=== PATIENT | female | born 1965 | race Caucasian/White ===

== ENCOUNTER 2016-05-23 07:30 | Emergency (ER) | payer MEDICARE, MEDICAID ==
[2016-05-23 08:46] LABS: APPEARANCE,URINE TURBID; BILIRUBIN,URINE NEGATIVE (NEGATIVE); GLUCOSE, URINE NEGATIVE (NEGATIVE); KETONES,URINE NEGATIVE (NEGATIVE); LEUKOCYTE ESTERASE,URINE LARGE (NEGATIVE); NITRITE,URINE NEGATIVE (NEGATIVE); PROTEIN,URINE 30 mg/dL (NEGATIVE); URINE SPECIFIC GRAVITY 1.024; UROBILINOGEN,URINE NEGATIVE mg/dL (<2.0)
[2016-05-23] MEDS ORDERED: LIDOCAINE 1% INJ-PF (10 MG/ML) 30 ML SDV INFIL ONE (09:48)
[2016-05-23] MEDS ORDERED: AZITHROMYCIN 1 GM SUSP PACKET PO ONE (09:48)
[2016-05-23] MEDS ORDERED: CEFTRIAXONE INJ 1000 MG VIAL IM ONE (09:48)
[2016-05-23] MEDS ORDERED: ONDANSETRON ODT 4 MG TAB (6 TAB/DSPK) PO PRN (09:54)
[2016-05-23] MEDS ORDERED: ONDANSETRON 4 MG TAB.RAPDIS PO ONE (09:54)
[2016-05-23] MEDS ORDERED: METRONIDAZOLE 500 MG TABLET PO ONE (09:54)
--- NOTE | 2016-05-23 10:00 | ER Document Report ---
ED General - General Chief Complaint: Vaginal Itching Stated Complaint: PELVIC PAIN TRAVEL OUTSIDE OF THE [place] IN LAST 30 DAYS: No - HPI Patient complains to provider of: vaginal discharge vaginal itching Notes: Patient coming in for vaginal itching vaginal discharge. Patient states recently was on antibiotics for a urinary tract infection. Patient states a history of breast cancer cervical cancer radiation treatments. Patient states this is all in remission. Patient states she used to see urology for urinary tract infections as that she received multiple abnormal throughout year however urologist recently moved away. Patient denies fevers chills nausea vomiting diarrhea. Patient states she is sexually active with one partner. Patient denies a history of STDs. - Related Data Allergies/Adverse Reactions: adhesive [Adhesive] Allergy (Mild, Verified 05/23/16 07:43) Generalized rash methicillin [Methicillin] Allergy (Mild, Verified 05/23/16 07:43) Generalized rash vancomycin [Vancomycin] Allergy (Mild, Verified 05/23/16 07:43) Generalized rash Past Medical History - General Last Menstrual Period: hysterectomy - Social History Smoking Status: Never Smoker Frequency of alcohol use: Occasional Drug Abuse: None Family History: Arthritis, CAD, DM, Hyperlipidemia, Hypertension, Malignancy Patient has suicidal ideation: No Patient has homicidal ideation: No - Past Medical History Cardiac Medical History: Reports: Hx Atrial Fibrillation, Hx Coronary Artery Disease - HIGH CHOLESTEROL, Hx DVT, Hx Hypercholesterolemia, Hx Hypertension, Hx Pulmonary Embolism Denies: Hx Heart Attack Pulmonary Medical History: Reports: Hx Bronchitis, Hx Pneumonia Denies: Hx Asthma, Hx COPD, Hx Tuberculosis Neurological Medical History: Denies: Hx Cerebrovascular Accident, Hx Seizures Endocrine Medical History: Reports: Hx Diabetes Mellitus Type 2 Renal/ Medical History: Denies: Hx Peritoneal Dialysis Malignancy Medical History: Reports: Hx Breast Cancer, Hx Cervical Cancer GI Medical History: Reports: Hx Gastroesophageal Reflux Disease, Hx Hiatal Hernia, Hx Liver Failure - fatty liver Musculoskeltal Medical History: Reports Hx Arthritis - KNEES/BACK, Reports Hx Fibromyalgia Skin Medical History: Reports Hx Psoriasis Psychiatric Medical History: Reports: Hx Anxiety, Hx Bipolar Disorder, Hx Depression Past Surgical History: Reports: Hx Cholecystectomy, Hx Hysterectomy, Hx Mastectomy, Hx Orthopedic Surgery. Denies: Hx Pacemaker - Immunizations Immunizations up to date: Yes Hx Diphtheria, Pertussis, Tetanus Vaccination: Yes - 01/2014 Hx Pneumococcal Vaccination: 04/23/07 Review of Systems - Review of Systems Constitutional: No symptoms reported EENT: No symptoms reported Cardiovascular: No symptoms reported Respiratory: No symptoms reported Gastrointestinal: No symptoms reported Genitourinary: Other - Vaginal itching vaginal discharge dysuria Female Genitourinary: No symptoms reported Musculoskeletal: No symptoms reported Skin: No symptoms reported Hematologic/Lymphatic: No symptoms reported Neurological/Psychological: No symptoms reported Physical Exam - Vital signs Vitals: Temp Pulse Resp BP Pulse Ox 98.2 F 57 L 20 129/78 H 98 05/23/16 07:35 05/23/16 07:35 05/23/16 07:35 05/23/16 07:35 05/23/16 07:35 Interpretation: Normal - General General appearance: Appears well, Alert - HEENT Head: Normocephalic, Atraumatic Eyes: Normal Pupils: PERRL - Respiratory Respiratory status: No respiratory distress Chest status: Nontender Breath sounds: Normal Chest palpation: Normal - Cardiovascular Rhythm: Regular Heart sounds: Normal auscultation Murmur: No - Abdominal Inspection: Normal Distension: No distension Bowel sounds: Normal Tenderness: Nontender Organomegaly: No organomegaly - Genitourinary External exam: Other - Patient has erythema and satellite lesions of the inner thighs and of the female genitalia consistent with a yeast infection. Speculum exam: Other - Mild vaginal discharge yellow to green - Back Back: Normal, Nontender - Extremities General upper extremity: Normal inspection, Nontender, Normal color, Normal ROM , Normal temperature General lower extremity: Normal inspection, Nontender, Normal color, Normal ROM , Normal temperature, Normal weight bearing. No: Shaheen's sign - Neurological Neuro grossly intact: Yes Cognition: Normal Orientation: AAOx4 Karen Coma Scale Eye Opening: Spontaneous Karen Coma Scale Verbal: Oriented Errol Coma Scale Motor: Obeys Commands Errol Coma Scale Total: 15 Speech: Normal Motor strength normal: LUE, RUE, LLE, RLE Sensory: Normal - Psychological Associated symptoms: Normal affect, Normal mood - Skin Skin Temperature: Warm Skin Moisture: Dry Skin Color: Normal Course - Re-evaluation Re-evalutation: 05/23/16 14:44 Patient's results return positive for trichomonas bacterial vaginosis and a urinary tract infection. Encouraged patient to go ahead and receive treatment for gonorrhea and Chlamydia. Patient received a gram of Rocephin which would treat the patient's gonorrhea and urinary tract infection. Patient was given a gram azithromycin patient was given 2 g of Flagyl for her Trichomonas and bacterial vaginosis. We'll start the patient on antibiotics. Patient urinary cultures were reviewed. Patient was encouraged to abstain from sex for 2 weeks. Patient is to follow-up primary care physician - Vital Signs Vital signs: Temp Pulse Resp BP Pulse Ox 97.7 F 68 15 114/61 97 05/23/16 10:27 05/23/16 10:27 05/23/16 10:27 05/23/16 10:27 05/23/16 10:27 - Laboratory Laboratory results interpreted by me: 05/23/16 08:20 Urine Protein 30 H Urine Blood SMALL H Ur Leukocyte Esterase LARGE H Discharge - Discharge Clinical Impression: Trichomonas infection, Vaginal yeast infection, Bacterial vaginosis UTI (urinary tract infection) Qualifiers: Urinary tract infection type: acute cystitis Hematuria presence: with hematuria Qualified Code(s): N30.01 - Acute cystitis with hematuria Condition: Good Disposition: HOME, SELF-CARE Instructions: Nitrofurantoin ([facility]), Urinary Tract Infection ([facility]), Vaginal Yeast Infection ([facility]), Vaginosis, Bacterial ([facility]), Trichomonas Infection ([facility]), Gonorrhea ([facility]), Chlamydia ([facility]) Additional Instructions: Your examination today's consistent with a vaginal yeast infection. We will prescribe happy hiney cream for treatment. Please use as directed Your vaginal swabs also shows signs of bacterial vaginosis and trichomonas. We will treat this with Flagyl. Please take Flagyl tomorrow morning. Because you have a trichomonas infection is a sexually transmitted disease we will go ahead and treat you for gonorrhea and Chlamydia to as well. We'll treat gonorrhea with Rocephin we'll also treat chlamydia with azithromycin. After reviewing your recent urine culture results I will place you on an antibiotic called Macrobid for urinary tract infection. We will also seen your urine for culture here today. I would highly recommend following up with your primary care physician and/or urologist Please abstain from any sexual intercourse for at least 2 weeks. Because you're on antibiotics I will give you a prescription for Diflucan if you are having vaginal itching and discharge near June 06 or 2 weeks from now he may take the Diflucan. Prescriptions: Fluconazole [Diflucan 100 Mg Tablet] 100 mg PO DAILY #1 tablet Miscellaneous Medication [Happy Hiney Cream] 1 applic TOP ASDIR PRN #60 gm PRN Reason: Nitrofurantoin Monohyd/M-Cryst [Macrobid 100 mg Capsule] 100 mg PO BID #20 capsule Referrals: MAGNOLIA ADLER MD [Primary Care Provider] - Follow up in 3-5 days
[2016-05-23 10:26] LABS: CHLAM PCR NOT DETECTED (NOT DETECT)
[2016-05-23 10:31] VITALS: BP 114/61
== END 2016-05-23 10:25 | disposition home or self-care (01) ==
LOC: ER 07:30
DX: A59.01 Trichomonal vulvovaginitis (principal); B37.3 Candidiasis of vulva and vagina; N30.01 Acute cystitis with hematuria; I10 Essential (primary) hypertension; I25.10 Atherosclerotic heart disease of native coronary artery without angina pectoris; E11.9 Type 2 diabetes mellitus without complications; Z85.3 Personal history of malignant neoplasm of breast; Z85.41 Personal history of malignant neoplasm of cervix uteri; Z92.3 Personal history of irradiation; Z91.048 Other nonmedicinal substance allergy status; Z88.1 Allergy status to other antibiotic agents; Z86.711 Personal history of pulmonary embolism; Z86.718 Personal history of other venous thrombosis and embolism
CPT/HCPCS: 99284; 96372; 87210; 81001; 87491; 87591; A9270 ×4; J3490; J0696; Q0144; S0119

== ENCOUNTER 2016-05-28 14:56 | Emergency (ER) | payer MEDICARE, MEDICAID ==
[2016-05-28] MEDS ORDERED: NORMAL SALINE 1000 ML 1,000 ML IV ONE (15:09)
[2016-05-28] MEDS ORDERED: ONDANSETRON 4 MG TAB.RAPDIS PO ONE (15:10)
--- NOTE | 2016-05-28 15:10 | ER Document Report ---
ED Medical Screen (RME) - General Stated Complaint: VOMITING Mode of Arrival: Ambulatory Information source: Patient Notes: Patient reports nausea, vomiting, diarrhea since yesterday. Patient reports low -grade fever at home today. Patient has vomited 6 times today. Patient has had diarrhea numerous times. Patient complains of generalized abdominal pain. Patient also reports she is currently taking Macrobid for UTI. hx: Protein S deficiency, A. fib, hyperlipidemia diabetes, dyslipidemia I have greeted and performed a rapid initial assessment of this patient. A comprehensive ED assessment and evaluation of the patient, analysis of test results and completion of the medical decision making process will be conducted by additional ED providers. TRAVEL OUTSIDE OF THE [place] IN LAST 30 DAYS: No - Related Data Allergies/Adverse Reactions: adhesive [Adhesive] Allergy (Mild, Verified 05/28/16 15:09) Generalized rash methicillin [Methicillin] Allergy (Mild, Verified 05/28/16 15:09) Generalized rash vancomycin [Vancomycin] Allergy (Mild, Verified 05/28/16 15:09) Generalized rash Past Medical History - Past Medical History Cardiac Medical History: Reports: Hx Atrial Fibrillation, Hx Coronary Artery Disease - HIGH CHOLESTEROL, Hx DVT, Hx Hypercholesterolemia, Hx Hypertension, Hx Pulmonary Embolism Denies: Hx Heart Attack Pulmonary Medical History: Reports: Hx Bronchitis, Hx Pneumonia Denies: Hx Asthma, Hx COPD, Hx Tuberculosis Neurological Medical History: Denies: Hx Cerebrovascular Accident, Hx Seizures Endocrine Medical History: Reports: Hx Diabetes Mellitus Type 2 Renal/ Medical History: Denies: Hx Peritoneal Dialysis Malignancy Medical History: Reports: Hx Breast Cancer, Hx Cervical Cancer GI Medical History: Reports: Hx Gastroesophageal Reflux Disease, Hx Hiatal Hernia, Hx Liver Failure - fatty liver Musculoskeltal Medical History: Reports Hx Arthritis - KNEES/BACK, Reports Hx Fibromyalgia Skin Medical History: Reports Hx Psoriasis Psychiatric Medical History: Reports: Hx Anxiety, Hx Bipolar Disorder, Hx Depression Past Surgical History: Reports: Hx Cholecystectomy, Hx Hysterectomy, Hx Mastectomy, Hx Orthopedic Surgery. Denies: Hx Pacemaker - Immunizations Immunizations up to date: Yes Hx Diphtheria, Pertussis, Tetanus Vaccination: Yes - 01/2014 Physical Exam - Abdominal Tenderness: Tender - Generalized abdomen
[2016-05-28 16:50] LABS: ABSOLUTE EOSINOPHILS # (AUTO) 0.1 10^3/uL (0.0-0.6); ABSOLUTE MONOCYTES (AUTO) 0.4 10^3/uL (0.1-1.4); ABSOLUTE NEUT (AUTO) 4.4 10^3/uL (1.7-8.2); BASOPHILS % (AUTO) 0.4 % (0-2); EOSINOPHILS % (AUTO) 1.6 % (0-6); HEMATOCRIT 43.8 % (36.0-47.0); HEMOGLOBIN 14.4 g/dL (12.0-15.5); HGB HCT DIFFERENCE -0.6; LYMPHOCYTES % (AUTO) 17.3 % (13-45); MEAN CORPUSCULAR HEMOGLOBIN 31.6 pg (27.0-33.4); MEAN CORPUSCULAR HGB CONC 32.9 g/dL (32.0-36.0); MEAN CORPUSCULAR VOLUME 96 fl (80-97); MONOCYTES % (AUTO) 6.3 % (3-13); RED BLOOD COUNT 4.56 10^6/uL (3.72-5.28); RED CELL DISTRIBUTION WIDTH 14.7 % (11.5-14.0); SEGMENTED NEUTROPHILS % (AUTO) 74.4 % (42-78)
[2016-05-28 17:01] LABS: ALANINE AMINOTRANSFERASE 79 U/L (9-52); ALBUMIN 3.1 g/dL (3.5-5.0); ALKALINE PHOSPHATASE 66 U/L (38-126); ANION GAP 9 (5-19); ASPARTATE AMINO TRANSFERASE 78 U/L (14-36); BILIRUBIN,TOTAL 0.8 mg/dL (0.2-1.3); BLOOD UREA NITROGEN 16 mg/dL (7-20); CALCIUM 8.3 mg/dL (8.4-10.2); CARBON DIOXIDE 22 mmol/L (22-30); CHLORIDE 112 mmol/L (98-107); CREATININE RESULT 0.93 mg/dL (0.52-1.25); GLUCOSE 90 mg/dL (75-110); SODIUM 142.5 mmol/L (137-145); TOTAL PROTEIN 6.6 g/dL (6.3-8.2)
--- NOTE | 2016-05-28 17:40 | ER Document Report ---
ED GI/ - General Chief Complaint: Vomiting/Diarrhea Stated Complaint: VOMITING Mode of Arrival: Ambulatory Information source: Patient TRAVEL OUTSIDE OF THE [place] IN LAST 30 DAYS: No - HPI Patient complains to provider of: Diarrhea, Vomiting Onset: Yesterday Timing/Duration: Sudden Quality of pain: Cramping Severity at maximum: Moderate Severity in ED: Moderate Context: Other - [employer]. denies: Bad food, Lifting, Out of the country travel, , Recent trauma Location: [place], [place]Q, Other - [facility] Vaginal bleeding (Compared to normal period): None Menstrual period history: denies: Associated symptoms: Diarrhea, Nausea, Sweaty, Vomiting Exacerbated by: Food Relieved by: Denies Similar symptoms previously: Yes - NOT RECENT Recently seen / treated by doctor: No - Related Data Allergies/Adverse Reactions: adhesive [Adhesive] Allergy (Mild, Verified 05/28/16 15:09) Generalized rash methicillin [Methicillin] Allergy (Mild, Verified 05/28/16 15:09) Generalized rash vancomycin [Vancomycin] Allergy (Mild, Verified 05/28/16 15:09) Generalized rash Past Medical History - General Information source: Patient - Social History Smoking Status: Unknown if Ever Smoked Chew tobacco use (# tins/day): No Frequency of alcohol use: Occasional Drug Abuse: None Lives with: Family Family History: Arthritis, CAD, DM, Hyperlipidemia, Hypertension, Malignancy Patient has suicidal ideation: No Patient has homicidal ideation: No - Past Medical History Cardiac Medical History: Reports: Hx Atrial Fibrillation, Hx Coronary Artery Disease - HIGH CHOLESTEROL, Hx DVT, Hx Hypercholesterolemia, Hx Hypertension, Hx Pulmonary Embolism Denies: Hx Heart Attack Pulmonary Medical History: Reports: Hx Bronchitis, Hx Pneumonia Denies: Hx Asthma, Hx COPD, Hx Tuberculosis Neurological Medical History: Denies: Hx Cerebrovascular Accident, Hx Seizures Endocrine Medical History: Reports: Hx Diabetes Mellitus Type 2 Renal/ Medical History: Denies: Hx Peritoneal Dialysis Malignancy Medical History: Reports: Hx Breast Cancer, Hx Cervical Cancer GI Medical History: Reports: Hx Gastroesophageal Reflux Disease, Hx Hiatal Hernia, Hx Liver Failure - fatty liver Musculoskeltal Medical History: Reports Hx Arthritis - KNEES/BACK, Reports Hx Fibromyalgia Skin Medical History: Reports Hx Psoriasis Psychiatric Medical History: Reports: Hx Anxiety, Hx Bipolar Disorder, Hx Depression Past Surgical History: Reports: Hx Cholecystectomy, Hx Hysterectomy, Hx Mastectomy, Hx Orthopedic Surgery. Denies: Hx Pacemaker - Immunizations Immunizations up to date: Yes Hx Diphtheria, Pertussis, Tetanus Vaccination: Yes - 01/2014 Hx Pneumococcal Vaccination: 04/23/07 Review of Systems - Review of Systems Constitutional: See HPI EENT: No symptoms reported Cardiovascular: No symptoms reported Respiratory: No symptoms reported Gastrointestinal: See HPI Genitourinary: No symptoms reported Female Genitourinary: No symptoms reported Musculoskeletal: See HPI Skin: No symptoms reported Neurological/Psychological: No symptoms reported -: Yes All other systems reviewed and negative Physical Exam - Vital signs Vitals: Temp Pulse Resp BP Pulse Ox 98.8 F 88 16 126/57 H 98 05/28/16 18:42 05/28/16 18:42 05/28/16 18:42 05/28/16 18:42 05/28/16 18:42 Interpretation: Normal. No: Tachycardic, Tachypneic, Febrile - General General appearance: Appears well, Alert In distress: None - HEENT Head: Normocephalic Eyes: Normal Conjunctiva: Normal Ears: Normal Nasal: Normal Mouth/Lips: Normal Mucous membranes: Dry - MILDLY Pharynx: Normal Neck: Normal - Respiratory Respiratory status: No respiratory distress Breath sounds: Normal - Cardiovascular Rhythm: Regular. No: Tachycardia Heart sounds: Normal auscultation Murmur: No - Abdominal Inspection: Obese Bowel sounds: Normal Tenderness: Tender - SLIGHT, GENERALIZED - Extremities General upper extremity: Normal inspection General lower extremity: Normal inspection - Neurological Neuro grossly intact: Yes Cognition: Normal Orientation: AAOx4 - Psychological Associated symptoms: Normal affect, Normal mood - Skin Skin Temperature: Warm Skin Moisture: Dry Skin Color: Normal Skin Turgor: Elastic Course - Re-evaluation Re-evalutation: 05/28/16 21:37 Patient states nausea is minimally improved after Reglan. Still complaining of abdominal pain, although this too is improved. Results of laboratory tests discussed with patient and family. - Vital Signs Vital signs: Temp Pulse Resp BP Pulse Ox 98.8 F 88 16 126/57 H 98 05/28/16 18:42 05/28/16 18:42 05/28/16 18:42 05/28/16 18:42 05/28/16 18:42 - Laboratory Result Diagrams: 05/28/16 16:25 05/28/16 16:25 Laboratory results interpreted by me: 05/28/16 05/28/16 05/28/16 16:25 16:25 17:55 RDW 14.7 H Chloride 112 H Calcium 8.3 L AST 78 H ALT 79 H Albumin 3.1 L Urine Protein 30 H Discharge - Discharge Clinical Impression: Gastroenteritis, Dehydration Condition: Stable Disposition: HOME, SELF-CARE Instructions: Gastroenteritis (adult) ([facility]), Intravenous (IV) Fluids ([facility]), Antinausea Medication ([facility]), Dehydration ([facility]), Clear Liquid Diet ([facility]) Additional Instructions: CLEAR LIQUID DIET UNTIL NAUSEA RESOLVES, THEN GRADUALLY ADVANCE DIET. TAKE PHENERGAN DIRECTED, NEEDED FOR NAUSEA CONTROL. CONTINUE YOUR USUAL MEDS. FOLLOW UP WITH YOUR PRIMARY CARE PROVIDER THIS WEEK, CALL TOMORROW FOR APPOINTMENT. RETURN TO E.R. FOR RE-EVALUATION IF YOU FEEL YOURSELF GETTING WORSE IN ANY WAY. Prescriptions: Promethazine HCl [Phenergan 25 mg Tablet] 25 - 50 mg PO ASDIR PRN #12 tablet PRN Reason: For Nausea/Vomiting Referrals: MAGNOLIA ADLER MD [Primary Care Provider] - Follow up in 3-5 days
[2016-05-28] MEDS ORDERED: METOCLOPRAMIDE HCL INJ/PF 10 MG/2 ML SDV IV ONE (18:50)
[2016-05-28] MEDS ORDERED: DIPHENHYDRAMINE HCL 50 MG/ML VIAL IV ONE (18:50)
[2016-05-28 18:52] LABS: APPEARANCE,URINE CLOUDY; BILIRUBIN,URINE NEGATIVE (NEGATIVE); GLUCOSE, URINE NEGATIVE (NEGATIVE); KETONES,URINE NEGATIVE (NEGATIVE); LEUKOCYTE ESTERASE,URINE NEGATIVE (NEGATIVE); NITRITE,URINE NEGATIVE (NEGATIVE); PROTEIN,URINE 30 mg/dL (NEGATIVE); URINE SPECIFIC GRAVITY 1.036; UROBILINOGEN,URINE NEGATIVE mg/dL (<2.0)
[2016-05-28] MEDS ORDERED: PROMETHAZINE HCL 25 MG TABLET PO ONE ×2 (21:36→23:06)
[2016-05-29 00:58] VITALS: BP 103/59
== END 2016-05-29 00:15 | disposition home or self-care (01) ==
LOC: ER 14:56
DX: E86.0 Dehydration (principal); K52.9 Noninfective gastroenteritis and colitis, unspecified; R11.10 Vomiting, unspecified; R19.7 Diarrhea, unspecified; I48.91 Unspecified atrial fibrillation; I25.10 Atherosclerotic heart disease of native coronary artery without angina pectoris; E78.00 Pure hypercholesterolemia, unspecified; I10 Essential (primary) hypertension; E11.9 Type 2 diabetes mellitus without complications; Z86.711 Personal history of pulmonary embolism; Z85.3 Personal history of malignant neoplasm of breast; Z85.41 Personal history of malignant neoplasm of cervix uteri; Z88.3 Allergy status to other anti-infective agents; Z86.718 Personal history of other venous thrombosis and embolism; Z90.49 Acquired absence of other specified parts of digestive tract; Z90.710 Acquired absence of both cervix and uterus; Z90.10 Acquired absence of unspecified breast and nipple
CPT/HCPCS: 36591; 99284; 96374; 96375; 36415; 87086; 83690; 85025; 80053; 81001; J1200; A9270 ×2; J2765; S0119

== ENCOUNTER → 2016-05-30 | Outpatient (CLI) | payer MEDICARE, MEDICAID | LOC: OD 15:11 | PROVIDERS: ATTEND Physician Assistant | DX: R10.9 Unspecified abdominal pain (principal) | CPT/HCPCS: 74022 ==

== ENCOUNTER → 2016-06-05 | Outpatient (CLI) | payer MEDICARE, MEDICAID | LOC: OD 12:48 | PROVIDERS: ATTEND Family Medicine | DX: K52.9 Noninfective gastroenteritis and colitis, unspecified (principal) | CPT/HCPCS: 74000 ==

== ENCOUNTER 2016-08-10 19:00 | Emergency (ER) | payer MEDICARE, MEDICAID ==
[2016-08-10] MEDS ORDERED: OXYCODONE-ACETAMINOPHEN 5-325 MG TABLET PO ONE (20:41)
[2016-08-10] MEDS ORDERED: ONDANSETRON 4 MG TAB.RAPDIS PO ONE (20:41)
--- NOTE | 2016-08-10 20:41 | ER Document Report ---
ED Medical Screen (RME) - General Chief Complaint: Fall Injury Stated Complaint: FALL/LEFT HAND PAIN Notes: This 51-year-old female patient reports tripping when she left colon ground this evening and landing on her left hand. She injured the hand and the fifth finger. She also had abrasions to the left face. Tetanus status is up-to-date. I have greeted and performed a rapid initial assessment of this patient. A comprehensive ED assessment and evaluation of the patient, analysis of test results and completion of the medical decision making process will be conducted by additional ED providers. TRAVEL OUTSIDE OF THE [place] IN LAST 30 DAYS: No - Related Data Allergies/Adverse Reactions: adhesive [Adhesive] Allergy (Mild, Verified 05/28/16 15:09) Generalized rash methicillin [Methicillin] Allergy (Mild, Verified 05/28/16 15:09) Generalized rash vancomycin [Vancomycin] Allergy (Mild, Verified 05/28/16 15:09) Generalized rash Past Medical History - Past Medical History Cardiac Medical History: Reports: Hx Atrial Fibrillation, Hx Coronary Artery Disease - HIGH CHOLESTEROL, Hx DVT, Hx Hypercholesterolemia, Hx Hypertension, Hx Pulmonary Embolism Denies: Hx Heart Attack Pulmonary Medical History: Reports: Hx Bronchitis, Hx Pneumonia Denies: Hx Asthma, Hx COPD, Hx Tuberculosis Neurological Medical History: Denies: Hx Cerebrovascular Accident, Hx Seizures Endocrine Medical History: Reports: Hx Diabetes Mellitus Type 2 Renal/ Medical History: Denies: Hx Peritoneal Dialysis Malignancy Medical History: Reports: Hx Breast Cancer, Hx Cervical Cancer GI Medical History: Reports: Hx Gastroesophageal Reflux Disease, Hx Hiatal Hernia, Hx Liver Failure - fatty liver Musculoskeltal Medical History: Reports Hx Arthritis - KNEES/BACK, Reports Hx Fibromyalgia Skin Medical History: Reports Hx Psoriasis Psychiatric Medical History: Reports: Hx Anxiety, Hx Bipolar Disorder, Hx Depression Past Surgical History: Reports: Hx Cholecystectomy, Hx Hysterectomy, Hx Mastectomy, Hx Orthopedic Surgery. Denies: Hx Pacemaker - Immunizations Immunizations up to date: Yes Hx Diphtheria, Pertussis, Tetanus Vaccination: Yes - 01/2014
--- NOTE | 2016-08-10 23:02 | ER Document Report ---
ED Fall - General Chief Complaint: Fall Injury Stated Complaint: FALL/LEFT HAND PAIN Time seen by provider: 23:01 Notes: Patient is a 51-year-old female that comes emergency department for chief complaint of pain to her left hand, she states she tripped and fell forward, catching himself on the ground with her left hand, she states she also scraped the left upper part of her face, she states she did not hit her head hard, denies headache, denies neck pain, denies loss of consciousness, denies vomiting. Patient is up-to-date on her tetanus within 5 years reportedly. Patient denies any other areas of pain. Patient denies a blood thinner other than regular aspirin. TRAVEL OUTSIDE OF THE [place] IN LAST 30 DAYS: No - Related data Allergies/Adverse Reactions: adhesive [Adhesive] Allergy (Mild, Verified 08/10/16 21:02) Generalized rash methicillin [Methicillin] Allergy (Mild, Verified 08/10/16 21:02) Generalized rash vancomycin [Vancomycin] Allergy (Mild, Verified 08/10/16 21:02) Generalized rash Past Medical History - General Information source: Patient - Social History Smoking Status: Never Smoker Frequency of alcohol use: None Drug Abuse: None Lives with: Family Family History: Arthritis, CAD, DM, Hyperlipidemia, Hypertension, Malignancy - Past Medical History Cardiac Medical History: Reports: Hx Atrial Fibrillation, Hx Coronary Artery Disease - HIGH CHOLESTEROL, Hx DVT, Hx Hypercholesterolemia, Hx Hypertension, Hx Pulmonary Embolism Denies: Hx Heart Attack Pulmonary Medical History: Reports: Hx Bronchitis, Hx Pneumonia Denies: Hx Asthma, Hx COPD, Hx Tuberculosis Neurological Medical History: Denies: Hx Cerebrovascular Accident, Hx Seizures Endocrine Medical History: Reports: Hx Diabetes Mellitus Type 2 Renal/ Medical History: Denies: Hx Peritoneal Dialysis Malignancy Medical History: Reports: Hx Breast Cancer, Hx Cervical Cancer GI Medical History: Reports: Hx Gastroesophageal Reflux Disease, Hx Hiatal Hernia, Hx Liver Failure - fatty liver Musculoskeltal Medical History: Reports Hx Arthritis - KNEES/BACK, Reports Hx Fibromyalgia Skin Medical History: Reports Hx Psoriasis Psychiatric Medical History: Reports: Hx Anxiety, Hx Bipolar Disorder, Hx Depression Past Surgical History: Reports: Hx Cholecystectomy, Hx Hysterectomy, Hx Mastectomy, Hx Orthopedic Surgery. Denies: Hx Pacemaker - Immunizations Immunizations up to date: Yes Hx Diphtheria, Pertussis, Tetanus Vaccination: Yes - 01/2014 Hx Pneumococcal Vaccination: 04/23/07 Review of Systems - Review of Systems Constitutional: No symptoms reported EENT: No symptoms reported Cardiovascular: No symptoms reported Respiratory: No symptoms reported Gastrointestinal: No symptoms reported Genitourinary: No symptoms reported Female Genitourinary: No symptoms reported Musculoskeletal: See HPI Skin: See HPI Hematologic/Lymphatic: No symptoms reported Neurological/Psychological: No symptoms reported Physical Exam - Vital signs Interpretation: Normal - General General appearance: Appears well, Alert In distress: None - Alert, talkative, smiling - HEENT Head: Normocephalic, Abrasions - There is an abrasion to the left upper zygomatic region which is very small, not bleeding, no other wounds or signs injury is noted, no soft tissue swelling Eyes: Normal Conjunctiva: Normal Extraocular movements intact: Yes Eyelashes: Normal Pupils: PERRL Ears: Normal External canal: Normal Tympanic membrane: Normal Sinus: Normal Nasal: Normal Mouth/Lips: Normal Mucous membranes: Normal Pharynx: Normal Neck: Normal - Respiratory Respiratory status: No respiratory distress Chest status: Nontender Breath sounds: Normal Chest palpation: Normal - Cardiovascular Rhythm: Regular Heart sounds: Normal auscultation Murmur: No - Abdominal Inspection: Normal Distension: No distension Bowel sounds: Normal Tenderness: Nontender Organomegaly: No organomegaly - Back Back: Normal, Nontender - Extremities General upper extremity: Other - There is ecchymosis and soft tissue swelling at the base of the left fourth and fifth digits, tenderness to the area, wrist, elbow, shoulder exam is unremarkable, normal capillary refill and sensation, normal radial pulse, no other signs of injury. General lower extremity: Normal inspection, Nontender, Normal color, Normal ROM , Normal temperature, Normal weight bearing. No: Shaheen's sign - Neurological Neuro grossly intact: Yes Cognition: Normal Orientation: AAOx4 Karen Coma Scale Eye Opening: Spontaneous Karen Coma Scale Verbal: Oriented [place] Coma Scale Motor: Obeys Commands [place] Coma Scale Total: 15 Speech: Normal Motor strength normal: LUE, RUE, LLE, RLE Sensory: Normal - Psychological Associated symptoms: Normal affect, Normal mood - Skin Skin Temperature: Warm Skin Moisture: Dry Skin Color: Normal Course - Re-evaluation Re-evalutation: X-ray shows distal fifth metacarpal fracture of the left hand, no displacement, no other abnormalities. Patient with a small abrasion of the face but no evidence of significant head injury, no concerning symptoms, normal neurological exam. Patient will be placed in splint, referred to orthopedics, provided with pain medication, discussed abrasion and fracture treatment, discussed return precautions, patient and family member at bedside state understanding and agreement Procedures - Immobilization left hand Pre-Proc Neuro Vasc Exam: Normal Immobilizer type: Ulnar - Ulnar gutter/boxer Performed by: PCT Post-Proc Neuro Vasc Exam: Normal Alignment checked and good: Yes Discharge - Discharge Clinical Impression: Fracture of fifth metacarpal bone Qualifiers: Encounter type: initial encounter Fracture type: closed Metacarpal location: neck Fracture alignment: nondisplaced Laterality: left Qualified Code(s): S62.367A - Nondisplaced fracture of neck of fifth metacarpal bone, left hand, initial encounter for closed fracture Facial abrasion Qualifiers: Encounter type: initial encounter Qualified Code(s): S00.81XA - Abrasion of other part of head, initial encounter Condition: Stable Disposition: HOME, SELF-CARE Additional Instructions: There is a fracture in the bone of her hand attached to the little finger. Wear the splint, take the pain medication as prescribed if needed, take the stool softener if needed to prevent constipation from the pain medicine. Follow-up closely with orthopedics, see referral. Keep the abrasion on her face clean, apply Neosporin or bacitracin. Return to the emergency department for any concerning symptoms. Prescriptions: Oxycodone HCl/Acetaminophen [Percocet 5-325 mg Tablet] 1 - 2 tab PO Q4H PRN #20 tablet PRN Reason: Referrals: DIPTI PRIETO MD [ACTIVE STAFF] - Follow up tomorrow
== END 2016-08-10 23:44 | disposition home or self-care (01) ==
LOC: ER 19:00
PROC: 2W3DX1Z Immobilization of Left Lower Arm using Splint (ICD-10-PCS; principal; 2016-08-10)
DX: S62.367A Nondisplaced fracture of neck of fifth metacarpal bone, left hand, initial encounter for closed fracture (principal); S00.81XA Abrasion of other part of head, initial encounter; W19.XXXA Unspecified fall, initial encounter; E11.9 Type 2 diabetes mellitus without complications; I25.10 Atherosclerotic heart disease of native coronary artery without angina pectoris; I10 Essential (primary) hypertension; Z86.711 Personal history of pulmonary embolism; Z86.718 Personal history of other venous thrombosis and embolism; Z91.048 Other nonmedicinal substance allergy status; Z88.1 Allergy status to other antibiotic agents; Z85.3 Personal history of malignant neoplasm of breast; Z85.41 Personal history of malignant neoplasm of cervix uteri
CPT/HCPCS: 99283

== ENCOUNTER → 2016-08-28 | Outpatient (CLI) | payer MEDICARE, MEDICAID | LOC: OD 13:32 | PROVIDERS: ATTEND Family Medicine | DX: M79.642 Pain in left hand (principal); R20.2 Paresthesia of skin | CPT/HCPCS: 72110 ==

== ENCOUNTER → 2016-10-13 | Outpatient (CLI) | payer MEDICARE, MEDICAID ==
[2016-10-13 12:35] LABS: ANION GAP 11 (5-19); BLOOD UREA NITROGEN 19 mg/dL (7-20); CALCIUM 9.3 mg/dL (8.4-10.2); CARBON DIOXIDE 22 mmol/L (22-30); CHLORIDE 109 mmol/L (98-107); CREATININE RESULT 1.04 mg/dL (0.52-1.25); GLUCOSE 109 mg/dL (75-110); POTASSIUM 4.3 mmol/L (3.6-5.0); SODIUM 141.7 mmol/L (137-145)
== END ==
LOC: OD 11:23
PROVIDERS: ATTEND Internal Medicine
DX: I48.0 Paroxysmal atrial fibrillation (principal); Z01.810 Encounter for preprocedural cardiovascular examination; I10 Essential (primary) hypertension; R06.02 Shortness of breath; E78.4 Other hyperlipidemia; I49.49 Other premature depolarization; I95.1 Orthostatic hypotension; M15.9 Polyosteoarthritis, unspecified; E11.9 Type 2 diabetes mellitus without complications; I26.99 Other pulmonary embolism without acute cor pulmonale; Z79.899 Other long term (current) drug therapy
CPT/HCPCS: 36415; 80048

== ENCOUNTER → 2016-10-23 | Outpatient (CLI) | payer MEDICARE, MEDICAID ==
--- NOTE | 2016-10-23 15:10 | RADIOLOGY REPORT (SQ) ---
EXAM DESCRIPTION: NM WHOLE BODY BONE SCAN COMPLETED DATE/TIME: 10/23/2016 2:56 pm REASON FOR STUDY: BREAST CA C50.919 MALIGNANT NEOPLASM OF UNSP SITE OF UNSPECIFIED FEMAL COMPARISON: No available imaging studies for comparison. RADIONUCLIDE AND DOSE: 21.7 millicuries Tc99m HDP The route of agent administration: Intravenous. ADDITIONAL DRUGS AND DOSES: None. TECHNIQUE: Routine delayed images at 3 hour post radionuclide injection acquired of the bony skeleto n including anterior and posterior whole-body projections and additional focused images as needed. LIMITATIONS: None. FINDINGS: BONES: Normal visualization without significant areas of photopenia or increased bony upta ke of radiopharmaceutical. KIDNEYS: Symmetric excretion without obstruction. OTHER: Bilateral knee arthroplasty. IMPRESSION: No evidence of metastatic disease. COMMENT: PQRS 3570F: Current bone scan is compared with any available plain radiographs, prior bone scans, and CT/MRI. TECHNICAL DOCUMENTATION: JOB ID: [id number] [employer]- All Rights Reserved
== END ==
LOC: RAD 09:38
PROVIDERS: ATTEND Internal Medicine Medical Oncology
DX: C50.919 Malignant neoplasm of unspecified site of unspecified female breast (principal)
CPT/HCPCS: 78306; A9561; Q9969

== ENCOUNTER → 2016-10-27 | Outpatient (CLI) | payer MEDICARE, MEDICAID ==
--- NOTE | 2016-10-27 13:33 | RADIOLOGY REPORT (SQ) ---
EXAM DESCRIPTION: VENOUS BILATERAL LOWER COMPLETED DATE/TIME: 10/27/2016 12:56 pm REASON FOR STUDY: POLYOSTEOARTHRITIS C50.919 MALIGNANT NEOPLASM OF UNSP SITE OF UNSPECIFIED FEMAL M 15.9 POLYOSTEOARTHRITIS, UNSPECIFIED COMPARISON: None. TECHNIQUE: Dynamic and static cordoba scale and color images acquired of both lower extremity venous sy stems. Selected spectral images acquired with additional compression and augmentation maneuvers. Imag es stored on PACS. LIMITATIONS: Right peroneal veins not well seen due to body habitus FINDINGS: RIGHT LEG COMMON FEMORAL AND FEMORAL: Normal phasicity, compression and augmentation. No visualized echogenic m aterial on cordoba scale. No defects on color images. POPLITEAL: Normal compression and augmentation. No visualized echogenic material on cordoba scale. No de fects on color images. CALF VESSELS: Normal compression and augmentation. No visualized echogenic material on cordoba scale. No defects on color image. GSV AND SSV: Normal compression. No visualized echogenic material on cordoba scale. No defects on color images. ANY DEEP VENOUS INSUFFICIENCY: Not evaluated. ANY EVIDENCE OF POPLITEAL CYST: No. OTHER: No other significant finding. LEFT LEG COMMON FEMORAL AND FEMORAL: Normal phasicity, compression and augmentation. No visualized echogenic m aterial on cordoba scale. No defects on color images. POPLITEAL: Normal compression and augmentation. No visualized echogenic material on cordoba scale. No de fects on color images. CALF VESSELS: Normal compression and augmentation. No visualized echogenic material on cordoba scale. No defects on color images. GSV AND SSV: Normal compression. No visualized echogenic material on cordoba scale. No defects on color images. ANY DEEP VENOUS INSUFFICIENCY: Not evaluated. ANY EVIDENCE POPLITEAL CYST: No. OTHER: No other significant finding. IMPRESSION: NO EVIDENCE DVT OR SVT IN EITHER LEG. TECHNICAL DOCUMENTATION: JOB ID: [id number] [employer]- All Rights Reserved
--- NOTE | 2016-10-30 10:18 | RADIOLOGY REPORT (SQ) ---
EXAM DESCRIPTION: PET CT SKULL/THIGH COMPLETED DATE/TIME: 10/27/2016 8:34 pm REASON FOR STUDY: BREAST CANCER C50.919 MALIGNANT NEOPLASM OF UNSP SITE OF UNSPECIFIED FEMAL M15.9 POLYOSTEOARTHRITIS, UNSPECIFIED COMPARISON: Prior PET-CT 05/28/2011, 04/19/2012. Bone scan 10/23/2016. CT chest 2015. RADIONUCLIDE AND DOSE: 14.77 mCi F18 FDG The route of agent administration: Intravenous FASTING BLOOD SUGAR: 9 1 mg/dl CONTRAST TYPE AND DOSE: No CT contrast given. TECHNIQUE: Blood glucose level was verified. Above dose of FDG was injected intravenously. 2-D seg mented attenuation correction images were obtained from the base of the skull to the midthighs. Nonc ontrast CT images were obtained for attenuation correction and fusion with emission images. CT image s were performed without oral or intravenous contrast and are not sensitive for parenchymal lesions. A series of overlapping emission PET images were obtained. Images reviewed and manipulated at [facility] work station by the radiologist. Images stored on PACS. LIMITATIONS: None. FINDINGS: HEAD AND NECK: No areas of abnormal metabolic activity in the soft tissues of the head and neck. Activity in muscle and brown fat. CHEST: No areas of abnormal metabolic activity in the chest. ABDOMEN AND PELVIS: No areas of abnormal metabolic activity in the abdomen or pelvis. Expected physi ologic activity is present in the genitourinary system and bowel. PROXIMAL LOWER EXTREMITIES: No areas of abnormal metabolic activity in the soft tissues of the lower extremities. BONES: No abnormal metabolic activity in the visualized skeleton. ADDITIONAL CT FINDINGS: No additional significant findings on the noncontrast CT images. Vena caval umbrella. OTHER: No other significant findings. IMPRESSION: No evidence for recurrent or metastatic disease. TECHNICAL DOCUMENTATION: JOB ID: [id number] [employer]- All Rights Reserved
== END ==
LOC: SP 10:40
PROVIDERS: ATTEND Specialist
DX: C50.919 Malignant neoplasm of unspecified site of unspecified female breast (principal); R91.8 Other nonspecific abnormal finding of lung field; Z90.13 Acquired absence of bilateral breasts and nipples; Z85.3 Personal history of malignant neoplasm of breast
CPT/HCPCS: 93970; 78815; A9552

== ENCOUNTER → 2016-12-05 | Outpatient (CLI) | payer MEDICARE, MEDICAID ==
--- NOTE | 2016-12-05 12:34 | RADIOLOGY REPORT (SQ) ---
EXAM DESCRIPTION: CT ABD/PELVIS NO ORAL OR IV COMPLETED DATE/TIME: 12/05/2016 12:14 pm REASON FOR STUDY: UNSPECIFIED ABDOMINAL PAIN R06.2 WHEEZING R10.9 UNSPECIFIED ABDOMINAL PAIN COMPARISON: PET-CT 04/19/2012, 05/28/2011 Bone scan 10/23/2016 CT abdomen pelvis 02/15/2007, 05/22/2010, 12/10/2014, 12/17/2014, 01/05/2015 TECHNIQUE: CT scan of the abdomen and pelvis performed without intravenous or oral contrast. Images reviewed with lung, soft tissue, and bone windows. Reconstructed coronal and sagittal MPR images revi ewed. All images stored on PACS. All CT scanners at this facility use dose modulation, iterative reconstruction, and/or weight based d osing when appropriate to reduce radiation dose to as low as reasonably achievable (ALARA). [facility]: Dose Right [facility]: CareDose [facility]: Dose Right [facility]: Teradose 4D [facility]: Stamped RADIATION DOSE: Up-to-date CT equipment and radiation dose reduction techniques were employed. CTDIv ol: 30.0 mGy. DLP: 1604 mGy-cm.mGy. LIMITATIONS: No oral or IV contrast FINDINGS: LOWER CHEST: Lung bases are free of focal infiltrates. Bilateral mastectomy. NON-CONTRASTED LIVER, SPLEEN, ADRENALS: Evaluation limited by lack of IV contrast. No identified sign ificant masses. PANCREAS: No masses. No peripancreatic inflammatory changes. GALLBLADDER: Surgically absent RIGHT KIDNEY AND URETER: No suspicious masses. Assessment limited by lack of IV contrast. No signif icant calcifications. No hydronephrosis or hydroureter. LEFT KIDNEY AND URETER: No suspicious masses. Assessment limited by lack of IV contrast. No signifi cant calcifications. No hydronephrosis or hydroureter. AORTA AND RETROPERITONEUM: No aneurysm. No retroperitoneal masses or adenopathy. Inferior vena cava filter unchanged BOWEL AND PERITONEAL CAVITY: No obvious masses or inflammatory changes. No free fluid. APPENDIX: Not identified. No pericecal inflammatory change. PELVIS, BLADDER, AND ABDOMINAL WALL:No abnormal masses. No free fluid. Bladder normal. Post hysterec darío. BONES: No significant findings. OTHER: The right chest permanent central line was accessed, however we were unable to use this for CT power injection because of resistance to injection of saline. Access was maintained for ventilation -perfusion scan IMPRESSION: No CT findings to explain history of abdominal pain. TECHNICAL DOCUMENTATION: JOB ID: [id number] Quality ID # [id number]: Final reports with documentation of one or more dose reduction techniques (e.g., Au tomated exposure control, adjustment of the mA and/or kV according to patient size, use of iterative reconstruction technique) 2010 [employer]- All Rights Reserved
--- NOTE | 2016-12-05 12:36 | RADIOLOGY REPORT (SQ) ---
EXAM DESCRIPTION: CHEST PA/LAT COMPLETED DATE/TIME: 12/05/2016 12:21 pm REASON FOR STUDY: SHORTNESS OR BREATH COMPARISON: CT angio chest 08/22/2015 Chest films 08/28/2015, 02/07/2016 EXAM PARAMETERS: NUMBER OF VIEWS: two views TECHNIQUE: Digital Frontal and Lateral radiographic views of the chest acquired. RADIATION DOSE: NA LIMITATIONS: Motion artifact on lateral film from long exposure FINDINGS: LUNGS AND PLEURA: No opacities, masses or pneumothorax. No pleural effusion. MEDIASTINUM AND HILAR STRUCTURES: No masses or contour abnormalities. HEART AND VASCULAR STRUCTURES: Stable cardiomegaly BONES: Osteoporotic. No acute findings HARDWARE: Right-sided central venous catheter tip in the superior vena cava. Surgical clips bilatera l axillary post mastectomy. Implanted cardiac monitoring device over the anterior left chest wall OTHER: No other significant finding. IMPRESSION: No acute changes TECHNICAL DOCUMENTATION: JOB ID: [id number] [employer]- All Rights Reserved
[2016-12-05 14:00] LABS: ABSOLUTE BASOPHILS # (AUTO) 0.1 10^3/uL (0.0-0.2); ABSOLUTE EOSINOPHILS # (AUTO) 0.4 10^3/uL (0.0-0.6); ABSOLUTE LYMPHOCYTES (AUTO) 2.3 10^3/uL (0.5-4.7); ABSOLUTE MONOCYTES (AUTO) 0.8 10^3/uL (0.1-1.4); ABSOLUTE NEUT (AUTO) 3.9 10^3/uL (1.7-8.2); BASOPHILS % (AUTO) 1.1 % (0-2); EOSINOPHILS % (AUTO) 4.9 % (0-6); HEMATOCRIT 41.6 % (36.0-47.0); HEMOGLOBIN 13.7 g/dL (12.0-15.5); HGB HCT DIFFERENCE -0.5; LYMPHOCYTES % (AUTO) 31.1 % (13-45); MEAN CORPUSCULAR HEMOGLOBIN 31.5 pg (27.0-33.4); MEAN CORPUSCULAR HGB CONC 32.9 g/dL (32.0-36.0); MEAN CORPUSCULAR VOLUME 96 fl (80-97); MONOCYTES % (AUTO) 11.2 % (3-13); RED BLOOD COUNT 4.34 10^6/uL (3.72-5.28); RED CELL DISTRIBUTION WIDTH 15.2 % (11.5-14.0); SEGMENTED NEUTROPHILS % (AUTO) 51.7 % (42-78); WHITE BLOOD COUNT 7.5 10^3/uL (4.0-10.5)
--- NOTE | 2016-12-05 14:12 | RADIOLOGY REPORT (SQ) ---
EXAM DESCRIPTION: NM LUNG VENT/PERF SCAN COMPLETED DATE/TIME: 12/05/2016 1:45 pm REASON FOR STUDY: SHORTNESS OF BREATH R06.2 WHEEZING R10.9 UNSPECIFIED ABDOMINAL PAIN COMPARISON: Two-view chest 12/05/2016 RADIONUCLIDE AND DOSE: 5.0 millicuries TC-99m MAA Intravenous 32.2 millicuries TC-99m DTPA Inhaled aerosol TECHNIQUE: Eight views of the lungs acquired post ventilation of DTPA aerosol. Eight matching views of the lungs acquired following injection of MAA. LIMITATIONS: None. FINDINGS: VENTILATION: Symmetric and homogeneous distribution of DTPA aerosol during ventilatory pha se. No significant areas of photopenia. PERFUSION: Perfusion images with normal homogenous activity and no wedge-shaped or segmental defects. No ventilation-perfusion mismatches. OTHER: No other significant finding. IMPRESSION: NORMAL VENTILATION-PERFUSION LUNG SCAN. NEGATIVE FOR PULMONARY EMBOLI. TECHNICAL DOCUMENTATION: JOB ID: [id number] [employer]- All Rights Reserved
[2016-12-05 14:32] LABS: ALANINE AMINOTRANSFERASE 61 U/L (9-52); ALBUMIN 3.7 g/dL (3.5-5.0); ALKALINE PHOSPHATASE 99 U/L (38-126); ANION GAP 9 (5-19); ASPARTATE AMINO TRANSFERASE 74 U/L (14-36); BILIRUBIN,DIRECT 0.4 mg/dL (0.0-0.4); BILIRUBIN,TOTAL 0.7 mg/dL (0.2-1.3); BLOOD UREA NITROGEN 16 mg/dL (7-20); CALCIUM 9.3 mg/dL (8.4-10.2); CARBON DIOXIDE 28 mmol/L (22-30); CHLORIDE 104 mmol/L (98-107); GLUCOSE 86 mg/dL (75-110); POTASSIUM 4.8 mmol/L (3.6-5.0); SODIUM 141.4 mmol/L (137-145); TOTAL PROTEIN 6.8 g/dL (6.3-8.2)
== END ==
LOC: RAD 11:12
PROVIDERS: ATTEND Physician Assistant
DX: R06.02 Shortness of breath (principal); R06.2 Wheezing; R10.9 Unspecified abdominal pain
CPT/HCPCS: 36415; 85025; 80053; 82565; 71020; 78582; 74176; A9540; A9567; Q9969

== ENCOUNTER → 2016-12-12 | Outpatient (CLI) | payer MEDICARE, MEDICAID ==
--- NOTE | 2016-12-12 17:02 | RADIOLOGY REPORT (SQ) ---
EXAM DESCRIPTION: LUMBAR SPINE COMPLETE COMPLETED DATE/TIME: 12/12/2016 3:33 pm REASON FOR STUDY: LOW BACK PAIN M54.5 LOW BACK PAIN COMPARISON: 08/28/2016 NUMBER OF VIEWS: Five views including obliques. TECHNIQUE: AP, lateral, oblique, and sacral radiographic images acquired of the lumbar spine. LIMITATIONS: None. FINDINGS: MINERALIZATION: Normal. SEGMENTATION: Normal. No transitional anatomy. ALIGNMENT: Normal. VERTEBRAE: Maintained height. No fracture or worrisome bone lesion. DISCS: Disc degeneration proximal spine with associated hypertrophic spurring. POSTERIOR ELEMENTS: Facet arthropathy at L4-L5 and L5-S1. HARDWARE: None in the spine. PARASPINAL SOFT TISSUES: Normal. PELVIS: Intact as visualized. No fractures or worrisome bone lesions. SI joints intact. OTHER: No other significant finding. IMPRESSION: No acute findings and no interval change since the previous study. Disc degeneration pr oximal lumbar spine and scattered hypertrophic spurring. Facet arthropathy lower lumbar spine. TECHNICAL DOCUMENTATION: JOB ID: [id number] [employer]- All Rights Reserved
== END ==
LOC: OD 15:19
PROVIDERS: ATTEND Physician Assistant
DX: M54.5 Low back pain (principal)
CPT/HCPCS: 72110

== ENCOUNTER → 2016-12-14 | Outpatient (CLI) | payer MEDICARE, MEDICAID ==
--- NOTE | 2016-12-14 12:22 | RADIOLOGY REPORT (SQ) ---
EXAM DESCRIPTION: CHEST PA/LATERAL COMPLETED DATE/TIME: 12/14/2016 12:14 pm REASON FOR STUDY: PERSONAL HISTORY OF PULMONARY EMBOLISM COMPARISON: Two-view chest 02/07/2016, 12/05/2016 PET-CT 10/27/2016 EXAM PARAMETERS: NUMBER OF VIEWS: two views TECHNIQUE: Digital Frontal and Lateral radiographic views of the chest acquired. RADIATION DOSE: NA LIMITATIONS: none FINDINGS: LUNGS AND PLEURA: No opacities, masses or pneumothorax. No pleural effusion. MEDIASTINUM AND HILAR STRUCTURES: No masses or contour abnormalities. HEART AND VASCULAR STRUCTURES: Stable moderate cardiomegaly. BONES: Osteopenic. Diffuse thoracic spondylotic change HARDWARE: Right permanent central line tip superior vena cava. Implanted left cardiac monitoring dev ice anterior chest wall. Surgical clips post left mastectomy. OTHER: No other significant finding. IMPRESSION: Stable cardiomegaly. No acute infiltrates TECHNICAL DOCUMENTATION: JOB ID: [id number] [employer]- All Rights Reserved
== END ==
LOC: OD 11:57
PROVIDERS: ATTEND Surgery
DX: I10 Essential (primary) hypertension (principal); I51.7 Cardiomegaly; Z86.711 Personal history of pulmonary embolism; E66.01 Morbid (severe) obesity due to excess calories; Z95.828 Presence of other vascular implants and grafts; Z85.3 Personal history of malignant neoplasm of breast
CPT/HCPCS: 71020

== ENCOUNTER → 2016-12-22 | Outpatient (CLI) | payer MEDICARE, MEDICAID ==
--- NOTE | 2016-12-22 15:07 | RADIOLOGY REPORT (SQ) ---
EXAM DESCRIPTION: CT LUMBAR SPINE WITHOUT COMPLETED DATE/TIME: 12/22/2016 1:53 pm REASON FOR STUDY: LOW BACK PAIN M54.5 LOW BACK PAIN COMPARISON: Lumbar spine films 12/12/2016 CT abdomen pelvis 12/05/2016 CT lumbar spine 10/20/2015 Whole-body bone scan 10/23/2016 PET-CT 10/27/2016 TECHNIQUE: Axial images acquired through the lumbar spine without intravenous contrast. Images revi ewed with lung, soft tissue and bone windows. Reconstructed coronal and sagittal MPR images reviewed . All images stored on PACS. All CT scanners at this facility use dose modulation, iterative reconstruction, and/or weight based d osing when appropriate to reduce radiation dose to as low as reasonably achievable (ALARA). [facility]: Dose Right [facility]: CareDose [facility]: Dose Right [facility]: Teradose 4D [facility]: Smart [facility] RADIATION DOSE: Up-to-date CT equipment and radiation dose reduction techniques were employed. CTDIv ol: 32.6 mGy. DLP: 940 mGy-cm. mGy. LIMITATIONS: None. FINDINGS: SEGMENTATION: Normal. No transitional anatomy. ALIGNMENT: Normal. VERTEBRAL BODIES: No fractures. No dislocation. No acute findings. No CT evidence of lytic or janice tic lesions. Schmorl's node along the rightward inferior endplate of L4 with adjacent benign bony sc lerosis, stable. DISCS: No significant protrusions. Study limited by lack of intrathecal contrast. PEDICLES, TRANSVERSE PROCESSES: No fractures. No dislocation. No acute findings. FACETS, POSTERIOR ELEMENTS: No fractures. No dislocation. No spinal stenosis.Mild bilateral facet arthropathy at L3- 4, L4-5, and L5-chest 1 without high-grade exit foraminal narrowing HARDWARE: None in the spine. VISUALIZED RIBS: No fractures. SOFT TISSUES: No significant or acute finding in adjacent soft tissues. OTHER: No other significant finding. IMPRESSION: No CT evidence of bony metastatic disease. No high-grade central or foraminal encroachment. No fracture or malalignment. TECHNICAL DOCUMENTATION: JOB ID: [id number] Quality ID # [id number]: Final reports with documentation of one or more dose reduction techniques (e.g., Au tomated exposure control, adjustment of the mA and/or kV according to patient size, use of iterative reconstruction technique) 2010 [employer]- All Rights Reserved
== END ==
LOC: RAD 13:19
PROVIDERS: ATTEND Physician Assistant
DX: M54.5 Low back pain (principal)
CPT/HCPCS: 72131

== ENCOUNTER 2017-01-21 23:22 | Emergency (ER) | payer MEDICARE, MEDICAID ==
[2017-01-21] MEDS ORDERED: ASPIRIN 81 MG TABLET, CHEWABLE PO ONE (23:28)
--- NOTE | 2017-01-21 23:44 | EKG REPORT ---
SEVERITY:- NORMAL ECG - SINUS RHYTHM : Confirmed by: Edita Zendejas 21-Jan-2017 23:43:46
[2017-01-22 02:13] LABS: ABSOLUTE EOSINOPHILS # (AUTO) 0.3 10^3/uL (0.0-0.6); ABSOLUTE LYMPHOCYTES (AUTO) 2.6 10^3/uL (0.5-4.7); ABSOLUTE MONOCYTES (AUTO) 0.9 10^3/uL (0.1-1.4); ABSOLUTE NEUT (AUTO) 4.2 10^3/uL (1.7-8.2); BASOPHILS % (AUTO) 0.4 % (0-2); EOSINOPHILS % (AUTO) 3.4 % (0-6); HEMATOCRIT 34.9 % (36.0-47.0); HGB HCT DIFFERENCE 1.1; MEAN CORPUSCULAR HEMOGLOBIN 32.4 pg (27.0-33.4); MEAN CORPUSCULAR HGB CONC 34.4 g/dL (32.0-36.0); MEAN CORPUSCULAR VOLUME 94 fl (80-97); RED CELL DISTRIBUTION WIDTH 14.7 % (11.5-14.0); SEGMENTED NEUTROPHILS % (AUTO) 53.2 % (42-78)
[2017-01-22 02:25] LABS: ALANINE AMINOTRANSFERASE 62 U/L (9-52); ALBUMIN 3.2 g/dL (3.5-5.0); ALKALINE PHOSPHATASE 85 U/L (38-126); ANION GAP 9 (5-19); ASPARTATE AMINO TRANSFERASE 44 U/L (14-36); BILIRUBIN,DIRECT 0.3 mg/dL (0.0-0.4); BILIRUBIN,TOTAL 0.5 mg/dL (0.2-1.3); BLOOD UREA NITROGEN 14 mg/dL (7-20); CALCIUM 9.2 mg/dL (8.4-10.2); CARBON DIOXIDE 25 mmol/L (22-30); CHLORIDE 109 mmol/L (98-107); CREATINE KINASE 45 U/L (30-135); GLUCOSE 82 mg/dL (75-110); POTASSIUM 4.2 mmol/L (3.6-5.0); TOTAL PROTEIN 5.8 g/dL (6.3-8.2)
--- NOTE | 2017-01-22 02:31 | RADIOLOGY REPORT (SQ) ---
EXAM DESCRIPTION: CHEST SINGLE VIEW COMPLETED DATE/TIME: 01/22/2017 2:12 am REASON FOR STUDY: CP COMPARISON: Chest x-ray 12/05/2016. EXAM PARAMETERS: NUMBER OF VIEWS: One view. TECHNIQUE: Single frontal radiographic view of the chest acquired. RADIATION DOSE: NA LIMITATIONS: None. FINDINGS: LUNGS AND PLEURA: No consolidation, pneumothorax or pleural effusion. MEDIASTINUM AND HILAR STRUCTURES: No masses. Contour normal. HEART AND VASCULAR STRUCTURES: The heart is mildly enlarged. There is mild vascular congestion. BONES: No acute findings. HARDWARE: Right-sided Port-A-Cath with the tip overlying the region of the SVC. Cardiac monitoring d evice over the left hemithorax. Surgical clips at the left axilla. IMPRESSION: Mild cardiomegaly and mild vascular congestion. TECHNICAL DOCUMENTATION: JOB ID: [id number]
[2017-01-22 02:37] LABS: CREATINE KINASE MB 0.25 ng/mL (<4.55)
[2017-01-22 02:40] LABS: TROPONIN I < 0.012 ng/mL
[2017-01-22 03:16] VITALS: BP 141/69
[2017-01-22] MEDS ORDERED: FUROSEMIDE INJ/PF 40 MG/4 ML SDV IV ONE (04:29)
--- NOTE | 2017-01-22 05:02 | ER Document Report ---
ED General - General Chief Complaint: Respiratory Distress Stated Complaint: SHORTNESS OF BREATH,DIZZY Time Seen by Provider: 01/22/17 00:39 Notes: Patient is a 51-year-old female presents with complaint of difficulty breathing. She says she has some orthopnea and some exertional dyspnea. She has a history of PE. She is on Xarelto for that. Patient also has a history of CHF. No history of ME. She says she has noticed last week that she has had increasing edema and her extremities. She says the more the edema increases her extremities and more she feels more short of breath. No fevers. No vomiting. No diarrhea. No chest pain. She is on Lasix 20 mg twice a day. This has not recently been altered. No other complaints at this time. TRAVEL OUTSIDE OF THE [place] IN LAST 30 DAYS: No - Related Data Allergies/Adverse Reactions: adhesive [Adhesive] Allergy (Mild, Verified 01/21/17 23:52) Generalized rash methicillin [Methicillin] Allergy (Mild, Verified 01/21/17 23:52) Generalized rash vancomycin [Vancomycin] Allergy (Mild, Verified 01/21/17 23:52) Generalized rash Past Medical History - Social History Smoking Status: Unknown if Ever Smoked Frequency of alcohol use: None Drug Abuse: None Family History: Arthritis, CAD, DM, Hyperlipidemia, Hypertension, Malignancy Patient has suicidal ideation: No Patient has homicidal ideation: No - Past Medical History Cardiac Medical History: Reports: Hx Atrial Fibrillation, Hx Coronary Artery Disease - HIGH CHOLESTEROL, Hx DVT, Hx Hypercholesterolemia, Hx Hypertension, Hx Pulmonary Embolism Denies: Hx Heart Attack Pulmonary Medical History: Reports: Hx Bronchitis, Hx Pneumonia Denies: Hx Asthma, Hx COPD, Hx Tuberculosis Neurological Medical History: Denies: Hx Cerebrovascular Accident, Hx Seizures Endocrine Medical History: Reports: Hx Diabetes Mellitus Type 2 Renal/ Medical History: Denies: Hx Peritoneal Dialysis Malignancy Medical History: Reports: Hx Breast Cancer, Hx Cervical Cancer GI Medical History: Reports: Hx Gastroesophageal Reflux Disease, Hx Hiatal Hernia, Hx Liver Failure - fatty liver Musculoskeltal Medical History: Reports Hx Arthritis - KNEES/BACK, Reports Hx Fibromyalgia Skin Medical History: Reports Hx Psoriasis Psychiatric Medical History: Reports: Hx Anxiety, Hx Bipolar Disorder, Hx Depression Past Surgical History: Reports: Hx Cholecystectomy, Hx Hysterectomy, Hx Mastectomy, Hx Orthopedic Surgery. Denies: Hx Pacemaker - Immunizations Immunizations up to date: Yes Hx Diphtheria, Pertussis, Tetanus Vaccination: Yes - 01/2014 Hx Pneumococcal Vaccination: 04/23/07 Review of Systems - Review of Systems Notes: My Normal Review Basic REVIEW OF SYSTEMS: CONSTITUTIONAL : Denies fever, chills, or sweats. Denies recent illness. EENT: Denies eye, ear, throat, or mouth pain or symptoms. Denies nasal or sinus congestion. CARDIOVASCULAR: Denies chest pain. RESPIRATORY: Dyspnea GASTROINTESTINAL: Denies abdominal pain. Denies nausea, vomiting, or diarrhea. Denies constipation. Last BM: GENITOURINARY: Denies difficulty urinating, painful urination, burning, frequency, or blood in urine. MUSCULOSKELETAL: Extremity edema SKIN: Denies rash or skin lesions. NEUROLOGICAL: Denies altered mental status or loss of consciousness. Denies headache. Denies weakness or paralysis or loss of use of either side. Denies problems with gait or speech. Denies sensory or motor loss. ALL OTHER SYSTEMS REVIEWED AND NEGATIVE. Physical Exam - Vital signs Vitals: Temp Pulse Resp BP Pulse Ox 98.0 F 59 L 16 139/79 H 98 01/21/17 23:55 01/21/17 23:55 01/21/17 23:55 01/21/17 23:55 01/21/17 23:55 - Notes Notes: General Appearance: Well nourished, alert, cooperative, no acute distress, no obvious discomfort. Well appearing. Speaks in full sentences. Vitals: reviewed, See vital signs table. Head: no swelling or tenderness to the head Eyes: PERRL, EOMI, Conjuctiva clear Mouth: No decreasd moisture Throat: No tonsillar inflammation, No airway obstruction, Neck: Supple, no neck tenderness, No thyromegaly Lungs: No wheezing, mild bibasilar rales, No rhonci, No accessory muscle use, good air exchange bilaterally. Heart: Normal rate, Regular rythm, No murmur, no rub Abdomen: Normal BS, soft, No rigidity, No abdominal tenderness, No guarding, no rebound, no abdominal masses, no organomegaly Extremities: strength 5/5 in all extremities, good pulses in all extremities, no swelling or tenderness in the extremities, 2+ bilateral lower extremity edema. Skin: warm, dry, appropriate color, no rash Neuro: speech clear, oriented x 3, normal affect, responds appropriately to questions. Course - Re-evaluation Re-evalutation: 01/22/17 06:25 Patient's physical exam and evaluation is consistent with that of fluid overload. She does have some very mild pulmonary vascular congestion on chest x -ray and she has very faint rales on auscultation. Remainder of her lung manning have good air exchange without wheezing are clear. I do not suspect PE at this time. I suspect that this is all fluid related based on the fact that she has orthopnea and also that her breathing worsened as she continued to retain more fluid. I will give her a dose of IV Lasix here. I will increase her home dosage of Lasix. Informed her she should follow-up with her doctor in 2 days for reevaluation. I informed her return to ER immediately if she has worsening difficulty breathing, any chest pain, or she feels unwell. Patient agrees with plan and will be discharged home. Dictation of this chart was performed using voice recognition software; therefore, there may be some unintended grammatical errors. - Vital Signs Vital signs: Temp Pulse Resp BP Pulse Ox 98.0 F 59 L 14 141/69 H 96 01/21/17 23:55 01/21/17 23:55 01/22/17 04:01 01/22/17 03:01 01/22/17 02:18 - Laboratory Result Diagrams: 01/22/17 01:55 01/22/17 01:55 Laboratory results interpreted by me: 01/22/17 01/22/17 01:55 01:55 RBC 3.70 L Hct 34.9 L RDW 14.7 H Chloride 109 H AST 44 H ALT 62 H Total Protein 5.8 L Albumin 3.2 L Discharge - Discharge Clinical Impression: Pulmonary vascular congestion, Peripheral edema Dyspnea Qualifiers: Dyspnea type: orthopnea Qualified Code(s): R06.01 - Orthopnea Condition: Good Disposition: HOME, SELF-CARE Additional Instructions: Please increase your Lasix to 40mg in the am. Keep your pm Lasix at 20mg. Please follow up with your doctor within 2 days for reevaluation. Please return to the ER immediately if you develop worsening difficulty breathing, chest pain , increasing edema in your legs, or if you feel unwell. Prescriptions: Furosemide [Lasix 20 mg Tablet] 20 mg PO ASDIR #30 tablet Referrals: MAGNOLIA ADLER MD [Primary Care Provider] - 01/24/17
--- NOTE | 2017-01-22 14:31 | EKG REPORT ---
SEVERITY:- NORMAL ECG - SINUS RHYTHM : Confirmed by: Meagan Tse MD 22-Jan-2017 14:31:03
== END 2017-01-22 05:31 | disposition home or self-care (01) ==
LOC: ER 23:22
DX: I87.8 Other specified disorders of veins (principal); R60.1 Generalized edema; R06.01 Orthopnea; R06.02 Shortness of breath; R06.00 Dyspnea, unspecified; R42 Dizziness and giddiness; I48.91 Unspecified atrial fibrillation; E78.00 Pure hypercholesterolemia, unspecified; E11.9 Type 2 diabetes mellitus without complications; K21.9 Gastro-esophageal reflux disease without esophagitis; Z88.3 Allergy status to other anti-infective agents; Z88.0 Allergy status to penicillin; Z90.49 Acquired absence of other specified parts of digestive tract; Z90.710 Acquired absence of both cervix and uterus; Z90.10 Acquired absence of unspecified breast and nipple; Z85.3 Personal history of malignant neoplasm of breast; Z85.41 Personal history of malignant neoplasm of cervix uteri
CPT/HCPCS: 93005 ×2; 99285; 96374; 36415; 82553; 82550; 85025; 80053; 84484; 71010; 93010 ×2; A9270; J1940

== ENCOUNTER → 2017-01-23 | Outpatient (CLI) | payer MEDICARE, MEDICAID ==
--- NOTE | 2017-01-23 15:42 | RADIOLOGY REPORT (SQ) ---
EXAM DESCRIPTION: CHEST PA/LATERAL COMPLETED DATE/TIME: 01/23/2017 2:57 pm REASON FOR STUDY: SHORTNESS OF BREATH COMPARISON: 01/22/2017 EXAM PARAMETERS: NUMBER OF VIEWS: two views TECHNIQUE: Digital Frontal and Lateral radiographic views of the chest acquired. RADIATION DOSE: NA LIMITATIONS: none FINDINGS: LUNGS AND PLEURA: No opacities, masses or pneumothorax. No pleural effusion. MEDIASTINUM AND HILAR STRUCTURES: No masses or contour abnormalities. HEART AND VASCULAR STRUCTURES: Borderline heart size. No evidence of failure. BONES: No acute findings. HARDWARE: Injection port. Loop recorder. Axillary surgical clips. OTHER: No other significant finding. IMPRESSION: Borderline cardiomegaly with no failure. No acute pulmonary disease. TECHNICAL DOCUMENTATION: JOB ID: [id number] [employer]- All Rights Reserved
== END ==
LOC: OD 14:42
PROVIDERS: ATTEND Physician Assistant
DX: R06.02 Shortness of breath (principal)
CPT/HCPCS: 71020

== ENCOUNTER → 2017-01-29 | Outpatient (CLI) | payer MEDICARE, MEDICAID ==
[2017-01-29 12:03] LABS: ANION GAP 11 (5-19); BLOOD UREA NITROGEN 19 mg/dL (7-20); CALCIUM 9.2 mg/dL (8.4-10.2); CARBON DIOXIDE 29 mmol/L (22-30); CHLORIDE 103 mmol/L (98-107); GLUCOSE 116 mg/dL (75-110); POTASSIUM 4.3 mmol/L (3.6-5.0); SODIUM 142.6 mmol/L (137-145)
== END ==
LOC: OD 10:39
PROVIDERS: ATTEND Internal Medicine
DX: I48.0 Paroxysmal atrial fibrillation (principal); R06.02 Shortness of breath; I10 Essential (primary) hypertension; E78.4 Other hyperlipidemia; E11.9 Type 2 diabetes mellitus without complications; I26.99 Other pulmonary embolism without acute cor pulmonale; I49.49 Other premature depolarization; I50.32 Chronic diastolic (congestive) heart failure; I95.1 Orthostatic hypotension; M15.9 Polyosteoarthritis, unspecified; R60.0 Localized edema; Z79.899 Other long term (current) drug therapy
CPT/HCPCS: 36415; 80048

== ENCOUNTER → 2017-02-15 | Outpatient (CLI) | payer MEDICARE, MEDICAID ==
[2017-02-15 14:09] LABS: ANION GAP 10 (5-19); BLOOD UREA NITROGEN 14 mg/dL (7-20); CALCIUM 9.2 mg/dL (8.4-10.2); CARBON DIOXIDE 29 mmol/L (22-30); CHLORIDE 102 mmol/L (98-107); GLUCOSE 96 mg/dL (75-110); SODIUM 140.6 mmol/L (137-145)
== END ==
LOC: OD 12:21
PROVIDERS: ATTEND Internal Medicine
DX: E05.90 Thyrotoxicosis, unspecified without thyrotoxic crisis or storm (principal)
CPT/HCPCS: 36415; 80048

== ENCOUNTER → 2017-02-19 | Outpatient (CLI) | payer MEDICARE, MEDICAID | LOC: OD 10:57 | PROVIDERS: ATTEND Internal Medicine | DX: I48.0 Paroxysmal atrial fibrillation (principal); R06.02 Shortness of breath; I10 Essential (primary) hypertension; E78.4 Other hyperlipidemia; I49.49 Other premature depolarization; I95.1 Orthostatic hypotension; M15.9 Polyosteoarthritis, unspecified; E11.9 Type 2 diabetes mellitus without complications; I26.99 Other pulmonary embolism without acute cor pulmonale; I50.32 Chronic diastolic (congestive) heart failure; Z79.899 Other long term (current) drug therapy | CPT/HCPCS: 36415; 83880 ==

== ENCOUNTER 2017-03-05 15:48 | Inpatient (IN) | payer MEDICARE, MEDICAID ==
[2017-03-05] MEDS ORDERED: ACETAMINOPHEN 325 MG TABLET PO PRN (16:00)
[2017-03-05] MEDS ORDERED: LEVALBUTEROL HCL NEB 0.63 MG/3 ML AMPUL NEB PRN (16:00)
[2017-03-05] MEDS ORDERED: DEXTROSE 40% GEL 15 GM TUBE PO PRN ×2 (16:08)
[2017-03-05] MEDS ORDERED: INSULIN LISPRO 100 UNIT/ML 3 ML VIAL SUBCUT PRN (16:08)
[2017-03-05] MEDS ORDERED: DEXTROSE 50%-WATER 25 GM/50 ML DISP.SYRIN IV PRN ×2 (16:08)
[2017-03-05] MEDS ORDERED: GLUCAGON,HUMAN RECOMB 1 MG INJ IM PRN (16:08)
--- NOTE | 2017-03-05 16:51 | PDOC H&P ---
History of Present Illness Admission Date/PCP: 03/05/17 15:48 VILLA VALDOVINOS MD Patient complains of: Shortness of the breath History of Present Illness: AGUSTIN ETIENNE is a 51 year old female This is a 51-year-old female with a significant medical problems including the history of the pulmonary embolisms chronic DVT status post IVC filterAnd a history of the COPD and a history of the severe sleep apnea history of the congestive heart failure and history of the paroxysmal atrial fibrillationsAnd a very extensive evaluations done by Dr. Aggarwal at [place] for A. fib and the patient also seen by Dr. Tse recently and increased the Lasix 80 mg p.o. twice a dayCame to my office with a complaining of shortness of the breath with patients basically describe very short winded even patients move and feeling lightheaded and dizzy In the office patient's oxygen level is 94 persons in the room air when patient is sit but patient's tried to move it is dropped up to 80% and patient's unable to handle the O2 sat to keep above 90 She has denied any chest pain denied any cough or congestion's Patient was admitted for the same problem and at [facility] for see without any paroxysmal A. fib causing the shortness of the breathAnd patient's is a not a good candidate for ablations due to the IVC filter She also have a history of the cancers and recently a PET scan was done and no sign of any metastatic disease Patient's currently on the Xarelto due to the PE and DVT anticoagulations syndromes Patients at this point decided to admit in the hospital for further evaluations Patient have a sleep study was done last year and patient was severe sleep apnea but patient is unable to wear that CPAP machines to the anxietyAnd also [facility] Was also suggest the patient's needs to use a CPAPThat could be a part of a problem with the breathing and a paroxysmal A. fib At this point we decided to admit patient in the hospital for consult the cardiology and pulmonary we will get the CTA and hopefully will put the patient in the CPAP machine while patient is currently agree Patient's also suggest do not call her daughter and her mother is a next of the patientAbsolutely did not involve her daughter and patients currently is a full code Past Medical History Cardiac Medical History: Reports: Atrial Fibrillation, Coronary Artery Disease - HIGH CHOLESTEROL, DVT, Hyperlipidema, Hypertension, Pulmonary Embolism Denies: Myocardial Infarction Pulmonary Medical History: Reports: Bronchitis, Pneumonia Denies: Asthma, Chronic Obstructive Pulmonary Disease (COPD), Tuberculosis Neurological Medical History: Denies: Seizures Endocrine Medical History: Reports: Diabetes Mellitus Type 2 Malignancy Medical History: Reports: Breast Cancer, Cervical Cancer GI Medical History: Reports: Gastroesophageal Reflux Disease, Hiatal Hernia Musculoskeltal Medical History: Reports: Arthritis - KNEES/BACK, Fibromyalgia Skin Medical History: Reports: Psoriasis Psychiatric Medical History: Reports: Bipolar Disorder, Depression Hematology: Denies: Anemia Past Surgical History Past Surgical History: Reports: Cholecystectomy, Hysterectomy, Mastectomy, Orthopedic Surgery, Other - IVC filter placement Denies: Pacemaker Social History Information Source: Patient Smoking Status: Never Smoker Frequency of Alcohol Use: Rare Hx Recreational Drug Use: No Hx Prescription Drug Abuse: No Family History Family History: Arthritis, CAD, DM, Hyperlipidemia, Hypertension, Malignancy Parental Family History Reviewed: Yes Children Family History Reviewed: Yes Sibling(s) Family History Reviewed.: Yes Medication/Allergy Home Medications: Aripiprazole [Abilify] 5 mg PO DAILY 12/02/14 Aspirin [Aspirin EC] 81 mg PO DAILY 12/02/14 Escitalopram Oxalate [Lexapro] 20 mg PO DAILY 12/02/14 Esomeprazole Magnesium [Nexium] 20 mg PO DAILY 12/02/14 Lorazepam [Ativan 1 mg Tablet] 1 tab PO DAILY 12/02/14 Metformin HCl 500 mg PO DAILY 12/02/14 Rivaroxaban [Xarelto] 20 mg PO DAILY 12/02/14 Atenolol [Tenormin 50 mg Tablet] 50 mg PO Q12 #60 tablet 01/11/15 Amiodarone HCl [Cordarone 200 mg Tablet] 200 mg PO BID 08/22/15 Atenolol [Tenormin] 75 mg PO BID #30 tablet 08/22/15 Atorvastatin Calcium [Lipitor 10 mg Tablet] 10 mg PO QHS 08/22/15 Calcium Carbonate [Calcium] 1,200 mg PO DAILY 08/22/15 Fiber [Fiber Diet] 1 each PO DAILY 08/22/15 Furosemide [Lasix 40 mg Tablet] 40 mg PO QAM 08/22/15 Losartan Potassium 50 mg PO QHS 08/22/15 Multivit-Min/Folic Acid/Biotin [Hair, Skin & Nails Caplet] 1 each PO DAILY 08/21 Vit/Iron Fum/Folic AC [ Tablet] 1 each PO DAILY 08/22/15 Solifenacin Succinate [Vesicare] 10 mg PO DAILY 08/22/15 Levofloxacin [Levaquin 750 mg Tablet] 750 mg PO DAILY #7 tablet 01/16/16 Phenazopyridine HCl [Pyridium 200 mg Tablet] 200 mg PO TID #15 tablet 01/16/16 Fluconazole [Diflucan 100 Mg Tablet] 100 mg PO DAILY #1 tablet 05/23/16 Miscellaneous Medication [Happy Hiney Cream] 1 applic TOP ASDIR PRN #60 gm 05/23 Nitrofurantoin Monohyd/M-Cryst [Macrobid 100 mg Capsule] 100 mg PO BID #20 capsule 05/23/16 Promethazine HCl [Phenergan 25 mg Tablet] 25 - 50 mg PO ASDIR PRN #12 tablet 09/06 Oxycodone HCl/Acetaminophen [Percocet 5-325 mg Tablet] 1 - 2 tab PO Q4H PRN #20 tablet 08/10/16 Furosemide [Lasix 20 mg Tablet] 20 mg PO ASDIR #30 tablet 01/22/17 Allergies/Adverse Reactions: adhesive [Adhesive] Allergy (Mild, Verified 01/21/17 23:52) Generalized rash methicillin [Methicillin] Allergy (Mild, Verified 01/21/17 23:52) Generalized rash vancomycin [Vancomycin] Allergy (Mild, Verified 01/21/17 23:52) Generalized rash Review of Systems Constitutional: PRESENT: weakness. ABSENT: chills, fever(s), headache(s), weight gain, weight loss Eyes: ABSENT: visual disturbances Ears: ABSENT: hearing changes Cardiovascular: PRESENT: dyspnea on exertion. ABSENT: chest pain, edema, orthropnea, palpitations Respiratory: ABSENT: cough, hemoptysis Gastrointestinal: ABSENT: abdominal pain, constipation, diarrhea, hematemesis, hematochezia, nausea, vomiting Genitourinary: ABSENT: dysuria, hematuria Musculoskeletal: ABSENT: joint swelling Integumentary: ABSENT: rash, wounds Neurological: ABSENT: abnormal gait, abnormal speech, confusion, dizziness, focal weakness, syncope Psychiatric: ABSENT: anxiety, depression, homidical ideation, suicidal ideation Endocrine: ABSENT: cold intolerance, heat intolerance, menstrual abnormalities, polydipsia, polyuria Hematologic/Lymphatic: ABSENT: easy bleeding, easy bruising, lymphadenopathy Physical Exam General appearance: PRESENT: no acute distress, well-developed, well-nourished Head exam: PRESENT: atraumatic, normocephalic Eye exam: PRESENT: conjunctiva pink, EOMI, PERRLA. ABSENT: scleral icterus Ear exam: PRESENT: normal external ear exam Mouth exam: PRESENT: moist, tongue midline Neck exam: PRESENT: full ROM. ABSENT: carotid bruit, JVD, lymphadenopathy, thyromegaly Respiratory exam: PRESENT: clear to auscultation ingrid, decreased breath sounds Cardiovascular exam: PRESENT: RRR. ABSENT: diastolic murmur, rubs, systolic murmur Pulses: PRESENT: normal dorsalis pedis pul, +2 pedal pulses bilateral Vascular exam: PRESENT: normal capillary refill GI/Abdominal exam: PRESENT: normal bowel sounds, soft. ABSENT: distended, guarding, mass, organolmegaly, rebound, tenderness Rectal exam: PRESENT: deferred Extremities exam: PRESENT: pedal edema Musculoskeletal exam: PRESENT: ambulatory Neurological exam: PRESENT: alert, awake, oriented to person, oriented to place , oriented to time, oriented to situation, CN II-XII grossly intact. ABSENT: motor sensory deficit Psychiatric exam: PRESENT: appropriate affect, normal mood. ABSENT: homicidal ideation, suicidal ideation Skin exam: PRESENT: dry, intact, warm. ABSENT: cyanosis, rash Assessment & Plan - Diagnosis (1) Shortness of breath Is this a current diagnosis for this admission?: Yes Plan: Is most likely multifactorialWe will get the CTA to rule out any underlying lung condition or chronic PE patient is already on Xarelto Most likely from underlying sleep apnea and patient is not using any CPAP Consult the pulmonary and cardiology for further evaluations (2) Hypoxia Is this a current diagnosis for this admission?: Yes Plan: Most likely due to the above conditions with continues to put the patient on oxygen to keep O2 sat around 90-94 persons (3) Sleep apnea Is this a current diagnosis for this admission?: Yes Plan: We will follow-up with the sleep medicines (4) COPD (chronic obstructive pulmonary disease) Qualifiers: COPD type: unspecified COPD Qualified Code(s): J44.9 - Chronic obstructive pulmonary disease, unspecified Is this a current diagnosis for this admission?: Yes Plan: Continues to Xopenex nebulizer (5) DVT, recurrent, lower extremity, chronic Qualifiers: Laterality: unspecified laterality Qualified Code(s): I82.509 - Chronic embolism and thrombosis of unspecified deep veins of unspecified lower extremity Is this a current diagnosis for this admission?: Yes Plan: Continues to Xarelto and patient have IVC filter (6) HTN (hypertension) Qualifiers: Hypertension type: essential hypertension Qualified Code(s): I10 - Essential (primary) hypertension Is this a current diagnosis for this admission?: Yes Plan: Continues to current medications (7) Morbid obesity Is this a current diagnosis for this admission?: Yes (8) Personal history of breast cancer Is this a current diagnosis for this admission?: Yes Plan: Patient's recent PET scan is all stableAnd also see her Dr. Phelan as outpatient (9) Type 2 diabetes mellitus Qualifiers: Diabetes mellitus complication status: with unspecified complications Is this a current diagnosis for this admission?: Yes Plan: Continues to current medication and sliding scale (10) Atrial fibrillation Qualifiers: Atrial fibrillation type: paroxysmal Qualified Code(s): I48.0 - Paroxysmal atrial fibrillation Is this a current diagnosis for this admission?: Yes Plan: Patient is currently rate controlled and currently on Xarelto. Patient already seen by Dr. Aggarwal in [place] and all workup done will get the medical recordConsult the local cardiology for further evaluations (11) Congestive heart failure Qualifiers: Congestive heart failure type: diastolic Is this a current diagnosis for this admission?: Yes Plan: Switch the patient on IV LasixWe will get the recent echocardiogram from patient 's hvac installer's office - Time Time Spent: 30 to 50 Minutes Medications reviewed and adjusted accordingly: Yes Anticipated discharge: Home with Homehealth Within: Other - Inpatient Certification Medical Necessity: Need Close Monitoring Due to Risk of Patient Decompensation Post Hospital Care: D/C Human Resources Compliance Manager Documentation - Plan Summary Plan Summary: Admit the patient in the hospital for further evaluations and patient's mother is a next of the patient's and patients do not want to involve her daughter patients currently is a full code see other MD orders
[2017-03-05 16:58] LABS: ABSOLUTE BASOPHILS # (AUTO) 0.1 10^3/uL (0.0-0.2); ABSOLUTE EOSINOPHILS # (AUTO) 0.3 10^3/uL (0.0-0.6); ABSOLUTE LYMPHOCYTES (AUTO) 2.5 10^3/uL (0.5-4.7); ABSOLUTE MONOCYTES (AUTO) 0.9 10^3/uL (0.1-1.4); ABSOLUTE NEUT (AUTO) 4.8 10^3/uL (1.7-8.2); BASOPHILS % (AUTO) 1.5 % (0-2); EOSINOPHILS % (AUTO) 3.4 % (0-6); HEMOGLOBIN 12.6 g/dL (12.0-15.5); HGB HCT DIFFERENCE -0.2; LYMPHOCYTES % (AUTO) 28.8 % (13-45); MEAN CORPUSCULAR HEMOGLOBIN 30.8 pg (27.0-33.4); MEAN CORPUSCULAR HGB CONC 33.2 g/dL (32.0-36.0); MEAN CORPUSCULAR VOLUME 93 fl (80-97); RED BLOOD COUNT 4.09 10^6/uL (3.72-5.28); RED CELL DISTRIBUTION WIDTH 14.9 % (11.5-14.0); SEGMENTED NEUTROPHILS % (AUTO) 56.3 % (42-78); WHITE BLOOD COUNT 8.5 10^3/uL (4.0-10.5)
[2017-03-05] MEDS ORDERED: FUROSEMIDE INJ/PF 40 MG/4 ML SDV IV ONE (17:00)
[2017-03-05 17:23] LABS: ALANINE AMINOTRANSFERASE 90 U/L (9-52); ALBUMIN 3.5 g/dL (3.5-5.0); ALKALINE PHOSPHATASE 90 U/L (38-126); ANION GAP 9 (5-19); ASPARTATE AMINO TRANSFERASE 79 U/L (14-36); BILIRUBIN,DIRECT 0.4 mg/dL (0.0-0.4); BILIRUBIN,TOTAL 0.6 mg/dL (0.2-1.3); BLOOD UREA NITROGEN 16 mg/dL (7-20); CALCIUM 9.3 mg/dL (8.4-10.2); CARBON DIOXIDE 26 mmol/L (22-30); CHLORIDE 108 mmol/L (98-107); CREATINE KINASE 52 U/L (30-135); CREATININE RESULT 0.94 mg/dL (0.52-1.25); GLUCOSE 90 mg/dL (75-110); POTASSIUM 4.9 mmol/L (3.6-5.0); SODIUM 143.1 mmol/L (137-145); TOTAL PROTEIN 6.3 g/dL (6.3-8.2)
[2017-03-05 17:24] LABS: ARTERIAL BLOOD O2 SATURATION 92.8 % (94-98)
[2017-03-05 17:33] LABS: CREATINE KINASE MB 0.26 ng/mL (<4.55)
[2017-03-05 17:38] LABS: TROPONIN I < 0.012 ng/mL
--- NOTE | 2017-03-05 18:09 | RADIOLOGY REPORT (SQ) ---
EXAM DESCRIPTION: CTA CHEST COMPLETED DATE/TIME: 03/05/2017 5:58 pm REASON FOR STUDY: pe/sob COMPARISON: None. TECHNIQUE: CT scan of the chest performed using helical scanning technique with dynamic intravenous contrast injection. Images reviewed with lung, soft tissue and bone windows. Reconstructed coronal and sagittal MPR images reviewed. Additional 3 dimensional post-processing performed to develop Maximal Intensity Projection images (MT P). All images stored on PACS. All CT scanners at this facility use dose modulation, iterative reconstruction, and/or weight based d osing when appropriate to reduce radiation dose to as low as reasonably achievable (ALARA). [facility]: Dose Right [facility]: CareDose [facility]: Dose Right [facility]: Teradose 4D [facility]: ForeUp CONTRAST TYPE AND DOSE: contrast/concentration: Isovue 370.00 mg/ml; Total Contrast Delivered: 86.0 ml; Total Saline Delivered: 90.0 ml Contrast bolus optimized for the pulmonary arteries. Not diagnostic for the aorta. RENAL FUNCTION: GFR > 60. RADIATION DOSE: Up-to-date CT equipment and radiation dose reduction techniques were employed. CTDIv ol: 39.2 - 49.6 mGy. DLP: 1459 mGy-cm. . LIMITATIONS: None. FINDINGS: LUNGS AND PLEURA: Minimal ground-glass appearance with patchy opacities. AORTA AND GREAT VESSELS: No aneurysm. Contrast bolus not optimized for the aorta. HEART: No pericardial effusion. No significant coronary artery calcifications. PULMONARY ARTERIES: No emboli visualized in the main pulmonary arteries or the segmental branches. HILAR AND MEDIASTINAL STRUCTURES: No identified masses or abnormal nodes. HARDWARE: Port catheter. UPPER ABDOMEN: No significant findings. Limited exam. THYROID AND OTHER SOFT TISSUES: 8 x 2.4 cm fluid collection along the anterior left chest wall possib ly related to prior surgery. BONES: No acute or significant finding. 3D MIPS: Confirm above findings. OTHER: No other significant finding. IMPRESSION: No pulmonary emboli. Likely seroma along the anterior left chest wall. COMMENT: Quality ID # [id number]: Final reports with documentation of one or more dose reduction techniques (e.g., Automated exposure control, adjustment of the mA and/or kV according to patient size, use of iterative reconstruction technique) TECHNICAL DOCUMENTATION: JOB ID: [id number] [employer]- All Rights Reserved
[2017-03-05] MEDS: DOCUSATE SODIUM 100 MG CAPSULE PO SCH (18:17)
--- NOTE | 2017-03-05 21:49 | PDOC CONSULTATION ---
Consultation Consult Date: 03/05/17 Attending physician:: MAGNOLIA ADLER Consult reason:: Shortness of breath History of Present Illness Admission Date/PCP: 03/05/17 15:48 VILLA VALDOVINOS MD Patient complains of: Extreme shortness of breath on minimal exertion History of Present Illness: AGUSTIN ETIENNE is a 51 year old female This is a 51-year-old female with a significant medical problems including the history of the pulmonary embolisms chronic DVT status post IVC filterAnd a history of the COPD and a history of the severe sleep apnea history of the congestive heart failure and history of the paroxysmal atrial fibrillationsAnd a very extensive evaluations done by Dr. Aggarwal at [place] for A. fib and the patient also seen by Dr. Tse recently and increased the Lasix 80 mg p.o. twice a dayCame to my office with a complaining of shortness of the breath with patients basically describe very short winded even patients move and feeling lightheaded and dizzy In the office patient's oxygen level is 94 persons in the room air when patient is sit but patient's tried to move it is dropped up to 80% and patient's unable to handle the O2 sat to keep above 90 She has denied any chest pain denied any cough or congestion's Patient was admitted for the same problem and at [facility] for see without any paroxysmal A. fib causing the shortness of the breathAnd patient's is a not a good candidate for ablations due to the IVC filter She also have a history of the cancers and recently a PET scan was done and no sign of any metastatic disease Patient's currently on the Xarelto due to the PE and DVT anticoagulations syndromes Patients at this point decided to admit in the hospital for further evaluations Patient have a sleep study was done last year and patient was severe sleep apnea but patient is unable to wear that CPAP machines to the anxietyAnd also [facility] Was also suggest the patient's needs to use a CPAPThat could be a part of a problem with the breathing and a paroxysmal A. fib At this point we decided to admit patient in the hospital for consult the cardiology and pulmonary we will get the CTA and hopefully will put the patient in the CPAP machine while patient is currently agree Patient's also suggest do not call her daughter and her mother is a next of the patient. Absolutely did not involve her daughter and patients currently is a full code. This history was reviewed and confirmed. Patient gives history of paroxysmal atrial flutter fibrillation and is status post ablation currently she is on chronic anticoagulation. She has been followed by Dr. Simba Gutierrez in [place]. Patient has a history of sleep apnea but has been unable to tolerate CPAP therapy because of claustrophobia. She has history of extreme obesity. Patient on questioning denied any chest pain. She does have significant shortness of breath. It is not clear whether patient ever had a heart catheterization. She did not think so. Past Medical History Cardiac Medical History: Reports: Atrial Fibrillation, Coronary Artery Disease - HIGH CHOLESTEROL, DVT, Hyperlipidema, Hypertension, Pulmonary Embolism Denies: Myocardial Infarction Pulmonary Medical History: Reports: Bronchitis, Pneumonia Denies: Asthma, Chronic Obstructive Pulmonary Disease (COPD), Tuberculosis Neurological Medical History: Denies: Seizures Endocrine Medical History: Reports: Diabetes Mellitus Type 2 Malignancy Medical History: Reports: Breast Cancer, Cervical Cancer GI Medical History: Reports: Gastroesophageal Reflux Disease, Hiatal Hernia Musculoskeltal Medical History: Reports: Arthritis - KNEES/BACK, Fibromyalgia Skin Medical History: Reports: Psoriasis Psychiatric Medical History: Reports: Bipolar Disorder, Depression Hematology: Denies: Anemia Past Surgical History Past Surgical History: Reports: Cholecystectomy, Hysterectomy, Mastectomy, Orthopedic Surgery, Other - IVC filter placement Denies: Pacemaker Social History Information Source: Patient Smoking Status: Never Smoker Frequency of Alcohol Use: Rare Hx Recreational Drug Use: No Drugs: None Hx Prescription Drug Abuse: No - Advance Directive Resuscitation Status: Full Code Surrogate healthcare decision maker:: Patient did not want to identify a surrogate decision-maker Family History Family History: Arthritis, CAD, DM, Hyperlipidemia, Hypertension, Malignancy Parental Family History Reviewed: Yes Children Family History Reviewed: Yes Sibling(s) Family History Reviewed.: Yes Medication/Allergy Home Medications: Amiodarone HCl [Cordarone 200 mg Tablet] 200 mg PO Q12 03/05/17 Aripiprazole [Abilify 10 mg Tablet] 10 mg PO DAILY 03/05/17 Aspirin [Aspirin EC] 81 mg PO DAILY 03/05/17 Atorvastatin Calcium [Lipitor 10 mg Tablet] 10 mg PO DAILY 03/05/17 Cholecalciferol (Vitamin D3) [Vitamin D3 5000 unit Capsule] 5,000 units PO DAILY 03/05/17 Colestipol HCl [Colestid 1 gm Tablet] 2 gm PO Q12 03/05/17 Cyclobenzaprine HCl [Flexeril 5 mg Tablet] 5 mg PO Q12HP PRN 03/05/17 Escitalopram Oxalate [Lexapro] 20 mg PO DAILY 03/05/17 Esomeprazole Magnesium [Nexium] 20 mg PO DAILY 03/05/17 Fiber [Fiber Diet] 1 tab PO DAILY 03/05/17 Gabapentin [Neurontin 100 mg Capsule] 100 mg PO QHS 03/05/17 Lorazepam [Ativan 1 mg Tablet] 1 mg PO Q12HP PRN 03/05/17 Losartan Potassium [Cozaar 50 mg Tablet] 50 mg PO QHS 03/05/17 Metformin HCl [Glucophage 500 mg Tablet] 500 mg PO DAILY 03/05/17 Multivit-Min/Iron/Folic/Tfr953 [Hair, Skin and Nails Tablet] 1 tab PO DAILY Multivit-Minerals/Folic Acid [One Daily Womens 50 Plus Tab] 1 tab PO DAILY 03/05 Ranolazine [Ranexa 500 mg Tab.sr] 500 mg PO Q12 03/05/17 Rivaroxaban [Xarelto] 20 mg PO DAILY 03/05/17 Solifenacin Succinate [Vesicare] 10 mg PO DAILY 03/05/17 Atenolol [Tenormin 50 mg Tablet] 50 mg PO DAILY #30 tablet 03/09/17 Furosemide [Lasix 40 mg Tablet] 60 mg PO BID #60 tablet 03/09/17 Potassium Chloride [Klor-Con 10 Meq Tablet.sa] 10 meq PO DAILY #0 03/09/17 Spironolactone [Aldactone 25 mg Tablet] 25 mg PO DAILY #30 tablet 03/09/17 Allergies/Adverse Reactions: adhesive [Adhesive] Allergy (Mild, Verified 01/21/17 23:52) Generalized rash methicillin [Methicillin] Allergy (Mild, Verified 01/21/17 23:52) Generalized rash vancomycin [Vancomycin] Allergy (Mild, Verified 01/21/17 23:52) Generalized rash Review of Systems Review of Systems: Please see history of present illness and past medical history as wall. Constitutional: No fever or chills reported. Head : No recent chronic headaches, recent head injury. Eyes: No recent eye pain, diplopia, redness, discharge, acute visual changes. Ears: No recent chronic ear pain, acute hearing loss, ear discharge. Oral cavity: No recent ulcerations, bleeding, oral cavity discomfort. Neck: No recent acute neck pain reported. Hematologic: No recent easy bruising or bleeding or hematologic malignancy reported. Lymphatic: No recent lymphatic malignancy, chronic lymphadenopathy reported yet Cardiovascular system review: See history of present illness. Respiratory system review: Describes intermittent cough and wheezing. No recent hemoptysis, history of blood clots in the lungs reported. Significant shortness of breath on exertion Gastrointestinal system review: Negative for any recent acute or chronic abdominal pain, hematemesis, melena, recent change in bowel habits. Genitourinary system review: No recent acute or chronic hematuria, flank pain, UTI etc. reported. Skin system review: Negative for any recent abnormal bruising, no rash, no pruritus reported. Neurologic: No prior history of strokes, mini strokes, seizure disorder. Psychologic: No history of major psychosis or major depression reported. Musculoskeletal: Minor aches and pains reported. No acute joint swelling reported. Endocrine: No recent polyuria, polydipsia, recent heat or cold intolerance. Physical Exam Vital Signs: Temp Pulse Resp BP Pulse Ox 97.4 F 70 18 134/73 H 98 03/05/17 20:01 03/05/17 20:01 03/05/17 20:01 03/05/17 20:01 03/05/17 21:00 Pulse Oximeter Continuous Start: 03/05/17 16: 23 Freq: RTCONT Status: Active Document 03/05/17 21:00 EAL (Rec: 03/05/17 21:16 EAL [email or web address]) Pulse Oximetry Assessment Oxygen Saturation (92-100) 98 Oxygen Delivery Method Room Air Fraction of Inspired Oxygen (FIO2) 21 Equipment Usage Equipment in Use Continuous SpO2 Machine # 6 Intake & Output 03/04/17 03/05/17 03/06/17 06:59 06:59 06:59 Intake Total 4 Balance 4 Weight 161.5 kg Exam: GENERAL: well-nourished and in no acute distress. Alert and oriented x3. Patient does get short of breath on minimal exertion HEAD: Atraumatic, normocephalic. EYES: Pupils equal round and reactive to light, extraocular movements intact, sclera anicteric, conjunctiva are normal. ENT: TMs normal, nares patent, oropharynx clear without exudates. Moist mucous membranes. No oral ulcerations or bleeding gums noted NECK: supple without lymphadenopathy. Trachea is central. No cervical or axillary lymphadenopathy noted. Carotids are 2+, JVD difficult to evaluate but felt to be WNL LUNGS: Respiration seems nonlabored, no significant accessory muscle action noted. Diminished breath sounds both sides due to obesity and few basal crackles, wheezes rales or rhonchi noted. No significant dullness noted on percussion. CHEST: Palpation of the chest wall shows no significant chest wall tenderness. No other significant abnormalities noted. 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 ABDOMEN: Soft, no significant tenderness appreciated, normoactive bowel sounds. No guarding, no rebound. No rigidity noted . No masses appreciated. EXTREMITIES: Pedal pulses are 1-2+, no calf tenderness noted. No clubbing or cyanosis. Chronic lymphedema and 1+ pedal edema noted NEUROLOGICAL: Focused neurological exam showed no significant neurologic deficit. Normal speech, no focal weakness appreciated. PSYCH: Normal mood, normal affect. Judgment and insight within normal limits. SKIN: No significant ecchymosis, rash, ulcerations or signs of pruritus noted. MUSCULOSKELETAL EXAM: No significant joint swelling noted. Results Laboratory Results: 03/05/17 16:45 03/05/17 16:45 03/05/17 03/05/17 03/05/17 16:45 16:45 16:45 WBC 8.5 RBC 4.09 Hgb 12.6 Hct 38.0 MCV 93 MCH 30.8 MCHC 33.2 RDW 14.9 H Plt Count 287 Seg Neutrophils % 56.3 Lymphocytes % 28.8 Monocytes % 10.0 Eosinophils % 3.4 Basophils % 1.5 Absolute Neutrophils 4.8 Absolute Lymphocytes 2.5 Absolute Monocytes 0.9 Absolute Eosinophils 0.3 Absolute Basophils 0.1 Carbonic Acid HCO3/H2CO3 Ratio ABG pH ABG pCO2 ABG pO2 ABG HCO3 ABG O2 Saturation ABG Base Excess FiO2 Sodium 143.1 Potassium 4.9 Chloride 108 H Carbon Dioxide 26 Anion Gap 9 BUN 16 Creatinine 0.94 Est GFR ( Amer) > 60 Est GFR (Non-Af Amer) > 60 Glucose 90 Calcium 9.3 Total Bilirubin 0.6 AST 79 H ALT 90 H Alkaline Phosphatase 90 Total Protein 6.3 Albumin 3.5 TSH 2.55 03/05/17 17:00 WBC RBC Hgb Hct MCV MCH MCHC RDW Plt Count Seg Neutrophils % Lymphocytes % Monocytes % Eosinophils % Basophils % Absolute Neutrophils Absolute Lymphocytes Absolute Monocytes Absolute Eosinophils Absolute Basophils Carbonic Acid 1.09 HCO3/H2CO3 Ratio 21:1 ABG pH 7.42 ABG pCO2 36.1 ABG pO2 63.4 L ABG HCO3 23.0 ABG O2 Saturation 92.8 L ABG Base Excess -1.0 FiO2 21% Sodium Potassium Chloride Carbon Dioxide Anion Gap BUN Creatinine Est GFR ( Amer) Est GFR (Non-Af Amer) Glucose Calcium Total Bilirubin AST ALT Alkaline Phosphatase Total Protein Albumin TSH 03/05/17 03/05/17 16:45 16:45 Creatine Kinase 52 CK-MB (CK-2) 0.26 Troponin I < 0.012 NT-Pro-B Natriuret Pep 707 EKG Comments: Sinus rhythm, no acute ST-T wave changes are noted Impressions: Chest/Abdomen CTA 03/05/17 00:00 IMPRESSION: No pulmonary emboli. Likely seroma along the anterior left chest wall. Assessment & Plan - Diagnosis (1) Paroxysmal atrial fibrillation Is this a current diagnosis for this admission?: Yes (2) COPD (chronic obstructive pulmonary disease) Qualifiers: COPD type: unspecified COPD Qualified Code(s): J44.9 - Chronic obstructive pulmonary disease, unspecified Is this a current diagnosis for this admission?: Yes (3) HTN (hypertension) Qualifiers: Hypertension type: essential hypertension Qualified Code(s): I10 - Essential (primary) hypertension Is this a current diagnosis for this admission?: Yes (4) Personal history of deep vein thrombosis Is this a current diagnosis for this admission?: Yes (5) Sleep apnea Qualifiers: Sleep apnea type: obstructive Qualified Code(s): G47.33 - Obstructive sleep apnea (adult) (pediatric) Is this a current diagnosis for this admission?: Yes (6) Type 2 diabetes mellitus Qualifiers: Diabetes mellitus complication status: with unspecified complications Diabetes mellitus custodial insulin use: unspecified 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 Continue current antiarrhythmic therapy which is being managed by Dr. Simba Gutierrez. Continue chronic anticoagulation. COPD: Patient has significant obesity hypoventilation syndrome and also COPD. Ordered by level therapy to be started by respiratory therapy. History of DVT and paroxysmal atrial fibrillation: Continue with Xarelto therapy. Sleep apnea syndrome: Patient encouraged in weight loss and also to wear CPAP. Diabetes: Currently stable. Dyspnea on exertion: Multifactorial. Patient encouraged in weight loss and regular walking program and increasing activity as tolerated. - Time Time Spent: 30 to 50 Minutes - More than 50% of the time spent coordinating care , discussing management plans with involved caregivers. Management plans discussed with involved personnels. Medical decision making was of moderate to high complexity, patient's has multiple comorbidities. Medications reviewed and adjusted accordingly: Yes
[2017-03-05] MEDS: LORAZEPAM 1 MG TABLET PO PRN (22:46)
[2017-03-05] MEDS ORDERED: CYCLOBENZAPRINE HCL 10 MG TABLET PO PRN (22:57)
[2017-03-05] MEDS ORDERED: RANOLAZINE 500 MG TAB.SR.12H PO ONE ×2 (23:00→23:41)
[2017-03-05] MEDS ORDERED: GABAPENTIN 100 MG CAPSULE PO ONE (23:00)
[2017-03-05 23:07] LABS: CREATINE KINASE MB 0.24 ng/mL (<4.55)
[2017-03-05 23:10] LABS: TROPONIN I < 0.012 ng/mL
[2017-03-05] MEDS ORDERED: ATENOLOL 50 MG TABLET PO ONE (23:30)
[2017-03-05] MEDS ORDERED: LOSARTAN POTASSIUM 50 MG TABLET PO ONE (23:30)
[2017-03-05] MEDS ORDERED: AMIODARONE HCL 200 MG TABLET PO ONE (23:30)
[2017-03-05] MEDS: FUROSEMIDE INJ/PF 40 MG/4 ML SDV IV SCH (23:31)
[2017-03-05] MEDS ORDERED: ATENOLOL 50 MG TABLET ONE (23:41)
[2017-03-06] MEDS ORDERED: FUROSEMIDE INJ/PF 40 MG/4 ML SDV IV SCH
[2017-03-06 05:35] LABS: ABSOLUTE BASOPHILS # (AUTO) 0.1 10^3/uL (0.0-0.2); ABSOLUTE EOSINOPHILS # (AUTO) 0.4 10^3/uL (0.0-0.6); ABSOLUTE LYMPHOCYTES (AUTO) 2.2 10^3/uL (0.5-4.7); ABSOLUTE MONOCYTES (AUTO) 0.8 10^3/uL (0.1-1.4); ABSOLUTE NEUT (AUTO) 4.1 10^3/uL (1.7-8.2); BASOPHILS % (AUTO) 1.6 % (0-2); EOSINOPHILS % (AUTO) 4.8 % (0-6); HEMOGLOBIN 12.3 g/dL (12.0-15.5); HGB HCT DIFFERENCE -0.1; LYMPHOCYTES % (AUTO) 28.6 % (13-45); MEAN CORPUSCULAR HEMOGLOBIN 30.5 pg (27.0-33.4); MEAN CORPUSCULAR HGB CONC 33.4 g/dL (32.0-36.0); MEAN CORPUSCULAR VOLUME 92 fl (80-97); MONOCYTES % (AUTO) 10.6 % (3-13); RED BLOOD COUNT 4.04 10^6/uL (3.72-5.28); RED CELL DISTRIBUTION WIDTH 15.1 % (11.5-14.0); SEGMENTED NEUTROPHILS % (AUTO) 54.4 % (42-78); WHITE BLOOD COUNT 7.6 10^3/uL (4.0-10.5)
[2017-03-06 05:59] LABS: ANION GAP 9 (5-19); BLOOD UREA NITROGEN 17 mg/dL (7-20); CALCIUM 8.9 mg/dL (8.4-10.2); CARBON DIOXIDE 26 mmol/L (22-30); CHLORIDE 107 mmol/L (98-107); CREATINE KINASE 46 U/L (30-135); CREATININE RESULT 1.06 mg/dL (0.52-1.25); GLUCOSE 92 mg/dL (75-110); MAGNESIUM 1.8 mg/dL (1.6-2.3); POTASSIUM 4.1 mmol/L (3.6-5.0); SODIUM 142.2 mmol/L (137-145)
[2017-03-06 06:10] LABS: CREATINE KINASE MB < 0.22 ng/mL (<4.55); TROPONIN I < 0.012 ng/mL
[2017-03-06] MEDS: FUROSEMIDE INJ/PF 40 MG/4 ML SDV IV SCH (06:59)
--- NOTE | 2017-03-06 09:33 | EKG REPORT ---
SEVERITY:- BORDERLINE ECG - SINUS RHYTHM PROBABLE LEFT ATRIAL ABNORMALITY BORDERLINE PROLONGED QT INTERVAL : Confirmed by: Edita Zendejas 06-Mar-2017 09:32:41
--- NOTE | 2017-03-06 09:33 | EKG REPORT ---
SEVERITY:- NORMAL ECG - SINUS RHYTHM : Confirmed by: Edita Zendejas 06-Mar-2017 09:32:45
[2017-03-06] MEDS: ATORVASTATIN CALCIUM 10 MG TABLET PO SCH (09:49)
[2017-03-06] MEDS: ASPIRIN 81 MG TABLET, ENT COATED PO SCH (09:49)
[2017-03-06] MEDS: CHOLECALCIFEROL (D3) 1,000 UNIT TABLET PO SCH (09:49)
[2017-03-06] MEDS: DOCUSATE SODIUM 100 MG CAPSULE PO SCH ×2 (09:49→17:25)
[2017-03-06] MEDS: RIVAROXABAN 10 MG TABLET PO SCH (09:50)
[2017-03-06] MEDS: FUROSEMIDE 40 MG TABLET PO SCH ×2 (09:50→17:25)
[2017-03-06] MEDS: ESCITALOPRAM OXALATE 10 MG TABLET PO SCH (09:50)
[2017-03-06] MEDS: POTASSIUM CHLORIDE 10 MEQ TABLET.SA PO SCH ×2 (09:50→21:24)
[2017-03-06] MEDS: ARIPIPRAZOLE 5 MG TABLET PO SCH (09:50)
[2017-03-06] MEDS: METFORMIN HCL 500 MG TABLET PO SCH (09:52)
[2017-03-06] MEDS: AMIODARONE HCL 200 MG TABLET PO SCH ×2 (09:52→21:24)
[2017-03-06] MEDS: RANOLAZINE 500 MG TAB.SR.12H PO SCH ×2 (09:52→21:24)
[2017-03-06] MEDS: ATENOLOL 50 MG TABLET PO SCH ×2 (09:52→21:24)
[2017-03-06] MEDS ORDERED: FOLIC PO SCH (10:00)
[2017-03-06] MEDS ORDERED: LANSOPRAZOLE 15 MG TAB.RAP.DR PO SCH (10:00)
[2017-03-06] MEDS ORDERED: (PENDING PHARMACY ID) (Colestipol Hcl [Colestid 1 Gm Tablet] 2 GM) PO SCH (10:00)
[2017-03-06] MEDS ORDERED: FIBER PO SCH (10:00)
[2017-03-06] MEDS ORDERED: [UNRECOGNIZED DRUG - OTHER] PO SCH (10:00)
[2017-03-06] MEDS ORDERED: IRON PO SCH (10:00)
[2017-03-06] MEDS ORDERED: MULTIVIT MIN PO SCH (10:00)
[2017-03-06] MEDS: TOLTERODINE TARTRATE 1 MG TABLET PO SCH ×2 (10:10→21:24)
--- NOTE | 2017-03-06 10:59 | Physician Advisory Note ---
Physician Advisor ProgressNote .: Pursuant to the plan for [facility], I have reviewed the medical record for this patient. Physician Advisor Statement: Nice documentation of type Afib, obesity, severe sleep apnea, DM-2. Please document, if you agree: 1. Diastolic CHF: "Acute on chronic", or "Chronic"? (& please document her "Verdana 4Bd cardiomegaly", "orthopnea", any rales you appreciate, ...) 2. ? "Acute or Chronic Hypoxemic Respiratory Failure"? - & document supporting evidence (increased work of breathing/accessory muscle use etc associated with the hypoxemia initially), or was there just "hypoxemia" alone in this case? 3. ?"obesity hypoventilation synd"? 4. Medical necessity: please document explicitly the clinical reasons pt not safe to go home 03/06. - Ex: "Breathing not yet back to baseline", "I AM CONCERNED about ___" ( specify morbidity/mortality risks), ... Status: Medicare pt w/multiple concerning co-morbidities including CAD, past PE & DVT (+IVCF), Paroxysmal Afib, chronic Xarelto tx, COPD, severe JULITA unable to tolerate CPAP, severe morbid obesity, chronic diastolic CHF, breast CA, DM type 2, bipolar depression - usually on Lasix 80mg bid now - presented w/SOB, SOLANO, dizziness, lightheadedness, O2 sat dropping to 80% with movement in office, (+) pedal edema, diminished breath sounds, - given IV Lasix x 1, begun on IV Lasix bid (given at 7AM today), O2, CPAP, daily wts, f/u labs, Cardiology & Pulm consults. - Despite prn Lorazepam, unable to tolerate CPAP last pm. Did have O2 sat only 95% on 3L at 04:00. - Changed to po bid 60mg Lasix today (given at 09:50 today). Cr higher today, though still WNL, & K has dropped significantly, though still WNL. Support for dx Acute CHF: From above + below, pt more than meets [place] criteria for the dx of Acute CHF: orthopnea, rales, cardiomegaly on CXR, BLE ankle edema, SOLANO. - nursing note at 16:00 documented cough - nursing note at 16:46 documented crackles (rales), SOB, cough intermittent, 3 + pitting edema - nursing note at 18:04 documented "difficulty breathing while laying flat" ( orthopnea) - nuring note at 22:00 documented 3+ pitting edema - CXR report from 01/23/17 documented "borderline cardiomegaly" Thanks! CK
--- NOTE | 2017-03-06 13:06 | PDOC PROGRESS REPORT ---
Subjective Progress Note for:: 03/06/17 Subjective:: Patient's currently doing fair patient still O2 sats drops when the night times when patients try to move to up to 80% in patients when he seem most also drop but patients sit patient's O2 sat is 90+ Patient's CTA is all negative and patient's all blood work is also negative Patient's denied any chest pain denied any shortness of the breath now while on the bed but patients move and started developing the symptoms Physical Exam Vital Signs: Temp Pulse Resp BP Pulse Ox 97.8 F 58 L 20 132/81 H 94 03/06/17 11:31 03/06/17 11:31 03/06/17 11:31 03/06/17 11:31 03/06/17 11:31 Pulse Oximeter Continuous Start: 03/05/17 16: 23 Freq: RTCONT Status: Active Document 03/06/17 08:43 TPO (Rec: 03/06/17 08:45 TPO [email or web address]) Pulse Oximetry Assessment Oxygen Saturation (92-100) 96 Oxygen Delivery Method Room Air Fraction of Inspired Oxygen (FIO2) 21 Equipment Usage Equipment in Use Continuous SpO2 Machine # 6 Intake & Output 03/05/17 03/06/17 03/07/17 06:59 06:59 06:59 Intake Total 544 Balance 544 Weight 158 kg 158 kg General appearance: PRESENT: no acute distress, well-developed, well-nourished Head exam: PRESENT: atraumatic, normocephalic Eye exam: PRESENT: conjunctiva pink, EOMI, PERRLA. ABSENT: scleral icterus Ear exam: PRESENT: normal external ear exam Mouth exam: PRESENT: moist, tongue midline Neck exam: PRESENT: full ROM. ABSENT: carotid bruit, JVD, lymphadenopathy, thyromegaly Respiratory exam: PRESENT: clear to auscultation ingrid Cardiovascular exam: PRESENT: RRR. ABSENT: diastolic murmur, rubs, systolic murmur Pulses: PRESENT: normal dorsalis pedis pul, +2 pedal pulses bilateral Vascular exam: PRESENT: normal capillary refill GI/Abdominal exam: PRESENT: normal bowel sounds, soft. ABSENT: distended, guarding, mass, organolmegaly, rebound, tenderness Rectal exam: PRESENT: deferred Neurological exam: PRESENT: alert, awake, oriented to person, oriented to place , oriented to time, oriented to situation, CN II-XII grossly intact. ABSENT: motor sensory deficit Psychiatric exam: PRESENT: appropriate affect, normal mood. ABSENT: homicidal ideation, suicidal ideation Skin exam: PRESENT: dry, intact, warm. ABSENT: cyanosis, rash Results Laboratory Results: 03/06/17 04:57 03/06/17 04:57 03/05/17 03/05/17 03/05/17 16:45 16:45 16:45 WBC 8.5 RBC 4.09 Hgb 12.6 Hct 38.0 MCV 93 MCH 30.8 MCHC 33.2 RDW 14.9 H Plt Count 287 Seg Neutrophils % 56.3 Lymphocytes % 28.8 Monocytes % 10.0 Eosinophils % 3.4 Basophils % 1.5 Absolute Neutrophils 4.8 Absolute Lymphocytes 2.5 Absolute Monocytes 0.9 Absolute Eosinophils 0.3 Absolute Basophils 0.1 Carbonic Acid HCO3/H2CO3 Ratio ABG pH ABG pCO2 ABG pO2 ABG HCO3 ABG O2 Saturation ABG Base Excess FiO2 Sodium 143.1 Potassium 4.9 Chloride 108 H Carbon Dioxide 26 Anion Gap 9 BUN 16 Creatinine 0.94 Est GFR ( Amer) > 60 Est GFR (Non-Af Amer) > 60 Glucose 90 Calcium 9.3 Magnesium Total Bilirubin 0.6 AST 79 H ALT 90 H Alkaline Phosphatase 90 Total Protein 6.3 Albumin 3.5 TSH 2.55 03/05/17 03/06/17 03/06/17 17:00 04:57 04:57 WBC 7.6 RBC 4.04 Hgb 12.3 Hct 37.0 MCV 92 MCH 30.5 MCHC 33.4 RDW 15.1 H Plt Count 272 Seg Neutrophils % 54.4 Lymphocytes % 28.6 Monocytes % 10.6 Eosinophils % 4.8 Basophils % 1.6 Absolute Neutrophils 4.1 Absolute Lymphocytes 2.2 Absolute Monocytes 0.8 Absolute Eosinophils 0.4 Absolute Basophils 0.1 Carbonic Acid 1.09 HCO3/H2CO3 Ratio 21:1 ABG pH 7.42 ABG pCO2 36.1 ABG pO2 63.4 L ABG HCO3 23.0 ABG O2 Saturation 92.8 L ABG Base Excess -1.0 FiO2 21% Sodium 142.2 Potassium 4.1 Chloride 107 Carbon Dioxide 26 Anion Gap 9 BUN 17 Creatinine 1.06 Est GFR ( Amer) > 60 Est GFR (Non-Af Amer) 55 L Glucose 92 Calcium 8.9 Magnesium 1.8 Total Bilirubin AST ALT Alkaline Phosphatase Total Protein Albumin TSH 03/05/17 03/05/17 03/05/17 16:45 16:45 22:25 Creatine Kinase 52 49 CK-MB (CK-2) 0.26 Troponin I < 0.012 NT-Pro-B Natriuret Pep 707 03/05/17 03/06/17 03/06/17 22:25 04:57 04:57 Creatine Kinase 46 CK-MB (CK-2) 0.24 < 0.22 Troponin I < 0.012 < 0.012 NT-Pro-B Natriuret Pep Impressions: Chest/Abdomen CTA 03/05/17 00:00 IMPRESSION: No pulmonary emboli. Likely seroma along the anterior left chest wall. Assessment & Plan - Diagnosis (1) Shortness of breath Is this a current diagnosis for this admission?: Yes Plan: Most likely related to the severe sleep apnea with some hypoventilation syndromes follow with the pulmonary and cardiology for further evaluations (2) Hypoxia Is this a current diagnosis for this admission?: Yes Plan: Due to the above conditions (3) Sleep apnea Is this a current diagnosis for this admission?: Yes Plan: Patient unable to use a CPAP yesterday we will try to talk to the sleep medicine 's to find out the smaller mask (4) COPD (chronic obstructive pulmonary disease) Qualifiers: COPD type: unspecified COPD Qualified Code(s): J44.9 - Chronic obstructive pulmonary disease, unspecified Is this a current diagnosis for this admission?: Yes Plan: Continues to Xopenex nebulizer (5) DVT, recurrent, lower extremity, chronic Qualifiers: Laterality: unspecified laterality Qualified Code(s): I82.509 - Chronic embolism and thrombosis of unspecified deep veins of unspecified lower extremity Is this a current diagnosis for this admission?: Yes Plan: Continues to Xarelto and patient have IVC filter (6) HTN (hypertension) Qualifiers: Hypertension type: essential hypertension Qualified Code(s): I10 - Essential (primary) hypertension Is this a current diagnosis for this admission?: Yes Plan: Continues to current medications (7) Morbid obesity Is this a current diagnosis for this admission?: Yes (8) Personal history of breast cancer Is this a current diagnosis for this admission?: Yes Plan: Patient's recent PET scan is all stableAnd also see her Dr. Phelan as outpatient (9) Type 2 diabetes mellitus Qualifiers: Diabetes mellitus complication status: with unspecified complications Is this a current diagnosis for this admission?: Yes Plan: Continues to current medication and sliding scale (10) Atrial fibrillation Qualifiers: Atrial fibrillation type: paroxysmal Qualified Code(s): I48.0 - Paroxysmal atrial fibrillation Is this a current diagnosis for this admission?: Yes Plan: Patient is currently rate controlled and currently on Xarelto. Patient already seen by Dr. Aggarwal in [place] and all workup done will get the medical recordConsult the local cardiology for further evaluations (11) Congestive heart failure Qualifiers: Congestive heart failure type: diastolic Is this a current diagnosis for this admission?: Yes Plan: Switch back to the p.o. 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
--- NOTE | 2017-03-06 14:11 | RADIOLOGY REPORT (SQ) ---
EXAM DESCRIPTION: NM LUNG VENT/PERF SCAN COMPLETED DATE/TIME: 03/06/2017 1:44 pm REASON FOR STUDY: dyspnea COMPARISON: None. RADIONUCLIDE AND DOSE: 5 millicuries TC-99m MAA Intravenous 30 millicuries TC-99m DTPA Inhaled aerosol TECHNIQUE: Eight views of the lungs acquired post ventilation of DTPA aerosol. Eight matching views of the lungs acquired following injection of MAA. LIMITATIONS: None. FINDINGS: VENTILATION: Symmetric and homogeneous distribution of DTPA aerosol during ventilatory pha se. No significant areas of photopenia. PERFUSION: Perfusion images with normal homogenous activity and no wedge-shaped or segmental defects. No ventilation-perfusion mismatches. OTHER: No other significant finding. IMPRESSION: NORMAL VENTILATION-PERFUSION LUNG SCAN. NEGATIVE FOR PULMONARY EMBOLI. TECHNICAL DOCUMENTATION: JOB ID: [id number] [employer]- All Rights Reserved
[2017-03-06] MEDS: LORAZEPAM 1 MG TABLET PO PRN (16:38)
[2017-03-06] MEDS: LOSARTAN POTASSIUM 50 MG TABLET PO SCH (21:24)
[2017-03-06] MEDS: GABAPENTIN 100 MG CAPSULE PO SCH (21:24)
--- NOTE | 2017-03-06 21:45 | PDOC PROGRESS REPORT ---
Subjective Progress Note for:: 03/06/17 Subjective:: Patient continues to be short of breath on minimal exertion. Patient was noted to revert back to atrial fibrillation but is maintaining controlled heart rate response. Patient could not tolerate a full facemask yesterday. The hospital does not have a smaller masks. Physical Exam Vital Signs: Temp Pulse Resp BP Pulse Ox 98.5 F 59 L 18 114/77 94 03/06/17 19:50 03/06/17 19:50 03/06/17 19:50 03/06/17 19:50 03/06/17 20:00 Pulse Oximeter Continuous Start: 03/05/17 16: 23 Freq: RTQ4 Status: Active Document 03/06/17 20:00 EAL (Rec: 03/06/17 20:11 EAL [email or web address]) Pulse Oximetry Assessment Oxygen Saturation (92-100) 94 Oxygen Flow Rate (L/min) 2 Oxygen Delivery Method Nasal Cannula Fraction of Inspired Oxygen (FIO2) 28 Equipment Usage Equipment in Use Continuous SpO2 Machine # 6 Intake & Output 03/05/17 03/06/17 03/07/17 06:59 06:59 06:59 Intake Total 544 1380 Output Total 2200 Balance 544 -820 Weight 158 kg 158 kg Exam: GENERAL: well-nourished and mild respiratory distress. Alert and oriented x3 HEAD: Atraumatic, normocephalic. EYES: Pupils equal round and reactive to light, extraocular movements intact, sclera anicteric, conjunctiva are normal. ENT: TMs normal, nares patent, oropharynx clear without exudates. Moist mucous membranes. No oral ulcerations or bleeding gums noted NECK: supple without lymphadenopathy. Trachea is central. No cervical or axillary lymphadenopathy noted. Carotids are 2+, JVD WNL LUNGS: Respiration seems nonlabored, no significant accessory muscle action noted. Breath sounds clear to auscultation bilaterally and equal noted. No wheezes rales or rhonchi noted. No significant dullness noted on percussion. CHEST: Palpation of the chest wall shows no significant chest wall tenderness. No other significant abnormalities noted. HEART: Kathleen SOLE [employer]AP[employer] WELT, No PSH, 1/6 ADRIAN aortic area, 1/6 michelle systolic murmur mitral area, no rubs, no gallops. ABDOMEN: Soft, no significant tenderness appreciated, normoactive bowel sounds. No guarding, no rebound. No rigidity noted . No masses appreciated. EXTREMITIES: Pedal pulses are 1-2+, no calf tenderness noted. No clubbing or cyanosis. 1+ pedal edema noted. Possible lymphedema. NEUROLOGICAL: Focused neurological exam showed no significant neurologic deficit. Normal speech, no focal weakness appreciated. PSYCH: Normal mood, normal affect. Judgment and insight within normal limits. SKIN: No significant ecchymosis, rash, ulcerations or signs of pruritus noted. MUSCULOSKELETAL EXAM: No significant joint swelling noted. Results Laboratory Results: 03/06/17 04:57 03/06/17 04:57 03/06/17 03/06/17 04:57 04:57 WBC 7.6 RBC 4.04 Hgb 12.3 Hct 37.0 MCV 92 MCH 30.5 MCHC 33.4 RDW 15.1 H Plt Count 272 Seg Neutrophils % 54.4 Lymphocytes % 28.6 Monocytes % 10.6 Eosinophils % 4.8 Basophils % 1.6 Absolute Neutrophils 4.1 Absolute Lymphocytes 2.2 Absolute Monocytes 0.8 Absolute Eosinophils 0.4 Absolute Basophils 0.1 Sodium 142.2 Potassium 4.1 Chloride 107 Carbon Dioxide 26 Anion Gap 9 BUN 17 Creatinine 1.06 Est GFR ( Amer) > 60 Est GFR (Non-Af Amer) 55 L Glucose 92 Calcium 8.9 Magnesium 1.8 03/05/17 03/05/17 03/05/17 16:45 16:45 22:25 Creatine Kinase 52 49 CK-MB (CK-2) 0.26 Troponin I < 0.012 NT-Pro-B Natriuret Pep 707 03/05/17 03/06/17 03/06/17 22:25 04:57 04:57 Creatine Kinase 46 CK-MB (CK-2) 0.24 < 0.22 Troponin I < 0.012 < 0.012 NT-Pro-B Natriuret Pep EKG Comments: EKG this morning shows sinus rhythm but rhythm strip shows patient had reverted back to atrial fibrillation. No acute ST-T wave changes noted. Impressions: Chest/Abdomen CTA 03/05/17 00:00 IMPRESSION: No pulmonary emboli. Likely seroma along the anterior left chest wall. Lung Scan[facility] 03/06/17 10:55 IMPRESSION: NORMAL VENTILATION-PERFUSION LUNG SCAN. NEGATIVE FOR PULMONARY EMBOLI. Assessment & Plan - Diagnosis (1) Atrial fibrillation Qualifiers: Atrial fibrillation type: paroxysmal Qualified Code(s): I48.0 - Paroxysmal atrial fibrillation Is this a current diagnosis for this admission?: Yes (2) Congestive heart failure Qualifiers: Congestive heart failure type: diastolic Is this a current diagnosis for this admission?: Yes (3) Hypoxia Is this a current diagnosis for this admission?: Yes (4) Shortness of breath Is this a current diagnosis for this admission?: Yes (5) Sleep apnea Is this a current diagnosis for this admission?: Yes (6) COPD (chronic obstructive pulmonary disease) Qualifiers: COPD type: unspecified COPD Qualified Code(s): J44.9 - Chronic obstructive pulmonary disease, unspecified Is this a current diagnosis for this admission?: Yes - Notes Notes: Patient has reverted back into atrial fibrillation. Will repeat an EKG in the morning. Patient remains significantly short of breath. Patient has difficulty tolerating CPAP therapy. Patient will benefit from aggressive weight loss. Will start patient on spironolactone. Patient may also be considered for Ranexa therapy to see if this will improve her shortness of breath. Ranexa has been shown to improve diastolic dysfunction in some studies. - Time Time with patient: 15-25 minutes Medications reviewed and adjusted accordingly: Yes
[2017-03-06] MEDS ORDERED: RANOLAZINE 500 MG TAB.SR.12H PO SCH (22:00)
[2017-03-07] MEDS: LANSOPRAZOLE 15 MG TAB.RAP.DR PO SCH (05:03)
[2017-03-07 05:25] LABS: ABSOLUTE BASOPHILS # (AUTO) 0.1 10^3/uL (0.0-0.2); ABSOLUTE EOSINOPHILS # (AUTO) 0.4 10^3/uL (0.0-0.6); ABSOLUTE LYMPHOCYTES (AUTO) 2.3 10^3/uL (0.5-4.7); ABSOLUTE MONOCYTES (AUTO) 0.9 10^3/uL (0.1-1.4); ABSOLUTE NEUT (AUTO) 3.9 10^3/uL (1.7-8.2); BASOPHILS % (AUTO) 1.3 % (0-2); EOSINOPHILS % (AUTO) 5.2 % (0-6); HEMATOCRIT 37.5 % (36.0-47.0); HEMOGLOBIN 12.7 g/dL (12.0-15.5); HGB HCT DIFFERENCE 0.6; LYMPHOCYTES % (AUTO) 30.3 % (13-45); MEAN CORPUSCULAR HEMOGLOBIN 30.8 pg (27.0-33.4); MEAN CORPUSCULAR HGB CONC 33.7 g/dL (32.0-36.0); MEAN CORPUSCULAR VOLUME 91 fl (80-97); RED CELL DISTRIBUTION WIDTH 15.2 % (11.5-14.0); SEGMENTED NEUTROPHILS % (AUTO) 51.2 % (42-78); WHITE BLOOD COUNT 7.6 10^3/uL (4.0-10.5)
[2017-03-07 05:42] LABS: ANION GAP 10 (5-19); BLOOD UREA NITROGEN 18 mg/dL (7-20); CARBON DIOXIDE 28 mmol/L (22-30); CHLORIDE 104 mmol/L (98-107); CREATININE RESULT 1.09 mg/dL (0.52-1.25); GLUCOSE 97 mg/dL (75-110); POTASSIUM 4.2 mmol/L (3.6-5.0); SODIUM 142.2 mmol/L (137-145)
--- NOTE | 2017-03-07 08:28 | PDOC PROGRESS REPORT ---
Subjective Progress Note for:: 03/07/17 Subjective:: Patient is currently doing samePatient oxygen saturations drop when patients more and patient unable to wear the mask in the hospital does not have any smaller maskBut according to the patient's currently the oxygen really help the patient's for her breathing Patient also had a VQ scan done by Dr. Vargas'natacha to look for any chronic PE which is also negative Patient still currently on and off A. fib and currently follow with the Dr. Zendejas Patient's denied any chest pain denied any shortness of the breath Physical Exam Vital Signs: Temp Pulse Resp BP Pulse Ox 98.5 F 60 21 H 106/43 L 98 03/07/17 07:56 03/07/17 07:56 03/07/17 07:56 03/07/17 07:56 03/07/17 07:56 Pulse Oximeter Continuous Start: 03/05/17 16: 23 Freq: RTQ4 Status: Active Document 03/07/17 04:00 EAL (Rec: 03/07/17 05:16 EAL [email or web address]) Pulse Oximetry Assessment Oxygen Saturation (92-100) 93 Oxygen Delivery Method Room Air Fraction of Inspired Oxygen (FIO2) 21 Equipment Usage Equipment in Use Continuous SpO2 Machine # 6 Intake & Output 03/06/17 03/07/17 03/08/17 06:59 06:59 06:59 Intake Total 544 2280 Output Total 3500 Balance 544 -1220 Weight 158 kg 158.1 kg General appearance: PRESENT: no acute distress, well-developed, well-nourished Head exam: PRESENT: atraumatic, normocephalic Eye exam: PRESENT: conjunctiva pink, EOMI, PERRLA. ABSENT: scleral icterus Ear exam: PRESENT: normal external ear exam Mouth exam: PRESENT: moist, tongue midline Neck exam: PRESENT: full ROM. ABSENT: carotid bruit, JVD, lymphadenopathy, thyromegaly Respiratory exam: PRESENT: clear to auscultation ingrid Cardiovascular exam: PRESENT: RRR. ABSENT: diastolic murmur, rubs, systolic murmur Pulses: PRESENT: normal dorsalis pedis pul, +2 pedal pulses bilateral Vascular exam: PRESENT: normal capillary refill GI/Abdominal exam: PRESENT: normal bowel sounds, soft. ABSENT: distended, guarding, mass, organolmegaly, rebound, tenderness Rectal exam: PRESENT: deferred Extremities exam: ABSENT: full ROM, left AKA, right AKA, left BKA, right BKA, calf tenderness, joint swelling, pedal edema, tenderness, other Musculoskeletal exam: PRESENT: ambulatory Neurological exam: PRESENT: alert, awake, oriented to person, oriented to place , oriented to time, oriented to situation, CN II-XII grossly intact. ABSENT: motor sensory deficit Psychiatric exam: PRESENT: appropriate affect, normal mood. ABSENT: homicidal ideation, suicidal ideation Skin exam: PRESENT: dry, intact, warm. ABSENT: cyanosis, rash Results Laboratory Results: 03/07/17 04:25 03/07/17 04:25 03/07/17 03/07/17 04:25 04:25 WBC 7.6 RBC 4.10 Hgb 12.7 Hct 37.5 MCV 91 MCH 30.8 MCHC 33.7 RDW 15.2 H Plt Count 291 Seg Neutrophils % 51.2 Lymphocytes % 30.3 Monocytes % 12.0 Eosinophils % 5.2 Basophils % 1.3 Absolute Neutrophils 3.9 Absolute Lymphocytes 2.3 Absolute Monocytes 0.9 Absolute Eosinophils 0.4 Absolute Basophils 0.1 Sodium 142.2 Potassium 4.2 Chloride 104 Carbon Dioxide 28 Anion Gap 10 BUN 18 Creatinine 1.09 Est GFR ( Amer) > 60 Est GFR (Non-Af Amer) 53 L Glucose 97 Calcium 9.0 03/05/17 03/05/17 03/05/17 16:45 16:45 22:25 Creatine Kinase 52 49 CK-MB (CK-2) 0.26 Troponin I < 0.012 NT-Pro-B Natriuret Pep 707 03/05/17 03/06/17 03/06/17 22:25 04:57 04:57 Creatine Kinase 46 CK-MB (CK-2) 0.24 < 0.22 Troponin I < 0.012 < 0.012 NT-Pro-B Natriuret Pep Impressions: Chest/Abdomen CTA 03/05/17 00:00 IMPRESSION: No pulmonary emboli. Likely seroma along the anterior left chest wall. Lung Scan-[facility] 03/06/17 10:55 IMPRESSION: NORMAL VENTILATION-PERFUSION LUNG SCAN. NEGATIVE FOR PULMONARY EMBOLI. Assessment & Plan - Diagnosis (1) Shortness of breath Is this a current diagnosis for this admission?: Yes Plan: Most likely due to the related to the severe sleep apnea and hypoventilation discussed with the patient about the using the CPAP and the patient's try again and hopefully we will find a smaller mask (2) Hypoxia Is this a current diagnosis for this admission?: Yes Plan: Due to the above conditions (3) Sleep apnea Is this a current diagnosis for this admission?: Yes Plan: Patient unable to use a CPAP yesterday we will try to talk to the sleep medicine 's to find out the smaller mask (4) COPD (chronic obstructive pulmonary disease) Qualifiers: COPD type: unspecified COPD Qualified Code(s): J44.9 - Chronic obstructive pulmonary disease, unspecified Is this a current diagnosis for this admission?: Yes Plan: Continues to Xopenex nebulizer (5) DVT, recurrent, lower extremity, chronic Qualifiers: Laterality: unspecified laterality Qualified Code(s): I82.509 - Chronic embolism and thrombosis of unspecified deep veins of unspecified lower extremity Is this a current diagnosis for this admission?: Yes Plan: Continues to Xarelto and patient have IVC filter (6) HTN (hypertension) Qualifiers: Hypertension type: essential hypertension Qualified Code(s): I10 - Essential (primary) hypertension Is this a current diagnosis for this admission?: Yes Plan: Continues to current medications (7) Morbid obesity Is this a current diagnosis for this admission?: Yes (8) Personal history of breast cancer Is this a current diagnosis for this admission?: Yes Plan: Patient's recent PET scan is all stableAnd also see her Dr. Phelan as outpatient (9) Type 2 diabetes mellitus Qualifiers: Diabetes mellitus complication status: with unspecified complications Is this a current diagnosis for this admission?: Yes Plan: Continues to current medication and sliding scale (10) Atrial fibrillation Qualifiers: Atrial fibrillation type: paroxysmal Qualified Code(s): I48.0 - Paroxysmal atrial fibrillation Is this a current diagnosis for this admission?: Yes Plan: Patient is currently rate controlled and currently on Xarelto. Patient already seen by Dr. Aggarwal in [place] and all workup done will get the medical recordConsult the local cardiology for further evaluations (11) Congestive heart failure Qualifiers: Congestive heart failure type: diastolic Is this a current diagnosis for this admission?: Yes Plan: Switch back to the p.o. Lasix - Time Time Spent with patient: 15-24 minutes Medications reviewed and adjusted accordingly: Yes Anticipated discharge: Home Within: Other - Inpatient Certification Medical Necessity: Need Close Monitoring Due to Risk of Patient Decompensation Post Hospital Care: D/C Line Maintainer Section Documentation - Plan Summary Plan Summary: Continues to current medications will make arrangement for that smaller mask for CPAP and hopefully the oxygen at [facility] especially patients walk and move and the discussed with the pulmonary and cardiology will continues to follow
[2017-03-07] MEDS: CHOLECALCIFEROL (D3) 1,000 UNIT TABLET PO SCH (09:11)
[2017-03-07] MEDS: ASPIRIN 81 MG TABLET, ENT COATED PO SCH (09:11)
[2017-03-07] MEDS: ATORVASTATIN CALCIUM 10 MG TABLET PO SCH (09:12)
[2017-03-07] MEDS: ESCITALOPRAM OXALATE 10 MG TABLET PO SCH (09:13)
[2017-03-07] MEDS: POTASSIUM CHLORIDE 10 MEQ TABLET.SA PO SCH ×2 (09:14→22:53)
[2017-03-07] MEDS: DOCUSATE SODIUM 100 MG CAPSULE PO SCH ×2 (09:14→17:37)
[2017-03-07] MEDS: FUROSEMIDE 40 MG TABLET PO SCH ×2 (09:14→17:37)
[2017-03-07] MEDS: ARIPIPRAZOLE 5 MG TABLET PO SCH (09:18)
[2017-03-07] MEDS: RANOLAZINE 500 MG TAB.SR.12H PO SCH ×2 (09:19→22:55)
[2017-03-07] MEDS: TOLTERODINE TARTRATE 1 MG TABLET PO SCH ×2 (09:20→22:55)
[2017-03-07] MEDS: RIVAROXABAN 10 MG TABLET PO SCH (09:20)
[2017-03-07] MEDS: METFORMIN HCL 500 MG TABLET PO SCH (09:23)
[2017-03-07] MEDS: AMIODARONE HCL 200 MG TABLET PO SCH ×2 (09:23→22:52)
[2017-03-07] MEDS: ATENOLOL 50 MG TABLET PO SCH ×2 (09:23→22:56)
--- NOTE | 2017-03-07 09:27 | EKG REPORT ---
SEVERITY:- ABNORMAL ECG - A-FLUTTER W/ PREDOM 3:1 AV BLOCK, A-RATE 230 BORDERLINE T ABNORMALITIES, DIFFUSE LEADS BORDERLINE PROLONGED QT INTERVAL : Confirmed by: Edita Zendejas 07-Mar-2017 09:27:36
[2017-03-07] MEDS: LORAZEPAM 1 MG TABLET PO PRN (10:52)
--- NOTE | 2017-03-07 13:53 | PDOC CONSULTATION ---
Consultation Consult Date: 03/06/17 Attending physician:: MAGNOLIA ADLER Consult reason:: dyspnia/hypoxia History of Present Illness Admission Date/PCP: 03/05/17 15:48 VILLA VALDOVINOS MD History of Present Illness: AGUSTIN ETIENNE is a 51 year old female This is a 51-year-old female with a significant medical problems including the history of the pulmonary embolisms chronic DVT status post IVC filterAnd a history of the COPD and a history of the severe sleep apnea history of the congestive heart failure and history of the paroxysmal atrial fibrillations.She has had multiple hospitalizations for DVTs, PE ,COPD respiratory failure. She denies cough but admits to shortness of breath at rest as well as dyspnea on exertion despite wearing her oxygen at home. She denies hemoptysis her PPD is negative dates unknown. She denies history of chronic lung disease as a child or adolescent. She admits to exposure to large amounts of passive smoke as a child but not as an adult. She has never smoked. 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 She has no pets no recent travel. She denies angina-like chest pain; she sleeps in a recliner ;admits to some PND ;occasional nocturnal cough and chronic edema. She has history of obstructive sleep apnea however machine was taken away due to lack of compliance. She has a inferior vena cava filter and is chronically on anticoagulants for atrial fibrillation as well as her coagulopathy she in addition has chronic renal failure losing large amounts of protein. Past Medical History Cardiac Medical History: Reports: Atrial Fibrillation, Coronary Artery Disease - HIGH CHOLESTEROL, DVT, Hyperlipidema, Hypertension, Pulmonary Embolism Denies: Myocardial Infarction Pulmonary Medical History: Reports: Bronchitis, Chronic Obstructive Pulmonary Disease (COPD), Intubation, Pneumonia, Respiratory Failure, Sleep Apnea Denies: Asthma, Tuberculosis EENT Medical History: Denies: Cataracts Neurological Medical History: Reports: Ischemic CVA Denies: Migraine, Seizures Endocrine Medical History: Reports: Diabetes Mellitus Type 2 Malignancy Medical History: Reports: Breast Cancer, Cervical Cancer GI Medical History: Reports: Gastroesophageal Reflux Disease, Hiatal Hernia Musculoskeltal Medical History: Reports: Arthritis - KNEES/BACK, Fibromyalgia Skin Medical History: Reports: Psoriasis Psychiatric Medical History: Reports: Bipolar Disorder, Depression Hematology: Denies: Anemia Past Surgical History Past Surgical History: Reports: Cholecystectomy, Hysterectomy, Mastectomy, Orthopedic Surgery, Other - IVC filter placement Denies: Pacemaker Social History Information Source: Patient, [facility] Records Lives with: Family Smoking Status: Never Smoker Passive smoke exposure as: Child Frequency of Alcohol Use: Rare Hx Recreational Drug Use: No Drugs: None Hx Prescription Drug Abuse: No Do you have pets?: No Have you had any respiratory illnesses as a child?: No Have you been exposed to any sick contacts recently?: No Have you had any recent respiratory illnesses?: No Have you travelled outside of [place] in the past 12 months?: No Family History Family History: Arthritis, CAD, DM, Hyperlipidemia, Hypertension, Malignancy Parental Family History Reviewed: No Children Family History Reviewed: No Sibling(s) Family History Reviewed.: No Medication/Allergy Home Medications: Amiodarone HCl [Cordarone 200 mg Tablet] 200 mg PO Q12 03/05/17 Aripiprazole [Abilify 10 mg Tablet] 10 mg PO DAILY 03/05/17 Aspirin [Aspirin EC] 81 mg PO DAILY 03/05/17 Atenolol [Tenormin 100 mg Tablet] 100 mg PO Q12 03/05/17 Atorvastatin Calcium [Lipitor 10 mg Tablet] 10 mg PO DAILY 03/05/17 Cholecalciferol (Vitamin D3) [Vitamin D3 5000 unit Capsule] 5,000 units PO DAILY 03/05/17 Colestipol HCl [Colestid 1 gm Tablet] 2 gm PO Q12 03/05/17 Cyclobenzaprine HCl [Flexeril 5 mg Tablet] 5 mg PO Q12HP PRN 03/05/17 Escitalopram Oxalate [Lexapro] 20 mg PO DAILY 03/05/17 Esomeprazole Magnesium [Nexium] 20 mg PO DAILY 03/05/17 Fiber [Fiber Diet] 1 tab PO DAILY 03/05/17 Furosemide [Lasix 80 mg Tablet] 80 mg PO BID 03/05/17 Gabapentin [Neurontin 100 mg Capsule] 100 mg PO QHS 03/05/17 Lorazepam [Ativan 1 mg Tablet] 1 mg PO Q12HP PRN 03/05/17 Losartan Potassium [Cozaar 50 mg Tablet] 50 mg PO QHS 03/05/17 Metformin HCl [Glucophage 500 mg Tablet] 500 mg PO DAILY 03/05/17 Multivit-Min/Iron/Folic/[id number] [Hair, Skin and Nails Tablet] 1 tab PO DAILY Multivit-Minerals/Folic Acid [One Daily Womens 50 Plus Tab] 1 tab PO DAILY 03/05 Potassium Chloride [Klor-Con 10 Meq Tablet.sa] 10 meq PO Q12 03/05/17 Ranolazine [Ranexa 500 mg Tab.sr] 500 mg PO Q12 03/05/17 Rivaroxaban [Xarelto] 20 mg PO DAILY 03/05/17 Solifenacin Succinate [Vesicare] 10 mg PO DAILY 03/05/17 Allergies/Adverse Reactions: adhesive [Adhesive] Allergy (Mild, Verified 01/21/17 23:52) Generalized rash methicillin [Methicillin] Allergy (Mild, Verified 01/21/17 23:52) Generalized rash vancomycin [Vancomycin] Allergy (Mild, Verified 01/21/17 23:52) Generalized rash Review of Systems Constitutional: PRESENT: fatigue, headache(s), weight gain Eyes: ABSENT: visual disturbances Ears: ABSENT: hearing changes Nose, Mouth, and Throat: PRESENT: vertigo. ABSENT: mouth pain, sore throat Cardiovascular: PRESENT: dyspnea on exertion, edema, orthropnea. ABSENT: chest pain Respiratory: PRESENT: dyspnea. ABSENT: hemoptysis Gastrointestinal: PRESENT: constipation. ABSENT: abdominal pain, bloating, coffee ground emesis, diarrhea, dysphagia, hematemesis, hematochezia, melena Genitourinary: PRESENT: hematuria, nocturia. ABSENT: difficulty urinating, dysuria Musculoskeletal: PRESENT: back pain, muscle weakness Integumentary: PRESENT: diaphoresis, pruritus Neurological: PRESENT: abnormal movements, dizziness, lack of coordination, memory loss, vertigo, weakness Psychiatric: PRESENT: anxiety, depression. ABSENT: hallucinations, homidical ideation, suicidal ideation Endocrine: ABSENT: cold intolerance, flushing, heat intolerance, menstrual abnormalities, polydipsia, polyphagia, polyuria Hematologic/Lymphatic: PRESENT: easy bleeding, easy bruising. ABSENT: lymphadenopathy Allergic/Immunologic: ABSENT: seasonal rhinorrhea Physical Exam Vital Signs: Temp Pulse Resp BP Pulse Ox 98.5 F 79 18 108/71 96 03/06/17 07:50 03/06/17 08:43 03/06/17 08:43 03/06/17 07:50 03/06/17 08:43 Pulse Oximeter Continuous Start: 03/05/17 16: 23 Freq: RTCONT Status: Active Document 03/06/17 08:43 TPO (Rec: 03/06/17 08:45 TPO [email or web address]) Pulse Oximetry Assessment Oxygen Saturation (92-100) 96 Oxygen Delivery Method Room Air Fraction of Inspired Oxygen (FIO2) 21 Equipment Usage Equipment in Use Continuous SpO2 Machine # 6 Intake & Output 03/05/17 03/06/17 03/07/17 06:59 06:59 06:59 Intake Total 544 Balance 544 Weight 158 kg 158 kg General appearance: PRESENT: no acute distress, cooperative, disheveled, morbidly obese Head exam: PRESENT: atraumatic, normocephalic Eye exam: PRESENT: conjunctiva pale, EOMI Mouth exam: PRESENT: dry mucosa, neck supple, tongue midline Neck exam: ABSENT: carotid bruit, JVD, lymphadenopathy, thyromegaly Respiratory exam: PRESENT: decreased breath sounds, rhonchi, symmetrical, unlabored. ABSENT: accessory muscle use, chest wall tenderness, clear to auscultation ingrid, crackles, prolonged expiratory phas, rales, retraction, stridor, tachypnea, wheezes Cardiovascular exam: PRESENT: RRR, +S1, +S2. ABSENT: irregular rhythm Pulses: PRESENT: normal radial pulses GI/Abdominal exam: PRESENT: normal bowel sounds, soft. ABSENT: distended, guarding, mass, organolmegaly, rebound, tenderness Extremities exam: PRESENT: +2 edema. ABSENT: calf tenderness, clubbing, joint swelling, tenderness Musculoskeletal exam: ABSENT: ambulatory, deformity, dislocation Neurological exam: PRESENT: alert, awake Psychiatric exam: PRESENT: normal mood Skin exam: PRESENT: dry, pallor Results Laboratory Results: 03/06/17 04:57 03/06/17 04:57 03/05/17 03/05/17 03/05/17 16:45 16:45 16:45 WBC 8.5 RBC 4.09 Hgb 12.6 Hct 38.0 MCV 93 MCH 30.8 MCHC 33.2 RDW 14.9 H Plt Count 287 Seg Neutrophils % 56.3 Lymphocytes % 28.8 Monocytes % 10.0 Eosinophils % 3.4 Basophils % 1.5 Absolute Neutrophils 4.8 Absolute Lymphocytes 2.5 Absolute Monocytes 0.9 Absolute Eosinophils 0.3 Absolute Basophils 0.1 Carbonic Acid HCO3/H2CO3 Ratio ABG pH ABG pCO2 ABG pO2 ABG HCO3 ABG O2 Saturation ABG Base Excess FiO2 Sodium 143.1 Potassium 4.9 Chloride 108 H Carbon Dioxide 26 Anion Gap 9 BUN 16 Creatinine 0.94 Est GFR ( Amer) > 60 Est GFR (Non-Af Amer) > 60 Glucose 90 Calcium 9.3 Magnesium Total Bilirubin 0.6 AST 79 H ALT 90 H Alkaline Phosphatase 90 Total Protein 6.3 Albumin 3.5 TSH 2.55 03/05/17 03/06/17 03/06/17 17:00 04:57 04:57 WBC 7.6 RBC 4.04 Hgb 12.3 Hct 37.0 MCV 92 MCH 30.5 MCHC 33.4 RDW 15.1 H Plt Count 272 Seg Neutrophils % 54.4 Lymphocytes % 28.6 Monocytes % 10.6 Eosinophils % 4.8 Basophils % 1.6 Absolute Neutrophils 4.1 Absolute Lymphocytes 2.2 Absolute Monocytes 0.8 Absolute Eosinophils 0.4 Absolute Basophils 0.1 Carbonic Acid 1.09 HCO3/H2CO3 Ratio 21:1 ABG pH 7.42 ABG pCO2 36.1 ABG pO2 63.4 L ABG HCO3 23.0 ABG O2 Saturation 92.8 L ABG Base Excess -1.0 FiO2 21% Sodium 142.2 Potassium 4.1 Chloride 107 Carbon Dioxide 26 Anion Gap 9 BUN 17 Creatinine 1.06 Est GFR ( Amer) > 60 Est GFR (Non-Af Amer) 55 L Glucose 92 Calcium 8.9 Magnesium 1.8 Total Bilirubin AST ALT Alkaline Phosphatase Total Protein Albumin TSH 03/05/17 03/05/17 03/05/17 16:45 16:45 22:25 Creatine Kinase 52 49 CK-MB (CK-2) 0.26 Troponin I < 0.012 NT-Pro-B Natriuret Pep 707 03/05/17 03/06/17 03/06/17 22:25 04:57 04:57 Creatine Kinase 46 CK-MB (CK-2) 0.24 < 0.22 Troponin I < 0.012 < 0.012 NT-Pro-B Natriuret Pep Impressions: Chest/Abdomen CTA 03/05/17 00:00 IMPRESSION: No pulmonary emboli. Likely seroma along the anterior left chest wall. Assessment & Plan - Diagnosis (1) Obesity hypoventilation syndrome Is this a current diagnosis for this admission?: Yes Plan: Desperately trying to get mask or nasal pillows that the patient will tolerate I have spoken with her as this is a matter of life and (2) Hypoxia Is this a current diagnosis for this admission?: Yes Plan: VQ scan to determine if patient has chronic thromboembolic disease this test is most sensitive than a CTA for this disease process (3) Shortness of breath Is this a current diagnosis for this admission?: Yes Plan: Multiple comorbid conditions that could lead to this symptom complex PE, chronic venograms from female thromboembolic disease, congestive heart failure, obstructive lung disease (4) Sleep apnea Qualifiers: Sleep apnea type: obstructive Qualified Code(s): G47.33 - Obstructive sleep apnea (adult) (pediatric) Is this a current diagnosis for this admission?: Yes Plan: We will try to reinstitute therapy would need new CPAP titration study (5) Morbid obesity Is this a current diagnosis for this admission?: Yes Plan: consider dietary consult (6) DVT, recurrent, lower extremity, chronic Qualifiers: Laterality: bilateral Qualified Code(s): I82.503 - Chronic embolism and thrombosis of unspecified deep veins of lower extremity, bilateral Is this a current diagnosis for this admission?: Yes
--- NOTE | 2017-03-07 13:58 | PDOC PROGRESS REPORT ---
Subjective Progress Note for:: 03/07/17 - Acute/chronic respiratory failure Subjective:: Continues to remain extremely dyspneic with minimal exertion Physical Exam Vital Signs: Temp Pulse Resp BP Pulse Ox 98.5 F 60 21 H 106/43 L 98 03/07/17 07:56 03/07/17 07:56 03/07/17 07:56 03/07/17 07:56 03/07/17 07:56 Pulse Oximeter Continuous Start: 03/05/17 16: 23 Freq: RTQ4 Status: Active Document 03/07/17 04:00 EAL (Rec: 03/07/17 05:16 EAL [email or web address]) Pulse Oximetry Assessment Oxygen Saturation (92-100) 93 Oxygen Delivery Method Room Air Fraction of Inspired Oxygen (FIO2) 21 Equipment Usage Equipment in Use Continuous SpO2 Machine # 6 Intake & Output 03/06/17 03/07/17 03/08/17 06:59 06:59 06:59 Intake Total 544 2280 Output Total 3500 Balance 544 -1220 Weight 158 kg 158.1 kg General appearance: PRESENT: cooperative, disheveled, mild distress, morbidly obese Head exam: PRESENT: atraumatic, normocephalic Eye exam: PRESENT: conjunctiva pale, EOMI Mouth exam: PRESENT: moist, neck supple, tongue midline Neck exam: ABSENT: carotid bruit, JVD, lymphadenopathy, thyromegaly Respiratory exam: PRESENT: clear to auscultation ingrid, decreased breath sounds, rhonchi, symmetrical, unlabored. ABSENT: accessory muscle use, chest wall tenderness, crackles, prolonged expiratory phas, rales, retraction, stridor, tachypnea, wheezes Cardiovascular exam: PRESENT: RRR, +S1, +S2. ABSENT: irregular rhythm Pulses: PRESENT: normal radial pulses GI/Abdominal exam: PRESENT: normal bowel sounds, soft. ABSENT: distended, guarding, mass, organolmegaly, rebound, tenderness Extremities exam: PRESENT: pedal edema, +2 edema. ABSENT: calf tenderness, clubbing, tenderness Musculoskeletal exam: ABSENT: deformity, dislocation, tenderness Neurological exam: PRESENT: alert, awake Psychiatric exam: PRESENT: normal mood Skin exam: PRESENT: dry, warm Results Laboratory Results: 03/07/17 04:25 03/07/17 04:25 03/07/17 03/07/17 04:25 04:25 WBC 7.6 RBC 4.10 Hgb 12.7 Hct 37.5 MCV 91 MCH 30.8 MCHC 33.7 RDW 15.2 H Plt Count 291 Seg Neutrophils % 51.2 Lymphocytes % 30.3 Monocytes % 12.0 Eosinophils % 5.2 Basophils % 1.3 Absolute Neutrophils 3.9 Absolute Lymphocytes 2.3 Absolute Monocytes 0.9 Absolute Eosinophils 0.4 Absolute Basophils 0.1 Sodium 142.2 Potassium 4.2 Chloride 104 Carbon Dioxide 28 Anion Gap 10 BUN 18 Creatinine 1.09 Est GFR ( Amer) > 60 Est GFR (Non-Af Amer) 53 L Glucose 97 Calcium 9.0 03/05/17 03/05/17 03/05/17 16:45 16:45 22:25 Creatine Kinase 52 49 CK-MB (CK-2) 0.26 Troponin I < 0.012 NT-Pro-B Natriuret Pep 707 03/05/17 03/06/17 03/06/17 22:25 04:57 04:57 Creatine Kinase 46 CK-MB (CK-2) 0.24 < 0.22 Troponin I < 0.012 < 0.012 NT-Pro-B Natriuret Pep Impressions: Chest/Abdomen CTA 03/05/17 00:00 IMPRESSION: No pulmonary emboli. Likely seroma along the anterior left chest wall. Lung Scan-VQ NM 03/06/17 10:55 IMPRESSION: NORMAL VENTILATION-PERFUSION LUNG SCAN. NEGATIVE FOR PULMONARY EMBOLI. Assessment & Plan - Diagnosis (1) Hypoxia Is this a current diagnosis for this admission?: Yes Plan: Persist with minimal exertion 3 L nasal cannula patient stands to breathe through her mouth saturations did decrease to the mid 80s (2) Obesity hypoventilation syndrome Is this a current diagnosis for this admission?: Yes Plan: Try to qualify for BiPAP or trilogy (3) Sleep apnea Qualifiers: Sleep apnea type: obstructive Qualified Code(s): G47.33 - Obstructive sleep apnea (adult) (pediatric) Is this a current diagnosis for this admission?: Yes Plan: Nocturnal polysomnogram upon discharge (4) Atrial fibrillation with rapid ventricular response Is this a current diagnosis for this admission?: Yes Plan: Currently well-controlled (5) COPD (chronic obstructive pulmonary disease) Qualifiers: COPD type: unspecified COPD Qualified Code(s): J44.9 - Chronic obstructive pulmonary disease, unspecified Is this a current diagnosis for this admission?: Yes Plan: Generic Name Dose Route Start Last Admin Trade Name Freq PRN Reason Stop Dose Admin Levalbuterol HCl 0.63 mg 03/05/17 16:00 Xopenex Neb 0.63 Mg/3 Ml Ampul NEB 04/04/17 15:59 [id number] PRN FOR WHEEZING As needed (6) DVT, recurrent, lower extremity, chronic Qualifiers: Laterality: bilateral Qualified Code(s): I82.503 - Chronic embolism and thrombosis of unspecified deep veins of lower extremity, bilateral Is this a current diagnosis for this admission?: Yes
[2017-03-07] MEDS: GABAPENTIN 100 MG CAPSULE PO SCH (22:51)
[2017-03-07] MEDS: LOSARTAN POTASSIUM 50 MG TABLET PO SCH (22:52)
[2017-03-08] MEDS: LANSOPRAZOLE 15 MG TAB.RAP.DR PO SCH (05:55)
[2017-03-08 05:57] LABS: ANION GAP 10 (5-19); BLOOD UREA NITROGEN 17 mg/dL (7-20); CALCIUM 8.9 mg/dL (8.4-10.2); CARBON DIOXIDE 28 mmol/L (22-30); CHLORIDE 103 mmol/L (98-107); CREATININE RESULT 0.96 mg/dL (0.52-1.25); GLUCOSE 108 mg/dL (75-110); POTASSIUM 4.1 mmol/L (3.6-5.0); SODIUM 141.3 mmol/L (137-145)
--- NOTE | 2017-03-08 09:24 | PDOC PROGRESS REPORT ---
Subjective Progress Note for:: 03/07/17 Subjective:: Patient continues to be short of breath on minimal exertion. Patient has reverted back to sinus rhythm. Patient continues to be short of breath on minimal exertion, but seems improved medication changes performed last night. Dose of atenolol was reduced. Aim would be to gradually discontinue this and start patient on calcium channel dennis. Physical Exam Vital Signs: Temp Pulse Resp BP Pulse Ox 98.5 F 64 16 106/43 L 97 03/07/17 07:56 03/07/17 09:38 03/07/17 09:38 03/07/17 07:56 03/07/17 09:38 Pulse Oximeter Continuous Start: 03/05/17 16: 23 Freq: RTQ4 Status: Active Document 03/07/17 09:35 [facility] (Rec: 03/07/17 09:39 [facility] [email or web address]) Pulse Oximetry Assessment Oxygen Saturation (92-100) 96 Oxygen Flow Rate (L/min) 2 Oxygen Delivery Method Nasal Cannula Equipment Usage Equipment in Use Continuous SpO2 Machine # 6 Intake & Output 03/06/17 03/07/17 03/08/17 06:59 06:59 06:59 Intake Total 544 2280 Output Total 3500 Balance 544 -1220 Weight 158 kg 158.1 kg Exam: GENERAL: well-nourished and in no acute distress. Alert and oriented x3 HEAD: Atraumatic, normocephalic. EYES: Pupils equal round and reactive to light, extraocular movements intact, sclera anicteric, conjunctiva are normal. ENT: TMs normal, nares patent, oropharynx clear without exudates. Moist mucous membranes. No oral ulcerations or bleeding gums noted NECK: supple without lymphadenopathy. Trachea is central. No cervical or axillary lymphadenopathy noted. Carotids are 2+, JVD WNL LUNGS: Respiration seems nonlabored, no significant accessory muscle action noted. Breath sounds clear to auscultation bilaterally and equal noted. No wheezes rales or rhonchi noted. No significant dullness noted on percussion. CHEST: Palpation of the chest wall shows no significant chest wall tenderness. No other significant abnormalities noted. HEART: [place] [employer], No PSH, 1/6 ADRIAN aortic area, 1/6 michelle systolic murmur mitral area, no rubs, no gallops. ABDOMEN: Soft, no significant tenderness appreciated, normoactive bowel sounds. No guarding, no rebound. No rigidity noted . No masses appreciated. EXTREMITIES: Pedal pulses are 1-2+, no calf tenderness noted. No clubbing or cyanosis. Lymphedema along with 1+ pedal edema noted NEUROLOGICAL: Focused neurological exam showed no significant neurologic deficit. Normal speech, no focal weakness appreciated. PSYCH: Normal mood, normal affect. Judgment and insight within normal limits. SKIN: No significant ecchymosis, rash, ulcerations or signs of pruritus noted. MUSCULOSKELETAL EXAM: No significant joint swelling noted. Results Laboratory Results: 03/07/17 04:25 03/07/17 04:25 03/07/17 03/07/17 04:25 04:25 WBC 7.6 RBC 4.10 Hgb 12.7 Hct 37.5 MCV 91 MCH 30.8 MCHC 33.7 RDW 15.2 H Plt Count 291 Seg Neutrophils % 51.2 Lymphocytes % 30.3 Monocytes % 12.0 Eosinophils % 5.2 Basophils % 1.3 Absolute Neutrophils 3.9 Absolute Lymphocytes 2.3 Absolute Monocytes 0.9 Absolute Eosinophils 0.4 Absolute Basophils 0.1 Sodium 142.2 Potassium 4.2 Chloride 104 Carbon Dioxide 28 Anion Gap 10 BUN 18 Creatinine 1.09 Est GFR ( Amer) > 60 Est GFR (Non-Af Amer) 53 L Glucose 97 Calcium 9.0 03/05/17 03/05/17 03/05/17 16:45 16:45 22:25 Creatine Kinase 52 49 CK-MB (CK-2) 0.26 Troponin I < 0.012 NT-Pro-B Natriuret Pep 707 03/05/17 03/06/17 03/06/17 22:25 04:57 04:57 Creatine Kinase 46 CK-MB (CK-2) 0.24 < 0.22 Troponin I < 0.012 < 0.012 NT-Pro-B Natriuret Pep Impressions: Chest/Abdomen CTA 03/05/17 00:00 IMPRESSION: No pulmonary emboli. Likely seroma along the anterior left chest wall. Lung Scan-VQ NM 03/06/17 10:55 IMPRESSION: NORMAL VENTILATION-PERFUSION LUNG SCAN. NEGATIVE FOR PULMONARY EMBOLI. Assessment & Plan - Diagnosis (1) Atrial fibrillation Qualifiers: Atrial fibrillation type: paroxysmal Qualified Code(s): I48.0 - Paroxysmal atrial fibrillation Is this a current diagnosis for this admission?: Yes (2) Congestive heart failure Qualifiers: Congestive heart failure type: diastolic Is this a current diagnosis for this admission?: Yes (3) Hypoxia Is this a current diagnosis for this admission?: Yes (4) Shortness of breath Is this a current diagnosis for this admission?: Yes (5) Sleep apnea Qualifiers: Sleep apnea type: obstructive Qualified Code(s): G47.33 - Obstructive sleep apnea (adult) (pediatric) Is this a current diagnosis for this admission?: Yes (6) COPD (chronic obstructive pulmonary disease) Qualifiers: COPD type: unspecified COPD Qualified Code(s): J44.9 - Chronic obstructive pulmonary disease, unspecified Is this a current diagnosis for this admission?: Yes - Notes Notes: Paroxysmal atrial fibrillation: Currently patient in sinus rhythm. Continue current antiarrhythmic therapy which is being managed by Dr. Simba Gutierrez. Continue chronic anticoagulation. For rate control, have gradually reduced atenolol. Have started Ranexa. Have also started spironolactone to help her dyspnea. COPD: Patient has significant obesity hypoventilation syndrome and also COPD. Ordered by level therapy to be started by respiratory therapy. History of DVT and paroxysmal atrial fibrillation: Continue with Xarelto therapy. Sleep apnea syndrome: Patient encouraged in weight loss and also to wear CPAP. Diabetes: Currently stable. Dyspnea on exertion: Multifactorial. Patient encouraged in weight loss and regular walking program and increasing activity as tolerated. Medication changes were performed. - Time Time with patient: 15-25 minutes - More than 50% of the time spent coordinating care, discussing management plans with involved caregivers. Management plans discussed with involved personnels. Medical decision making was of moderate to high complexity, patient's has multiple comorbidities. Medications reviewed and adjusted accordingly: Yes
--- NOTE | 2017-03-08 09:25 | PDOC PROGRESS REPORT ---
Subjective Progress Note for:: 03/08/17 Subjective:: Patient is currently doing samePatient oxygen saturations drop when patients more and patient unable to wear the mask in the hospital does not have any smaller maskBut according to the patient's currently the oxygen really help the patient's for her breathing Patient also had a VQ scan done by Dr. Vargas'natacha to look for any chronic PE which is also negative Patient still currently on and off A. fib and currently follow with the Dr. Zendejas Patient's denied any chest pain denied any shortness of the breath Physical Exam Vital Signs: Temp Pulse Resp BP Pulse Ox 97.7 F 61 17 98/46 L 92 03/08/17 07:49 03/08/17 07:49 03/08/17 07:49 03/08/17 07:49 03/08/17 07:49 Pulse Oximeter Continuous Start: 03/05/17 16: 23 Freq: RTQ4 Status: Active Document 03/08/17 04:00 SFL (Rec: 03/08/17 04:32 SFL [email or web address]) Pulse Oximetry Assessment Oxygen Saturation (92-100) 91 Oxygen Flow Rate (L/min) 2 Oxygen Delivery Method Nasal Cannula Equipment Usage Equipment in Use Continuous SpO2 Machine # 6 Intake & Output 03/07/17 03/08/17 03/09/17 06:59 06:59 06:59 Intake Total 2280 1066 Output Total 3500 900 Balance -1220 166 Weight 158.1 kg 158.7 kg General appearance: PRESENT: no acute distress, well-developed, well-nourished Head exam: PRESENT: atraumatic, normocephalic Eye exam: PRESENT: conjunctiva pink, EOMI, PERRLA. ABSENT: scleral icterus Ear exam: PRESENT: normal external ear exam Mouth exam: PRESENT: moist, tongue midline Neck exam: PRESENT: full ROM. ABSENT: carotid bruit, JVD, lymphadenopathy, thyromegaly Respiratory exam: PRESENT: clear to auscultation ingrid Cardiovascular exam: PRESENT: RRR. ABSENT: diastolic murmur, rubs, systolic murmur Pulses: PRESENT: normal dorsalis pedis pul, +2 pedal pulses bilateral Vascular exam: PRESENT: normal capillary refill GI/Abdominal exam: PRESENT: normal bowel sounds, soft. ABSENT: distended, guarding, mass, organolmegaly, rebound, tenderness Rectal exam: PRESENT: deferred Extremities exam: ABSENT: full ROM, left AKA, right AKA, left BKA, right BKA, calf tenderness, joint swelling, pedal edema, tenderness, other Musculoskeletal exam: PRESENT: ambulatory Neurological exam: PRESENT: alert, awake, oriented to person, oriented to place , oriented to time, oriented to situation, CN II-XII grossly intact. ABSENT: motor sensory deficit Psychiatric exam: PRESENT: appropriate affect, normal mood. ABSENT: homicidal ideation, suicidal ideation Skin exam: PRESENT: dry, intact, warm. ABSENT: cyanosis, rash Results Laboratory Results: 03/07/17 04:25 03/08/17 05:20 03/08/17 05:20 Sodium 141.3 Potassium 4.1 Chloride 103 Carbon Dioxide 28 Anion Gap 10 BUN 17 Creatinine 0.96 Est GFR ( Amer) > 60 Est GFR (Non-Af Amer) > 60 Glucose 108 Calcium 8.9 03/05/17 03/05/17 03/05/17 16:45 16:45 22:25 Creatine Kinase 52 49 CK-MB (CK-2) 0.26 Troponin I < 0.012 NT-Pro-B Natriuret Pep 707 03/05/17 03/06/17 03/06/17 22:25 04:57 04:57 Creatine Kinase 46 CK-MB (CK-2) 0.24 < 0.22 Troponin I < 0.012 < 0.012 NT-Pro-B Natriuret Pep Impressions: Chest/Abdomen CTA 03/05/17 00:00 IMPRESSION: No pulmonary emboli. Likely seroma along the anterior left chest wall. Lung Scan-VQ MD 03/06/17 10:55 IMPRESSION: NORMAL VENTILATION-PERFUSION LUNG SCAN. NEGATIVE FOR PULMONARY EMBOLI. Assessment & Plan - Diagnosis (1) Shortness of breath Is this a current diagnosis for this admission?: Yes Plan: Most likely due to the related to the severe sleep apnea and hypoventilation discussed with the patient about the using the CPAP and the patient's try again and hopefully we will find a smaller mask (2) Hypoxia Is this a current diagnosis for this admission?: Yes Plan: Due to the above conditions (3) Sleep apnea Qualifiers: Qualified Code(s): G47.33 - Obstructive sleep apnea (adult) (pediatric) Is this a current diagnosis for this admission?: Yes Plan: Patient unable to use a CPAP yesterday we will try to talk to the sleep medicine 's to find out the smaller mask (4) COPD (chronic obstructive pulmonary disease) Qualifiers: Qualified Code(s): J44.9 - Chronic obstructive pulmonary disease, unspecified Is this a current diagnosis for this admission?: Yes Plan: Continues to Xopenex nebulizer (5) DVT, recurrent, lower extremity, chronic Qualifiers: Qualified Code(s): I82.503 - Chronic embolism and thrombosis of unspecified deep veins of lower extremity, bilateral Is this a current diagnosis for this admission?: Yes Plan: Continues to Xarelto and patient have IVC filter (6) HTN (hypertension) Qualifiers: Qualified Code(s): I10 - Essential (primary) hypertension Is this a current diagnosis for this admission?: Yes Plan: Continues to current medications (7) Morbid obesity Is this a current diagnosis for this admission?: Yes Plan: stable (8) Personal history of breast cancer Is this a current diagnosis for this admission?: Yes Plan: Patient's recent PET scan is all stableAnd also see her Dr. Phelan as outpatient (9) Type 2 diabetes mellitus Is this a current diagnosis for this admission?: Yes Plan: Continues to current medication and sliding scale (10) Atrial fibrillation Qualifiers: Qualified Code(s): I48.0 - Paroxysmal atrial fibrillation Is this a current diagnosis for this admission?: Yes Plan: Patient is currently rate controlled and currently on Xarelto. Patient already seen by Dr. Aggarwal in [place] and all workup done will get the medical recordConsult the local cardiology for further evaluations (11) Congestive heart failure Is this a current diagnosis for this admission?: Yes Plan: Switch back to the p.o. Lasix - Time Time Spent with patient: 15-24 minutes Medications reviewed and adjusted accordingly: Yes Anticipated discharge: Home Within: within 24 hours - Inpatient Certification Medical Necessity: Need Close Monitoring Due to Risk of Patient Decompensation Post Hospital Care: D/C Infrastructure Director Documentation - Plan Summary Plan Summary: Patient is waiting for the mask and oxygens and currently doing well will follow with the pulmonary and cardiology possible discharge home tomorrow if remains stable
--- NOTE | 2017-03-08 09:26 | PDOC PROGRESS REPORT ---
Subjective Progress Note for:: 03/08/17 - acute/chronic resp failure Physical Exam Vital Signs: Temp Pulse Resp BP Pulse Ox 97.7 F 61 17 98/46 L 92 03/08/17 07:49 03/08/17 07:49 03/08/17 07:49 03/08/17 07:49 03/08/17 07:49 Pulse Oximeter Continuous Start: 03/05/17 16: 23 Freq: RTQ4 Status: Active Document 03/08/17 04:00 SFL (Rec: 03/08/17 04:32 SFL [email or web address]) Pulse Oximetry Assessment Oxygen Saturation (92-100) 91 Oxygen Flow Rate 2 Oxygen Delivery Method Nasal Cannula Equipment Usage Equipment in Use Continuous SpO2 Machine # 6 Intake & Output 03/07/17 03/08/17 03/09/17 06:59 06:59 06:59 Intake Total 2280 1066 Output Total 3500 900 Balance -1220 166 Weight 158.1 kg 158.7 kg General appearance: PRESENT: cooperative, disheveled, morbidly obese, well- developed Head exam: PRESENT: atraumatic, normocephalic Eye exam: PRESENT: conjunctiva pale, EOMI Mouth exam: PRESENT: dry mucosa, neck supple, tongue midline Neck exam: ABSENT: carotid bruit, JVD, lymphadenopathy, thyromegaly Respiratory exam: PRESENT: decreased breath sounds, prolonged expiratory phas, rhonchi, symmetrical, unlabored. ABSENT: accessory muscle use, chest wall tenderness, clear to auscultation ingrid, crackles, rales, retraction, stridor, tachypnea, wheezes Cardiovascular exam: PRESENT: RRR, +S1, +S2. ABSENT: irregular rhythm Pulses: PRESENT: normal radial pulses GI/Abdominal exam: PRESENT: normal bowel sounds, soft. ABSENT: distended, guarding, mass, organolmegaly, rebound, tenderness Extremities exam: ABSENT: calf tenderness, clubbing, joint swelling, pedal edema , tenderness Musculoskeletal exam: ABSENT: deformity, dislocation, tenderness Neurological exam: PRESENT: alert, awake Psychiatric exam: PRESENT: normal mood Skin exam: PRESENT: dry, warm Results Laboratory Results: 03/07/17 04:25 03/08/17 05:20 03/08/17 05:20 Sodium 141.3 Potassium 4.1 Chloride 103 Carbon Dioxide 28 Anion Gap 10 BUN 17 Creatinine 0.96 Est GFR ( Amer) > 60 Est GFR (Non-Af Amer) > 60 Glucose 108 Calcium 8.9 03/05/17 03/05/17 03/05/17 16:45 16:45 22:25 Creatine Kinase 52 49 CK-MB (CK-2) 0.26 Troponin I < 0.012 NT-Pro-B Natriuret Pep 707 03/05/17 03/06/17 03/06/17 22:25 04:57 04:57 Creatine Kinase 46 CK-MB (CK-2) 0.24 < 0.22 Troponin I < 0.012 < 0.012 NT-Pro-B Natriuret Pep Impressions: Chest/Abdomen CTA 03/05/17 00:00 IMPRESSION: No pulmonary emboli. Likely seroma along the anterior left chest wall. Lung Scan-VQ NM 03/06/17 10:55 IMPRESSION: NORMAL VENTILATION-PERFUSION LUNG SCAN. NEGATIVE FOR PULMONARY EMBOLI. Assessment & Plan - Diagnosis (1) Hypoxia Is this a current diagnosis for this admission?: Yes Plan: with min exertion (2) Obesity hypoventilation syndrome Is this a current diagnosis for this admission?: Yes Plan: Try to qualify for BiPAP or trilogy (3) Sleep apnea Qualifiers: Sleep apnea type: obstructive Qualified Code(s): G47.33 - Obstructive sleep apnea (adult) (pediatric) Is this a current diagnosis for this admission?: Yes Plan: Nocturnal polysomnogram upon discharge (4) Atrial fibrillation with rapid ventricular response Is this a current diagnosis for this admission?: Yes Plan: Currently well-controlled (5) COPD (chronic obstructive pulmonary disease) Qualifiers: COPD type: unspecified COPD Qualified Code(s): J44.9 - Chronic obstructive pulmonary disease, unspecified Is this a current diagnosis for this admission?: Yes Plan: Generic Name Dose Route Start Last Admin Trade Name Freq PRN Reason Stop Dose Admin Levalbuterol HCl 0.63 mg 03/05/17 16:00 Xopenex Neb 0.63 Mg/3 Ml Ampul NEB 04/04/17 15:59 [id number] PRN FOR WHEEZING As needed (6) DVT, recurrent, lower extremity, chronic Qualifiers: Laterality: bilateral Qualified Code(s): I82.503 - Chronic embolism and thrombosis of unspecified deep veins of lower extremity, bilateral Is this a current diagnosis for this admission?: Yes - Plan Summary Plan Summary: Pulmonary function test did not show significant decrease in FEV1 to qualify for NIPPV arterial blood gas on 2 L suggest patient is retaining PCO2 yet this has not reached levels for qualification(for NIPPV) at this time Schedule for home sleep study
[2017-03-08 10:30] LABS: ARTERIAL BLOOD BASE EXCESS 3.8 mmol/L; ARTERIAL BLOOD O2 SATURATION 97.9 % (94-98)
[2017-03-08] MEDS: FUROSEMIDE 40 MG TABLET PO SCH ×2 (10:58→17:00)
[2017-03-08] MEDS: POTASSIUM CHLORIDE 10 MEQ TABLET.SA PO SCH ×2 (11:00→22:54)
[2017-03-08] MEDS: AMIODARONE HCL 200 MG TABLET PO SCH ×2 (11:01→22:54)
[2017-03-08] MEDS: ATORVASTATIN CALCIUM 10 MG TABLET PO SCH (11:01)
[2017-03-08] MEDS: METFORMIN HCL 500 MG TABLET PO SCH (11:01)
[2017-03-08] MEDS: CHOLECALCIFEROL (D3) 1,000 UNIT TABLET PO SCH (11:02)
[2017-03-08] MEDS: ARIPIPRAZOLE 5 MG TABLET PO SCH (11:03)
[2017-03-08] MEDS: ESCITALOPRAM OXALATE 10 MG TABLET PO SCH (11:03)
[2017-03-08] MEDS: DOCUSATE SODIUM 100 MG CAPSULE PO SCH ×2 (11:04→17:01)
[2017-03-08] MEDS: ASPIRIN 81 MG TABLET, ENT COATED PO SCH (11:05)
[2017-03-08] MEDS: RIVAROXABAN 10 MG TABLET PO SCH (11:05)
[2017-03-08] MEDS: ATENOLOL 50 MG TABLET PO SCH (11:06)
[2017-03-08] MEDS: TOLTERODINE TARTRATE 1 MG TABLET PO SCH ×2 (11:07→22:53)
[2017-03-08] MEDS: RANOLAZINE 500 MG TAB.SR.12H PO SCH ×2 (11:07→22:53)
--- NOTE | 2017-03-08 20:35 | PDOC PROGRESS REPORT ---
Subjective Progress Note for:: 03/08/17 Subjective:: Patient continues to be short of breath on minimal exertion. Patient was noted to revert back to atrial fibrillation but this morning she is back in sinus rhythm. Patient continues to be short of breath on minimal exertion. Physical Exam Vital Signs: Temp Pulse Resp BP Pulse Ox 97.6 F 69 20 114/66 95 03/08/17 15:45 03/08/17 15:45 03/08/17 15:45 03/08/17 15:45 03/08/17 16:30 Pulse Oximeter Continuous Start: 03/05/17 16: 23 Freq: RTQ4 Status: Active Document 03/08/17 16:30 DS (Rec: 03/08/17 16:34 DS [email or web address]) Pulse Oximetry Assessment Oxygen Saturation (92-100) 95 Oxygen Delivery Method Room Air Fraction of Inspired Oxygen (FIO2) 21 Equipment Usage Equipment in Use Continuous SpO2 Machine # 6 Intake & Output 03/07/17 03/08/17 03/09/17 06:59 06:59 06:59 Intake Total 2280 1066 592 Output Total 3500 900 1500 Balance -1220 166 -908 Weight 158.1 kg 158.7 kg Exam: GENERAL: well-nourished and in no acute distress. Alert and oriented x3 HEAD: Atraumatic, normocephalic. EYES: Pupils equal round and reactive to light, extraocular movements intact, sclera anicteric, conjunctiva are normal. ENT: TMs normal, nares patent, oropharynx clear without exudates. Moist mucous membranes. No oral ulcerations or bleeding gums noted NECK: supple without lymphadenopathy. Trachea is central. No cervical or axillary lymphadenopathy noted. Carotids are 2+, JVD difficult to evaluate. LUNGS: Respiration seems nonlabored, no significant accessory muscle action noted. Breath sounds clear to auscultation bilaterally and equal noted. No wheezes rales or rhonchi noted. No significant dullness noted on percussion. CHEST: Palpation of the chest wall shows no significant chest wall tenderness. No other significant abnormalities noted. HEART: [place] [employer], No PSH, 1/6 ADRIAN aortic area, 1/6 michelle systolic murmur mitral area, no rubs, no gallops. ABDOMEN: Soft, no significant tenderness appreciated, normoactive bowel sounds. No guarding, no rebound. No rigidity noted . No masses appreciated. EXTREMITIES: Pedal pulses are 1-2+, no calf tenderness noted. No clubbing or cyanosis. 1+ pedal edema noted, patient also has some chronic lymphedema. NEUROLOGICAL: Focused neurological exam showed no significant neurologic deficit. Normal speech, no focal weakness appreciated. PSYCH: Normal mood, normal affect. Judgment and insight within normal limits. SKIN: No significant ecchymosis, rash, ulcerations or signs of pruritus noted. MUSCULOSKELETAL EXAM: No significant joint swelling noted. Results Laboratory Results: 03/07/17 04:25 03/08/17 05:20 03/08/17 03/08/17 05:20 10:17 Carbonic Acid 1.35 HCO3/H2CO3 Ratio 21:1 ABG pH 7.42 ABG pCO2 45.0 ABG pO2 106.5 H ABG HCO3 28.8 H ABG O2 Saturation 97.9 ABG Base Excess 3.8 FiO2 2L Sodium 141.3 Potassium 4.1 Chloride 103 Carbon Dioxide 28 Anion Gap 10 BUN 17 Creatinine 0.96 Est GFR ( Amer) > 60 Est GFR (Non-Af Amer) > 60 Glucose 108 Calcium 8.9 03/05/17 03/05/17 03/05/17 16:45 16:45 22:25 Creatine Kinase 52 49 CK-MB (CK-2) 0.26 Troponin I < 0.012 NT-Pro-B Natriuret Pep 707 03/05/17 03/06/17 03/06/17 22:25 04:57 04:57 Creatine Kinase 46 CK-MB (CK-2) 0.24 < 0.22 Troponin I < 0.012 < 0.012 NT-Pro-B Natriuret Pep EKG Comments: Telemetry strip this morning shows sinus rhythm. Impressions: Chest/Abdomen CTA 03/05/17 00:00 IMPRESSION: No pulmonary emboli. Likely seroma along the anterior left chest wall. Lung Scan-VQ NM 03/06/17 10:55 IMPRESSION: NORMAL VENTILATION-PERFUSION LUNG SCAN. NEGATIVE FOR PULMONARY EMBOLI. Assessment & Plan - Diagnosis (1) Atrial fibrillation Qualifiers: Atrial fibrillation type: paroxysmal Qualified Code(s): I48.0 - Paroxysmal atrial fibrillation Is this a current diagnosis for this admission?: Yes (2) Congestive heart failure Qualifiers: Congestive heart failure type: diastolic Is this a current diagnosis for this admission?: Yes (3) Hypoxia Is this a current diagnosis for this admission?: Yes (4) Shortness of breath Is this a current diagnosis for this admission?: Yes (5) Sleep apnea Qualifiers: Sleep apnea type: obstructive Qualified Code(s): G47.33 - Obstructive sleep apnea (adult) (pediatric) Is this a current diagnosis for this admission?: Yes (6) COPD (chronic obstructive pulmonary disease) Qualifiers: COPD type: unspecified COPD Qualified Code(s): J44.9 - Chronic obstructive pulmonary disease, unspecified Is this a current diagnosis for this admission?: Yes - Notes Notes: Patient has significant dyspnea on minimal exertion. At this point agree with oxygen supplementation and positive pressure noninvasive ventilation. Patient was placed on Ranexa yesterday. Today after discussion with Dr. Isabel, will start patient on spironolactone therapy. This might help diastolic dysfunction. Will reduce atenolol to 50 mg p.o. daily, this may relieve symptoms of marked fatigue and may be shortness of breath. My inclination would be to switch patient to calcium channel dennis slowly. Patient has been encouraged to lose weight. - Time Time with patient: 15-25 minutes Medications reviewed and adjusted accordingly: Yes
[2017-03-08] MEDS: LORAZEPAM 1 MG TABLET PO PRN (21:51)
[2017-03-08] MEDS: GABAPENTIN 100 MG CAPSULE PO SCH (22:53)
[2017-03-08] MEDS: LOSARTAN POTASSIUM 50 MG TABLET PO SCH (22:53)
[2017-03-09] MEDS: LANSOPRAZOLE 15 MG TAB.RAP.DR PO SCH (05:43)
--- NOTE | 2017-03-09 09:36 | EKG REPORT ---
SEVERITY:- BORDERLINE ECG - SINUS RHYTHM BORDERLINE T ABNORMALITIES, INFERIOR LEADS : Confirmed by: Edita Zendejas 09-Mar-2017 09:35:29
[2017-03-09] MEDS ORDERED: ATENOLOL 50 MG TABLET PO SCH (10:00)
[2017-03-09] MEDS ORDERED: SPIRONOLACTONE 25 MG TABLET PO SCH (10:00)
--- NOTE | 2017-03-09 10:06 | PDOC DISCHARGE SUMMARY ---
General - Admit/Disc Date/PCP Admission Date/Primary Care Provider: 03/05/17 15:48 VILLA VALDOVINOS MD Discharge Date: 03/09/17 - Discharge Diagnosis (1) Shortness of breath Is this a current diagnosis for this admission?: Yes Summary: With the multifactorial patient's CTA and patient's VQ scan all negative Patient seen by the pulmonary and cardiology this most likely conclusion is possible patient underlying hypoventilation syndromes with a severe sleep apnea and patients require a BiPAP and is setting by the Dr. Vargas and require 24 7 oxygen Very extensive discussed with the patient myself and all the other [employer] operations consultant if the patient is not going to use the BiPAP patient is not going to do very well and patient have a more complications from the hypoxia leading to the catastrophic events and patient understand very well about that She is a very noncompliance to using the oxygen even the hospital and patient is a noncompliance to using the mask (2) Hypoxia Is this a current diagnosis for this admission?: Yes Summary: Put the patient on oxygen and the BiPAP (3) Sleep apnea Is this a current diagnosis for this admission?: Yes Summary: Very extensive discussion with the patient's myself and the [employer] operations consultant and patients currently agreeto use the BiPAP (4) COPD (chronic obstructive pulmonary disease) Is this a current diagnosis for this admission?: Yes Summary: Continues to nebulizer treatments (5) DVT, recurrent, lower extremity, chronic Is this a current diagnosis for this admission?: Yes Summary: Patient is currently on Xarelto (6) HTN (hypertension) Is this a current diagnosis for this admission?: Yes Summary: Patient's atenolol was reduced by the cardiologyDue to the reduce the fatigue symptoms (7) Morbid obesity Is this a current diagnosis for this admission?: Yes Summary: This with the patient about diet and exercise (8) Personal history of breast cancer Is this a current diagnosis for this admission?: Yes Summary: Patient's currently follow-up outpatients oncology (9) Type 2 diabetes mellitus Is this a current diagnosis for this admission?: Yes Summary: Currently all stable continues to current medications (10) Atrial fibrillation Is this a current diagnosis for this admission?: Yes Summary: Patient is currently on atenolol 50 mg and also on the Xarelto and patient already seen by the Dr. Jung as outpatient and patient also see Dr. Aggarwal in [place] (11) Congestive heart failure Is this a current diagnosis for this admission?: Yes Summary: At this point patient is currently on Lasix 60 mg p.o. twice a day and also add the Spironolactone 25 mg by cardiology and also on Ranexa and also reduce the potassiums once a day and recheck the Chem-7 in 1 week - Additional Information Discharge Diet: Cardiac, Diabetic Discharge Activity: Activity As Tolerated, Weigh Daily Home Medications: Amiodarone HCl [Cordarone 200 mg Tablet] 200 mg PO Q12 03/05/17 Aripiprazole [Abilify 10 mg Tablet] 10 mg PO DAILY 03/05/17 Aspirin [Aspirin EC] 81 mg PO DAILY 03/05/17 Atorvastatin Calcium [Lipitor 10 mg Tablet] 10 mg PO DAILY 03/05/17 Cholecalciferol (Vitamin D3) [Vitamin D3 5000 unit Capsule] 5,000 units PO DAILY 03/05/17 Colestipol HCl [Colestid 1 gm Tablet] 2 gm PO Q12 03/05/17 Cyclobenzaprine HCl [Flexeril 5 mg Tablet] 5 mg PO Q12HP PRN 03/05/17 Escitalopram Oxalate [Lexapro] 20 mg PO DAILY 03/05/17 Esomeprazole Magnesium [Nexium] 20 mg PO DAILY 03/05/17 Fiber [Fiber Diet] 1 tab PO DAILY 03/05/17 Gabapentin [Neurontin 100 mg Capsule] 100 mg PO QHS 03/05/17 Lorazepam [Ativan 1 mg Tablet] 1 mg PO Q12HP PRN 03/05/17 Losartan Potassium [Cozaar 50 mg Tablet] 50 mg PO QHS 03/05/17 Metformin HCl [Glucophage 500 mg Tablet] 500 mg PO DAILY 03/05/17 Multivit-Min/Iron/Folic/Dgw414 [Hair, Skin and Nails Tablet] 1 tab PO DAILY Multivit-Minerals/Folic Acid [One Daily Womens 50 Plus Tab] 1 tab PO DAILY 03/05 Ranolazine [Ranexa 500 mg Tab.sr] 500 mg PO Q12 03/05/17 Rivaroxaban [Xarelto] 20 mg PO DAILY 03/05/17 Solifenacin Succinate [Vesicare] 10 mg PO DAILY 03/05/17 Atenolol [Tenormin 50 mg Tablet] 50 mg PO DAILY #30 tablet 03/09/17 Furosemide [Lasix 40 mg Tablet] 60 mg PO BID #60 tablet 03/09/17 Potassium Chloride [Klor-Con 10 Meq Tablet.sa] 10 meq PO DAILY #0 03/09/17 Spironolactone [Aldactone 25 mg Tablet] 25 mg PO DAILY #30 tablet 03/09/17 History of Present Illness History of Present Illness: AGUSTIN ETIENNE is a 51 year old female This is a 51-year-old female with a significant medical problems including the history of the pulmonary embolisms chronic DVT status post IVC filterAnd a history of the COPD and a history of the severe sleep apnea history of the congestive heart failure and history of the paroxysmal atrial fibrillationsAnd a very extensive evaluations done by Dr. Aggarwal at [place] for A. fib and the patient also seen by Dr. Tse recently and increased the Lasix 80 mg p.o. twice a dayCame to my office with a complaining of shortness of the breath with patients basically describe very short winded even patients move and feeling lightheaded and dizzy In the office patient's oxygen level is 94 persons in the room air when patient is sit but patient's tried to move it is dropped up to 80% and patient's unable to handle the O2 sat to keep above 90 She has denied any chest pain denied any cough or congestion's Patient was admitted for the same problem and at [facility] for see without any paroxysmal A. fib causing the shortness of the breathAnd patient's is a not a good candidate for ablations due to the IVC filter She also have a history of the cancers and recently a PET scan was done and no sign of any metastatic disease Patient's currently on the Xarelto due to the PE and DVT anticoagulations syndromes Patients at this point decided to admit in the hospital for further evaluations Patient have a sleep study was done last year and patient was severe sleep apnea but patient is unable to wear that CPAP machines to the anxietyAnd also [facility] Was also suggest the patient's needs to use a CPAPThat could be a part of a problem with the breathing and a paroxysmal A. fib At this point we decided to admit patient in the hospital for consult the cardiology and pulmonary we will get the CTA and hopefully will put the patient in the CPAP machine while patient is currently agree Patient's also suggest do not call her daughter and her mother is a next of the patientAbsolutely did not involve her daughter and patients currently is a full code Hospital Course Hospital Course: This is a 51-year-old female presented in my office with the hypoxia is and short of breath and decided to admit the patient in the hospital for further evaluation and treatment Patient with significant history of the A. fib and CHF and a severe sleep apnea and patients never used a CPAP machine's because patient had a have a generalized anxiety disorderPatient's also have a morbid obesityIn the hospitals patient underwent for the CT angiogram and a VQ scan was to rule out any PE due to the history of the chronic DVTChronic coagulations disorders Patients underwent for the cardiology evaluations and currently all stable and readjust the patient atenolol and the Lasix medications Patient also seen by the pulmonary and the patient was put on the BiPAP and a 24 7 oxygens Patient at this point is willing to try and patient does not have a no choice without the BiPAP and oxygens Patients is very noncompliance to using that to but discussed with extensively myself and consulted about the patient's current conditions to the patient's and the patient's mother and patient understand very well Follow with the outpatients Dr. Vargas and Dr. Zendejas or Dr. Tse Following office in 1 week and will repeat the CBC and Chem-7 Arrange the home health and physical therapy Physical Exam Vital Signs: Temp Pulse Resp BP Pulse Ox 97.8 F 66 20 115/55 L 94 03/09/17 08:00 03/09/17 08:00 03/09/17 08:00 03/09/17 08:00 03/09/17 08:00 Pulse Oximeter Continuous Start: 03/05/17 16: 23 Freq: RTQ4 Status: Active Document 03/09/17 04:00 LRO (Rec: 03/09/17 04:34 LRO [email or web address]) Pulse Oximetry Assessment Oxygen Saturation (92-100) 96 Oxygen Delivery Method CPAP Fraction of Inspired Oxygen (FIO2) 28 Equipment Usage Equipment in Use Continuous SpO2 Machine # 6 Intake & Output 03/08/17 03/09/17 03/10/17 06:59 06:59 06:59 Intake Total 1066 1638 Output Total 900 1500 Balance 166 138 Weight 158.7 kg General appearance: PRESENT: no acute distress, well-developed, well-nourished Head exam: PRESENT: atraumatic, normocephalic Eye exam: PRESENT: conjunctiva pink, EOMI, PERRLA. ABSENT: scleral icterus Ear exam: PRESENT: normal external ear exam Mouth exam: PRESENT: moist, tongue midline Neck exam: PRESENT: full ROM. ABSENT: carotid bruit, JVD, lymphadenopathy, thyromegaly Respiratory exam: PRESENT: decreased breath sounds Cardiovascular exam: PRESENT: RRR. ABSENT: diastolic murmur, rubs, systolic murmur Pulses: PRESENT: normal dorsalis pedis pul, +2 pedal pulses bilateral Vascular exam: PRESENT: normal capillary refill GI/Abdominal exam: PRESENT: normal bowel sounds, soft. ABSENT: distended, guarding, mass, organolmegaly, rebound, tenderness Rectal exam: PRESENT: deferred Extremities exam: ABSENT: full ROM, left AKA, right AKA, left BKA, right BKA, calf tenderness, joint swelling, pedal edema, tenderness, other Musculoskeletal exam: PRESENT: ambulatory Neurological exam: PRESENT: alert, awake, oriented to person, oriented to place , oriented to time, oriented to situation, CN II-XII grossly intact. ABSENT: motor sensory deficit Psychiatric exam: PRESENT: appropriate affect, normal mood. ABSENT: homicidal ideation, suicidal ideation Skin exam: PRESENT: dry, intact, warm. ABSENT: cyanosis, rash Results Laboratory Results: 03/07/17 04:25 03/08/17 05:20 03/08/17 10:17 Carbonic Acid 1.35 HCO3/H2CO3 Ratio 21:1 ABG pH 7.42 ABG pCO2 45.0 ABG pO2 106.5 H ABG HCO3 28.8 H ABG O2 Saturation 97.9 ABG Base Excess 3.8 FiO2 2L 03/05/17 03/05/17 03/05/17 16:45 16:45 22:25 Creatine Kinase 52 49 CK-MB (CK-2) 0.26 Troponin I < 0.012 NT-Pro-B Natriuret Pep 707 03/05/17 03/06/17 03/06/17 22:25 04:57 04:57 Creatine Kinase 46 CK-MB (CK-2) 0.24 < 0.22 Troponin I < 0.012 < 0.012 NT-Pro-B Natriuret Pep Impressions: Chest/Abdomen CTA 03/05/17 00:00 IMPRESSION: No pulmonary emboli. Likely seroma along the anterior left chest wall. Lung Scan-VQ NM 03/06/17 10:55 IMPRESSION: NORMAL VENTILATION-PERFUSION LUNG SCAN. NEGATIVE FOR PULMONARY EMBOLI. Plan Time Spent: Greater than 30 Minutes - Patient's discharge home with the home health in the BiPAP and oxygen and following office in 1 week Follow with the pulmonary in 1 week Follow with the cardiology in 1-2 weeks Check a CBC and Chem -7 in the office on a follow-up
[2017-03-09] MEDS: CHOLECALCIFEROL (D3) 1,000 UNIT TABLET PO SCH (10:42)
[2017-03-09] MEDS: POTASSIUM CHLORIDE 10 MEQ TABLET.SA PO SCH (10:44)
[2017-03-09] MEDS: FUROSEMIDE 40 MG TABLET PO SCH (10:44)
[2017-03-09] MEDS: ASPIRIN 81 MG TABLET, ENT COATED PO SCH (10:45)
[2017-03-09] MEDS: ARIPIPRAZOLE 5 MG TABLET PO SCH (10:45)
[2017-03-09] MEDS: METFORMIN HCL 500 MG TABLET PO SCH (10:45)
[2017-03-09] MEDS: ESCITALOPRAM OXALATE 10 MG TABLET PO SCH (10:46)
[2017-03-09] MEDS: ATORVASTATIN CALCIUM 10 MG TABLET PO SCH (10:46)
[2017-03-09] MEDS: DOCUSATE SODIUM 100 MG CAPSULE PO SCH (10:46)
[2017-03-09] MEDS: RIVAROXABAN 10 MG TABLET PO SCH (10:47)
[2017-03-09] MEDS: AMIODARONE HCL 200 MG TABLET PO SCH (10:47)
[2017-03-09] MEDS: RANOLAZINE 500 MG TAB.SR.12H PO SCH (11:05)
[2017-03-09] MEDS: TOLTERODINE TARTRATE 1 MG TABLET PO SCH (11:10)
[2017-03-09 12:34] VITALS: BP 120/57
--- NOTE | 2017-03-09 12:42 | XCELERA REPORT ---
[address] [address] Transthoracic Echocardiogram Report Name: AGUSTIN ETIENNE Age: 51 yrs Gender: Female : 1965 Patient Status: Inpatient Patient Location: [address] [place], [place] [id number] Study Date: 03/09/2017 09:39 AM Height: 63 in Weight: 349 lb BSA: 2.5 m2 Procedure: A complete two-dimensional transthoracic echocardiogram was performed (2D, M-mode, spectral and color flow Doppler). The study was technically difficult with many images being suboptimal in quality. Reason For Study: Dyspnea, Pulm Htn Ordering Physician: EDITA FARRIS Performed By: Jennifer Garcia Interpretation Summary The left ventricular ejection fraction is normal. There is mild concentric left ventricular hypertrophy. The left ventricle is grossly normal size. Doppler measurements suggest pseudonormalized left ventricular relaxation, which is associated with grade II/IV or mild to moderate diastolic dysfunction Regional wall motion abnormalities cannot be excluded due to limited visualization. Right ventricular function cannot be assessed due to poor image quality. The right ventricle is mildly dilated. The left atrial size is normal. The right atrium is moderately dilated. There is a trace amount of mitral regurgitation There is no mitral valve stenosis. No aortic regurgitation is present. There is no aortic valve stenosis No tricuspid regurgitation. There is no tricuspid stenosis. The aortic root is not well visualized. The inferior vena cava was not well visualized There is no pericardial effusion. MMode/2D Measurements & Calculations IVSd: 1.2 cm LVIDd: 5.5 cm FS: 35.5 % Ao root diam: 2.8 cm LVIDs: 3.5 cm EDV(Teich): 147.0 ml LVPWd: 1.2 cm ESV(Teich): 52.4 ml Ao root area: 6.0 cm2 EF(Teich): 64.3 % LA dimension: 4.0 cm Doppler Measurements & Calculations MV E max angy: MV P1/2t max angy: Ao V2 max: LV V1 max P.1 cm/sec 100.1 cm/sec 175.5 cm/sec 7.1 mmHg MV A max angy: MV P1/2t: 86.8 msec Ao max PG: LV V1 max: 69.9 cm/sec 12.3 mmHg 133.3 cm/sec MV E/A: 1.4 MVA(P1/2t): 2.5 cm2 MV dec slope: 337.8 cm/sec2 PA V2 max: 109.5 cm/sec PA max P.8 mmHg Left Ventricle The left ventricle is grossly normal size. There is mild concentric left ventricular hypertrophy. The left ventricular ejection fraction is normal. Doppler measurements suggest pseudonormalized left ventricular relaxation, which is associated with grade II/IV or mild to moderate diastolic dysfunction. Regional wall motion abnormalities cannot be excluded due to limited visualization. Right Ventricle The right ventricle is mildly dilated. Right ventricular function cannot be assessed due to poor image quality. Atria The right atrium is moderately dilated. The left atrial size is normal. Interarterial septum not well visualized and not well dopplered. Cannot comment on ASD/PFO presence. Mitral Valve The mitral valve is not well visualized. There is no mitral valve stenosis. There is a trace amount of mitral regurgitation. Aortic Valve The aortic valve is not well visualized secondary to technical limitations. There is no aortic valve stenosis. No aortic regurgitation is present. Tricuspid Valve The tricuspid valve is not well visualized secondary to technical limitations. There is no tricuspid stenosis. No tricuspid regurgitation. Pulmonic Valve The pulmonic valve is not well visualized. Great Vessels The aortic root is not well visualized. The inferior vena cava was not well visualized. Effusions There is no pericardial effusion. : EDITA FARRIS > Edita Farris
--- NOTE | 2017-03-09 13:02 | PDOC PROGRESS REPORT ---
Subjective Progress Note for:: 03/09/17 Subjective:: Patient continues to be short of breath on minimal exertion. Patient noted to maintain sinus rhythm.. Patient continues to be short of breath on minimal exertion, but seems improved medication changes performed last night. Physical Exam Vital Signs: Temp Pulse Resp BP Pulse Ox 97.2 F 60 20 120/57 L 99 03/09/17 12:48 03/09/17 12:48 03/09/17 12:48 03/09/17 12:48 03/09/17 12:48 Pulse Oximeter Continuous Start: 03/05/17 16: 23 Freq: RTQ4 Status: Active Document 03/09/17 12:00 LDA (Rec: 03/09/17 12:12 LDA [email or web address]) Pulse Oximetry Assessment Oxygen Saturation (92-100) 93 Oxygen Delivery Method Room Air Fraction of Inspired Oxygen (FIO2) 21 Equipment Usage Equipment in Use Continuous SpO2 Machine # [id number] Intake & Output 03/08/17 03/09/17 03/10/17 06:59 06:59 06:59 Intake Total 1066 1638 Output Total 900 1500 Balance 166 138 Weight 158.7 kg Exam: GENERAL: well-nourished and in no acute distress. Alert and oriented x3 HEAD: Atraumatic, normocephalic. EYES: Pupils equal round and reactive to light, extraocular movements intact, sclera anicteric, conjunctiva are normal. ENT: TMs normal, nares patent, oropharynx clear without exudates. Moist mucous membranes. No oral ulcerations or bleeding gums noted NECK: supple without lymphadenopathy. Trachea is central. No cervical or axillary lymphadenopathy noted. Carotids are 2+, JVD WNL LUNGS: Respiration seems nonlabored, no significant accessory muscle action noted. Breath sounds clear to auscultation bilaterally and equal noted. No wheezes rales or rhonchi noted. No significant dullness noted on percussion. CHEST: Palpation of the chest wall shows no significant chest wall tenderness. No other significant abnormalities noted. HEART: [employer], No PSH, 1/6 ADRIAN aortic area, 1/6 michelle systolic murmur mitral area, no rubs, no gallops. ABDOMEN: Soft, no significant tenderness appreciated, normoactive bowel sounds. No guarding, no rebound. No rigidity noted . No masses appreciated. EXTREMITIES: Pedal pulses are 1-2+, no calf tenderness noted. No clubbing or cyanosis. Chronic lymphedema plus 1+ pedal edema noted NEUROLOGICAL: Focused neurological exam showed no significant neurologic deficit. Normal speech, no focal weakness appreciated. PSYCH: Normal mood, normal affect. Judgment and insight within normal limits. SKIN: No significant ecchymosis, rash, ulcerations or signs of pruritus noted. MUSCULOSKELETAL EXAM: No significant joint swelling noted. Results Laboratory Results: 03/07/17 04:25 03/08/17 05:20 03/05/17 03/05/17 03/05/17 16:45 16:45 22:25 Creatine Kinase 52 49 CK-MB (CK-2) 0.26 Troponin I < 0.012 NT-Pro-B Natriuret Pep 707 03/05/17 03/06/17 03/06/17 22:25 04:57 04:57 Creatine Kinase 46 CK-MB (CK-2) 0.24 < 0.22 Troponin I < 0.012 < 0.012 NT-Pro-B Natriuret Pep EKG Comments: Telemetry strips shows patient maintaining sinus rhythm. Impressions: Chest/Abdomen CTA 03/05/17 00:00 IMPRESSION: No pulmonary emboli. Likely seroma along the anterior left chest wall. Lung Scan-VQ NM 03/06/17 10:55 IMPRESSION: NORMAL VENTILATION-PERFUSION LUNG SCAN. NEGATIVE FOR PULMONARY EMBOLI. Assessment & Plan - Diagnosis (1) Atrial fibrillation Qualifiers: Atrial fibrillation type: paroxysmal Qualified Code(s): I48.0 - Paroxysmal atrial fibrillation Is this a current diagnosis for this admission?: Yes (2) Congestive heart failure Qualifiers: Congestive heart failure type: diastolic Is this a current diagnosis for this admission?: Yes (3) Hypoxia Is this a current diagnosis for this admission?: Yes (4) Shortness of breath Is this a current diagnosis for this admission?: Yes (5) Sleep apnea Qualifiers: Sleep apnea type: obstructive Qualified Code(s): G47.33 - Obstructive sleep apnea (adult) (pediatric) Is this a current diagnosis for this admission?: Yes (6) COPD (chronic obstructive pulmonary disease) Qualifiers: COPD type: unspecified COPD Qualified Code(s): J44.9 - Chronic obstructive pulmonary disease, unspecified Is this a current diagnosis for this admission?: Yes - Notes Notes: Atrial fibrillation: Patient maintaining sinus rhythm. This is being managed by Dr. Simba Gutierrez. CHF: Predominantly right-sided and diastolic dysfunction related. 2D echo results were reviewed. Patient does have some enlargement of the right ventricle. Pulmonary pressure could not be assessed. Hypoxemia: Continue oxygen supplementation and intermittent positive pressure therapy. Sleep apnea: Will be happy to pursue and schedule a sleep study. COPD: Aim would be to gradually take patient stop beta-dennis and start patient on Cardizem or verapamil. Patient will benefit from event monitor which can be performed as an outpatient. This will help in further adjustment of antiarrhythmic therapy. - Time Time with patient: 15-25 minutes - More than 50% of the time spent coordinating care, discussing management plans with involved caregivers. Management plans discussed with involved personnels. Medical decision making was of moderate to high complexity, patient's has multiple comorbidities. Medications reviewed and adjusted accordingly: Yes
--- NOTE | 2017-03-13 13:27 | PDOC PROGRESS REPORT ---
Subjective Progress Note for:: 03/09/17 - Acute on chronic respiratory failure Subjective:: Continues to remain extremely dyspneic with minimal exertion Physical Exam Vital Signs: Temp Pulse Resp BP Pulse Ox 97.8 F 66 20 115/55 L 97 03/09/17 08:00 03/09/17 08:00 03/09/17 08:00 03/09/17 08:00 03/09/17 08:00 Pulse Oximeter Continuous Start: 03/05/17 16: 23 Freq: RTQ4 Status: Active Document 03/09/17 08:00 LDA (Rec: 03/09/17 10:16 LDA [email or web address]) Pulse Oximetry Assessment Oxygen Saturation (92-100) 97 Oxygen Delivery Method Room Air Fraction of Inspired Oxygen (FIO2) 21 Equipment Usage Equipment in Use Continuous SpO2 Machine # 6 Intake & Output 03/08/17 03/09/17 03/10/17 06:59 06:59 06:59 Intake Total 1066 1638 Output Total 900 1500 Balance 166 138 Weight 158.7 kg General appearance: PRESENT: no acute distress, cooperative, disheveled, obese, well-developed Head exam: PRESENT: atraumatic, normocephalic Eye exam: PRESENT: conjunctiva pale, EOMI Mouth exam: PRESENT: moist, neck supple, tongue midline Neck exam: ABSENT: carotid bruit, JVD, lymphadenopathy, thyromegaly Respiratory exam: PRESENT: decreased breath sounds, prolonged expiratory phas, rhonchi, symmetrical, unlabored, wheezes. ABSENT: accessory muscle use, chest wall tenderness, clear to auscultation ingrid, crackles, rales, retraction, stridor , tachypnea Cardiovascular exam: PRESENT: RRR, +S1, +S2. ABSENT: irregular rhythm Pulses: PRESENT: normal radial pulses GI/Abdominal exam: PRESENT: normal bowel sounds, soft. ABSENT: distended, guarding, mass, organolmegaly, rebound, tenderness Extremities exam: ABSENT: calf tenderness, clubbing, joint swelling, pedal edema Musculoskeletal exam: ABSENT: deformity, dislocation, tenderness Neurological exam: PRESENT: alert, awake Psychiatric exam: PRESENT: normal mood Skin exam: PRESENT: dry, warm Results Laboratory Results: 03/07/17 04:25 03/08/17 05:20 03/08/17 10:17 Carbonic Acid 1.35 HCO3/H2CO3 Ratio 21:1 ABG pH 7.42 ABG pCO2 45.0 ABG pO2 106.5 H ABG HCO3 28.8 H ABG O2 Saturation 97.9 ABG Base Excess 3.8 FiO2 2L 03/05/17 03/05/17 03/05/17 16:45 16:45 22:25 Creatine Kinase 52 49 CK-MB (CK-2) 0.26 Troponin I < 0.012 NT-Pro-B Natriuret Pep 707 03/05/17 03/06/17 03/06/17 22:25 04:57 04:57 Creatine Kinase 46 CK-MB (CK-2) 0.24 < 0.22 Troponin I < 0.012 < 0.012 NT-Pro-B Natriuret Pep Impressions: Chest/Abdomen CTA 03/05/17 00:00 IMPRESSION: No pulmonary emboli. Likely seroma along the anterior left chest wall. Lung Scan-VQ NM 03/06/17 10:55 IMPRESSION: NORMAL VENTILATION-PERFUSION LUNG SCAN. NEGATIVE FOR PULMONARY EMBOLI. Assessment & Plan - Diagnosis (1) Hypoxia Is this a current diagnosis for this admission?: Yes Plan: with min exertion (2) Obesity hypoventilation syndrome Is this a current diagnosis for this admission?: Yes Plan: Try to qualify for BiPAP or trilogy (3) Sleep apnea Qualifiers: Sleep apnea type: obstructive Qualified Code(s): G47.33 - Obstructive sleep apnea (adult) (pediatric) Is this a current diagnosis for this admission?: Yes Plan: Nocturnal polysomnogram upon discharge (4) Atrial fibrillation with rapid ventricular response Is this a current diagnosis for this admission?: Yes Plan: Currently well-controlled (5) COPD (chronic obstructive pulmonary disease) Qualifiers: COPD type: unspecified COPD Qualified Code(s): J44.9 - Chronic obstructive pulmonary disease, unspecified Is this a current diagnosis for this admission?: Yes Plan: Generic Name Dose Route Start Last Admin Trade Name Freq PRN Reason Stop Dose Admin Levalbuterol HCl 0.63 mg 03/05/17 16:00 Xopenex Neb 0.63 Mg/3 Ml Ampul NEB 04/04/17 15:59 [id number] PRN FOR WHEEZING As needed (6) DVT, recurrent, lower extremity, chronic Qualifiers: Laterality: bilateral Qualified Code(s): I82.503 - Chronic embolism and thrombosis of unspecified deep veins of lower extremity, bilateral Is this a current diagnosis for this admission?: Yes
== END 2017-03-09 13:02 | disposition home health service (06) | DRG 206 ==
LOC: 4N 15:48
PROVIDERS: ADMIT Family Medicine; ATTEND Family Medicine
PROC: 3E0F73Z Introduction of Anti-inflammatory into Respiratory Tract, Via Natural or Artificial Opening (ICD-10-PCS; principal; 2017-03-05)
PROC: 5A09357 Assistance with Respiratory Ventilation, Less than 24 Consecutive Hours, Continuous Positive Airway Pressure (ICD-10-PCS; 2017-03-09)
DX: E66.2 Morbid (severe) obesity with alveolar hypoventilation (principal); I82.509 Chronic embolism and thrombosis of unspecified deep veins of unspecified lower extremity; Z68.44 Body mass index [BMI] 60.0-69.9, adult; I50.32 Chronic diastolic (congestive) heart failure; I48.0 Paroxysmal atrial fibrillation; J44.9 Chronic obstructive pulmonary disease, unspecified; I11.0 Hypertensive heart disease with heart failure; E11.9 Type 2 diabetes mellitus without complications; I25.10 Atherosclerotic heart disease of native coronary artery without angina pectoris; E78.5 Hyperlipidemia, unspecified; Z79.01 Long term (current) use of anticoagulants; K21.9 Gastro-esophageal reflux disease without esophagitis; L40.9 Psoriasis, unspecified; F31.9 Bipolar disorder, unspecified; Z91.19 Patient's noncompliance with other medical treatment and regimen; Z82.49 Family history of ischemic heart disease and other diseases of the circulatory system; Z79.899 Other long term (current) drug therapy; Z86.711 Personal history of pulmonary embolism; Z95.828 Presence of other vascular implants and grafts; Z85.3 Personal history of malignant neoplasm of breast; Z83.3 Family history of diabetes mellitus; Z82.61 Family history of arthritis; Z79.84 Long term (current) use of oral hypoglycemic drugs; Z79.82 Long term (current) use of aspirin; Z90.710 Acquired absence of both cervix and uterus; Z85.41 Personal history of malignant neoplasm of cervix uteri; Z90.10 Acquired absence of unspecified breast and nipple
CPT/HCPCS: 36415; 36600; 71275; 78582; 80048; 80053; 82550; 82553; 82803; 82962; 83735; 83880; 84443; 84484; 85025; 93005; 93010; 93306; 94010; 94660; 94762; A9540; A9567; J1940; Q9969

== ENCOUNTER 2017-03-18 18:22 | Emergency (ER) | payer MEDICARE, MEDICAID ==
--- NOTE | 2017-03-18 18:53 | ER Document Report ---
ED Medical Screen (RME) - General Chief Complaint: Palpitations Stated Complaint: CHEST PAIN Time Seen by Provider: 03/18/17 18:47 Notes: Patient is here because she is going in and out of atrial fibrillation and having shortness of breath and difficulty breathing and swelling of her ankles and feet. Patient was in this hospital about a week ago for the same symptoms. She has a known diagnosis of atrial fibrillation and is on amiodarone and a beta dennis. Has a history of for DVTs and 3 pulmonary emboli. History of CHF. Patient of Dr. Isabel TRAVEL OUTSIDE OF THE [place] IN LAST 30 DAYS: No - Related Data Allergies/Adverse Reactions: adhesive [Adhesive] Allergy (Mild, Verified 03/18/17 18:39) Generalized rash methicillin [Methicillin] Allergy (Mild, Verified 03/18/17 18:39) Generalized rash vancomycin [Vancomycin] Allergy (Mild, Verified 03/18/17 18:39) Generalized rash Past Medical History - Past Medical History Cardiac Medical History: Reports: Hx Atrial Fibrillation, Hx Coronary Artery Disease - HIGH CHOLESTEROL, Hx DVT, Hx Hypercholesterolemia, Hx Hypertension, Hx Pulmonary Embolism Denies: Hx Heart Attack Pulmonary Medical History: Reports: Hx Bronchitis, Hx COPD, Hx Pneumonia, Hx Intubation, Hx Respiratory Failure, Hx Sleep Apnea Denies: Hx Asthma, Hx Tuberculosis Neurological Medical History: Denies: Hx Cerebrovascular Accident, Hx Migraine, Hx Seizures Endocrine Medical History: Reports: Hx Diabetes Mellitus Type 2 Renal/ Medical History: Denies: Hx Peritoneal Dialysis Malignancy Medical History: Reports: Hx Breast Cancer, Hx Cervical Cancer GI Medical History: Reports: Hx Gastroesophageal Reflux Disease, Hx Hiatal Hernia, Hx Liver Failure - fatty liver Musculoskeltal Medical History: Reports Hx Arthritis - KNEES/BACK, Reports Hx Fibromyalgia Skin Medical History: Reports Hx Psoriasis Psychiatric Medical History: Reports: Hx Anxiety, Hx Bipolar Disorder, Hx Depression Past Surgical History: Reports: Hx Cholecystectomy, Hx Hysterectomy, Hx Mastectomy, Hx Orthopedic Surgery, Other - IVC filter placement. Denies: Hx Pacemaker - Immunizations Immunizations up to date: Yes Hx Diphtheria, Pertussis, Tetanus Vaccination: Yes - 01/2014 History of Influenza Vaccine for 01/2017 - 06/2017 Season: Yes Influenza Administration Date for 01/2017 - 06/2017 Season: 01/21/07 Physical Exam - Vital signs Vitals: Temp Pulse Resp BP Pulse Ox 97.6 F 75 16 152/79 H 97 03/18/17 18:39 03/18/17 18:39 03/18/17 18:39 03/18/17 18:39 03/18/17 18:39 Course - Vital Signs Vital signs: Temp Pulse Resp BP Pulse Ox 97.6 F 75 16 152/79 H 97 03/18/17 18:39 03/18/17 18:39 03/18/17 18:39 03/18/17 18:39 03/18/17 18:39
--- NOTE | 2017-03-18 20:23 | ER Document Report ---
ED General - General Chief Complaint: Palpitations Stated Complaint: CHEST PAIN Time Seen by Provider: 03/18/17 18:47 Notes: Patient is a 51 year old female PMH s/f COPD on Bipap at night, NIDDM, CHF, HTN , Paroxysmal A.fib on Xarelto, Amio with IVC filter presents to the ED complaining of sudden onset SOLANO with low extremity edema today. Recently discharged on 03/09 after admission for hypoxia. She states she was told to return to the emergency department with any weight gain, shortness of breath, lower extremity edema. Patient admits that she is supposed to be on home O2 but there were complications with paperwork during her discharge that she has not been able to obtain home O2 per Dr. Vargas's request. Otherwise patient denies any fever, chills, chest pain, shortness of breath at rest, nausea, vomiting, abdominal pain, lower extremity pain. Patient admits to intermittent dyspnea on exertion that resolves after rest for less than 2 minutes. Patient states that she does have a history of COPD but does not have any inhalers or breathing treatments at home. Primary care is Dr. Isabel, cardiology is Dr. Tse, corporate compliance director is Dr. Vargas TRAVEL OUTSIDE OF THE [place] IN LAST 30 DAYS: No - Related Data Allergies/Adverse Reactions: adhesive [Adhesive] Allergy (Mild, Verified 03/18/17 18:39) Generalized rash methicillin [Methicillin] Allergy (Mild, Verified 03/18/17 18:39) Generalized rash vancomycin [Vancomycin] Allergy (Mild, Verified 03/18/17 18:39) Generalized rash Past Medical History - Social History Smoking Status: Never Smoker Chew tobacco use (# tins/day): No Frequency of alcohol use: Occasional Drug Abuse: None Family History: Arthritis, CAD, DM, Hyperlipidemia, Hypertension, Malignancy Patient has suicidal ideation: No Patient has homicidal ideation: No - Past Medical History Cardiac Medical History: Reports: Hx Atrial Fibrillation, Hx Coronary Artery Disease - HIGH CHOLESTEROL, Hx DVT, Hx Hypercholesterolemia, Hx Hypertension, Hx Pulmonary Embolism Denies: Hx Heart Attack Pulmonary Medical History: Reports: Hx Bronchitis, Hx COPD, Hx Pneumonia, Hx Intubation, Hx Respiratory Failure, Hx Sleep Apnea Denies: Hx Asthma, Hx Tuberculosis Neurological Medical History: Denies: Hx Cerebrovascular Accident, Hx Migraine, Hx Seizures Endocrine Medical History: Reports: Hx Diabetes Mellitus Type 2 Renal/ Medical History: Denies: Hx Peritoneal Dialysis Malignancy Medical History: Reports: Hx Breast Cancer, Hx Cervical Cancer GI Medical History: Reports: Hx Gastroesophageal Reflux Disease, Hx Hiatal Hernia, Hx Liver Failure - fatty liver Musculoskeltal Medical History: Reports Hx Arthritis - KNEES/BACK, Reports Hx Fibromyalgia Skin Medical History: Reports Hx Psoriasis Psychiatric Medical History: Reports: Hx Anxiety, Hx Bipolar Disorder, Hx Depression Past Surgical History: Reports: Hx Cholecystectomy, Hx Hysterectomy, Hx Mastectomy, Hx Orthopedic Surgery, Other - IVC filter placement. Denies: Hx Pacemaker - Immunizations Immunizations up to date: Yes Hx Diphtheria, Pertussis, Tetanus Vaccination: Yes - 01/2014 Hx Pneumococcal Vaccination: 04/23/15 Review of Systems - Review of Systems Constitutional: No symptoms reported Cardiovascular: See HPI Respiratory: See HPI Gastrointestinal: No symptoms reported Musculoskeletal: See HPI Neurological/Psychological: No symptoms reported -: Yes All other systems reviewed and negative Physical Exam - Vital signs Vitals: Temp Pulse Resp BP Pulse Ox 97.6 F 75 16 152/79 H 97 03/18/17 18:39 03/18/17 18:39 03/18/17 18:39 03/18/17 18:39 03/18/17 18:39 - Notes Notes: PHYSICAL EXAM GENERAL: Alert, interacts well. HEAD: Normocephalic, atraumatic. EYES: Pupils equal, round, and reactive to light. Extraocular movements intact. ENT: Oral mucosa moist, tongue midline. NECK: Full range of motion. Supple. Trachea midline. LUNGS: Clear to auscultation bilaterally, no wheezes, rales, or rhonchi. No respiratory distress. HEART: No evidence of JVD, regular rate and rhythm. No murmurs, gallops, or rubs. ABDOMEN: Morbidly obese, soft, nondistended, nontender. No guarding, rebound, or rigidity.. Bowel sounds present in all 4 quadrants. EXTREMITIES: Moves all 4 extremities spontaneously. 1+ pitting edema, radial and dorsalis pedis pulses 2/4 bilaterally. No cyanosis. NEUROLOGICAL: Alert and oriented x4. Normal speech. PSYCH: Normal affect, normal mood. SKIN: Warm, dry, normal turgor. No rashes or lesions noted. Course - Re-evaluation Re-evalutation: 03/18/17 23:52 Patient is a 51-year-old female who is hemodynamically stable, no acute distress and afebrile. Patient on physical exam does not appear to be fluid overloaded. Chest x-ray without evidence of vascular congestion, enlarged heart border or infiltrate/effusion. BNP normal. Patient is already taking 160 mg of Lasix a day as well as 25 mg of spironolactone. Patient at this time does not meet inpatient criteria for admission for COPD or CHF exacerbation. Patient able to ambulate without assistance on room air with a pulse ox of 94%. Intermittently short of breath which improved with albuterol inhaler. Otherwise there is no evidence of an acute sepsis/infection. Chemistry panel stable without evidence of BANDAR. Urinalysis without evidence of infection. Discussed results with patient who is requesting discharge. Discussed with her to follow-up with Dr. Isabel this week and to touch base with Dr. Vargas's office. Patient agrees with plan. Patient is stable for discharge home - Vital Signs Vital signs: Temp Pulse Resp BP Pulse Ox 97.6 F 75 18 121/61 97 03/18/17 18:39 03/18/17 18:39 03/18/17 20:01 03/18/17 23:01 03/19/17 00:00 - Laboratory Result Diagrams: 03/18/17 20:18 03/18/17 20:18 Laboratory results interpreted by me: 03/18/17 03/18/17 20:18 20:18 RDW 15.2 H Monocytes % 13.2 H Est GFR (Non-Af Amer) 58 L AST 63 H ALT 76 H - Diagnostic Test Radiology reviewed: Image reviewed, Reports reviewed - EKG Interpretation by Me EKG shows normal: Sinus rhythm Rate: Normal Rhythm: NSR When compared to previous EKG there are: No significant change Discharge - Discharge Clinical Impression: Obesity hypoventilation syndrome COPD (chronic obstructive pulmonary disease) Qualifiers: COPD type: unspecified COPD Qualified Code(s): J44.9 - Chronic obstructive pulmonary disease, unspecified Condition: Stable Disposition: HOME, SELF-CARE Instructions: Chronic Obstructive Lung Disease ([facility]) Additional Instructions: Please continue to utilize your BiPAP as directed. Otherwise, please follow-up with Dr. Isabel this week. You can use the inhaler as needed for shortness of breath. And schedule your at home oxygen assessment. Prescriptions: Albuterol Sulfate [Proair HFA Inhalation Aerosol 8.5 gm MDI] 2 puff IH Q4H PRN # 1 mdi PRN Reason: Referrals: MAGNOLIA ISABEL MD [Primary Care Provider] - Follow up in 3-5 days
[2017-03-18 20:41] LABS: ABSOLUTE BASOPHILS # (AUTO) 0.1 10^3/uL (0.0-0.2); ABSOLUTE EOSINOPHILS # (AUTO) 0.3 10^3/uL (0.0-0.6); ABSOLUTE LYMPHOCYTES (AUTO) 2.3 10^3/uL (0.5-4.7); BASOPHILS % (AUTO) 1.9 % (0-2); EOSINOPHILS % (AUTO) 3.5 % (0-6); HEMATOCRIT 41.1 % (36.0-47.0); HEMOGLOBIN 13.6 g/dL (12.0-15.5); HGB HCT DIFFERENCE -0.3; LYMPHOCYTES % (AUTO) 29.9 % (13-45); MEAN CORPUSCULAR HEMOGLOBIN 30.4 pg (27.0-33.4); MEAN CORPUSCULAR VOLUME 92 fl (80-97); MONOCYTES % (AUTO) 13.2 % (3-13); RED BLOOD COUNT 4.47 10^6/uL (3.72-5.28); RED CELL DISTRIBUTION WIDTH 15.2 % (11.5-14.0); SEGMENTED NEUTROPHILS % (AUTO) 51.5 % (42-78); WHITE BLOOD COUNT 7.8 10^3/uL (4.0-10.5)
[2017-03-18 20:52] LABS: ALANINE AMINOTRANSFERASE 76 U/L (9-52); ALBUMIN 3.7 g/dL (3.5-5.0); ALKALINE PHOSPHATASE 91 U/L (38-126); ANION GAP 13 (5-19); ASPARTATE AMINO TRANSFERASE 63 U/L (14-36); BILIRUBIN,DIRECT 0.4 mg/dL (0.0-0.4); BILIRUBIN,TOTAL 0.7 mg/dL (0.2-1.3); BLOOD UREA NITROGEN 18 mg/dL (7-20); CALCIUM 9.1 mg/dL (8.4-10.2); CARBON DIOXIDE 23 mmol/L (22-30); CHLORIDE 107 mmol/L (98-107); GLUCOSE 78 mg/dL (75-110); POTASSIUM 4.8 mmol/L (3.6-5.0); SODIUM 142.8 mmol/L (137-145); TOTAL PROTEIN 6.3 g/dL (6.3-8.2)
[2017-03-18 21:04] LABS: CREATINE KINASE MB 0.32 ng/mL (<4.55)
[2017-03-18 21:07] LABS: TROPONIN I < 0.012 ng/mL
--- NOTE | 2017-03-18 22:08 | RADIOLOGY REPORT (SQ) ---
EXAM DESCRIPTION: CHEST PA/LAT COMPLETED DATE/TIME: 03/18/2017 9:13 pm REASON FOR STUDY: Shortness of breath with history of CHF COMPARISON: January. TECHNIQUE: Frontal and lateral radiographic views of the chest acquired. NUMBER OF VIEWS: Two view. LIMITATIONS: None. FINDINGS: LUNGS AND PLEURA: No opacities, masses or pneumothorax. No pleural effusion. MEDIASTINUM AND HILAR STRUCTURES: No masses or contour abnormalities. HEART AND VASCULAR STRUCTURES: Heart normal size. No evidence for failure. BONES: No acute findings. HARDWARE: Right port, tip to the superior vena cava. OTHER: No other significant finding. IMPRESSION: NO SIGNIFICANT RADIOGRAPHIC FINDING IN THE CHEST. TECHNICAL DOCUMENTATION: JOB ID: [id number] [employer]- All Rights Reserved
[2017-03-18 23:44] LABS: APPEARANCE,URINE CLEAR; BILIRUBIN,URINE NEGATIVE (NEGATIVE); GLUCOSE, URINE NEGATIVE (NEGATIVE); KETONES,URINE NEGATIVE (NEGATIVE); LEUKOCYTE ESTERASE,URINE NEGATIVE (NEGATIVE); NITRITE,URINE NEGATIVE (NEGATIVE); PROTEIN,URINE NEGATIVE (NEGATIVE); URINE SPECIFIC GRAVITY 1.013; UROBILINOGEN,URINE NEGATIVE mg/dL (<2.0)
[2017-03-18] MEDS ORDERED: ALBUTEROL SULFATE 0.083% NEB 2.5 MG/3 ML AMPUL NEB ONE (23:50)
[2017-03-19 01:16] VITALS: BP 121/61
--- NOTE | 2017-03-19 05:58 | EKG REPORT ---
SEVERITY:- NORMAL ECG - SINUS RHYTHM : Confirmed by: Meagan Tse MD 19-Mar-2017 05:57:16
== END 2017-03-19 01:00 | disposition home or self-care (01) ==
LOC: ER 18:22
DX: E66.2 Morbid (severe) obesity with alveolar hypoventilation (principal); J44.9 Chronic obstructive pulmonary disease, unspecified; R60.0 Localized edema; R00.2 Palpitations; R11.2 Nausea with vomiting, unspecified; R10.9 Unspecified abdominal pain; R06.00 Dyspnea, unspecified; M79.604 Pain in right leg; M79.605 Pain in left leg; R07.9 Chest pain, unspecified; E11.9 Type 2 diabetes mellitus without complications; I50.9 Heart failure, unspecified; I10 Essential (primary) hypertension; I48.0 Paroxysmal atrial fibrillation; Z79.01 Long term (current) use of anticoagulants
CPT/HCPCS: 93005; 36591; 94640; 99285; 36415; 82553; 85025; 80053; 81001; 84484; 83880; 71020; 93010; A9270

== ENCOUNTER → 2017-03-27 | Outpatient (CLI) | payer MEDICARE, MEDICAID ==
[2017-03-27 16:13] LABS: ANION GAP 12 (5-19); BLOOD UREA NITROGEN 20 mg/dL (7-20); CALCIUM 9.7 mg/dL (8.4-10.2); CARBON DIOXIDE 23 mmol/L (22-30); CHLORIDE 109 mmol/L (98-107); GLUCOSE 118 mg/dL (75-110); POTASSIUM 4.5 mmol/L (3.6-5.0); SODIUM 144.2 mmol/L (137-145)
== END ==
LOC: OD 14:04
PROVIDERS: ATTEND Family Medicine
DX: E87.5 Hyperkalemia (principal)
CPT/HCPCS: 36415; 80048

== ENCOUNTER → 2017-05-18 | Outpatient (CLI) | payer MEDICARE, MEDICAID ==
--- NOTE | 2017-05-18 12:27 | WOMENS IMAGING REPORT ---
EXAM DESCRIPTION: U/S BREAST UNILATERAL, COMPL COMPLETED DATE/TIME: 05/18/2017 12:08 pm REASON FOR STUDY: MASTECTOMY/ BREAST CANCER 2004 Z90.13 ACQUIRED ABSENCE OF BILATERAL BREASTS AND N IPPLES Z85.3 PERSONAL HISTORY OF MALIGNANT NEOPLASM OF BREAST COMPARISON: 12/17/2015, 09/06/2015, 06/23/2015, and 03/24/2015. TECHNIQUE: Real-time and static grayscale imaging performed of the right and left breast targeted to the area of clinical/mammographic concern. Selected color Doppler images recorded. LIMITATIONS: None. FINDINGS: MASS: Stable residual fluid collections along the chest wall bilaterally. Focal echogenic area in the right breast, unchanged. No mass identified. Normal glandular tissue. OTHER: No other significant finding. IMPRESSION: STABLE APPEARANCE. NO SUSPICIOUS FINDINGS. BIRAD: 2 Benign findings. RECOMMENDATION: RECOMMENDED FOLLOW-UP: Follow-up as clinically indicated. COMMENT: The [employer] (ACR) has developed recommendations for screening MRI of the breasts in certain patient populations, to be used in conjunction with mammography. Breast MRI s urveillance may be appropriate for women with more than 20% lifetime risk of developing breast cancer as determined by genetic testing, significant family history of the disease, or history of mantle r adiation for Hodgkins Disease. ACR Practice Guidelines 2008. TECHNICAL DOCUMENTATION: JOB ID: [id number]- All Rights Reserved
--- NOTE | 2017-05-18 13:07 | WOMENS IMAGING REPORT ---
EXAM DESCRIPTION: TRANSVAGINAL ULTRASOUND COMPLETED DATE/TIME: 05/18/2017 12:08 pm REASON FOR STUDY: MASTECTOMY/ BREAST CANCER 2004 Z90.13 ACQUIRED ABSENCE OF BILATERAL BREASTS AND N IPPLES Z85.3 PERSONAL HISTORY OF MALIGNANT NEOPLASM OF BREAST COMPARISON: None. TECHNIQUE: Dynamic and static grayscale images acquired of the pelvis via transvaginal approach and recorded on PACS. Additional selected color Doppler and spectral images recorded. LIMITATIONS: None. FINDINGS: UTERUS: Surgically absent. RIGHT OVARY: Ovary not visualized. LEFT OVARY: Ovary not visualized. FREE FLUID: None noted. OTHER: No other significant finding. IMPRESSION: UTERUS SURGICALLY ABSENT. OVARIES NOT VISUALIZED. NO ABNORMAL SONOGRAPHIC FINDINGS IN THE PELVIS. TECHNICAL DOCUMENTATION: JOB ID: [id number] [employer]- All Rights Reserved
== END ==
LOC: WI 11:10
PROVIDERS: ATTEND Physician Assistant
DX: Z90.13 Acquired absence of bilateral breasts and nipples (principal); Z85.3 Personal history of malignant neoplasm of breast; N94.19 Other specified dyspareunia; N93.0 Postcoital and contact bleeding
CPT/HCPCS: 76641; 76830

== ENCOUNTER 2017-05-24 18:53 | Emergency (ER) | payer MEDICARE, MEDICAID ==
--- NOTE | 2017-05-24 21:28 | RADIOLOGY REPORT (SQ) ---
EXAM DESCRIPTION: CHEST SINGLE VIEW COMPLETED DATE/TIME: 05/24/2017 9:11 pm REASON FOR STUDY: sob COMPARISON: 03/18/2017. EXAM PARAMETERS: NUMBER OF VIEWS: One view. TECHNIQUE: Single frontal radiographic view of the chest acquired. RADIATION DOSE: NA LIMITATIONS: None. FINDINGS: LUNGS AND PLEURA: No opacities, masses or pneumothorax. No pleural effusion. MEDIASTINUM AND HILAR STRUCTURES: No masses. Contour normal. HEART AND VASCULAR STRUCTURES: Heart normal in size. Normal vasculature. BONES: No acute findings. HARDWARE: Vascular access port. Cardiac recorder. OTHER: No other significant finding. IMPRESSION: NO ACUTE RADIOGRAPHIC FINDING IN THE CHEST. TECHNICAL DOCUMENTATION: JOB ID: [id number] [employer]- All Rights Reserved
--- NOTE | 2017-05-24 21:43 | ER Document Report ---
ED Respiratory Problem - General Mode of Arrival: Ambulatory Information source: Patient TRAVEL OUTSIDE OF THE [place] IN LAST 30 DAYS: No <JEFFREY GILL - Last Filed: 05/25/17 04:23> <CHRISTELLE ESCALANTE - Last Filed: 05/25/17 05:33> - General Chief Complaint: Shortness Of Breath Stated Complaint: SHORT OF BREATH Time Seen by Provider: 05/24/17 20:35 Notes: Patient is a 51-year-old female who presents to the emergency department today with complaints of shortness of breath. Patient is chronically on home oxygen however she was having sexual intercourse today and she took it off and her oxygen saturation dropped to 80%. Patient also mentions that she has had leg swelling the last few days but she does have a history of CHF. Patient denies any chest pain. (JEFFREY GILL) - Related Data Allergies/Adverse Reactions: adhesive [Adhesive] Allergy (Mild, Verified 03/18/17 18:39) Generalized rash methicillin [Methicillin] Allergy (Mild, Verified 03/18/17 18:39) Generalized rash vancomycin [Vancomycin] Allergy (Mild, Verified 03/18/17 18:39) Generalized rash Past Medical History - General Information source: Patient - Social History Smoking Status: Never Smoker Cigarette use (# per day): No Frequency of alcohol use: None Drug Abuse: None Lives with: Family Family History: Arthritis, CAD, DM, Hyperlipidemia, Hypertension, Malignancy - Past Medical History Cardiac Medical History: Reports: Hx Atrial Fibrillation, Hx Coronary Artery Disease - HIGH CHOLESTEROL, Hx DVT, Hx Hypercholesterolemia, Hx Hypertension, Hx Pulmonary Embolism Pulmonary Medical History: Reports: Hx Bronchitis, Hx COPD, Hx Pneumonia, Hx Intubation, Hx Respiratory Failure, Hx Sleep Apnea Endocrine Medical History: Reports: Hx Diabetes Mellitus Type 2 Malignancy Medical History: Reports: Hx Breast Cancer, Hx Cervical Cancer GI Medical History: Reports: Hx Gastroesophageal Reflux Disease, Hx Hiatal Hernia, Hx Liver Failure - fatty liver Musculoskeltal Medical History: Reports Hx Arthritis - KNEES/BACK, Reports Hx Fibromyalgia Skin Medical History: Reports Hx Psoriasis Psychiatric Medical History: Reports: Hx Anxiety, Hx Bipolar Disorder, Hx Depression Past Surgical History: Reports: Hx Cholecystectomy, Hx Hysterectomy, Hx Mastectomy, Hx Orthopedic Surgery, Other - IVC filter placement - Immunizations Immunizations up to date: Yes Hx Diphtheria, Pertussis, Tetanus Vaccination: Yes - 01/2014 Hx Pneumococcal Vaccination: 04/23/15 <JEFFREY GILL - Last Filed: 05/25/17 04:23> Review of Systems - Review of Systems Constitutional: No symptoms reported EENT: No symptoms reported Cardiovascular: denies: Chest pain Respiratory: See HPI, Short of breath Gastrointestinal: No symptoms reported Genitourinary: No symptoms reported Female Genitourinary: No symptoms reported Musculoskeletal: See HPI, Leg swelling Skin: No symptoms reported Hematologic/Lymphatic: No symptoms reported Neurological/Psychological: No symptoms reported -: Yes All other systems reviewed and negative <JEFFREY GILL - Last Filed: 05/25/17 04:23> Physical Exam <JEFFREY GILL - Last Filed: 05/25/17 04:23> <CHRISTELLE ESCALANTE - Last Filed: 05/25/17 05:33> - Vital signs Vitals: Temp Pulse Resp BP Pulse Ox 97.7 F 77 18 138/89 H 96 05/24/17 19:08 05/24/17 19:08 05/24/17 19:08 05/24/17 19:08 05/24/17 19:08 - Notes Notes: Physical Exam: General: Alert, appears well. HEENT: Normocephalic. Atraumatic. PERRL. Extraocular movements intact. Oropharynx clear. Neck: Supple. Non-tender. Respiratory: No respiratory distress. Clear and equal breath sounds bilaterally. Cardiovascular: Regular rate and rhythm. Abdominal: Obese. Non-tender. No distension. Normal Bowel Sounds. Back: Non-tender. No deformity or step off. Extremities: Moves all four extremities. Upper extremities: Normal inspection. Normal ROM. Lower extremities: Normal inspection. Non-pitting edema. Normal ROM. Neurological: Normal cognition. AAOx4. Normal speech. Psychological: Normal affect. Normal Mood. Skin: Warm. Dry. Normal color. (JEFFREY GILL) Course - Laboratory Result Diagrams: 05/24/17 23:48 05/24/17 22:30 <JEFFREY GILL - Last Filed: 05/25/17 04:23> - Laboratory Result Diagrams: 05/24/17 23:48 05/24/17 22:30 - Diagnostic Test Radiology reviewed: Reports reviewed - EKG Interpretation by Ks EKG shows normal: Sinus rhythm Rate: Normal Rhythm: NSR <CHRISTELLE ESCALANTE - Last Filed: 05/25/17 05:33> - Re-evaluation Re-evalutation: Patient comes in after having an episode of hypoxia at home. She is supposed to wear her oxygen all the time and took it off during intercourse. No evidence for heart failure, pneumonia. Patient is resting comfortably was able to ambulate without difficulty with her standard 2 L of oxygen on. She is to follow-up with her doctor return if any worsening or concerning symptoms. Patient has required multiple sticks to get blood work. Explained that her troponin was still not able to be run with the blood that was pulled. Patient states that she feels well denies any chest pain and is comfortable going home. Stable for discharge. (CHRISTELLE ESCALANTE) - Vital Signs Vital signs: Temp Pulse Resp BP Pulse Ox 97.7 F 77 26 H 108/59 L 100 05/24/17 19:08 05/24/17 19:08 05/25/17 01:41 05/25/17 01:42 05/25/17 01:38 - Laboratory Laboratory results interpreted by me: 05/24/17 05/24/17 05/24/17 20:10 20:52 21:27 WBC RDW Chloride POC Glucose 66 L 61 L AST ALT Urine Blood MODERATE H 05/24/17 05/24/17 22:30 23:48 WBC 10.8 H RDW 15.6 H Chloride 108 H POC Glucose AST 48 H ALT 59 H Urine Blood Discharge <JEFFREY GILL - Last Filed: 05/25/17 04:23> <CHRISTELLE ESCALANTE - Last Filed: 05/25/17 05:33> - Discharge Clinical Impression: Dyspnea Qualifiers: Dyspnea type: unspecified Qualified Code(s): R06.00 - Dyspnea, unspecified Condition: Stable Disposition: HOME, SELF-CARE Instructions: Dyspnea, Nonspecific ([facility]) Additional Instructions: Please keep your oxygen on when you are doing any strenuous activity. Referrals: JOVAN ADLER MD [Primary Care Provider] - Follow up tomorrow Scribe Attestation: 05/25/17 05:33 I personally performed the services described in the documentation, reviewed and edited the documentation which was dictated to the scribe in my presence, and it accurately records my words and actions. (CHRISTELLE ESCALANTE) Scribe Documentation - Scribe Written by Byron:: Byron Olivia, 05/25/2017 0000 acting as scribe for :: Pretty <JEFFREY GILL - Last Filed: 05/25/17 04:23>
[2017-05-24 22:04] LABS: APPEARANCE,URINE CLEAR; BILIRUBIN,URINE NEGATIVE (NEGATIVE); COLOR,URINE YELLOW; GLUCOSE, URINE NEGATIVE (NEGATIVE); KETONES,URINE NEGATIVE (NEGATIVE); LEUKOCYTE ESTERASE,URINE NEGATIVE (NEGATIVE); NITRITE,URINE NEGATIVE (NEGATIVE); PROTEIN,URINE NEGATIVE (NEGATIVE); URINE SPECIFIC GRAVITY 1.009; UROBILINOGEN,URINE NEGATIVE mg/dL (<2.0)
[2017-05-24 23:15] LABS: ALANINE AMINOTRANSFERASE 59 U/L (9-52); ALBUMIN 3.7 g/dL (3.5-5.0); ALKALINE PHOSPHATASE 71 U/L (38-126); ANION GAP 11 (5-19); ASPARTATE AMINO TRANSFERASE 48 U/L (14-36); BILIRUBIN,DIRECT 0.2 mg/dL (0.0-0.4); BILIRUBIN,TOTAL 0.7 mg/dL (0.2-1.3); BLOOD UREA NITROGEN 17 mg/dL (7-20); CALCIUM 9.6 mg/dL (8.4-10.2); CARBON DIOXIDE 22 mmol/L (22-30); CHLORIDE 108 mmol/L (98-107); GLUCOSE 81 mg/dL (75-110); POTASSIUM 4.9 mmol/L (3.6-5.0); TOTAL PROTEIN 6.3 g/dL (6.3-8.2)
[2017-05-24 23:58] LABS: VENOUS BLOOD BASE EXCESS -0.4 mmol/L; VENOUS BLOOD HCO3 26.8 mmol/L (20-32); VENOUS BLOOD PCO2 55.2 mmHg (35-63); VENOUS BLOOD PH 7.3 (7.30-7.42)
[2017-05-25 00:04] LABS: ABSOLUTE BASOPHILS # (AUTO) 0.2 10^3/uL (0.0-0.2); ABSOLUTE EOSINOPHILS # (AUTO) 0.3 10^3/uL (0.0-0.6); ABSOLUTE LYMPHOCYTES (AUTO) 2.8 10^3/uL (0.5-4.7); ABSOLUTE MONOCYTES (AUTO) 0.9 10^3/uL (0.1-1.4); ABSOLUTE NEUT (AUTO) 6.6 10^3/uL (1.7-8.2); BASOPHILS % (AUTO) 1.9 % (0-2); HEMATOCRIT 38.7 % (36.0-47.0); HEMOGLOBIN 12.8 g/dL (12.0-15.5); LYMPHOCYTES % (AUTO) 25.8 % (13-45); MEAN CORPUSCULAR HEMOGLOBIN 30.7 pg (27.0-33.4); MEAN CORPUSCULAR VOLUME 93 fl (80-97); PLATELET COUNT 268 10^3/uL (150-450); RED BLOOD COUNT 4.16 10^6/uL (3.72-5.28); RED CELL DISTRIBUTION WIDTH 15.6 % (11.5-14.0); SEGMENTED NEUTROPHILS % (AUTO) 61.3 % (42-78); TOTAL CELLS COUNTED % (AUTO) 100 %; WHITE BLOOD COUNT 10.8 10^3/uL (4.0-10.5)
[2017-05-25 01:48] VITALS: BP 108/59
--- NOTE | 2017-05-25 07:53 | EKG REPORT ---
SEVERITY:- NORMAL ECG - SINUS RHYTHM : Confirmed by: Ric Lynn MD 25-May-2017 07:52:23
== END 2017-05-25 01:50 | disposition home or self-care (01) ==
LOC: ER 18:53
DX: R06.00 Dyspnea, unspecified (principal); R06.02 Shortness of breath; I50.9 Heart failure, unspecified; Z99.81 Dependence on supplemental oxygen; Z79.899 Other long term (current) drug therapy
CPT/HCPCS: 36415; 36591; 71045; 80053; 81001; 82803; 82962; 83605; 83880; 85025; 87040; 87086; 93005; 93010; 99285

== ENCOUNTER → 2017-05-25 | Outpatient (CLI) | payer MEDICARE, MEDICAID ==
[2017-05-25 15:15] LABS: ABSOLUTE BASOPHILS # (AUTO) 0.1 10^3/uL (0.0-0.2); ABSOLUTE EOSINOPHILS # (AUTO) 0.2 10^3/uL (0.0-0.6); ABSOLUTE LYMPHOCYTES (AUTO) 1.7 10^3/uL (0.5-4.7); ABSOLUTE MONOCYTES (AUTO) 0.5 10^3/uL (0.1-1.4); ABSOLUTE NEUT (AUTO) 3.6 10^3/uL (1.7-8.2); EOSINOPHILS % (AUTO) 3.3 % (0-6); HEMATOCRIT 39.8 % (36.0-47.0); HEMOGLOBIN 13.1 g/dL (12.0-15.5); LYMPHOCYTES % (AUTO) 28.8 % (13-45); MEAN CORPUSCULAR HEMOGLOBIN 30.4 pg (27.0-33.4); MEAN CORPUSCULAR HGB CONC 32.8 g/dL (32.0-36.0); MEAN CORPUSCULAR VOLUME 92 fl (80-97); MONOCYTES % (AUTO) 7.6 % (3-13); PLATELET COUNT 297 10^3/uL (150-450); RED CELL DISTRIBUTION WIDTH 15.7 % (11.5-14.0); SEGMENTED NEUTROPHILS % (AUTO) 59.3 % (42-78); TOTAL CELLS COUNTED % (AUTO) 100 %
[2017-05-28 13:38] LABS: ANTICHROMATIN AB <0.2 AI (0.0-0.9); CENTROMERE B AB <0.2 AI (0.0-0.9); JO-1 ANTIBODY (ANACOMP) <0.2 AI (0.0-0.9); RNP AB 0.2 AI (0.0-0.9); SCLERODERMA-70 ANTIBODIES <0.2 AI (0.0-0.9); SJOGREN'S ANTI-SS-B AB <0.2 AI (0.0-0.9); SJOGREN'S SS-A ANTIBODY <0.2 AI (0.0-0.9); SMITH AB ANA <0.2 AI (0.0-0.9)
[2017-05-28 15:07] LABS: DNA DOUBLE STRAND ANTIBODY ANA <1 IU/mL (0-9)
[2017-05-29 17:37] LABS: CYTOPLASMIC (C-ANCA) <1:20 titer (Neg:<1:20)
[2017-05-29 18:37] LABS: ASPERGILLUS FLAVUS Negative (Neg:<1:1); ASPERGILLUS FUMIGATUS Negative (Neg:<1:1)
[2017-05-30 07:03] LABS: ASPERGILLUS NIGER Negative (Neg:<1:1); ATYPICAL PANCA <1:20 titer (Neg:<1:20); PERINUCLEAR (P-ANCA) <1:20 titer (Neg:<1:20)
== END ==
LOC: OD 13:56
PROVIDERS: ATTEND Physician Assistant
DX: J45.909 Unspecified asthma, uncomplicated (principal); R06.02 Shortness of breath
CPT/HCPCS: 36415; 85025; 86003; 86021; 86225; 86235; 86430; 86606

== ENCOUNTER → 2017-05-29 | Outpatient (CLI) | payer MEDICARE, MEDICAID ==
[2017-05-29 12:58] LABS: ARTERIAL BLOOD BASE EXCESS -1.6 mmol/L; ARTERIAL BLOOD FIO2 2L; ARTERIAL BLOOD H2CO3 1.07 mmol/L (1.05-1.35); ARTERIAL BLOOD HCO3 22.5 mmol/L (20-26); ARTERIAL BLOOD O2 SATURATION 98.8 % (94-98); ARTERIAL BLOOD PCO2 35.7 mmHg (35-45); ARTERIAL BLOOD PH 7.42 (7.35-7.45); ARTERIAL BLOOD PO2 138.3 mmHg (80-100); ARTERIAL BLOOD TOTAL CO2 23.6 mmol/L (21-25)
== END ==
LOC: OD 12:07
PROVIDERS: ATTEND Physician Assistant
DX: J45.909 Unspecified asthma, uncomplicated (principal); R06.02 Shortness of breath
CPT/HCPCS: 36600; 82803

== ENCOUNTER → 2017-06-07 | Outpatient (CLI) | payer MEDICARE, MEDICAID ==
--- NOTE | 2017-06-07 10:06 | RADIOLOGY REPORT (SQ) ---
EXAM DESCRIPTION: CT CHEST WITHOUT COMPLETED DATE/TIME: 06/07/2017 9:52 am REASON FOR STUDY: SHORTNESS OF BREATH R06.02 SHORTNESS OF BREATH COMPARISON: 03/05/2017 TECHNIQUE: CT scan performed of the chest without intravenous contrast. Images reviewed with lung, soft tissue and bone windows. Reconstructed coronal and sagittal MPR images reviewed. All images st ored on PACS. All CT scanners at this facility use dose modulation, iterative reconstruction, and/or weight based d osing when appropriate to reduce radiation dose to as low as reasonably achievable (ALARA). [facility]: Dose Right [facility]: CareDose [facility]: Dose Right [facility]: Teradose 4D [facility]: Smart [employer] RADIATION DOSE: CT Rad equipment meets quality standard of care and radiation dose reduction techniq ues were employed. CTDIvol: 24.1 mGy. DLP: 948 mGy-cm. mGy. LIMITATIONS: No technical limitations. FINDINGS: LUNGS AND PLEURA: No masses, infiltrates, pneumothorax. No pleural effusions, calcificati ons. HILAR AND MEDIASTINAL STRUCTURES: No identified masses or abnormal nodes. No obvious aneurysm. HEART AND VASCULAR STRUCTURES: No aneurysm. No pericardial effusion. UPPER ABDOMEN: No significant findings. Limited exam. THYROID AND OTHER SOFT TISSUES: Left axillary clips. 2.5 x 8.6 cm fluid density lesion lower anterio r chest wall is unchanged. BONES: No significant finding. HARDWARE: None in the chest. OTHER: Right-sided port tip in the SVC. Cardiac loop monitor. IMPRESSION: 1. No acute findings. 2. Unchanged seroma anterior chest wall. TECHNICAL DOCUMENTATION: JOB ID: [id number] Quality ID # [id number]: Final reports with documentation of one or more dose reduction techniques (e.g., Au tomated exposure control, adjustment of the mA and/or kV according to patient size, use of iterative reconstruction technique) 2010 [employer]- All Rights Reserved
== END ==
LOC: RAD 09:36
PROVIDERS: ATTEND Physician Assistant
DX: R06.02 Shortness of breath (principal)
CPT/HCPCS: 71250

== ENCOUNTER 2017-07-08 14:17 | Inpatient (IN) | payer MEDICARE, MEDICAID ==
--- NOTE | 2017-07-08 14:38 | ER Document Report ---
ED Medical Screen (RME) - General Chief Complaint: Shortness Of Breath Stated Complaint: BREATHING DIFFICULTY Time Seen by Provider: 07/08/17 14:30 Notes: 1 week of worsening shortness of breath with any exertion. She has a pulse oximeter at home and states that her oxygen saturation will drop in the 80s with walking. no history of heart attacks or strokes but patient has had multiple blood clots and is a cancer survivor and is on Xarelto. She has been taking her medications as prescribed. She has not had any recent weight gain. No recent cough or congestion. She states she has a pressure discomfort midsternal that has been going on for several days. I have greeted and performed a rapid initial assessment of this patient. A comprehensive ED assessment and evaluation of the patient, analysis of test results and completion of the medical decision making process will be conducted by additional ED providers. PHYSICAL EXAMINATION: GENERAL: Well-appearing, well-nourished and in no acute distress, severely obese HEAD: Atraumatic, normocephalic. EYES: Pupils equal round extraocular movements intact, conjunctiva are normal. ENT: Nares patent NECK: Normal range of motion LUNGS: No respiratory distress Musculoskeletal: Normal range of motion NEUROLOGICAL: Normal speech, normal gait. PSYCH: Normal mood, normal affect. SKIN: Warm, Dry, normal turgor, no rashes or lesions noted. TRAVEL OUTSIDE OF THE [place] IN LAST 30 DAYS: No - Related Data Allergies/Adverse Reactions: adhesive [Adhesive] Allergy (Mild, Verified 07/08/17 14:19) Generalized rash methicillin [Methicillin] Allergy (Mild, Verified 07/08/17 14:19) Generalized rash vancomycin [Vancomycin] Allergy (Mild, Verified 07/08/17 14:19) Generalized rash Past Medical History - Past Medical History Cardiac Medical History: Reports: Hx Atrial Fibrillation, Hx Coronary Artery Disease - HIGH CHOLESTEROL, Hx DVT, Hx Hypercholesterolemia, Hx Hypertension, Hx Pulmonary Embolism Denies: Hx Heart Attack Pulmonary Medical History: Reports: Hx Bronchitis, Hx COPD, Hx Pneumonia, Hx Intubation, Hx Respiratory Failure, Hx Sleep Apnea Denies: Hx Asthma, Hx Tuberculosis Neurological Medical History: Denies: Hx Cerebrovascular Accident, Hx Migraine, Hx Seizures Endocrine Medical History: Reports: Hx Diabetes Mellitus Type 2 Renal/ Medical History: Denies: Hx Peritoneal Dialysis Malignancy Medical History: Reports: Hx Breast Cancer, Hx Cervical Cancer GI Medical History: Reports: Hx Gastroesophageal Reflux Disease, Hx Hiatal Hernia, Hx Liver Failure - fatty liver Musculoskeltal Medical History: Reports Hx Arthritis - KNEES/BACK, Reports Hx Fibromyalgia Skin Medical History: Reports Hx Psoriasis Psychiatric Medical History: Reports: Hx Anxiety, Hx Bipolar Disorder, Hx Depression Past Surgical History: Reports: Hx Cholecystectomy, Hx Hysterectomy, Hx Mastectomy, Hx Orthopedic Surgery, Other - IVC filter placement. Denies: Hx Pacemaker - Immunizations Immunizations up to date: Yes Hx Diphtheria, Pertussis, Tetanus Vaccination: Yes - 01/2014 History of Influenza Vaccine for 01/2017 - 06/2017 Season: Yes Influenza Administration Date for 01/2017 - 06/2017 Season: 01/21/07 Physical Exam - Vital signs Vitals: Temp Pulse Resp BP Pulse Ox 97.9 F 72 24 H 151/111 H 98 07/08/17 14:24 07/08/17 14:24 07/08/17 14:24 07/08/17 14:24 07/08/17 14:24 Course - Vital Signs Vital signs: Temp Pulse Resp BP Pulse Ox 97.9 F 72 24 H 151/111 H 98 07/08/17 14:24 07/08/17 14:24 07/08/17 14:24 07/08/17 14:24 07/08/17 14:24
--- NOTE | 2017-07-08 15:19 | EKG REPORT ---
SEVERITY:- NORMAL ECG - SINUS RHYTHM : Confirmed by: Ric Lynn MD 08-Jul-2017 15:19:14
--- NOTE | 2017-07-08 15:59 | ER Document Report ---
ED Respiratory Problem - General Mode of Arrival: Ambulatory Information source: Patient TRAVEL OUTSIDE OF THE [place] IN LAST 30 DAYS: No - HPI Patient complains to provider of: Short of breath, Other - HIGH BP Onset: Last week Duration: Intermittent episodes Initiating Event: Exertion Quality of pain: Pressure Severity: Moderate Context: DVT - x 4 IN THE PAST, Other - H/O P.E. x 3. denies: Smoker Short of Breath: Moderate Chest pain/discomfort: Center Sputum amount: None At home treatment: CPAP, Oxygen - 2 LITERS PRN Associated symptoms: Extertional dyspnea, Short of breath. denies: Bloody cough , Chills, Cough, Fever, Leg/calf/joint pain Worsened by: ANY EXERTION Similar symptoms previously: Yes - W/ P.E. Recently seen / treated by doctor: No <VILLA HERNANDEZ - Last Filed: 07/08/17 19:09> <HARSHIL LYNNE - Last Filed: 07/08/17 22:20> - General Chief Complaint: Shortness Of Breath Stated Complaint: BREATHING DIFFICULTY Time Seen by Provider: 07/08/17 14:30 - Related Data Allergies/Adverse Reactions: adhesive [Adhesive] Allergy (Mild, Verified 07/08/17 14:19) Generalized rash methicillin [Methicillin] Allergy (Mild, Verified 07/08/17 14:19) Generalized rash vancomycin [Vancomycin] Allergy (Mild, Verified 07/08/17 14:19) Generalized rash Past Medical History - General Information source: Patient - Social History Smoking Status: Never Smoker Cigarette use (# per day): No Chew tobacco use (# tins/day): No Frequency of alcohol use: None Drug Abuse: None Lives with: Family Family History: Arthritis, CAD, DM, Hyperlipidemia, Hypertension, Malignancy Patient has suicidal ideation: No Patient has homicidal ideation: No - Past Medical History Cardiac Medical History: Reports: Hx Atrial Fibrillation, Hx Coronary Artery Disease - HIGH CHOLESTEROL, Hx DVT, Hx Hypercholesterolemia, Hx Hypertension, Hx Pulmonary Embolism Denies: Hx Heart Attack Pulmonary Medical History: Reports: Hx Bronchitis, Hx COPD, Hx Pneumonia, Hx Intubation, Hx Respiratory Failure, Hx Sleep Apnea Denies: Hx Asthma, Hx Tuberculosis Neurological Medical History: Denies: Hx Cerebrovascular Accident, Hx Migraine, Hx Seizures Endocrine Medical History: Reports: Hx Diabetes Mellitus Type 2 Renal/ Medical History: Denies: Hx Peritoneal Dialysis Malignancy Medical History: Reports: Hx Breast Cancer, Hx Cervical Cancer GI Medical History: Reports: Hx Gastroesophageal Reflux Disease, Hx Hiatal Hernia, Hx Liver Failure - fatty liver Musculoskeltal Medical History: Reports Hx Arthritis - KNEES/BACK, Reports Hx Fibromyalgia Skin Medical History: Reports Hx Psoriasis Psychiatric Medical History: Reports: Hx Anxiety, Hx Bipolar Disorder, Hx Depression Past Surgical History: Reports: Hx Cholecystectomy, Hx Hysterectomy, Hx Mastectomy, Hx Orthopedic Surgery, Other - IVC filter placement. Denies: Hx Pacemaker - Immunizations Immunizations up to date: Yes Hx Diphtheria, Pertussis, Tetanus Vaccination: Yes - 01/2014 Hx Pneumococcal Vaccination: 04/23/15 <VILLA HERNANDEZ - Last Filed: 07/08/17 19:09> Review of Systems - Review of Systems Constitutional: No symptoms reported. denies: Chills, Diaphoresis, Fever EENT: No symptoms reported Cardiovascular: See HPI Respiratory: See HPI Gastrointestinal: No symptoms reported Genitourinary: No symptoms reported Female Genitourinary: No symptoms reported Musculoskeletal: No symptoms reported Skin: No symptoms reported Neurological/Psychological: No symptoms reported <VILLA HERNANDEZ - Last Filed: 07/08/17 19:09> Physical Exam - Vital signs Interpretation: Hypertensive, Tachypneic. No: Tachycardic, Hypoxic, Febrile - General General appearance: Appears well, Alert In distress: None - HEENT Head: Normocephalic Eyes: Normal Conjunctiva: Normal Ears: Normal Nasal: Normal Mouth/Lips: Normal Mucous membranes: Normal - Respiratory Respiratory status: No respiratory distress Breath sounds: Normal, Other - BREATH SOUNDS DISTANT - Cardiovascular Rhythm: Regular Heart sounds: Normal auscultation Murmur: No - Abdominal Inspection: Morbidly Obese - Extremities General upper extremity: Normal inspection General lower extremity: Edema - BILATERAL. No: Normal inspection - Neurological Neuro grossly intact: Yes Cognition: Normal Orientation: AAOx4 - Psychological Associated symptoms: Normal affect, Normal mood - Skin Skin Temperature: Warm Skin Moisture: Dry Skin Color: Normal Skin Turgor: Elastic <VILLA HERNANDEZ - Last Filed: 07/08/17 19:09> - Vital signs Vitals: Temp Pulse Resp BP Pulse Ox 97.9 F 72 24 H 151/111 H 98 07/08/17 14:24 07/08/17 14:24 07/08/17 14:24 07/08/17 14:24 07/08/17 14:24 Course - Laboratory Result Diagrams: 07/08/17 16:31 07/08/17 16:31 <VILLA HERNANDEZ - Last Filed: 07/08/17 19:09> - Laboratory Result Diagrams: 07/08/17 16:31 07/08/17 16:31 <HARSHIL LYNNE - Last Filed: 07/08/17 22:20> - Vital Signs Vital signs: Temp Pulse Resp BP Pulse Ox 97.9 F 72 24 H 151/111 H 93 07/08/17 14:24 07/08/17 14:24 07/08/17 14:24 07/08/17 14:24 07/08/17 21:02 - Laboratory Laboratory results interpreted by me: 07/08/17 07/08/17 16:31 16:31 Hgb 11.8 L RDW 15.5 H Chloride 110 H AST 61 H ALT 79 H Total Protein 5.7 L Albumin 3.2 L Discharge <VILLA HERNANDEZ - Last Filed: 07/08/17 19:09> - Discharge Admitting Provider: Kaden Unit Admitted: Telemetry <HARSHIL LYNNE - Last Filed: 07/08/17 22:20> - Discharge Clinical Impression: Dyspnea on exertion, History of pulmonary embolus (PE) Condition: Fair Disposition: ADMITTED INPATIENT Referrals: JOVAN ADLER MD [Primary Care Provider] - Follow up as needed
[2017-07-08 16:48] LABS: ABSOLUTE BASOPHILS # (AUTO) 0.1 10^3/uL (0.0-0.2); ABSOLUTE EOSINOPHILS # (AUTO) 0.2 10^3/uL (0.0-0.6); ABSOLUTE LYMPHOCYTES (AUTO) 2.3 10^3/uL (0.5-4.7); ABSOLUTE MONOCYTES (AUTO) 0.8 10^3/uL (0.1-1.4); ABSOLUTE NEUT (AUTO) 4.4 10^3/uL (1.7-8.2); BASOPHILS % (AUTO) 0.8 % (0-2); EOSINOPHILS % (AUTO) 2.9 % (0-6); HEMATOCRIT 36.5 % (36.0-47.0); HEMOGLOBIN 11.8 g/dL (12.0-15.5); LYMPHOCYTES % (AUTO) 29.2 % (13-45); MEAN CORPUSCULAR HEMOGLOBIN 30.4 pg (27.0-33.4); MEAN CORPUSCULAR HGB CONC 32.3 g/dL (32.0-36.0); MEAN CORPUSCULAR VOLUME 94 fl (80-97); MONOCYTES % (AUTO) 10.8 % (3-13); PLATELET COUNT 371 10^3/uL (150-450); RED BLOOD COUNT 3.87 10^6/uL (3.72-5.28); RED CELL DISTRIBUTION WIDTH 15.5 % (11.5-14.0); SEGMENTED NEUTROPHILS % (AUTO) 56.3 % (42-78); TOTAL CELLS COUNTED % (AUTO) 100 %; WHITE BLOOD COUNT 7.9 10^3/uL (4.0-10.5)
[2017-07-08 17:17] LABS: ALANINE AMINOTRANSFERASE 79 U/L (9-52); ALBUMIN 3.2 g/dL (3.5-5.0); ALKALINE PHOSPHATASE 67 U/L (38-126); ANION GAP 5 (5-19); ASPARTATE AMINO TRANSFERASE 61 U/L (14-36); BILIRUBIN,DIRECT 0.4 mg/dL (0.0-0.4); BILIRUBIN,TOTAL 0.8 mg/dL (0.2-1.3); BLOOD UREA NITROGEN 14 mg/dL (7-20); CALCIUM 9.2 mg/dL (8.4-10.2); CARBON DIOXIDE 24 mmol/L (22-30); CHLORIDE 110 mmol/L (98-107); GLUCOSE 85 mg/dL (75-110); SODIUM 139.3 mmol/L (137-145); TOTAL PROTEIN 5.7 g/dL (6.3-8.2)
[2017-07-08 20:09] LABS: NT PRO BNP 660 pg/mL (5-900)
[2017-07-08 20:11] LABS: TROPONIN I < 0.012 ng/mL
[2017-07-08] MEDS ORDERED: LORAZEPAM INJ 2 MG/1 ML VIAL IV ONE (20:38)
--- NOTE | 2017-07-08 20:51 | RADIOLOGY REPORT (SQ) ---
EXAM DESCRIPTION: CTA CHEST COMPLETED DATE/TIME: 07/08/2017 8:41 pm REASON FOR STUDY: SOB, hypoxia with exerction, hx of PEs COMPARISON: 06/07/2017 TECHNIQUE: CT scan of the chest performed using helical scanning technique with dynamic intravenous contrast injection. Images reviewed with lung, soft tissue and bone windows. Reconstructed coronal and sagittal MPR images reviewed. Additional 3 dimensional post-processing performed to develop Maximal Intensity Projection images (MA P). All images stored on PACS. All CT scanners at this facility use dose modulation, iterative reconstruction, and/or weight based d osing when appropriate to reduce radiation dose to as low as reasonably achievable (ALARA). [facility]: Dose Right [facility]: CareDose [facility]: Dose Right [facility]: Teradose 4D [facility]: Adhysteria CONTRAST TYPE AND DOSE: contrast/concentration: Isovue 370.00 mg/ml; Total Contrast Delivered: 90.0 ml; Total Saline Delivered: 75.0 ml Contrast bolus optimized for the pulmonary arteries. Not diagnostic for the aorta. RENAL FUNCTION: GFR > 60. RADIATION DOSE: CT Rad equipment meets quality standard of care and radiation dose reduction techniq ues were employed. CTDIvol: 24.8 - 41.8 mGy. DLP: 1679 mGy-cm. . LIMITATIONS: Positioning. FINDINGS: LUNGS AND PLEURA: Chronic interstitial changes. Diffuse ground-glass attenuation. No eff usions. AORTA AND GREAT VESSELS: No aneurysm. Contrast bolus not optimized for the aorta. HEART: No pericardial effusion. Cardiomegaly. PULMONARY ARTERIES: No emboli visualized in the main pulmonary arteries or the segmental branches. HILAR AND MEDIASTINAL STRUCTURES: No identified masses or abnormal nodes. HARDWARE: Right-sided port with tip in the SVC. UPPER ABDOMEN: IVC filter. THYROID AND OTHER SOFT TISSUES: Small seroma anterior left chest wall. BONES: No acute or significant finding. 3D MIPS: Confirm above findings. OTHER: No other significant finding. IMPRESSION: No acute findings. No significant change. COMMENT: Quality ID # [id number]: Final reports with documentation of one or more dose reduction techniques (e.g., Automated exposure control, adjustment of the mA and/or kV according to patient size, use of iterative reconstruction technique) TECHNICAL DOCUMENTATION: JOB ID: [id number]- All Rights Reserved Reading location - IP/workstation name: [email or web address]
[2017-07-09] MEDS ORDERED: FUROSEMIDE 40 MG TABLET PO SCH (10:00)
[2017-07-09] MEDS ORDERED: METFORMIN HCL 500 MG TABLET PO SCH (10:00)
[2017-07-09] MEDS ORDERED: ATENOLOL 50 MG TABLET PO SCH (10:00)
[2017-07-09] MEDS ORDERED: LANSOPRAZOLE 15 MG TAB.RAP.DR PO SCH (10:00)
[2017-07-09] MEDS ORDERED: FIBER PO SCH (10:00)
[2017-07-09] MEDS ORDERED: FUROSEMIDE 80 MG TABLET PO SCH (10:00)
[2017-07-09] MEDS ORDERED: (PENDING PHARMACY ID) (Colestipol Hcl [Colestid 1 Gm Tablet] 2 GM) PO SCH (10:00)
--- NOTE | 2017-07-09 10:01 | EKG REPORT ---
SEVERITY:- NORMAL ECG - SINUS RHYTHM : Confirmed by: Edita Zendejas 09-Jul-2017 10:00:49
[2017-07-09] MEDS: MULTIVITAMIN TABLET PO SCH (10:19)
[2017-07-09] MEDS: ASPIRIN 81 MG TABLET, ENT COATED PO SCH (10:20)
[2017-07-09] MEDS: ATENOLOL 50 MG TABLET PO SCH ×2 (10:20→21:21)
[2017-07-09] MEDS: SPIRONOLACTONE 25 MG TABLET PO SCH (10:21)
[2017-07-09] MEDS: ATORVASTATIN CALCIUM 10 MG TABLET PO SCH (10:21)
[2017-07-09] MEDS: AMIODARONE HCL 200 MG TABLET PO SCH ×2 (10:22→21:21)
[2017-07-09] MEDS: RANOLAZINE 500 MG TAB.SR.12H PO SCH ×2 (10:22→21:21)
[2017-07-09] MEDS: ARIPIPRAZOLE 5 MG TABLET PO SCH (10:23)
[2017-07-09] MEDS: POTASSIUM CHLORIDE 10 MEQ TABLET.SA PO SCH (10:23)
[2017-07-09] MEDS: ESCITALOPRAM OXALATE 10 MG TABLET PO SCH (10:24)
[2017-07-09] MEDS: CHOLECALCIFEROL (D3) 1,000 UNIT TABLET PO SCH (10:26)
[2017-07-09] MEDS ORDERED: GLUCAGON,HUMAN RECOMB 1 MG INJ IM PRN (11:02)
[2017-07-09] MEDS ORDERED: INSULIN LISPRO 100 UNIT/ML 3 ML VIAL SUBCUT PRN (11:02)
[2017-07-09] MEDS ORDERED: DEXTROSE 40% GEL 15 GM TUBE PO PRN ×2 (11:02)
[2017-07-09] MEDS ORDERED: DEXTROSE 50%-WATER 25 GM/50 ML DISP.SYRIN IV PRN ×2 (11:02)
--- NOTE | 2017-07-09 11:08 | PDOC H&P ---
History of Present Illness Admission Date/PCP: 07/08/17 22:33 JOVAN ADLER MD Patient complains of: Shortness of the breath History of Present Illness: AGUSTIN ETIENNE is a 52 year old female This is a 52-year-old females with a significant history of the hypoventilation' s symptoms with the severe sleep apnea with history of the diastolic congestive heart failure and chronic A. fib and history of the chronic DVT and multiple other comorbidity have a several evaluations done in the past regarding this some breathing problems including the patient used to see Dr. Aggarwal in [place] the EP cardiology and patient also see a Dr. Zendejas locally here in Dr. Vargas noticed increasing the more shortness of the breath since last 3 4 days Patient's claim that he see use the CPAP machine's daily Patient's noticed when he see seat have a no problem but patients try to move around patient's feeling more short winded Patient initial workup in the emergency department a CT angiogram was negative for any PE There was some mild swelling in the leg Patient's denied any chest pain denied any cough no congestion's no fever When I saw the ER patient is currently laying in the bed with no complaints but every time patients try to move patients feel very short winded decided to admit in the telemetry bed for further evaluations Past Medical History Cardiac Medical History: Reports: Atrial Fibrillation, Coronary Artery Disease - HIGH CHOLESTEROL, DVT, Hyperlipidema, Hypertension, Pulmonary Embolism Denies: Myocardial Infarction Pulmonary Medical History: Reports: Bronchitis, Chronic Obstructive Pulmonary Disease (COPD), Intubation, Pneumonia, Respiratory Failure, Sleep Apnea Denies: Asthma, Tuberculosis Neurological Medical History: Denies: Migraine, Seizures Endocrine Medical History: Reports: Diabetes Mellitus Type 2 Malignancy Medical History: Reports: Breast Cancer, Cervical Cancer GI Medical History: Reports: Gastroesophageal Reflux Disease, Hiatal Hernia Musculoskeltal Medical History: Reports: Arthritis - KNEES/BACK, Fibromyalgia Skin Medical History: Reports: Psoriasis Psychiatric Medical History: Reports: Bipolar Disorder, Depression Hematology: Denies: Anemia Past Surgical History Past Surgical History: Reports: Cholecystectomy, Hysterectomy, Mastectomy, Orthopedic Surgery, Other - IVC filter placement Denies: Pacemaker Social History Lives with: Family Smoking Status: Never Smoker Frequency of Alcohol Use: Rare Hx Recreational Drug Use: No Drugs: None Hx Prescription Drug Abuse: No Family History Family History: Arthritis, CAD, DM, Hyperlipidemia, Hypertension, Malignancy Parental Family History Reviewed: Yes Children Family History Reviewed: Yes Sibling(s) Family History Reviewed.: Yes Medication/Allergy Home Medications: Amiodarone HCl [Cordarone 200 mg Tablet] 200 mg PO Q12 03/05/17 Aripiprazole [Abilify 10 mg Tablet] 10 mg PO DAILY 03/05/17 Aspirin [Aspirin EC] 81 mg PO DAILY 03/05/17 Atorvastatin Calcium [Lipitor 10 mg Tablet] 10 mg PO DAILY 03/05/17 Cholecalciferol (Vitamin D3) [Vitamin D3 5000 unit Capsule] 5,000 units PO DAILY 03/05/17 Colestipol HCl [Colestid 1 gm Tablet] 2 gm PO Q12 03/05/17 Escitalopram Oxalate [Lexapro] 20 mg PO DAILY 03/05/17 Esomeprazole Magnesium [Nexium] 20 mg PO DAILY 03/05/17 Fiber [Fiber Diet] 1 tab PO DAILY 03/05/17 Gabapentin [Neurontin 100 mg Capsule] 100 mg PO QHS 03/05/17 Lorazepam [Ativan 1 mg Tablet] 1 mg PO Q12HP PRN 03/05/17 Losartan Potassium [Cozaar 50 mg Tablet] 50 mg PO QHS 03/05/17 Metformin HCl [Glucophage 500 mg Tablet] 500 mg PO DAILY 03/05/17 Multivit-Minerals/Folic Acid [One Daily Womens 50 Plus Tab] 1 tab PO DAILY 03/05 Ranolazine [Ranexa 500 mg Tab.sr] 1,000 mg PO Q12 03/05/17 Rivaroxaban [Xarelto] 20 mg PO DAILY 03/05/17 Solifenacin Succinate [Vesicare] 10 mg PO DAILY 03/05/17 Potassium Chloride [Klor-Con 10 Meq Tablet.sa] 10 meq PO DAILY #0 03/09/17 Spironolactone [Aldactone 25 mg Tablet] 25 mg PO DAILY #30 tablet 03/09/17 Atenolol [Tenormin 50 mg Tablet] 100 mg PO BID 07/08/17 Furosemide [Lasix 80 mg Tablet] 80 mg PO BID 07/09/17 Allergies/Adverse Reactions: adhesive [Adhesive] Allergy (Mild, Verified 07/08/17 14:19) Generalized rash methicillin [Methicillin] Allergy (Mild, Verified 07/08/17 14:19) Generalized rash vancomycin [Vancomycin] Allergy (Mild, Verified 07/08/17 14:19) Generalized rash Review of Systems Constitutional: ABSENT: chills, fever(s), headache(s), weight gain, weight loss Eyes: ABSENT: visual disturbances Ears: ABSENT: hearing changes Cardiovascular: PRESENT: dyspnea on exertion, edema. ABSENT: chest pain, orthropnea, palpitations Respiratory: ABSENT: cough, hemoptysis Gastrointestinal: ABSENT: abdominal pain, constipation, diarrhea, hematemesis, hematochezia, nausea, vomiting Genitourinary: ABSENT: dysuria, hematuria Musculoskeletal: ABSENT: joint swelling Integumentary: ABSENT: rash, wounds Neurological: ABSENT: abnormal gait, abnormal speech, confusion, dizziness, focal weakness, syncope Psychiatric: ABSENT: anxiety, depression, homidical ideation, suicidal ideation Endocrine: ABSENT: cold intolerance, heat intolerance, menstrual abnormalities, polydipsia, polyuria Hematologic/Lymphatic: ABSENT: easy bleeding, easy bruising, lymphadenopathy Physical Exam Vital Signs: Temp Pulse Resp BP Pulse Ox 98.0 F 72 16 124/57 L 98 07/09/17 07:58 07/08/17 14:24 07/09/17 08:02 07/09/17 08:02 07/09/17 08:39 General appearance: PRESENT: no acute distress, well-developed, well-nourished Head exam: PRESENT: atraumatic, normocephalic Eye exam: PRESENT: conjunctiva pink, EOMI, PERRLA. ABSENT: scleral icterus Ear exam: PRESENT: normal external ear exam Mouth exam: PRESENT: moist, tongue midline Neck exam: PRESENT: full ROM. ABSENT: carotid bruit, JVD, lymphadenopathy, thyromegaly Respiratory exam: PRESENT: clear to auscultation ingrid Cardiovascular exam: PRESENT: RRR. ABSENT: diastolic murmur, rubs, systolic murmur Pulses: PRESENT: normal dorsalis pedis pul, +2 pedal pulses bilateral Vascular exam: PRESENT: normal capillary refill GI/Abdominal exam: PRESENT: normal bowel sounds, soft. ABSENT: distended, guarding, mass, organolmegaly, rebound, tenderness Rectal exam: PRESENT: deferred Extremities exam: PRESENT: pedal edema Neurological exam: PRESENT: alert, awake, oriented to person, oriented to place , oriented to time, oriented to situation, CN II-XII grossly intact. ABSENT: motor sensory deficit Psychiatric exam: PRESENT: appropriate affect, normal mood. ABSENT: homicidal ideation, suicidal ideation Skin exam: PRESENT: dry, intact, warm. ABSENT: cyanosis, rash Results Laboratory Results: 07/08/17 23:15 Troponin I < 0.012 Impressions: Chest/Abdomen CTA 07/08/17 14:38 IMPRESSION: No acute findings. No significant change. Assessment & Plan - Diagnosis (1) Dyspnea on exertion Is this a current diagnosis for this admission?: Yes Plan: Is a multifactorial including the severe sleep apnea with the diastolic congestive heart failure will admit the patient in the telemetry bed (2) Atrial fibrillation Qualifiers: Atrial fibrillation type: chronic Qualified Code(s): I48.2 - Chronic atrial fibrillation Is this a current diagnosis for this admission?: Yes Plan: Currently all stable and when the patient evaluated by Dr. Aggarwal in [place] currently on the Xarelto (3) Breast cancer Qualifiers: Laterality: unspecified laterality Is this a current diagnosis for this admission?: Yes Plan: Currently stable follow-up outpatients oncology (4) Cervical cancer Qualifiers: Malignant neoplasm of cervix location: unspecified location Qualified Code( s): C53.9 - Malignant neoplasm of cervix uteri, unspecified Is this a current diagnosis for this admission?: Yes (5) Congestive heart failure Qualifiers: Heart failure type: diastolic Heart failure chronicity: chronic Qualified Code(s): I50.32 - Chronic diastolic (congestive) heart failure Is this a current diagnosis for this admission?: Yes Plan: We will start the patient on IV Lasix (6) DVT, recurrent, lower extremity, chronic Qualifiers: Laterality: unspecified laterality Qualified Code(s): I82.509 - Chronic embolism and thrombosis of unspecified deep veins of unspecified lower extremity Is this a current diagnosis for this admission?: Yes Plan: Currently on Xarelto (7) HTN (hypertension) Qualifiers: Hypertension type: unspecified Qualified Code(s): I10 - Essential (primary ) hypertension Is this a current diagnosis for this admission?: Yes Plan: Currently all stable (8) Hyperlipemia Qualifiers: Hyperlipidemia type: unspecified Qualified Code(s): E78.5 - Hyperlipidemia , unspecified Is this a current diagnosis for this admission?: Yes Plan: Continues Current medication (9) Sleep apnea Qualifiers: Sleep apnea type: unspecified type Qualified Code(s): G47.30 - Sleep apnea , unspecified Is this a current diagnosis for this admission?: Yes Plan: Continue uses CPAP (10) Type 2 diabetes mellitus Qualifiers: Diabetes mellitus [facility]p insulin use: without terminal operations manager use Is this a current diagnosis for this admission?: Yes Plan: Start the patient on a sliding scale - Time Time Spent: 50 to 70 Minutes Medications reviewed and adjusted accordingly: Yes Anticipated discharge: Home Within: Other - Inpatient Certification Medical Necessity: Need Close Monitoring Due to Risk of Patient Decompensation Post Hospital Care: D/C Adjuster Leader Documentation - Plan Summary Plan Summary: See other MD orders
[2017-07-09] MEDS: LORAZEPAM 1 MG TABLET PO PRN (12:46)
[2017-07-09 13:24] LABS: CREATINE KINASE MB < 0.22 ng/mL (<4.55); TROPONIN I < 0.012 ng/mL
[2017-07-09] MEDS: RIVAROXABAN 10 MG TABLET PO SCH (14:58)
[2017-07-09] MEDS: TOLTERODINE TARTRATE 1 MG TABLET PO SCH ×2 (15:01→21:21)
[2017-07-09] MEDS: FUROSEMIDE INJ/PF 40 MG/4 ML SDV IV SCH ×3 (15:02→23:39)
[2017-07-09 20:52] LABS: CREATINE KINASE MB < 0.22 ng/mL (<4.55); TROPONIN I < 0.012 ng/mL
[2017-07-09] MEDS: LOSARTAN POTASSIUM 50 MG TABLET PO SCH (21:20)
[2017-07-09] MEDS: GABAPENTIN 100 MG CAPSULE PO SCH (21:20)
[2017-07-10] MEDS: LANSOPRAZOLE 15 MG TAB.RAP.DR PO SCH (05:48)
[2017-07-10] MEDS: FUROSEMIDE INJ/PF 40 MG/4 ML SDV IV SCH ×3 (05:48→21:17)
[2017-07-10 06:41] LABS: ABSOLUTE BASOPHILS # (AUTO) 0.1 10^3/uL (0.0-0.2); ABSOLUTE EOSINOPHILS # (AUTO) 0.3 10^3/uL (0.0-0.6); ABSOLUTE LYMPHOCYTES (AUTO) 2.1 10^3/uL (0.5-4.7); ABSOLUTE MONOCYTES (AUTO) 0.8 10^3/uL (0.1-1.4); ABSOLUTE NEUT (AUTO) 3.9 10^3/uL (1.7-8.2); BASOPHILS % (AUTO) 0.8 % (0-2); EOSINOPHILS % (AUTO) 4.8 % (0-6); HEMATOCRIT 36.1 % (36.0-47.0); HEMOGLOBIN 12.1 g/dL (12.0-15.5); LYMPHOCYTES % (AUTO) 28.9 % (13-45); MEAN CORPUSCULAR HEMOGLOBIN 30.9 pg (27.0-33.4); MEAN CORPUSCULAR HGB CONC 33.5 g/dL (32.0-36.0); MEAN CORPUSCULAR VOLUME 92 fl (80-97); PLATELET COUNT 295 10^3/uL (150-450); RED BLOOD COUNT 3.91 10^6/uL (3.72-5.28); RED CELL DISTRIBUTION WIDTH 15.2 % (11.5-14.0); SEGMENTED NEUTROPHILS % (AUTO) 54.5 % (42-78); TOTAL CELLS COUNTED % (AUTO) 100 %; WHITE BLOOD COUNT 7.1 10^3/uL (4.0-10.5)
[2017-07-10 06:59] LABS: ANION GAP 10 (5-19); BLOOD UREA NITROGEN 17 mg/dL (7-20); CALCIUM 8.9 mg/dL (8.4-10.2); CARBON DIOXIDE 32 mmol/L (22-30); CHLORIDE 100 mmol/L (98-107); GLUCOSE 100 mg/dL (75-110); POTASSIUM 4.2 mmol/L (3.6-5.0); SODIUM 141.5 mmol/L (137-145)
--- NOTE | 2017-07-10 09:31 | EKG REPORT ---
SEVERITY:- NORMAL ECG - SINUS RHYTHM : Confirmed by: Edita Zendejas 10-Jul-2017 09:30:48
[2017-07-10] MEDS: MULTIVITAMIN TABLET PO SCH (10:05)
[2017-07-10] MEDS: RIVAROXABAN 10 MG TABLET PO SCH (10:06)
[2017-07-10] MEDS: ATORVASTATIN CALCIUM 10 MG TABLET PO SCH (10:06)
[2017-07-10] MEDS: POTASSIUM CHLORIDE 10 MEQ TABLET.SA PO SCH (10:06)
[2017-07-10] MEDS: ESCITALOPRAM OXALATE 10 MG TABLET PO SCH (10:06)
[2017-07-10] MEDS: SPIRONOLACTONE 25 MG TABLET PO SCH (10:08)
[2017-07-10] MEDS: ASPIRIN 81 MG TABLET, ENT COATED PO SCH (10:11)
[2017-07-10] MEDS: ARIPIPRAZOLE 5 MG TABLET PO SCH (10:11)
[2017-07-10] MEDS: TOLTERODINE TARTRATE 1 MG TABLET PO SCH ×2 (10:12→21:17)
[2017-07-10] MEDS: RANOLAZINE 500 MG TAB.SR.12H PO SCH ×2 (10:13→21:17)
[2017-07-10] MEDS: CHOLECALCIFEROL (D3) 1,000 UNIT TABLET PO SCH (10:18)
--- NOTE | 2017-07-10 10:39 | PDOC PROGRESS REPORT ---
Subjective Progress Note for:: 07/10/17 Subjective:: Patient is currently doing well Patient's denied any chest pain denied any shortness of the breath but still short winded patients try to move Reason For Visit: HISTORY OF PULMONARY EMBOLISM Physical Exam Vital Signs: Temp Pulse Resp BP Pulse Ox 97.6 F 66 18 91/45 L 96 07/10/17 07:17 07/10/17 07:17 07/10/17 07:17 07/10/17 07:17 07/10/17 07:17 Intake & Output 07/09/17 07/10/17 07/11/17 06:59 06:59 06:59 Intake Total 1020 Output Total 1800 Balance -780 Weight 144.6 kg 144.6 kg General appearance: PRESENT: no acute distress, well-developed, well-nourished Head exam: PRESENT: atraumatic, normocephalic Eye exam: PRESENT: conjunctiva pink, EOMI, PERRLA. ABSENT: scleral icterus Ear exam: PRESENT: normal external ear exam Mouth exam: PRESENT: moist, tongue midline Neck exam: PRESENT: full ROM. ABSENT: carotid bruit, JVD, lymphadenopathy, thyromegaly Respiratory exam: PRESENT: clear to auscultation ingrid Cardiovascular exam: PRESENT: RRR. ABSENT: diastolic murmur, rubs, systolic murmur Pulses: PRESENT: normal dorsalis pedis pul, +2 pedal pulses bilateral Vascular exam: PRESENT: normal capillary refill GI/Abdominal exam: PRESENT: normal bowel sounds, soft. ABSENT: distended, guarding, mass, organolmegaly, rebound, tenderness Rectal exam: PRESENT: deferred Extremities exam: PRESENT: pedal edema Neurological exam: PRESENT: alert, awake, oriented to person, oriented to place , oriented to time, oriented to situation, CN II-XII grossly intact. ABSENT: motor sensory deficit Psychiatric exam: PRESENT: appropriate affect, normal mood. ABSENT: homicidal ideation, suicidal ideation Skin exam: PRESENT: dry, intact, warm. ABSENT: cyanosis, rash Results Laboratory Results: 07/10/17 05:44 07/10/17 05:44 07/10/17 07/10/17 05:44 05:44 WBC 7.1 RBC 3.91 Hgb 12.1 Hct 36.1 MCV 92 MCH 30.9 MCHC 33.5 RDW 15.2 H Plt Count 295 Seg Neutrophils % 54.5 Lymphocytes % 28.9 Monocytes % 11.0 Eosinophils % 4.8 Basophils % 0.8 Absolute Neutrophils 3.9 Absolute Lymphocytes 2.1 Absolute Monocytes 0.8 Absolute Eosinophils 0.3 Absolute Basophils 0.1 Sodium 141.5 Potassium 4.2 Chloride 100 Carbon Dioxide 32 H Anion Gap 10 BUN 17 Creatinine 1.02 Est GFR ( Amer) > 60 Est GFR (Non-Af Amer) 57 L Glucose 100 Calcium 8.9 07/08/17 07/09/17 07/09/17 23:15 12:20 12:20 Creatine Kinase 44 CK-MB (CK-2) < 0.22 Troponin I < 0.012 < 0.012 07/09/17 07/09/17 19:38 20:46 Creatine Kinase 50 CK-MB (CK-2) < 0.22 Troponin I < 0.012 Impressions: Chest/Abdomen CTA 07/08/17 14:38 IMPRESSION: No acute findings. No significant change. Assessment & Plan - Diagnosis (1) Dyspnea on exertion Is this a current diagnosis for this admission?: Yes Plan: Is a multifactorial including the severe sleep apnea with the diastolic congestive heart failure will admit the patient in the telemetry bed (2) Atrial fibrillation Qualifiers: Atrial fibrillation type: chronic Qualified Code(s): I48.2 - Chronic atrial fibrillation Is this a current diagnosis for this admission?: Yes Plan: Currently all stable and when the patient evaluated by Dr. Aggarwal in [place] currently on the Xarelto (3) Breast cancer Qualifiers: Laterality: unspecified laterality Is this a current diagnosis for this admission?: Yes Plan: Currently stable follow-up outpatients oncology (4) Cervical cancer Qualifiers: Malignant neoplasm of cervix location: unspecified location Qualified Code( s): C53.9 - Malignant neoplasm of cervix uteri, unspecified Is this a current diagnosis for this admission?: Yes (5) Congestive heart failure Qualifiers: Heart failure type: diastolic Heart failure chronicity: chronic Qualified Code(s): I50.32 - Chronic diastolic (congestive) heart failure Is this a current diagnosis for this admission?: Yes Plan: We will start the patient on IV Lasix (6) DVT, recurrent, lower extremity, chronic Qualifiers: Laterality: unspecified laterality Qualified Code(s): I82.509 - Chronic embolism and thrombosis of unspecified deep veins of unspecified lower extremity Is this a current diagnosis for this admission?: Yes Plan: Currently on Xarelto (7) HTN (hypertension) Qualifiers: Hypertension type: unspecified Qualified Code(s): I10 - Essential (primary ) hypertension Is this a current diagnosis for this admission?: Yes Plan: Currently all stable (8) Hyperlipemia Qualifiers: Hyperlipidemia type: unspecified Qualified Code(s): E78.5 - Hyperlipidemia , unspecified Is this a current diagnosis for this admission?: Yes Plan: Continues Current medication (9) Sleep apnea Qualifiers: Sleep apnea type: unspecified type Qualified Code(s): G47.30 - Sleep apnea , unspecified Is this a current diagnosis for this admission?: Yes Plan: Continue uses CPAP (10) Type 2 diabetes mellitus Qualifiers: Diabetes mellitus emergency preparedness coordinator insulin use: without nursing home use Is this a current diagnosis for this admission?: Yes Plan: Start the patient on a sliding scale - Time Time Spent with patient: 15-24 minutes Medications reviewed and adjusted accordingly: Yes Anticipated discharge: Home Within: Other - Inpatient Certification Medical Necessity: Need Close Monitoring Due to Risk of Patient Decompensation Post Hospital Care: D/C Consulting Technical Director Documentation - Plan Summary Plan Summary: Continues to current medications
[2017-07-10 12:15] LABS: ARTERIAL BLOOD BASE EXCESS 3.6 mmol/L; ARTERIAL BLOOD FIO2 2 L; ARTERIAL BLOOD H2CO3 1.45 mmol/L (1.05-1.35); ARTERIAL BLOOD HCO3 29.2 mmol/L (20-26); ARTERIAL BLOOD O2 SATURATION 96.3 % (94-98); ARTERIAL BLOOD PCO2 48.1 mmHg (35-45); ARTERIAL BLOOD PO2 85.1 mmHg (80-100); ARTERIAL BLOOD TOTAL CO2 30.7 mmol/L (21-25)
[2017-07-10] MEDS: ATENOLOL 50 MG TABLET PO SCH ×2 (13:14→21:17)
[2017-07-10] MEDS: AMIODARONE HCL 200 MG TABLET PO SCH ×2 (13:15→21:16)
[2017-07-10 13:23] LABS: ABSOLUTE EOSINOPHILS # (AUTO) 0.2 10^3/uL (0.0-0.6); ABSOLUTE LYMPHOCYTES (AUTO) 1.7 10^3/uL (0.5-4.7); ABSOLUTE MONOCYTES (AUTO) 0.8 10^3/uL (0.1-1.4); ABSOLUTE NEUT (AUTO) 4.3 10^3/uL (1.7-8.2); BASOPHILS % (AUTO) 0.2 % (0-2); EOSINOPHILS % (AUTO) 3.4 % (0-6); HEMATOCRIT 37.3 % (36.0-47.0); HEMOGLOBIN 12.4 g/dL (12.0-15.5); LYMPHOCYTES % (AUTO) 24.4 % (13-45); MEAN CORPUSCULAR HEMOGLOBIN 30.9 pg (27.0-33.4); MEAN CORPUSCULAR HGB CONC 33.2 g/dL (32.0-36.0); MEAN CORPUSCULAR VOLUME 93 fl (80-97); MONOCYTES % (AUTO) 11.5 % (3-13); PLATELET COUNT 307 10^3/uL (150-450); RED CELL DISTRIBUTION WIDTH 15.1 % (11.5-14.0); SEGMENTED NEUTROPHILS % (AUTO) 60.5 % (42-78); TOTAL CELLS COUNTED % (AUTO) 100 %
--- NOTE | 2017-07-10 20:35 | PDOC PROGRESS REPORT ---
Subjective Progress Note for:: 07/10/17 Subjective:: Patient breathing somewhat better. Patient describes history of multiple pulmonary embolisms. She also describes multiple episodes of DVTs. Patient seems to be doing better with gradual improvement. Pt is denying any chest arm or neck discomfort. Patient denying any PND, orthopnea. Patient denied any sustained palpitations, dizziness, syncope, near syncope. Patient denying any fever chills. Patient denying any other significant discomfort. Patient is maintaining sinus rhythm. Review of systems: Rest review of systems negative. Medications: Medications have been reviewed. Reason For Visit: HISTORY OF PULMONARY EMBOLISM Physical Exam Vital Signs: Temp Pulse Resp BP Pulse Ox 98.1 F 72 20 116/54 L 96 07/10/17 11:00 07/10/17 11:00 07/10/17 11:00 07/10/17 11:00 07/10/17 11:00 Intake & Output 07/09/17 07/10/17 07/11/17 06:59 06:59 06:59 Intake Total 1020 Output Total 1800 Balance -780 Weight 144.6 kg 144.6 kg Exam: GENERAL: well-nourished and in no acute distress. Alert and oriented x3 HEAD: Atraumatic, normocephalic. EYES: Pupils equal round and reactive to light, extraocular movements intact, sclera anicteric, conjunctiva are normal. ENT: TMs normal, nares patent, oropharynx clear without exudates. Moist mucous membranes. No oral ulcerations or bleeding gums noted NECK: supple without lymphadenopathy. Trachea is central. No cervical or axillary lymphadenopathy noted. Carotids are 2+, JVD WNL LUNGS: Respiration seems nonlabored, no significant accessory muscle action noted. Breath sounds clear to auscultation bilaterally and equal noted. No wheezes rales or rhonchi noted. No significant dullness noted on percussion. CHEST: Palpation of the chest wall shows no significant chest wall tenderness. No other significant abnormalities noted. 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 ABDOMEN: Soft, no significant tenderness appreciated, normoactive bowel sounds. No guarding, no rebound. No rigidity noted . No masses appreciated. EXTREMITIES: Pedal pulses are 1-2+, no calf tenderness noted. No clubbing or cyanosis.1-2+ pedal edema noted NEUROLOGICAL: Focused neurological exam showed no significant neurologic deficit. Normal speech, no focal weakness appreciated. PSYCH: Normal mood, normal affect. Judgment and insight within normal limits. SKIN: No significant ecchymosis, skin is noted to be warm. MUSCULOSKELETAL EXAM: No significant acute joint swelling noted. Results Laboratory Results: 07/10/17 05:44 07/10/17 05:44 07/10/17 07/10/17 07/10/17 05:44 05:44 11:45 WBC 7.1 RBC 3.91 Hgb 12.1 Hct 36.1 MCV 92 MCH 30.9 MCHC 33.5 RDW 15.2 H Plt Count 295 Seg Neutrophils % 54.5 Lymphocytes % 28.9 Monocytes % 11.0 Eosinophils % 4.8 Basophils % 0.8 Absolute Neutrophils 3.9 Absolute Lymphocytes 2.1 Absolute Monocytes 0.8 Absolute Eosinophils 0.3 Absolute Basophils 0.1 Carbonic Acid 1.45 H HCO3/H2CO3 Ratio 20:1 ABG pH 7.40 ABG pCO2 48.1 H ABG pO2 85.1 ABG HCO3 29.2 H ABG O2 Saturation 96.3 ABG Base Excess 3.6 FiO2 2 L Sodium 141.5 Potassium 4.2 Chloride 100 Carbon Dioxide 32 H Anion Gap 10 BUN 17 Creatinine 1.02 Est GFR ( Amer) > 60 Est GFR (Non-Af Amer) 57 L Glucose 100 Calcium 8.9 07/08/17 07/09/17 07/09/17 23:15 12:20 12:20 Creatine Kinase 44 CK-MB (CK-2) < 0.22 Troponin I < 0.012 < 0.012 07/09/17 07/09/17 19:38 20:46 Creatine Kinase 50 CK-MB (CK-2) < 0.22 Troponin I < 0.012 EKG Comments: Twelve-lead EKG shows sinus rhythm. No acute ST-T wave changes are noted. Impressions: Chest/Abdomen CTA 07/08/17 14:38 IMPRESSION: No acute findings. No significant change. Assessment & Plan - Diagnosis (1) Dyspnea on exertion Is this a current diagnosis for this admission?: Yes (2) Congestive heart failure Qualifiers: Heart failure type: diastolic Heart failure chronicity: chronic Qualified Code(s): I50.32 - Chronic diastolic (congestive) heart failure Is this a current diagnosis for this admission?: Yes (3) HTN (hypertension) Qualifiers: Hypertension type: unspecified Qualified Code(s): I10 - Essential (primary ) hypertension Is this a current diagnosis for this admission?: Yes (4) Morbid obesity Is this a current diagnosis for this admission?: Yes (5) Paroxysmal atrial fibrillation Is this a current diagnosis for this admission?: Yes (6) Sleep apnea Qualifiers: Sleep apnea type: unspecified type Qualified Code(s): G47.30 - Sleep apnea , unspecified Is this a current diagnosis for this admission?: Yes (7) Type 2 diabetes mellitus Qualifiers: Diabetes mellitus alf insulin use: unspecified alf insulin use status Diabetes mellitus complication status: with unspecified complications Qualified Code(s): E11.8 - Type 2 diabetes mellitus with unspecified complications Is this a current diagnosis for this admission?: Yes - Notes Notes: Dyspnea on exertion: Patient still has significant dyspnea on exertion. Exact etiology not clear but most likely related to diastolic dysfunction, pulmonary hypertension, restrictive lung disease from obesity, possible ongoing CHF etc. Since patient is on amiodarone therapy, may consider pulmonary evaluation to look for any toxicity. CHF: Continue diuretic therapy. Patient is somewhat improved. Hypertension: Blood pressure under reasonable control. Morbid obesity: This is quite a bit of limiting factor in this patient. Patient will benefit from weight loss. Paroxysmal atrial fibrillation: Patient currently maintaining sinus rhythm. Sleep apnea syndrome: Patient encouraged to be compliant with CPAP therapy. Patient encouraged to bring her CPAP machine. Diabetes: Recommend good control of blood sugar. However should avoid any hypoglycemia and hyperglycemia. Patient being expertly managed by primary care M.D/hospitalist - Time Time with patient: Greater than 35 minutes - CODE STATUS was discussed, patient remains full code. Surrogate decision-maker unchanged. Multiple medical problems were addressed. More than 50% of the time spent coordinating care, discussing management plans with involved caregivers. Management plans discussed with involved personnels. Medical decision making was of moderate to high complexity, patient's has multiple comorbidities. Medications reviewed and adjusted accordingly: Yes
[2017-07-10] MEDS: LOSARTAN POTASSIUM 50 MG TABLET PO SCH (21:16)
[2017-07-10] MEDS: GABAPENTIN 100 MG CAPSULE PO SCH (21:16)
[2017-07-10] MEDS: LORAZEPAM 1 MG TABLET PO PRN (21:16)
[2017-07-11] MEDS: FUROSEMIDE INJ/PF 40 MG/4 ML SDV IV SCH ×3 (05:37→21:17)
[2017-07-11] MEDS: LANSOPRAZOLE 15 MG TAB.RAP.DR PO SCH (05:37)
[2017-07-11 06:16] LABS: ANION GAP 9 (5-19); BLOOD UREA NITROGEN 24 mg/dL (7-20); CALCIUM 8.7 mg/dL (8.4-10.2); CARBON DIOXIDE 30 mmol/L (22-30); CHLORIDE 99 mmol/L (98-107); GLUCOSE 92 mg/dL (75-110); POTASSIUM 3.9 mmol/L (3.6-5.0); SODIUM 138.3 mmol/L (137-145)
--- NOTE | 2017-07-11 08:54 | PDOC PROGRESS REPORT ---
Subjective Progress Note for:: 07/11/17 Subjective:: Patient is feeling much better with the patient's walk yesterday without any difficulty in breathing Patient have a pulmonary function test was done last month by Dr. Alfredoeen was all stable Patient's denied any chest pain denied any nausea no vomiting Reason For Visit: HISTORY OF PULMONARY EMBOLISM Physical Exam Vital Signs: Temp Pulse Resp BP Pulse Ox 97.8 F 57 L 16 90/48 L 94 07/11/17 07:48 07/11/17 07:48 07/11/17 07:48 07/11/17 07:48 07/11/17 08:34 Intake & Output 07/10/17 07/11/17 07/12/17 06:59 06:59 06:59 Intake Total 1020 1328 Output Total 1800 3400 Balance -780 -2072 Weight 144.6 kg 141.6 kg General appearance: PRESENT: no acute distress, well-developed, well-nourished Head exam: PRESENT: atraumatic, normocephalic Eye exam: PRESENT: conjunctiva pink, EOMI, PERRLA. ABSENT: scleral icterus Ear exam: PRESENT: normal external ear exam Mouth exam: PRESENT: moist, tongue midline Neck exam: PRESENT: full ROM. ABSENT: carotid bruit, JVD, lymphadenopathy, thyromegaly Respiratory exam: PRESENT: clear to auscultation ingrid Cardiovascular exam: PRESENT: RRR. ABSENT: diastolic murmur, rubs, systolic murmur Pulses: PRESENT: normal dorsalis pedis pul, +2 pedal pulses bilateral Vascular exam: PRESENT: normal capillary refill GI/Abdominal exam: PRESENT: normal bowel sounds, soft. ABSENT: distended, guarding, mass, organolmegaly, rebound, tenderness Rectal exam: PRESENT: deferred Extremities exam: ABSENT: pedal edema Musculoskeletal exam: PRESENT: ambulatory Neurological exam: PRESENT: alert, awake, oriented to person, oriented to place , oriented to time, oriented to situation, CN II-XII grossly intact. ABSENT: motor sensory deficit Psychiatric exam: PRESENT: appropriate affect, normal mood. ABSENT: homicidal ideation, suicidal ideation Skin exam: PRESENT: dry, intact, warm. ABSENT: cyanosis, rash Results Laboratory Results: 07/10/17 13:05 07/11/17 05:36 07/10/17 07/10/17 07/11/17 11:45 13:05 05:36 WBC 7.0 RBC 4.00 Hgb 12.4 Hct 37.3 MCV 93 MCH 30.9 MCHC 33.2 RDW 15.1 H Plt Count 307 Seg Neutrophils % 60.5 Lymphocytes % 24.4 Monocytes % 11.5 Eosinophils % 3.4 Basophils % 0.2 Absolute Neutrophils 4.3 Absolute Lymphocytes 1.7 Absolute Monocytes 0.8 Absolute Eosinophils 0.2 Absolute Basophils 0.0 Carbonic Acid 1.45 H HCO3/H2CO3 Ratio 20:1 ABG pH 7.40 ABG pCO2 48.1 H ABG pO2 85.1 ABG HCO3 29.2 H ABG O2 Saturation 96.3 ABG Base Excess 3.6 FiO2 2 L Sodium 138.3 Potassium 3.9 Chloride 99 Carbon Dioxide 30 Anion Gap 9 BUN 24 H Creatinine 1.12 Est GFR ( Amer) > 60 Est GFR (Non-Af Amer) 51 L Glucose 92 Calcium 8.7 07/08/17 07/09/17 07/09/17 23:15 12:20 12:20 Creatine Kinase 44 CK-MB (CK-2) < 0.22 Troponin I < 0.012 < 0.012 07/09/17 07/09/17 19:38 20:46 Creatine Kinase 50 CK-MB (CK-2) < 0.22 Troponin I < 0.012 Impressions: Chest/Abdomen CTA 07/08/17 14:38 IMPRESSION: No acute findings. No significant change. Assessment & Plan - Diagnosis (1) Dyspnea on exertion Is this a current diagnosis for this admission?: Yes Plan: Currently all improving (2) Atrial fibrillation Qualifiers: Atrial fibrillation type: chronic Qualified Code(s): I48.2 - Chronic atrial fibrillation Is this a current diagnosis for this admission?: Yes Plan: Currently all stable and when the patient evaluated by Dr. Aggarwal in [place] currently on the Xarelto (3) Breast cancer Qualifiers: Laterality: unspecified laterality Is this a current diagnosis for this admission?: Yes Plan: Currently stable follow-up outpatients oncology (4) Cervical cancer Qualifiers: Malignant neoplasm of cervix location: unspecified location Qualified Code( s): C53.9 - Malignant neoplasm of cervix uteri, unspecified Is this a current diagnosis for this admission?: Yes (5) Congestive heart failure Qualifiers: Heart failure type: diastolic Heart failure chronicity: chronic Qualified Code(s): I50.32 - Chronic diastolic (congestive) heart failure Is this a current diagnosis for this admission?: Yes Plan: I think patients definitely with some diastolic dysfunctions with the currently Lasix therapy response very well (6) DVT, recurrent, lower extremity, chronic Qualifiers: Laterality: unspecified laterality Qualified Code(s): I82.509 - Chronic embolism and thrombosis of unspecified deep veins of unspecified lower extremity Is this a current diagnosis for this admission?: Yes Plan: Currently on Xarelto (7) HTN (hypertension) Qualifiers: Hypertension type: unspecified Qualified Code(s): I10 - Essential (primary ) hypertension Is this a current diagnosis for this admission?: Yes Plan: Currently all stable (8) Hyperlipemia Qualifiers: Hyperlipidemia type: unspecified Qualified Code(s): E78.5 - Hyperlipidemia , unspecified Is this a current diagnosis for this admission?: Yes Plan: Continues Current medication (9) Sleep apnea Qualifiers: Sleep apnea type: unspecified type Qualified Code(s): G47.30 - Sleep apnea , unspecified Is this a current diagnosis for this admission?: Yes Plan: Continue uses CPAP (10) Type 2 diabetes mellitus Qualifiers: Diabetes mellitus terminal operations supervisor insulin use: unspecified terminal operations supervisor insulin use status Diabetes mellitus complication status: with unspecified complications Qualified Code(s): E11.8 - Type 2 diabetes mellitus with unspecified complications Is this a current diagnosis for this admission?: Yes Plan: Start the patient on a sliding scale - Time Time Spent with patient: 15-24 minutes Medications reviewed and adjusted accordingly: Yes Anticipated discharge: Home Within: within 24 hours - Inpatient Certification Medical Necessity: Need Close Monitoring Due to Risk of Patient Decompensation Post Hospital Care: D/C Biomaterials Engineer Documentation - Plan Summary Plan Summary: Continues to current medications
[2017-07-11] MEDS: ATORVASTATIN CALCIUM 10 MG TABLET PO SCH (10:16)
[2017-07-11] MEDS: ARIPIPRAZOLE 5 MG TABLET PO SCH (10:16)
[2017-07-11] MEDS: POTASSIUM CHLORIDE 10 MEQ TABLET.SA PO SCH (10:17)
[2017-07-11] MEDS: MULTIVITAMIN TABLET PO SCH (10:17)
[2017-07-11] MEDS: SPIRONOLACTONE 25 MG TABLET PO SCH (10:17)
[2017-07-11] MEDS: RIVAROXABAN 10 MG TABLET PO SCH (10:18)
[2017-07-11] MEDS: ASPIRIN 81 MG TABLET, ENT COATED PO SCH (10:22)
[2017-07-11] MEDS: CHOLECALCIFEROL (D3) 1,000 UNIT TABLET PO SCH (10:22)
[2017-07-11] MEDS: ESCITALOPRAM OXALATE 10 MG TABLET PO SCH (10:22)
[2017-07-11] MEDS: TOLTERODINE TARTRATE 1 MG TABLET PO SCH ×2 (10:23→21:17)
[2017-07-11] MEDS: RANOLAZINE 500 MG TAB.SR.12H PO SCH ×2 (10:23→21:17)
[2017-07-11] MEDS: ATENOLOL 50 MG TABLET PO SCH ×2 (10:24→21:18)
[2017-07-11] MEDS: AMIODARONE HCL 200 MG TABLET PO SCH ×2 (10:24→21:16)
--- NOTE | 2017-07-11 11:58 | PDOC CONSULTATION ---
Consultation Consult Date: 07/09/17 Attending physician:: MAGNOLIA ISABEL Consult reason:: Shortness of breath History of Present Illness Admission Date/PCP: 07/08/17 22:33 MAGNOLIA ISABEL MD Patient complains of: Shortness of breath and pedal edema History of Present Illness: AGUSTIN ETIENNE is a 52 year old female This is a 52-year-old females with a significant history of the hypoventilation' s symptoms with the severe sleep apnea with history of the diastolic congestive heart failure and chronic A. fib and history of the chronic DVT and multiple other comorbidity have a several evaluations done in the past regarding this some breathing problems including the patient used to see Dr. Aggarwal in [place] the cardiology and patient also see a Dr. Zendejas locally here in Dr. Vargas noticed increasing the more shortness of the breath since last 3 4 days Patient's claim that he see use the CPAP machine's daily Patient's noticed when he see seat have a no problem but patients try to move around patient's feeling more short winded Patient initial workup in the emergency department a CT angiogram was negative for any PE There was some mild swelling in the leg Patient's denied any chest pain denied any cough no congestion's no fever When I saw the ER patient is currently laying in the bed with no complaints but every time patients try to move patients feel very short winded decided to admit in the telemetry bed for further evaluations This history obtained by Dr. Isabel was reviewed and confirmed. Patient did admit to having multiple pulmonary emboli and also multiple episodes of DVT. On repeated questioning patient denied any chest discomfort. Patient denies any prior history of myocardial infarction but has history of multiple pulmonary emboli. Past Medical History Cardiac Medical History: Reports: Atrial Fibrillation, Coronary Artery Disease - HIGH CHOLESTEROL, DVT, Hyperlipidema, Hypertension, Pulmonary Embolism Denies: Myocardial Infarction Pulmonary Medical History: Reports: Bronchitis, Chronic Obstructive Pulmonary Disease (COPD), Intubation, Pneumonia, Respiratory Failure, Sleep Apnea Denies: Asthma, Tuberculosis Neurological Medical History: Denies: Migraine, Seizures Endocrine Medical History: Reports: Diabetes Mellitus Type 2 Malignancy Medical History: Reports: Breast Cancer, Cervical Cancer GI Medical History: Reports: Gastroesophageal Reflux Disease, Hiatal Hernia Musculoskeltal Medical History: Reports: Arthritis - KNEES/BACK, Fibromyalgia Skin Medical History: Reports: Psoriasis Psychiatric Medical History: Reports: Bipolar Disorder, Depression Hematology: Denies: Anemia Past Surgical History Past Surgical History: Reports: Cholecystectomy, Hysterectomy, Mastectomy, Orthopedic Surgery, Other - IVC filter placement Denies: Pacemaker Social History Information Source: Patient Lives with: Family Smoking Status: Never Smoker Frequency of Alcohol Use: Rare Hx Recreational Drug Use: No Drugs: None Hx Prescription Drug Abuse: No - Advance Directive Resuscitation Status: Full Code Family History Family History: Arthritis, CAD, DM, Hyperlipidemia, Hypertension, Malignancy Parental Family History Reviewed: Yes Children Family History Reviewed: Yes Sibling(s) Family History Reviewed.: Yes Medication/Allergy Home Medications: Amiodarone HCl [Cordarone 200 mg Tablet] 200 mg PO Q12 03/05/17 Aripiprazole [Abilify 10 mg Tablet] 10 mg PO DAILY 03/05/17 Aspirin [Aspirin EC] 81 mg PO DAILY 03/05/17 Atorvastatin Calcium [Lipitor 10 mg Tablet] 10 mg PO DAILY 03/05/17 Cholecalciferol (Vitamin D3) [Vitamin D3 5000 unit Capsule] 5,000 units PO DAILY 03/05/17 Colestipol HCl [Colestid 1 gm Tablet] 2 gm PO Q12 03/05/17 Escitalopram Oxalate [Lexapro] 20 mg PO DAILY 03/05/17 Esomeprazole Magnesium [Nexium] 20 mg PO DAILY 03/05/17 Fiber [Fiber Diet] 1 tab PO DAILY 03/05/17 Gabapentin [Neurontin 100 mg Capsule] 100 mg PO QHS 03/05/17 Lorazepam [Ativan 1 mg Tablet] 1 mg PO Q12HP PRN 03/05/17 Losartan Potassium [Cozaar 50 mg Tablet] 50 mg PO QHS 03/05/17 Metformin HCl [Glucophage 500 mg Tablet] 500 mg PO DAILY 03/05/17 Multivit-Minerals/Folic Acid [One Daily Womens 50 Plus Tab] 1 tab PO DAILY 03/05 Ranolazine [Ranexa 500 mg Tab.sr] 1,000 mg PO Q12 03/05/17 Rivaroxaban [Xarelto] 20 mg PO DAILY 03/05/17 Solifenacin Succinate [Vesicare] 10 mg PO DAILY 03/05/17 Potassium Chloride [Klor-Con 10 Meq Tablet.sa] 10 meq PO DAILY #0 03/09/17 Spironolactone [Aldactone 25 mg Tablet] 25 mg PO DAILY #30 tablet 03/09/17 Atenolol [Tenormin 50 mg Tablet] 100 mg PO BID 07/08/17 Furosemide [Lasix 80 mg Tablet] 80 mg PO BID 07/09/17 Allergies/Adverse Reactions: adhesive [Adhesive] Allergy (Mild, Verified 07/08/17 14:19) Generalized rash methicillin [Methicillin] Allergy (Mild, Verified 07/08/17 14:19) Generalized rash vancomycin [Vancomycin] Allergy (Mild, Verified 07/08/17 14:19) Generalized rash Review of Systems Review of Systems: Please see history of present illness and past medical history as wall. Constitutional: No fever or chills reported. Head : No recent chronic headaches, recent head injury. Eyes: No recent eye pain, diplopia, redness, discharge, acute visual changes. Ears: No recent chronic ear pain, acute hearing loss, ear discharge. Oral cavity: No recent ulcerations, bleeding, oral cavity discomfort. Neck: No recent acute neck pain reported. Hematologic: No recent easy bruising or bleeding or hematologic malignancy reported. Lymphatic: No recent lymphatic malignancy, chronic lymphadenopathy reported yet Cardiovascular system review: See history of present illness. Respiratory system review: No recent chronic cough, hemoptysis, blood clots in the lungs reported. Mild Shortness of breath on exertion Gastrointestinal system review: Negative for any recent acute or chronic abdominal pain, hematemesis, melena, recent change in bowel habits. Genitourinary system review: No recent acute or chronic hematuria, flank pain, UTI etc. reported. Skin system review: Negative for any recent abnormal bruising, no rash, no pruritus reported. Neurologic: No prior history of strokes, mini strokes, seizure disorder. Psychologic: No history of major psychosis or major depression reported. Musculoskeletal: Minor aches and pains reported. No acute joint swelling reported. Endocrine: No recent polyuria, polydipsia, recent heat or cold intolerance. Physical Exam Vital Signs: Temp Pulse Resp BP Pulse Ox 98.0 F 57 L 18 105/49 L 95 07/09/17 15:36 07/09/17 15:36 07/09/17 15:36 07/09/17 15:36 07/09/17 15:36 Intake & Output 07/08/17 07/09/17 07/10/17 06:59 06:59 06:59 Intake Total 580 Balance 580 Weight 146.8 kg Exam: GENERAL: well-nourished and in no acute distress. Alert and oriented x3 HEAD: Atraumatic, normocephalic. EYES: Pupils equal round and reactive to light, extraocular movements intact, sclera anicteric, conjunctiva are normal. ENT: TMs normal, nares patent, oropharynx clear without exudates. Moist mucous membranes. No oral ulcerations or bleeding gums noted NECK: supple without lymphadenopathy. Trachea is central. No cervical or axillary lymphadenopathy noted. Carotids are 2+, JVD WNL LUNGS: Respiration seems nonlabored, no significant accessory muscle action noted. Bibasilar fine crackles noted. No wheezes rales or rhonchi noted. No significant dullness noted on percussion. CHEST: Palpation of the chest wall shows no significant chest wall tenderness. No other significant abnormalities noted. 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 ABDOMEN: Soft, no significant tenderness appreciated, normoactive bowel sounds. No guarding, no rebound. No rigidity noted . No masses appreciated. EXTREMITIES: Pedal pulses are 1-2+, no calf tenderness noted. No clubbing or cyanosis. 2 + pedal edema noted. There may be some associated lymphedema. NEUROLOGICAL: Focused neurological exam showed no significant neurologic deficit. Normal speech, no focal weakness appreciated. PSYCH: Normal mood, normal affect. Judgment and insight within normal limits. SKIN: No significant ecchymosis, skin is noted to be warm. MUSCULOSKELETAL EXAM: No significant acute joint swelling noted. Results Laboratory Results: 07/08/17 07/09/17 07/09/17 23:15 12:20 12:20 Creatine Kinase 44 CK-MB (CK-2) < 0.22 Troponin I < 0.012 < 0.012 EKG Comments: Sinus rhythm, no acute ST-T wave changes noted. Impressions: Chest/Abdomen CTA 07/08/17 14:38 IMPRESSION: No acute findings. No significant change. Assessment & Plan - Diagnosis (1) Dyspnea on exertion Is this a current diagnosis for this admission?: Yes (2) Congestive heart failure Qualifiers: Heart failure type: diastolic Heart failure chronicity: chronic Qualified Code(s): I50.32 - Chronic diastolic (congestive) heart failure Is this a current diagnosis for this admission?: Yes (3) HTN (hypertension) Qualifiers: Hypertension type: unspecified Qualified Code(s): I10 - Essential (primary ) hypertension Is this a current diagnosis for this admission?: Yes (4) Paroxysmal atrial fibrillation Is this a current diagnosis for this admission?: Yes (5) Sleep apnea Qualifiers: Sleep apnea type: unspecified type Qualified Code(s): G47.30 - Sleep apnea , unspecified Is this a current diagnosis for this admission?: Yes (6) Type 2 diabetes mellitus Qualifiers: 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 Exact etiology not clear but most likely related to diastolic dysfunction, pulmonary hypertension, restrictive lung disease from obesity, possible ongoing CHF etc. Since patient is on amiodarone therapy, may consider pulmonary evaluation to look for any toxicity. CHF: Continue diuretic therapy. Patient is somewhat improved. [place] to be related to predominantly diastolic dysfunction based on prior echocardiogram. Patient could also have significant right heart dysfunction from obesity hypoventilation syndrome pulmonary hypertension etc. Hypertension: Blood pressure under reasonable control. Morbid obesity: This is quite a bit of limiting factor in this patient. Patient will benefit from weight loss. Paroxysmal atrial fibrillation: Patient currently maintaining sinus rhythm. Currently on amiodarone therapy. Believed that there could be other alternatives in this patient. Will discuss this with Dr. Simba Gutierrez. Sleep apnea syndrome: Patient encouraged to be compliant with CPAP therapy. Patient encouraged to bring her CPAP machine to the hospital and use it while in the hospital.. Diabetes: Recommend good control of blood sugar. However should avoid any hypoglycemia and hyperglycemia. Patient being expertly managed by primary care M.D/hospitalist. Obesity: Morbid patient will benefit from weight loss. This was explained. - Time Time Spent: 30 to 50 Minutes - CODE STATUS was discussed, patient remains full code. Surrogate decision-maker unchanged. Multiple medical problems were addressed. More than 50% of the time spent coordinating care, discussing management plans with involved caregivers. Management plans discussed with involved personnels. Medical decision making was of moderate to high complexity , patient's has multiple comorbidities. Medications reviewed and adjusted accordingly: Yes
--- NOTE | 2017-07-11 19:32 | PDOC PROGRESS REPORT ---
Subjective Progress Note for:: 07/11/17 Subjective:: Patient breathing better. Patient describes history of multiple pulmonary embolisms. She also describes multiple episodes of DVTs. Patient claims to have ambulated and did well. Pt is denying any chest arm or neck discomfort. Patient denying any PND, orthopnea. Patient denied any sustained palpitations, dizziness, syncope, near syncope. Patient denying any fever chills. Patient denying any other significant discomfort. Patient is maintaining sinus rhythm. Review of systems: Rest review of systems negative. Medications: Medications have been reviewed. Reason For Visit: HISTORY OF PULMONARY EMBOLISM Physical Exam Vital Signs: Temp Pulse Resp BP Pulse Ox 97.4 F 67 16 128/52 H 100 07/11/17 15:51 07/11/17 15:51 07/11/17 15:51 07/11/17 15:51 07/11/17 16:08 Intake & Output 07/10/17 07/11/17 07/12/17 06:59 06:59 06:59 Intake Total 1020 1328 888 Output Total 1800 3400 3050 Balance -780 -2072 -2162 Weight 144.6 kg 141.6 kg Exam: GENERAL: well-nourished and in no acute distress. Alert and oriented x3 HEAD: Atraumatic, normocephalic. EYES: Pupils equal round and reactive to light, extraocular movements intact, sclera anicteric, conjunctiva are normal. ENT: TMs normal, nares patent, oropharynx clear without exudates. Moist mucous membranes. No oral ulcerations or bleeding gums noted NECK: supple without lymphadenopathy. Trachea is central. No cervical or axillary lymphadenopathy noted. Carotids are 2+, JVD WNL LUNGS: Respiration seems nonlabored, no significant accessory muscle action noted. Breath sounds clear to auscultation bilaterally and equal noted. No wheezes rales or rhonchi noted. No significant dullness noted on percussion. CHEST: Palpation of the chest wall shows no significant chest wall tenderness. No other significant abnormalities noted. 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 ABDOMEN: Soft, no significant tenderness appreciated, normoactive bowel sounds. No guarding, no rebound. No rigidity noted . No masses appreciated. EXTREMITIES: Pedal pulses are 1-2+, no calf tenderness noted. No clubbing or cyanosis.1+ pedal edema noted NEUROLOGICAL: Focused neurological exam showed no significant neurologic deficit. Normal speech, no focal weakness appreciated. PSYCH: Normal mood, normal affect. Judgment and insight within normal limits. SKIN: No significant ecchymosis, skin is noted to be warm. MUSCULOSKELETAL EXAM: No significant acute joint swelling noted. Results Laboratory Results: 07/10/17 13:05 07/11/17 05:36 07/11/17 05:36 Sodium 138.3 Potassium 3.9 Chloride 99 Carbon Dioxide 30 Anion Gap 9 BUN 24 H Creatinine 1.12 Est GFR ( Amer) > 60 Est GFR (Non-Af Amer) 51 L Glucose 92 Calcium 8.7 07/08/17 07/09/17 07/09/17 23:15 12:20 12:20 Creatine Kinase 44 CK-MB (CK-2) < 0.22 Troponin I < 0.012 < 0.012 07/09/17 07/09/17 19:38 20:46 Creatine Kinase 50 CK-MB (CK-2) < 0.22 Troponin I < 0.012 EKG Comments: Telemetry strips shows intermittent atrial fibrillation but with controlled heart rate response. Impressions: Chest/Abdomen CTA 07/08/17 14:38 IMPRESSION: No acute findings. No significant change. Assessment & Plan - Diagnosis (1) Dyspnea on exertion Is this a current diagnosis for this admission?: Yes (2) Congestive heart failure Qualifiers: Heart failure type: diastolic Heart failure chronicity: chronic Qualified Code(s): I50.32 - Chronic diastolic (congestive) heart failure Is this a current diagnosis for this admission?: Yes (3) HTN (hypertension) Qualifiers: Hypertension type: unspecified Qualified Code(s): I10 - Essential (primary ) hypertension Is this a current diagnosis for this admission?: Yes (4) Paroxysmal atrial fibrillation Is this a current diagnosis for this admission?: Yes (5) Sleep apnea Qualifiers: Sleep apnea type: unspecified type Qualified Code(s): G47.30 - Sleep apnea , unspecified Is this a current diagnosis for this admission?: Yes (6) Type 2 diabetes mellitus Qualifiers: Diabetes mellitus utilization management rn insulin use: unspecified utilization management rn insulin use status Diabetes mellitus complication status: with unspecified complications Qualified Code(s): E11.8 - Type 2 diabetes mellitus with unspecified complications Is this a current diagnosis for this admission?: Yes - Notes Notes: Dyspnea on exertion: Patient still has significant dyspnea on exertion. Exact etiology not clear but most likely related to diastolic dysfunction, obesity and deconditioning. Previous 2D echo results reviewed. Patient has been on amiodarone for at least several years. I am told by Dr. Isabel that a pulmonary function test was performed recently and there were no signs of amiodarone toxicity. Anyway I have suggested patient that when she follows up with Dr. Aggarwal to talk to him about any alternative therapy. CHF: Continue diuretic therapy. Patient is somewhat improved. Discussed with Dr. Isabel that patient may do better with Demadex therapy at 20 mg p.o. twice daily which has better bioavailability. Hypertension: Blood pressure under reasonable control. Morbid obesity: This is quite a bit of limiting factor in this patient. Patient will benefit from weight loss. Paroxysmal atrial fibrillation: Patient currently maintaining sinus rhythm, with intermittent atrial fibrillation with heart rate being controlled.. Sleep apnea syndrome: Patient encouraged to be compliant with CPAP therapy. Patient currently using home CPAP machine. Diabetes: Recommend good control of blood sugar. However should avoid any hypoglycemia and hyperglycemia. Patient being expertly managed by primary care M.D/hospitalist. Patient encouraged in weight loss again with portion control, calorie restriction and increasing her activity level. - Time Time with patient: 15-25 minutes - CODE STATUS was discussed, patient remains full code. More than 50% of the time spent coordinating care, discussing management plans with involved caregivers. Management plans discussed with involved personnels. Medical decision making was of moderate to high complexity , patient's has multiple comorbidities. Medications reviewed and adjusted accordingly: Yes
[2017-07-11] MEDS: GABAPENTIN 100 MG CAPSULE PO SCH (21:17)
[2017-07-11] MEDS: LORAZEPAM 1 MG TABLET PO PRN (21:17)
[2017-07-11] MEDS: LOSARTAN POTASSIUM 50 MG TABLET PO SCH (21:18)
[2017-07-12] MEDS: FUROSEMIDE INJ/PF 40 MG/4 ML SDV IV SCH (05:28)
[2017-07-12] MEDS: LANSOPRAZOLE 15 MG TAB.RAP.DR PO SCH (05:28)
[2017-07-12 07:37] LABS: ANION GAP 11 (5-19); BLOOD UREA NITROGEN 23 mg/dL (7-20); CALCIUM 9.2 mg/dL (8.4-10.2); CARBON DIOXIDE 33 mmol/L (22-30); CHLORIDE 95 mmol/L (98-107); GLUCOSE 118 mg/dL (75-110); POTASSIUM 4.1 mmol/L (3.6-5.0); SODIUM 139.4 mmol/L (137-145)
[2017-07-12 08:32] VITALS: BP 92/48
--- NOTE | 2017-07-12 16:44 | PDOC DISCHARGE SUMMARY ---
General - Admit/Disc Date/PCP Admission Date/Primary Care Provider: 07/08/17 22:33 MAGNOLIA ADLER MD Discharge Date: 07/12/17 - Discharge Diagnosis (1) Dyspnea on exertion Is this a current diagnosis for this admission?: Yes Summary: Currently all resolved (2) Atrial fibrillation Is this a current diagnosis for this admission?: Yes Summary: Currently on the Xarelto and follow with the Dr. Aggarwal at [place] (3) Breast cancer Is this a current diagnosis for this admission?: Yes Summary: Currently all stable patients currently see oncology (4) Cervical cancer Is this a current diagnosis for this admission?: Yes Summary: Currently all stable (5) Congestive heart failure Is this a current diagnosis for this admission?: Yes Summary: Continues to Lasix and fluid restrictions (6) DVT, recurrent, lower extremity, chronic Is this a current diagnosis for this admission?: Yes Summary: Currently on Xarelto (7) HTN (hypertension) Is this a current diagnosis for this admission?: Yes Summary: Currently well under control (8) Hyperlipemia Is this a current diagnosis for this admission?: Yes Summary: Continues to current medications (9) Sleep apnea Is this a current diagnosis for this admission?: Yes Summary: This with the patient's to use a CPAP machines every day (10) Type 2 diabetes mellitus Is this a current diagnosis for this admission?: Yes Summary: Currently all stable - Additional Information Resuscitation Status: Full Code Discharge Diet: Cardiac, Diabetic Discharge Activity: Activity As Tolerated Home Medications: Amiodarone HCl [Cordarone 200 mg Tablet] 200 mg PO Q12 03/05/17 Aripiprazole [Abilify 10 mg Tablet] 10 mg PO DAILY 03/05/17 Aspirin [Aspirin EC] 81 mg PO DAILY 03/05/17 Atorvastatin Calcium [Lipitor 10 mg Tablet] 10 mg PO DAILY 03/05/17 Cholecalciferol (Vitamin D3) [Vitamin D3 5000 unit Capsule] 5,000 units PO DAILY 03/05/17 Colestipol HCl [Colestid 1 gm Tablet] 2 gm PO Q12 03/05/17 Escitalopram Oxalate [Lexapro] 20 mg PO DAILY 03/05/17 Esomeprazole Magnesium [Nexium] 20 mg PO DAILY 03/05/17 Fiber [Fiber Diet] 1 tab PO DAILY 03/05/17 Gabapentin [Neurontin 100 mg Capsule] 100 mg PO QHS 03/05/17 Lorazepam [Ativan 1 mg Tablet] 1 mg PO Q12HP PRN 03/05/17 Losartan Potassium [Cozaar 50 mg Tablet] 50 mg PO QHS 03/05/17 Metformin HCl [Glucophage 500 mg Tablet] 500 mg PO DAILY 03/05/17 Multivit-Minerals/Folic Acid [One Daily Womens 50 Plus Tab] 1 tab PO DAILY 03/05 Ranolazine [Ranexa 500 mg Tab.sr] 1,000 mg PO Q12 03/05/17 Rivaroxaban [Xarelto] 20 mg PO DAILY 03/05/17 Solifenacin Succinate [Vesicare] 10 mg PO DAILY 03/05/17 Potassium Chloride [Klor-Con 10 Meq Tablet.sa] 10 meq PO DAILY #0 03/09/17 Spironolactone [Aldactone 25 mg Tablet] 25 mg PO DAILY #30 tablet 03/09/17 Atenolol [Tenormin 50 mg Tablet] 100 mg PO BID 07/08/17 Furosemide [Lasix 80 mg Tablet] 80 mg PO BID 07/09/17 History of Present Illness History of Present Illness: AGUSTIN ETIENNE is a 52 year old female This is a 52-year-old females with a significant history of the hypoventilation' s symptoms with the severe sleep apnea with history of the diastolic congestive heart failure and chronic A. fib and history of the chronic DVT and multiple other comorbidity have a several evaluations done in the past regarding this some breathing problems including the patient used to see Dr. Aggarwal in [place] the EP cardiology and patient also see a Dr. Zendejas locally here in Dr. Vargas noticed increasing the more shortness of the breath since last 3 4 days Patient's claim that he see use the CPAP machine's daily Patient's noticed when he see seat have a no problem but patients try to move around patient's feeling more short winded Patient initial workup in the emergency department a CT angiogram was negative for any PE There was some mild swelling in the leg Patient's denied any chest pain denied any cough no congestion's no fever When I saw the ER patient is currently laying in the bed with no complaints but every time patients try to move patients feel very short winded decided to admit in the telemetry bed for further evaluations Hospital Course Hospital Course: This 52-year-old female basically admitted because of the shortness of the bed with the exercise with the multiple hospital admissions multiple evaluations done here in [facility] likely due to the noncompliance with the CPAP machine the patient has severe sleep apnea And also diastolic heart failure and chronic A. fib which also contribute with the patient's symptoms Patient was put on IV Lasix and patient's response very well and patients walk in the hallway without any problems in patients seen by the pulmonary Dr. Vargas in cardiology Dr. Zendejas and patient's discharge home with the stable conditions with the same medications with the encouraged compliance with the CPAP Physical Exam Vital Signs: Temp Pulse Resp BP Pulse Ox 97.7 F 58 L 18 92/48 L 96 07/12/17 08:28 07/12/17 08:28 07/12/17 08:28 07/12/17 08:28 07/12/17 08:28 Intake & Output 07/11/17 07/12/17 07/13/17 06:59 06:59 06:59 Intake Total 1328 2208 222 Output Total 3400 5250 Balance -2 -3042 222 Weight 141.6 kg 143.1 kg General appearance: PRESENT: no acute distress, well-developed, well-nourished Head exam: PRESENT: atraumatic, normocephalic Eye exam: PRESENT: conjunctiva pink, EOMI, PERRLA. ABSENT: scleral icterus Ear exam: PRESENT: normal external ear exam Mouth exam: PRESENT: moist, tongue midline Neck exam: PRESENT: full ROM. ABSENT: carotid bruit, JVD, lymphadenopathy, thyromegaly Respiratory exam: PRESENT: clear to auscultation ingrid Cardiovascular exam: PRESENT: RRR. ABSENT: diastolic murmur, rubs, systolic murmur Pulses: PRESENT: normal dorsalis pedis pul, +2 pedal pulses bilateral Vascular exam: PRESENT: normal capillary refill GI/Abdominal exam: PRESENT: normal bowel sounds, soft. ABSENT: distended, guarding, mass, organolmegaly, rebound, tenderness Rectal exam: PRESENT: deferred Extremities exam: ABSENT: pedal edema Musculoskeletal exam: PRESENT: ambulatory Neurological exam: PRESENT: alert, awake, oriented to person, oriented to place , oriented to time, oriented to situation, CN II-XII grossly intact. ABSENT: motor sensory deficit Psychiatric exam: PRESENT: appropriate affect, normal mood. ABSENT: homicidal ideation, suicidal ideation Skin exam: PRESENT: dry, intact, warm. ABSENT: cyanosis, rash Results Laboratory Results: 07/10/17 13:05 07/12/17 06:37 07/12/17 06:37 Sodium 139.4 Potassium 4.1 Chloride 95 L Carbon Dioxide 33 H Anion Gap 11 BUN 23 H Creatinine 1.08 Est GFR ( Amer) > 60 Est GFR (Non-Af Amer) 53 L Glucose 118 H Calcium 9.2 07/08/17 07/09/17 07/09/17 23:15 12:20 12:20 Creatine Kinase 44 CK-MB (CK-2) < 0.22 Troponin I < 0.012 < 0.012 07/09/17 07/09/17 19:38 20:46 Creatine Kinase 50 CK-MB (CK-2) < 0.22 Troponin I < 0.012 Impressions: Chest/Abdomen CTA 07/08/17 14:38 IMPRESSION: No acute findings. No significant change. Qualifiers - * PATEINT BEING DISCHARGED WITH ANY OF THE FOLLOWING DIAGNOSIS?: Heart Failure VTE patient discharged on overlapping Therapy?: No HF Pt being discharged on ACEI for LVEF less than 40%?: No Reason(s) for not prescribing ACEI:: Not indicated HF Pt being discharged on ARBS for LVEF less than 40%?: No Reason(s) for not prescribing ARBS:: Not indicated HF Pt with Afib discharged with Warfarin?: Yes HF Pt discharged on evidence-based Beta Ellen:: Yes Plan Time Spent: Greater than 30 Minutes - Discharge home with the same medications following a one-week in office follow with the cardiology and pulmonary
--- NOTE | 2017-07-15 18:06 | PDOC CONSULTATION ---
Consultation Consult Date: 07/09/17 Attending physician:: MAGNOLIA ADLER Consult reason:: acute/chronic resp failure History of Present Illness Admission Date/PCP: 07/08/17 22:33 MAGNOLIA ADLER MD History of Present Illness: AGUSTIN ETIENNE is a 52 year old female This is a 52-year-old females with a significant history of the hypoventilation' s symptoms with the severe sleep apnea with history of the diastolic congestive heart failure and chronic A. fib and history of the chronic DVT and multiple other comorbidity have a several evaluations done in the past regarding this some breathing problems including the patient used to see Dr. Aggarwal in [place] the EP cardiology and patient also see a Dr. Zendejas locally.SHE IS ALSO WELL KNOWN to [facility].She c/o increasing the more shortness of the breath since last 3 4 days.Patient's claim that she see use the CPAP machine's daily Patient's noticed when he see seat have a no problem but patients try to move around patient's feeling more short winded A CT angiogram was negative for any PE.Patient's denied any chest pain denied any cough no congestion's no fever,chills,nausea,vomiting,rhinrrhea or sore throat. Past Medical History Cardiac Medical History: Reports: Atrial Fibrillation, Coronary Artery Disease - HIGH CHOLESTEROL, DVT, Hyperlipidema, Hypertension, Pulmonary Embolism Denies: Myocardial Infarction Pulmonary Medical History: Reports: Bronchitis, Chronic Obstructive Pulmonary Disease (COPD), Intubation, Pneumonia, Respiratory Failure, Sleep Apnea Denies: Asthma, Tuberculosis Neurological Medical History: Denies: Migraine, Seizures Endocrine Medical History: Reports: Diabetes Mellitus Type 2 Malignancy Medical History: Reports: Breast Cancer, Cervical Cancer GI Medical History: Reports: Gastroesophageal Reflux Disease, Hiatal Hernia Musculoskeltal Medical History: Reports: Arthritis - KNEES/BACK, Fibromyalgia Skin Medical History: Reports: Psoriasis Psychiatric Medical History: Reports: Bipolar Disorder, Depression Hematology: Denies: Anemia Past Surgical History Past Surgical History: Reports: Cholecystectomy, Hysterectomy, Mastectomy, Orthopedic Surgery, Other - IVC filter placement Denies: Pacemaker Social History Lives with: Family Smoking Status: Never Smoker Frequency of Alcohol Use: Rare Hx Recreational Drug Use: No Drugs: None Hx Prescription Drug Abuse: No Family History Family History: Arthritis, CAD, DM, Hyperlipidemia, Hypertension, Malignancy Parental Family History Reviewed: Yes Children Family History Reviewed: Yes Sibling(s) Family History Reviewed.: Yes Medication/Allergy Home Medications: Amiodarone HCl [Cordarone 200 mg Tablet] 200 mg PO Q12 03/05/17 Aripiprazole [Abilify 10 mg Tablet] 10 mg PO DAILY 03/05/17 Aspirin [Aspirin EC] 81 mg PO DAILY 03/05/17 Atorvastatin Calcium [Lipitor 10 mg Tablet] 10 mg PO DAILY 03/05/17 Cholecalciferol (Vitamin D3) [Vitamin D3 5000 unit Capsule] 5,000 units PO DAILY 03/05/17 Colestipol HCl [Colestid 1 gm Tablet] 2 gm PO Q12 03/05/17 Escitalopram Oxalate [Lexapro] 20 mg PO DAILY 03/05/17 Esomeprazole Magnesium [Nexium] 20 mg PO DAILY 03/05/17 Fiber [Fiber Diet] 1 tab PO DAILY 03/05/17 Gabapentin [Neurontin 100 mg Capsule] 100 mg PO QHS 03/05/17 Lorazepam [Ativan 1 mg Tablet] 1 mg PO Q12HP PRN 03/05/17 Losartan Potassium [Cozaar 50 mg Tablet] 50 mg PO QHS 03/05/17 Metformin HCl [Glucophage 500 mg Tablet] 500 mg PO DAILY 03/05/17 Multivit-Minerals/Folic Acid [One Daily Womens 50 Plus Tab] 1 tab PO DAILY 03/05 Ranolazine [Ranexa 500 mg Tab.sr] 1,000 mg PO Q12 03/05/17 Rivaroxaban [Xarelto] 20 mg PO DAILY 03/05/17 Solifenacin Succinate [Vesicare] 10 mg PO DAILY 03/05/17 Potassium Chloride [Klor-Con 10 Meq Tablet.sa] 10 meq PO DAILY #0 03/09/17 Spironolactone [Aldactone 25 mg Tablet] 25 mg PO DAILY #30 tablet 03/09/17 Atenolol [Tenormin 50 mg Tablet] 100 mg PO BID 07/08/17 Furosemide [Lasix 80 mg Tablet] 80 mg PO BID 07/09/17 Allergies/Adverse Reactions: adhesive [Adhesive] Allergy (Mild, Verified 07/08/17 14:19) Generalized rash methicillin [Methicillin] Allergy (Mild, Verified 07/08/17 14:19) Generalized rash vancomycin [Vancomycin] Allergy (Mild, Verified 07/08/17 14:19) Generalized rash Review of Systems Constitutional: PRESENT: chills, fatigue, weakness. ABSENT: anorexia, fever(s) , night sweats Eyes: ABSENT: visual disturbances Ears: ABSENT: hearing changes Nose, Mouth, and Throat: PRESENT: sore throat. ABSENT: mouth pain Cardiovascular: ABSENT: orthropnea, palpitations Respiratory: ABSENT: hemoptysis Gastrointestinal: ABSENT: abdominal pain, bloating, coffee ground emesis, dysphagia, heartburn, hematemesis, hematochezia, melena, nausea, vomiting Genitourinary: ABSENT: dysuria, hematuria Musculoskeletal: ABSENT: deformity, joint swelling Integumentary: ABSENT: pruritus, rash Neurological: ABSENT: abnormal movements, abnormal speech, confusion, frequent falls, lack of coordination, memory loss Psychiatric: ABSENT: hallucinations, homidical ideation, suicidal ideation Endocrine: PRESENT: polyphagia. ABSENT: cold intolerance, heat intolerance, menstrual abnormalities, polydipsia Hematologic/Lymphatic: ABSENT: easy bruising Physical Exam Vital Signs: Temp Pulse Resp BP Pulse Ox 98.1 F 63 19 112/62 97 07/09/17 19:00 07/09/17 19:00 07/09/17 19:00 07/09/17 19:00 07/09/17 19:00 Intake & Output 07/08/17 07/09/17 07/10/17 06:59 06:59 06:59 Intake Total 580 Balance 580 Weight 146.8 kg General appearance: PRESENT: no acute distress, cooperative, disheveled, morbidly obese Head exam: PRESENT: atraumatic, normocephalic Eye exam: PRESENT: conjunctiva pale, EOMI Mouth exam: PRESENT: moist, neck supple, tongue midline Neck exam: ABSENT: carotid bruit, JVD, lymphadenopathy, thyromegaly, tracheal deviation Respiratory exam: PRESENT: decreased breath sounds, prolonged expiratory phas, rhonchi, symmetrical, unlabored, wheezes. ABSENT: rales, retraction, stridor, tachypnea Cardiovascular exam: PRESENT: RRR, +S1, +S2 Pulses: PRESENT: normal radial pulses GI/Abdominal exam: PRESENT: diminished bowel sounds, soft Extremities exam: ABSENT: clubbing, joint swelling Neurological exam: PRESENT: alert, awake Skin exam: PRESENT: dry, warm Results Laboratory Results: 07/08/17 07/09/17 07/09/17 23:15 12:20 12:20 Creatine Kinase 44 CK-MB (CK-2) < 0.22 Troponin I < 0.012 < 0.012 07/09/17 07/09/17 19:38 20:46 Creatine Kinase 50 CK-MB (CK-2) < 0.22 Troponin I < 0.012 Impressions: Chest/Abdomen CTA 07/08/17 14:38 IMPRESSION: No acute findings. No significant change. Assessment & Plan - Diagnosis (1) Atrial fibrillation Qualifiers: Atrial fibrillation type: chronic Qualified Code(s): I48.2 - Chronic atrial fibrillation Is this a current diagnosis for this admission?: Yes Plan: vent respons controlled (2) Dyspnea on exertion Is this a current diagnosis for this admission?: Yes Plan: min at rest (3) History of pulmonary embolus (PE) Is this a current diagnosis for this admission?: Yes (4) Morbid obesity Is this a current diagnosis for this admission?: Yes (5) Sleep apnea Qualifiers: Sleep apnea type: unspecified type Qualified Code(s): G47.30 - Sleep apnea , unspecified Is this a current diagnosis for this admission?: Yes Plan: wear NIPPV
--- NOTE | 2017-07-15 18:09 | PDOC PROGRESS REPORT ---
Subjective Progress Note for:: 07/10/17 Subjective:: a little better Reason For Visit: HISTORY OF PULMONARY EMBOLISM Physical Exam Vital Signs: Temp Pulse Resp BP Pulse Ox 97.6 F 66 18 91/45 L 96 07/10/17 07:17 07/10/17 07:17 07/10/17 07:17 07/10/17 07:17 07/10/17 07:17 Intake & Output 07/09/17 07/10/17 07/11/17 06:59 06:59 06:59 Intake Total 1020 Output Total 1800 Balance -780 Weight 144.6 kg 144.6 kg General appearance: PRESENT: no acute distress, cooperative, disheveled, morbidly obese Head exam: PRESENT: atraumatic, normocephalic Eye exam: PRESENT: conjunctiva pale, EOMI Mouth exam: PRESENT: dry mucosa, neck supple, tongue midline Neck exam: ABSENT: carotid bruit, JVD, lymphadenopathy, thyromegaly, tracheal deviation, tracheostomy Respiratory exam: PRESENT: decreased breath sounds, prolonged expiratory phas, rales, rhonchi, symmetrical, unlabored, wheezes. ABSENT: retraction, stridor, tachypnea Cardiovascular exam: PRESENT: irregular rhythm Pulses: PRESENT: normal radial pulses GI/Abdominal exam: PRESENT: diminished bowel sounds, soft Extremities exam: ABSENT: clubbing, joint swelling Musculoskeletal exam: PRESENT: ambulatory. ABSENT: deformity, dislocation Neurological exam: PRESENT: alert, awake Psychiatric exam: PRESENT: flat affect Skin exam: PRESENT: dry, warm Results Laboratory Results: 07/10/17 05:44 07/10/17 05:44 07/10/17 07/10/17 05:44 05:44 WBC 7.1 RBC 3.91 Hgb 12.1 Hct 36.1 MCV 92 MCH 30.9 MCHC 33.5 RDW 15.2 H Plt Count 295 Seg Neutrophils % 54.5 Lymphocytes % 28.9 Monocytes % 11.0 Eosinophils % 4.8 Basophils % 0.8 Absolute Neutrophils 3.9 Absolute Lymphocytes 2.1 Absolute Monocytes 0.8 Absolute Eosinophils 0.3 Absolute Basophils 0.1 Sodium 141.5 Potassium 4.2 Chloride 100 Carbon Dioxide 32 H Anion Gap 10 BUN 17 Creatinine 1.02 Est GFR ( Amer) > 60 Est GFR (Non-Af Amer) 57 L Glucose 100 Calcium 8.9 03/07/09/17 07/09/17 23:15 12:20 12:20 Creatine Kinase 44 CK-MB (CK-2) < 0.22 Troponin I < 0.012 < 0.012 07/09/17 07/09/17 19:38 20:46 Creatine Kinase 50 CK-MB (CK-2) < 0.22 Troponin I < 0.012 Impressions: Chest/Abdomen CTA 07/08/17 14:38 IMPRESSION: No acute findings. No significant change. Assessment & Plan - Diagnosis (1) Atrial fibrillation Qualifiers: Atrial fibrillation type: chronic Qualified Code(s): I48.2 - Chronic atrial fibrillation Is this a current diagnosis for this admission?: Yes Plan: vent respons controlled (2) Dyspnea on exertion Is this a current diagnosis for this admission?: Yes Plan: min at rest (3) HTN (hypertension) Qualifiers: Hypertension type: unspecified Qualified Code(s): I10 - Essential (primary ) hypertension Is this a current diagnosis for this admission?: Yes Plan: stable (4) Morbid obesity Is this a current diagnosis for this admission?: Yes
--- NOTE | 2017-07-15 18:11 | PDOC PROGRESS REPORT ---
Subjective Progress Note for:: 07/11/17 Subjective:: continues to get better Reason For Visit: HISTORY OF PULMONARY EMBOLISM Physical Exam Vital Signs: Temp Pulse Resp BP Pulse Ox 97.7 F 58 L 18 92/48 L 96 07/12/17 08:28 07/12/17 08:28 07/12/17 08:28 07/12/17 08:28 07/12/17 08:28 Intake & Output 07/11/17 07/12/17 07/13/17 06:59 06:59 06:59 Intake Total 1328 2208 222 Output Total 3400 5250 Balance -2071 222 Weight 141.6 kg 143.1 kg General appearance: PRESENT: no acute distress, cooperative, disheveled, morbidly obese Head exam: PRESENT: atraumatic, normocephalic Eye exam: PRESENT: conjunctiva pale, EOMI Mouth exam: PRESENT: dry mucosa, neck supple, tongue midline Neck exam: ABSENT: carotid bruit, JVD, lymphadenopathy, thyromegaly, tracheal deviation, tracheostomy Respiratory exam: PRESENT: decreased breath sounds, prolonged expiratory phas, rhonchi, symmetrical, unlabored, wheezes. ABSENT: retraction, stridor, tachypnea Cardiovascular exam: PRESENT: RRR, rubs, +S2 Pulses: PRESENT: normal radial pulses GI/Abdominal exam: PRESENT: diminished bowel sounds, soft Extremities exam: ABSENT: clubbing, joint swelling Musculoskeletal exam: PRESENT: ambulatory. ABSENT: deformity, dislocation Neurological exam: PRESENT: alert, awake Psychiatric exam: PRESENT: normal mood Skin exam: PRESENT: dry, warm Results Laboratory Results: 07/10/17 13:05 07/12/17 06:37 07/12/17 06:37 Sodium 139.4 Potassium 4.1 Chloride 95 L Carbon Dioxide 33 H Anion Gap 11 BUN 23 H Creatinine 1.08 Est GFR ( Amer) > 60 Est GFR (Non-Af Amer) 53 L Glucose 118 H Calcium 9.2 07/08/17 07/09/17 07/09/17 23:15 12:20 12:20 Creatine Kinase 44 CK-MB (CK-2) < 0.22 Troponin I < 0.012 < 0.012 07/09/17 07/09/17 19:38 20:46 Creatine Kinase 50 CK-MB (CK-2) < 0.22 Troponin I < 0.012 Impressions: Chest/Abdomen CTA 07/08/17 14:38 IMPRESSION: No acute findings. No significant change. Assessment & Plan - Diagnosis (1) Atrial fibrillation Qualifiers: Atrial fibrillation type: chronic Qualified Code(s): I48.2 - Chronic atrial fibrillation Is this a current diagnosis for this admission?: Yes Plan: vent respons controlled (2) Dyspnea on exertion Is this a current diagnosis for this admission?: Yes Plan: min at rest (3) HTN (hypertension) Qualifiers: Hypertension type: unspecified Qualified Code(s): I10 - Essential (primary ) hypertension Is this a current diagnosis for this admission?: Yes Plan: stable (4) Morbid obesity Is this a current diagnosis for this admission?: Yes (5) Sleep apnea Qualifiers: Sleep apnea type: unspecified type Qualified Code(s): G47.30 - Sleep apnea , unspecified Is this a current diagnosis for this admission?: Yes Plan: wear NIPPV
--- NOTE | 2017-07-15 18:13 | PDOC PROGRESS REPORT ---
Subjective Progress Note for:: 07/12/17 Subjective:: continues to improve Reason For Visit: HISTORY OF PULMONARY EMBOLISM Physical Exam Vital Signs: Temp Pulse Resp BP Pulse Ox 97.7 F 58 L 18 92/48 L 96 07/12/17 08:28 07/12/17 08:28 07/12/17 08:28 07/12/17 08:28 07/12/17 08:28 Intake & Output 07/11/17 07/12/17 07/13/17 06:59 06:59 06:59 Intake Total 1328 2208 222 Output Total 3400 5250 Balance -2071 222 Weight 141.6 kg 143.1 kg General appearance: PRESENT: no acute distress, cooperative, disheveled, morbidly obese Head exam: PRESENT: atraumatic, normocephalic Eye exam: PRESENT: conjunctiva pale, EOMI Mouth exam: PRESENT: dry mucosa, neck supple, tongue midline Neck exam: ABSENT: carotid bruit, JVD, lymphadenopathy, thyromegaly, tracheal deviation, tracheostomy Respiratory exam: PRESENT: decreased breath sounds, prolonged expiratory phas, rhonchi, symmetrical, unlabored. ABSENT: rales, retraction, stridor, tachypnea Cardiovascular exam: PRESENT: irregular rhythm Pulses: PRESENT: normal radial pulses GI/Abdominal exam: PRESENT: diminished bowel sounds, soft Extremities exam: ABSENT: clubbing, joint swelling Musculoskeletal exam: PRESENT: ambulatory. ABSENT: deformity, dislocation Neurological exam: PRESENT: alert, awake Psychiatric exam: PRESENT: normal mood Skin exam: PRESENT: dry, warm Results Laboratory Results: 07/10/17 13:05 07/12/17 06:37 07/12/17 06:37 Sodium 139.4 Potassium 4.1 Chloride 95 L Carbon Dioxide 33 H Anion Gap 11 BUN 23 H Creatinine 1.08 Est GFR ( Amer) > 60 Est GFR (Non-Af Amer) 53 L Glucose 118 H Calcium 9.2 07/08/17 07/09/17 07/09/17 23:15 12:20 12:20 Creatine Kinase 44 CK-MB (CK-2) < 0.22 Troponin I < 0.012 < 0.012 07/09/17 07/09/17 19:38 20:46 Creatine Kinase 50 CK-MB (CK-2) < 0.22 Troponin I < 0.012 Impressions: Chest/Abdomen CTA 07/08/17 14:38 IMPRESSION: No acute findings. No significant change. Assessment & Plan - Diagnosis (1) Atrial fibrillation Qualifiers: Atrial fibrillation type: chronic Qualified Code(s): I48.2 - Chronic atrial fibrillation Is this a current diagnosis for this admission?: Yes Plan: vent respons controlled (2) Dyspnea on exertion Is this a current diagnosis for this admission?: Yes Plan: min at rest (3) HTN (hypertension) Qualifiers: Hypertension type: unspecified Qualified Code(s): I10 - Essential (primary ) hypertension Is this a current diagnosis for this admission?: Yes Plan: stable (4) Sleep apnea Qualifiers: Sleep apnea type: unspecified type Qualified Code(s): G47.30 - Sleep apnea , unspecified Is this a current diagnosis for this admission?: Yes Plan: wear NIPPV
== END 2017-07-12 10:15 | disposition home or self-care (01) | DRG 292 ==
LOC: ER 14:17 → EH 22:33 → 4W 07-09 10:59
PROVIDERS: ADMIT Family Medicine; ATTEND Family Medicine
DX: I11.0 Hypertensive heart disease with heart failure (principal); I82.509 Chronic embolism and thrombosis of unspecified deep veins of unspecified lower extremity; Z79.01 Long term (current) use of anticoagulants; C50.919 Malignant neoplasm of unspecified site of unspecified female breast; E66.01 Morbid (severe) obesity due to excess calories; Z68.43 Body mass index [BMI] 50.0-59.9, adult; I48.0 Paroxysmal atrial fibrillation; I50.32 Chronic diastolic (congestive) heart failure; I25.10 Atherosclerotic heart disease of native coronary artery without angina pectoris; C53.9 Malignant neoplasm of cervix uteri, unspecified; E78.5 Hyperlipidemia, unspecified; E11.9 Type 2 diabetes mellitus without complications; G47.30 Sleep apnea, unspecified; Z86.711 Personal history of pulmonary embolism; Z79.82 Long term (current) use of aspirin; Z79.84 Long term (current) use of oral hypoglycemic drugs; Z79.899 Other long term (current) drug therapy; Z86.73 Personal history of transient ischemic attack (TIA), and cerebral infarction without residual deficits
CPT/HCPCS: 36415; 36591; 36600; 71275; 80048; 80053; 82550; 82553; 82803; 82962; 83735; 83880; 84484; 85025; 93005; 93010; 94660; 96374; 99285; J1940; J2060

== ENCOUNTER 2017-09-16 14:21 | Emergency (ER) | payer MEDICARE, MEDICAID ==
[2017-09-16] MEDS ORDERED: ASPIRIN 81 MG TABLET, CHEWABLE PO ONE ×2 (15:10→17:52)
--- NOTE | 2017-09-16 15:12 | ER Document Report ---
ED Medical Screen (RME) - General Chief Complaint: Shortness Of Breath Stated Complaint: SHORT OF BREATH Time Seen by Provider: 09/16/17 15:06 Notes: RAPID MEDICAL EVALUATION DISCLOSURE I have seen this patient as part of a Rapid Medical Evaluation and, if applicable, placed any initially appropriate orders. The patient will be seen and fully evaluated, including a full history and physical exam, by a provider ( in Main ED or Fast Track) when a room becomes available. 52-year-old female here with complaints of shortness of breath and lightheadedness episodes ongoing all week long. She does not have any chest discomfort pain or tightness with these episodes and states that the episodes last several minutes. She does not have any leg swelling that is different from her baseline leg swelling. She says "this is about normal for me". She was recently placed on a new medication by her back up machine operator and wonders if this may have something to do with her symptoms. She has not missed any doses of her diuretics, she reports. EXAM Difficult to auscultate breath sounds due to body habitus RRR TRAVEL OUTSIDE OF THE [place] IN LAST 30 DAYS: No - Related Data Allergies/Adverse Reactions: adhesive [Adhesive] Allergy (Mild, Verified 09/16/17 14:22) Generalized rash methicillin [Methicillin] Allergy (Mild, Verified 09/16/17 14:22) Generalized rash vancomycin [Vancomycin] Allergy (Mild, Verified 09/16/17 14:22) Generalized rash Past Medical History - Past Medical History Cardiac Medical History: Reports: Hx Atrial Fibrillation, Hx Coronary Artery Disease - HIGH CHOLESTEROL, Hx DVT, Hx Hypercholesterolemia, Hx Hypertension, Hx Pulmonary Embolism Denies: Hx Heart Attack Pulmonary Medical History: Reports: Hx Bronchitis, Hx COPD, Hx Pneumonia, Hx Intubation, Hx Respiratory Failure, Hx Sleep Apnea Denies: Hx Asthma, Hx Tuberculosis Neurological Medical History: Denies: Hx Cerebrovascular Accident, Hx Migraine, Hx Seizures Endocrine Medical History: Reports: Hx Diabetes Mellitus Type 2 Renal/ Medical History: Denies: Hx Peritoneal Dialysis Malignancy Medical History: Reports: Hx Breast Cancer, Hx Cervical Cancer GI Medical History: Reports: Hx Gastroesophageal Reflux Disease, Hx Hiatal Hernia, Hx Liver Failure - fatty liver Musculoskeltal Medical History: Reports Hx Arthritis - KNEES/BACK, Reports Hx Fibromyalgia Skin Medical History: Reports Hx Psoriasis Psychiatric Medical History: Reports: Hx Anxiety, Hx Bipolar Disorder, Hx Depression Past Surgical History: Reports: Hx Cholecystectomy, Hx Hysterectomy, Hx Mastectomy, Hx Orthopedic Surgery, Other - IVC filter placement. Denies: Hx Pacemaker - Immunizations Immunizations up to date: Yes Hx Diphtheria, Pertussis, Tetanus Vaccination: Yes - 01/2014 History of Influenza Vaccine for 01/2017 - 06/2017 Season: Yes Influenza Administration Date for 01/2017 - 06/2017 Season: 11/21/16 Physical Exam - Vital signs Vitals: Temp Pulse Resp BP Pulse Ox 98.5 F 55 L 26 H 161/106 H 96 09/16/17 14:36 09/16/17 14:36 09/16/17 14:36 09/16/17 14:36 09/16/17 14:36 Course - Vital Signs Vital signs: Temp Pulse Resp BP Pulse Ox 98.5 F 55 L 26 H 161/106 H 96 09/16/17 14:36 09/16/17 14:36 09/16/17 14:36 09/16/17 14:36 09/16/17 14:36
--- NOTE | 2017-09-16 17:24 | ER Document Report ---
ED General - General Chief Complaint: Shortness Of Breath Stated Complaint: SHORT OF BREATH Time Seen by Provider: 09/16/17 15:06 Notes: This is a 52-year-old females with a significant history of hypoventilation with severe sleep apnea, Hx of diastolic CHF, chronic A fib, chronic DVT (on Xarelto), Hx of PE, presents with several days of worsening shortness of breath and feeling lightheaded. She is also having some peripheral leg edema, which she has chronically, and she takes 40 mg Lasix twice daily. Patient denies chest pain, nausea, vomiting, syncope, fevers, back pain, hemoptysis or headache. TRAVEL OUTSIDE OF THE [place] IN LAST 30 DAYS: No - Related Data Allergies/Adverse Reactions: adhesive [Adhesive] Allergy (Mild, Verified 09/16/17 14:22) Generalized rash methicillin [Methicillin] Allergy (Mild, Verified 09/16/17 14:22) Generalized rash vancomycin [Vancomycin] Allergy (Mild, Verified 09/16/17 14:22) Generalized rash Past Medical History - General Information source: Patient - Social History Smoking Status: Unknown if Ever Smoked Chew tobacco use (# tins/day): No Frequency of alcohol use: Occasional Drug Abuse: None Family History: Arthritis, CAD, DM, Hyperlipidemia, Hypertension, Malignancy Patient has suicidal ideation: No Patient has homicidal ideation: No - Past Medical History Cardiac Medical History: Reports: Hx Atrial Fibrillation, Hx Congestive Heart Failure, Hx Coronary Artery Disease - HIGH CHOLESTEROL, Hx DVT, Hx Hypercholesterolemia, Hx Hypertension, Hx Pulmonary Embolism Denies: Hx Heart Attack Pulmonary Medical History: Reports: Hx Bronchitis, Hx COPD, Hx Pneumonia, Hx Intubation, Hx Respiratory Failure, Hx Sleep Apnea Denies: Hx Asthma, Hx Tuberculosis Neurological Medical History: Denies: Hx Cerebrovascular Accident, Hx Migraine, Hx Seizures Endocrine Medical History: Reports: Hx Diabetes Mellitus Type 2 Renal/ Medical History: Denies: Hx Peritoneal Dialysis Malignancy Medical History: Reports: Hx Breast Cancer, Hx Cervical Cancer GI Medical History: Reports: Hx Gastroesophageal Reflux Disease, Hx Hiatal Hernia, Hx Liver Failure - fatty liver Musculoskeltal Medical History: Reports Hx Arthritis - KNEES/BACK, Reports Hx Fibromyalgia Skin Medical History: Reports Hx Psoriasis Psychiatric Medical History: Reports: Hx Anxiety, Hx Bipolar Disorder, Hx Depression Past Surgical History: Reports: Hx Cholecystectomy, Hx Hysterectomy, Hx Mastectomy, Hx Orthopedic Surgery, Other - IVC filter placement. Denies: Hx Pacemaker - Immunizations Immunizations up to date: Yes Hx Diphtheria, Pertussis, Tetanus Vaccination: Yes - 01/2014 Hx Pneumococcal Vaccination: 04/23/15 Review of Systems - Review of Systems Notes: REVIEW OF SYSTEMS: CONSTITUTIONAL: -fevers, -chills EENT: -eye pain, -difficulty swallowing, -nasal congestion CARDIOVASCULAR: -chest pain, -syncope. RESPIRATORY: -cough, +SOB GASTROINTESTINAL: -abdominal pain, -nausea, -vomiting, -diarrhea GENITOURINARY: -dysuria, -hematuria MUSCULOSKELETAL: -back pain, -neck pain SKIN: -rash or skin lesions. HEMATOLOGIC: -easy bruising or bleeding. LYMPHATIC: -swollen, enlarged glands. NEUROLOGICAL: -altered mental status or loss of consciousness, -headache, - neurologic symptoms PSYCHIATRIC: -anxiety, -depression. ALL OTHER SYSTEMS REVIEWED AND NEGATIVE. Physical Exam - Vital signs Vitals: Temp Pulse Resp BP Pulse Ox 98.5 F 55 L 26 H 161/106 H 96 09/16/17 14:36 09/16/17 14:36 09/16/17 14:36 09/16/17 14:36 09/16/17 14:36 - Notes Notes: PHYSICAL EXAMINATION: GENERAL: Well-appearing, well-nourished and in no acute distress. HEAD: Atraumatic, normocephalic. EYES: Pupils equal round and reactive to light, extraocular movements intact, sclera anicteric, conjunctiva are normal. ENT: nares patent, oropharynx clear without exudates. Moist mucous membranes. NECK: Normal range of motion, supple without lymphadenopathy LUNGS: Breath sounds clear to auscultation bilaterally and equal. No wheezes rales or rhonchi. No respiratory distress. HEART: Bradycardia, regular rhythm ABDOMEN: Soft, nontender, normoactive bowel sounds. No guarding, no rebound. No masses appreciated. EXTREMITIES: 3+ edema in bilateral legs NEUROLOGICAL: Cranial nerves grossly intact. Normal speech. Normal sensory and motor exams. PSYCH: Normal mood, normal affect. SKIN: Warm, Dry, normal turgor, no rashes or lesions noted. Course - Re-evaluation Re-evalutation: Patient appears well. She is in no acute respiratory distress and satting 98% on room air. While on the monitor, the patient remained in normal sinus rhythm , but then will go into a few seconds of rate controlled A. fib. She is already on Tikosyn and atenolol and Dr. Tse, her facility rehab director, is helping her to obtain an ablation. Blood work is unremarkable and CTA does not show a PE. Will discharge patient home with follow-up at the facility rehab director and given very strict return precautions. - Vital Signs Vital signs: Temp Pulse Resp BP Pulse Ox 98.3 F 55 L 11 L 117/56 L 99 09/16/17 18:26 09/16/17 14:36 09/16/17 21:01 09/16/17 21:00 09/16/17 21:01 - Laboratory Result Diagrams: 09/16/17 18:30 09/16/17 18:30 Laboratory results interpreted by me: 09/16/17 09/16/17 18:30 18:30 RDW 15.3 H Chloride 108 H BUN 21 H AST 60 H ALT 65 H - Diagnostic Test Radiology reviewed: Image reviewed, Reports reviewed Radiology results interpreted by me: CXR: NAD - EKG Interpretation by Me EKG shows normal: Sinus rhythm, [place], Intervals, QRS Complexes, ST-T Waves Rate: Bradycardia Discharge - Discharge Clinical Impression: Paroxysmal A-fib Dyspnea Qualifiers: Dyspnea type: unspecified Qualified Code(s): R06.00 - Dyspnea, unspecified Condition: Stable Disposition: HOME, SELF-CARE Additional Instructions: SHORTNESS OF BREATH OR DYSPNEA: You were evaluated for shortness of breath, or dyspnea. Dyspnea has many causes, and some are more serious than others. Sometimes it's impossible to diagnose the cause of dyspnea with the tests that are available on an emergency basis. Based on our evaluation today, you do not need hospitalization now. We found no evidence of pneumonia, collapsed lung, blood clots in the lung, tumors , or heart failure. Causes of non-specific dyspnea can include asthma or bronchospasm, hyperventilation, emotional distress, heart disease, emphysema, fibrosis of the lung, and stiffness of the chest wall. In healthy individuals with a single episode, it's sometimes reasonable to do nothing but wait to see if the problem occurs again. Additional tests used to evaluate dyspnea can include cardiac stress testing, echocardiography, pulmonary function testing, CAT scan of the chest, bronchoscopy or pulmonary biopsy. Return if shortness of breath persists or worsens, or if you develop chest pain, fever, cough, confusion, or fainting. NORMAL EXAM AND WORKUP: At this time, your examination and workup show no significant abnormality. No significant abnormal physical findings were noted. All laboratory, EKG, and imaging (x-ray, CT scans, ultrasound) studies that were ordered show no significant abnormality. Although your examination and all studies that were ordered showed no significant abnormal finding, there are no examinations and no studies that are 100% accurate. There is always the possibility that some abnormality could exist and not be detected with physical examination or within the limits and capabilities of laboratory and other studies. You should return or follow up as you were instructed on your visit today for further evaluation if your symptoms do not resolve. FOLLOW-UP CARE: If you have been referred to a physician for follow-up care, call the physician s office for an appointment as you were instructed or within the next two days. If you experience worsening or a significant change in your symptoms, notify the physician immediately or return to the Emergency Department at any time for re-evaluation. Atrial Fibrillation Atrial fibrillation is an abnormal heart rhythm, caused by irregular electrical circuits in the upper heart chamber. It can be caused by heart valve disease, hardening of the arteries, or metabolic problems such as thyroid disease, or may occur without a clear cause. Atrial fibrillation may occur only occasionally, or may be chronic. Atrial fibrillation often results in a very fast heart rate, with palpitations, lightheadedness, and shortness of breath. Treatment is to slow the abnormally fast rate, and to convert the rhythm back to normal, if possible. Many patients stay in atrial fibrillation for years without symptoms or complications. Your doctor will decide whether you can be converted back to a normal heart rhythm. Contact the doctor or emergency medical system at once if you develop chest pain, shortness of breath, or severe lightheadedness, or if you develop any disturbance of consciousness, problems with speech, or localized weakness. Referrals: JOVAN ADLER MD [Primary Care Provider] - Follow up as needed CHIKI TSE MD [ACTIVE STAFF] - Follow up tomorrow
--- NOTE | 2017-09-16 17:25 | RADIOLOGY REPORT (SQ) ---
EXAM DESCRIPTION: CHEST 2 VIEWS COMPLETED DATE/TIME: 09/16/2017 4:53 pm REASON FOR STUDY: SOB, LIGHTHEADED COMPARISON: 03/18/2017. EXAM PARAMETERS: NUMBER OF VIEWS: two views TECHNIQUE: Digital Frontal and Lateral radiographic views of the chest acquired. RADIATION DOSE: NA LIMITATIONS: none FINDINGS: LUNGS AND PLEURA: No opacities, masses or pneumothorax. No pleural effusion. MEDIASTINUM AND HILAR STRUCTURES: No masses or contour abnormalities. HEART AND VASCULAR STRUCTURES: Heart normal size. No evidence for failure. BONES: No acute findings. HARDWARE: Vascular access port. Cardiac recorder. Surgical clips in the soft tissues. OTHER: No other significant finding. IMPRESSION: NO ACUTE RADIOGRAPHIC FINDING IN THE CHEST. TECHNICAL DOCUMENTATION: JOB ID: [id number] [employer]- All Rights Reserved Reading location - IP/workstation name: [email or web address]
[2017-09-16 18:38] LABS: ABSOLUTE BASOPHILS # (AUTO) 0.1 10^3/uL (0.0-0.2); ABSOLUTE EOSINOPHILS # (AUTO) 0.2 10^3/uL (0.0-0.6); ABSOLUTE LYMPHOCYTES (AUTO) 2.7 10^3/uL (0.5-4.7); ABSOLUTE MONOCYTES (AUTO) 0.8 10^3/uL (0.1-1.4); ABSOLUTE NEUT (AUTO) 4.1 10^3/uL (1.7-8.2); BASOPHILS % (AUTO) 1.2 % (0-2); EOSINOPHILS % (AUTO) 2.5 % (0-6); HEMATOCRIT 40.5 % (36.0-47.0); HEMOGLOBIN 13.1 g/dL (12.0-15.5); LYMPHOCYTES % (AUTO) 34.1 % (13-45); MEAN CORPUSCULAR HEMOGLOBIN 30.1 pg (27.0-33.4); MEAN CORPUSCULAR HGB CONC 32.4 g/dL (32.0-36.0); MEAN CORPUSCULAR VOLUME 93 fl (80-97); MONOCYTES % (AUTO) 10.4 % (3-13); PLATELET COUNT 321 10^3/uL (150-450); RED BLOOD COUNT 4.36 10^6/uL (3.72-5.28); RED CELL DISTRIBUTION WIDTH 15.3 % (11.5-14.0); SEGMENTED NEUTROPHILS % (AUTO) 51.8 % (42-78); TOTAL CELLS COUNTED % (AUTO) 100 %
[2017-09-16 18:57] LABS: ALANINE AMINOTRANSFERASE 65 U/L (9-52); ALBUMIN 3.5 g/dL (3.5-5.0); ALKALINE PHOSPHATASE 64 U/L (38-126); ASPARTATE AMINO TRANSFERASE 60 U/L (14-36); BILIRUBIN,DIRECT 0.2 mg/dL (0.0-0.4); BILIRUBIN,TOTAL 0.8 mg/dL (0.2-1.3); BLOOD UREA NITROGEN 21 mg/dL (7-20); CALCIUM 9.6 mg/dL (8.4-10.2); CARBON DIOXIDE 28 mmol/L (22-30); GLUCOSE 87 mg/dL (75-110); POTASSIUM 4.8 mmol/L (3.6-5.0); SODIUM 143.5 mmol/L (137-145); TOTAL PROTEIN 6.3 g/dL (6.3-8.2)
[2017-09-16 18:59] LABS: ANION GAP 8 (5-19); CHLORIDE 108 mmol/L (98-107)
[2017-09-16 19:08] LABS: NT PRO BNP 397 pg/mL (5-900)
[2017-09-16 19:10] LABS: TROPONIN I < 0.012 ng/mL
[2017-09-16] MEDS ORDERED: LORAZEPAM INJ 2 MG/1 ML VIAL IV ONE (19:23)
--- NOTE | 2017-09-16 20:57 | RADIOLOGY REPORT (SQ) ---
EXAM DESCRIPTION: CTA CHEST COMPLETED DATE/TIME: 09/16/2017 8:45 pm REASON FOR STUDY: SOLANO, Hx of PE, SOB COMPARISON: 07/08/2017 and 06/07/2017. TECHNIQUE: CT scan of the chest performed using helical scanning technique with dynamic intravenous contrast injection. Images reviewed with lung, soft tissue and bone windows. Reconstructed coronal and sagittal MPR images reviewed. Additional 3 dimensional post-processing performed to develop Maximal Intensity Projection images ([place] P). All images stored on PACS. All CT scanners at this facility use dose modulation, iterative reconstruction, and/or weight based d osing when appropriate to reduce radiation dose to as low as reasonably achievable (ALARA). [facility]: Dose Right [facility]: CareDose [facility]: Dose Right [facility]: Teradose 4D [facility]: Shellcatch CONTRAST TYPE AND DOSE: contrast/concentration: Isovue 370.00 mg/ml; Total Contrast Delivered: 86.0 ml; Total Saline Delivered: 110.1 ml Contrast bolus optimized for the pulmonary arteries. Not diagnostic for the aorta. RENAL FUNCTION: BUN 21 creatinine 0.93. RADIATION DOSE: CT Rad equipment meets quality standard of care and radiation dose reduction techniq ues were employed. CTDIvol: 41.8 - 49.6 mGy. DLP: 1880 mGy-cm. . LIMITATIONS: None. FINDINGS: LUNGS AND PLEURA: No masses, infiltrates, pneumothorax. No pleural effusions, calcificati ons. AORTA AND GREAT VESSELS: No aneurysm. Contrast bolus not optimized for the aorta. HEART: No pericardial effusion. No significant coronary artery calcifications. PULMONARY ARTERIES: No emboli visualized in the main pulmonary arteries or the segmental branches. HILAR AND MEDIASTINAL STRUCTURES: No identified masses or abnormal nodes. HARDWARE: Vascular access port. Cardiac recorder. Surgical clips. UPPER ABDOMEN: No significant findings. Limited exam. THYROID AND OTHER SOFT TISSUES: No masses. No adenopathy. BONES: No acute or significant finding. 3D MIPS: Confirm above findings. OTHER: No other significant finding. IMPRESSION: NORMAL CTA OF THE CHEST. NO PULMONARY EMBOLI. COMMENT: Quality ID # [id number]: Final reports with documentation of one or more dose reduction techniques (e.g., Automated exposure control, adjustment of the mA and/or kV according to patient size, use of iterative reconstruction technique) TECHNICAL DOCUMENTATION: JOB ID: [id number]- All Rights Reserved Reading location - IP/workstation name: [email or web address]
[2017-09-16 21:15] VITALS: BP 117/56
--- NOTE | 2017-09-16 23:22 | EKG REPORT ---
SEVERITY:- NORMAL ECG - SINUS RHYTHM : Confirmed by: Ric Lynn MD 16-Sep-2017 23:21:36
== END 2017-09-16 21:52 | disposition home or self-care (01) ==
LOC: ER 14:21
DX: R06.02 Shortness of breath (principal); R06.00 Dyspnea, unspecified; R42 Dizziness and giddiness; I48.0 Paroxysmal atrial fibrillation; I50.9 Heart failure, unspecified; E11.9 Type 2 diabetes mellitus without complications; Z79.01 Long term (current) use of anticoagulants; Z86.718 Personal history of other venous thrombosis and embolism; Z86.711 Personal history of pulmonary embolism; Z88.3 Allergy status to other anti-infective agents; Z85.3 Personal history of malignant neoplasm of breast; Z85.41 Personal history of malignant neoplasm of cervix uteri; Z90.49 Acquired absence of other specified parts of digestive tract; Z90.710 Acquired absence of both cervix and uterus
CPT/HCPCS: 93005; 36591; 99285; 96374; 36415; 85025; 80053; 84484; 83880; 71046; 71275; 93010; A9270; J2060

== ENCOUNTER → 2018-03-05 | Outpatient (CLI) | payer MEDICARE, MEDICAID ==
--- NOTE | 2018-03-05 17:02 | RADIOLOGY REPORT (SQ) ---
EXAM DESCRIPTION: VENOUS UNILATERAL LOWER COMPLETED DATE/TIME: 03/05/2018 3:44 pm REASON FOR STUDY: RLE PAIN M79.604 PAIN IN RIGHT LEG I89.0 LYMPHEDEMA, NOT ELSEWHERE CLASSIFIED Right lower extremity swelling and pain with palpable lump in the posterior calf, patient on blood th inners and has IVC filter. Prior history of DVT COMPARISON: None. TECHNIQUE: Dynamic and static cordoba scale and color images acquired of the right leg venous system. S elected spectral images acquired with additional compression and augmentation maneuvers. The contrala teral common femoral vein and saphenofemoral junction were also imaged. Images stored on PACS. LIMITATIONS: None. FINDINGS: RIGHT COMMON FEMORAL: Normal phasicity, compression and augmentation. No visualized echogenic material on g ray scale. No defects on color images. FEMORAL: Normal compression and augmentation. No visualized echogenic material on cordoba scale. No defe cts on color images. POPLITEAL: Normal compression, augmentation. No visualized echogenic material on cordoba scale. No defec ts on color images. POSTERIOR TIBIAL AND PERONEAL VEINS: Normal compression, augmentation. No visualized echogenic materi al on cordoba scale. No defects on color images. GSV and SSV: Normal compression, augmentation. No visualized echogenic material on cordoba scale. No def ects on color images. ANY DEEP VENOUS INSUFFICIENCY: Not evaluated. ANY EVIDENCE OF POPLITEAL CYST: No. OTHER: No other significant finding. LEFT COMMON FEMORAL VEIN AND SAPHENOFEMORAL JUNCTION: Normal phasicity, compression and augmentation. No visualized echogenic material on cordoba scale. No de fects on color images. IMPRESSION: NO EVIDENCE OF DVT OR SVT IN THE RIGHT LEG. TECHNICAL DOCUMENTATION: JOB ID: [id number] [employer]- All Rights Reserved Reading location - IP/workstation name: [email or web address]
== END ==
LOC: SP 12:35
PROVIDERS: ATTEND Surgery
DX: M79.604 Pain in right leg (principal); I89.0 Lymphedema, not elsewhere classified
CPT/HCPCS: 93971

== ENCOUNTER 2018-05-04 18:28 | Emergency (ER) | payer MEDICARE, MEDICAID ==
--- NOTE | 2018-05-04 18:54 | ER Document Report ---
ED Medical Screen (RME) - General Chief Complaint: S/S of Possible Stroke Stated Complaint: LEFT ARM WEAKNESS Time Seen by Provider: 05/04/18 18:47 Notes: 52-year-old female patient with multiple comorbidities, on Xarelto for chronic DVTs. She reports a nontraumatic onset of left arm weakness and pain. It began on the evening of 05/01/2018. It has been getting progressively worse. Exam shows tenderness in the left brachioradialis muscle proximally, tenderness over the lateral humeral epicondyle, tenderness over the radial head and the distal biceps muscle and tendon region. I have greeted and performed a rapid initial assessment of this patient. A comprehensive ED assessment and evaluation of the patient, analysis of test results and completion of the medical decision making process will be conducted by additional ED providers. TRAVEL OUTSIDE OF THE [place] IN LAST 30 DAYS: No - Related Data Allergies/Adverse Reactions: adhesive [Adhesive] Allergy (Mild, Verified 05/04/18 18:32) Generalized rash methicillin [Methicillin] Allergy (Mild, Verified 05/04/18 18:32) Generalized rash vancomycin [Vancomycin] Allergy (Mild, Verified 05/04/18 18:32) Generalized rash Past Medical History - Social History Chew tobacco use (# tins/day): No Frequency of alcohol use: Rare Drug Abuse: None - Past Medical History Cardiac Medical History: Reports: Hx Atrial Fibrillation, Hx Congestive Heart Failure, Hx Coronary Artery Disease - HIGH CHOLESTEROL, Hx DVT, Hx Hypercholesterolemia, Hx Hypertension, Hx Pulmonary Embolism Denies: Hx Heart Attack Pulmonary Medical History: Reports: Hx Bronchitis, Hx COPD, Hx Pneumonia, Hx Intubation, Hx Respiratory Failure, Hx Sleep Apnea Denies: Hx Asthma, Hx Tuberculosis Neurological Medical History: Denies: Hx Cerebrovascular Accident, Hx Migraine, Hx Seizures Endocrine Medical History: Reports: Hx Diabetes Mellitus Type 2 Renal/ Medical History: Denies: Hx Peritoneal Dialysis Malignancy Medical History: Reports: Hx Breast Cancer, Hx Cervical Cancer GI Medical History: Reports: Hx Gastroesophageal Reflux Disease, Hx Hiatal Hernia, Hx Liver Failure - fatty liver Musculoskeltal Medical History: Reports Hx Arthritis - KNEES/BACK, Reports Hx Fibromyalgia Skin Medical History: Reports Hx Psoriasis Psychiatric Medical History: Reports: Hx Anxiety, Hx Bipolar Disorder, Hx Depression Past Surgical History: Reports: Hx Cholecystectomy, Hx Hysterectomy, Hx Mastectomy, Hx Orthopedic Surgery, Other - IVC filter placement. Denies: Hx Pacemaker - Immunizations Immunizations up to date: Yes Hx Diphtheria, Pertussis, Tetanus Vaccination: Yes - 01/2014 History of Influenza Vaccine for 01/2017 - 06/2017 Season: Yes Influenza Administration Date for 01/2017 - 06/2017 Season: 11/21/16 Physical Exam - Vital signs Vitals: Temp Pulse Resp BP Pulse Ox 98.0 F 69 20 141/79 H 100 05/04/18 18:36 05/04/18 18:36 05/04/18 18:36 05/04/18 18:36 05/04/18 18:36 Course - Vital Signs Vital signs: Temp Pulse Resp BP Pulse Ox 98.0 F 69 20 141/79 H 100 05/04/18 18:36 05/04/18 18:36 05/04/18 18:36 05/04/18 18:36 05/04/18 18:36 Doctor's Discharge - Discharge Referrals: IVY TURK MD [Primary Care Provider] - Follow up as needed
--- NOTE | 2018-05-04 19:27 | RADIOLOGY REPORT (SQ) ---
EXAM DESCRIPTION: ELBOW LEFT OVER 2 VIEWS COMPLETED DATE/TIME: 05/04/2018 7:18 pm REASON FOR STUDY: Radial head and lateral epicondyle tenderness , no reported injury COMPARISON: 12/02/2014 NUMBER OF VIEWS: Four views. TECHNIQUE: AP, lateral, and both oblique radiographic images acquired of the left elbow. LIMITATIONS: None. FINDINGS: MINERALIZATION: Normal. BONES: No acute fracture or dislocation. No worrisome bone lesions. Tiny olecranon enthesophyte. N o erosions. JOINT: No effusion. SOFT TISSUES: No soft tissue swelling. No foreign body. OTHER: No other significant finding. IMPRESSION: NEGATIVE STUDY OF THE LEFT ELBOW. NO RADIOGRAPHIC EVIDENCE OF ACUTE INJURY. TECHNICAL DOCUMENTATION: JOB ID: [id number] [employer]- All Rights Reserved Reading location - IP/workstation name: [email or web address]
[2018-05-04] MEDS ORDERED: KETOROLAC TROMETHAMINE 60 MG/2 ML SDV IM ONE (19:48)
[2018-05-04] MEDS ORDERED: LIDOCAINE 5% (700 MG) TRANSDERMAL ADH..PATCH TP ONE (19:48)
--- NOTE | 2018-05-04 19:51 | ER Document Report ---
ED General - General Chief Complaint: S/S of Possible Stroke Stated Complaint: LEFT ARM WEAKNESS Time Seen by Provider: 05/04/18 18:47 Notes: Patient is a 52-year-old female with a past medical history of DVTs, morbid obesity, hypertension, presents with 3 days of pain to her left mid arm just above the level of the antecubital fossa that feels like it triggers weakness in her left hand and arm when she tries to use the arm. Patient states that her symptoms started gradually and have gotten progressively worse since onset. Any attempt at lifting or using the left upper extremity activities worsens the pain. Nothing improves her symptoms. No known injury to the area. No history of similar symptoms in the past. Has not seen her general physician regarding today's concerns. She denies any loss of sensation, weakness or pain to any other location. No swelling to the upper extremity. TRAVEL OUTSIDE OF THE [place] IN LAST 30 DAYS: No - Related Data Allergies/Adverse Reactions: adhesive [Adhesive] Allergy (Mild, Verified 05/04/18 18:32) Generalized rash methicillin [Methicillin] Allergy (Mild, Verified 05/04/18 18:32) Generalized rash vancomycin [Vancomycin] Allergy (Mild, Verified 05/04/18 18:32) Generalized rash Past Medical History - General Information source: Patient - Social History Smoking Status: Never Smoker Chew tobacco use (# tins/day): No Frequency of alcohol use: Rare Drug Abuse: None Lives with: Family Family History: Arthritis, CAD, DM, Hyperlipidemia, Hypertension, Malignancy Patient has suicidal ideation: No Patient has homicidal ideation: No - Past Medical History Cardiac Medical History: Reports: Hx Atrial Fibrillation, Hx Congestive Heart Failure, Hx Coronary Artery Disease - HIGH CHOLESTEROL, Hx DVT, Hx Hypercholesterolemia, Hx Hypertension, Hx Pulmonary Embolism Denies: Hx Heart Attack Pulmonary Medical History: Reports: Hx Bronchitis, Hx COPD, Hx Pneumonia, Hx Intubation, Hx Respiratory Failure, Hx Sleep Apnea Denies: Hx Asthma, Hx Tuberculosis Neurological Medical History: Denies: Hx Cerebrovascular Accident, Hx Migraine, Hx Seizures Endocrine Medical History: Reports: Hx Diabetes Mellitus Type 2 Renal/ Medical History: Denies: Hx Peritoneal Dialysis Malignancy Medical History: Reports: Hx Breast Cancer, Hx Cervical Cancer GI Medical History: Reports: Hx Gastroesophageal Reflux Disease, Hx Hiatal Hernia, Hx Liver Failure - fatty liver Musculoskeletal Medical History: Reports Hx Arthritis - KNEES/BACK, Reports Hx Fibromyalgia Skin Medical History: Reports Hx Psoriasis Psychiatric Medical History: Reports: Hx Anxiety, Hx Bipolar Disorder, Hx Depression Past Surgical History: Reports: Hx Cholecystectomy, Hx Hysterectomy, Hx Mastectomy, Hx Orthopedic Surgery, Hx Vascular Surgery - port, Other - IVC filter placement. Denies: Hx Pacemaker - Immunizations Immunizations up to date: Yes Hx Diphtheria, Pertussis, Tetanus Vaccination: Yes - 01/2014 Hx Pneumococcal Vaccination: 04/23/15 Review of Systems - Review of Systems Notes: Constitutional: Negative for fever. HENT: Negative for sore throat. Eyes: Negative for visual changes. Cardiovascular: Negative for chest pain. Respiratory: Negative for shortness of breath. Gastrointestinal: Negative for abdominal pain, vomiting or diarrhea. Genitourinary: Negative for dysuria. Musculoskeletal: Positive for left upper extremity pain Skin: Negative for rash. Neurological: Negative for headaches, weakness or numbness. 10 point ROS negative except as marked above and in HPI. Physical Exam - Vital signs Vitals: Temp Pulse Resp BP Pulse Ox 98.0 F 69 20 141/79 H 100 05/04/18 18:36 05/04/18 18:36 05/04/18 18:36 05/04/18 18:36 05/04/18 18:36 Interpretation: Hypertensive Notes: PHYSICAL EXAMINATION: GENERAL: Well-appearing, well-nourished and in no acute distress. HEAD: Atraumatic, normocephalic. EYES: Pupils equal round and reactive to light, extraocular movements intact, s clera anicteric, conjunctiva are normal. ENT: nares patent, oropharynx clear without exudates. Moist mucous membranes. NECK: Normal range of motion, supple without lymphadenopathy LUNGS: Breath sounds clear to auscultation bilaterally and equal. No wheezes rales or rhonchi. HEART: Regular rate and rhythm without murmurs ABDOMEN: Soft, nontender, normoactive bowel sounds. No guarding, no rebound. No masses appreciated. EXTREMITIES: Normal range of motion, there is exquisite pain on palpation of the head of the biceps just above the level of the antecubital fossa on the left. No pitting or edema. No cyanosis. NEUROLOGICAL: Face symmetric. Tongue protrudes midline. Extraocular motions intact. Pupils are 2 mm and equally reactive. Normal speech, normal gait. 5 out of 5 strength in both the distal and proximal upper and lower extremities bilaterally. RMU motor and sensory distribution is intact bilaterally including against resistance on motor testing sensation is grossly intact throughout. Finger to nose testing normal. Pronator drift normal. PSYCH: Normal mood, normal affect. SKIN: Warm, Dry, normal turgor, no rashes or lesions noted. Course - Re-evaluation Re-evalutation: 05/04/18 19:49 Patient presents with pain to the head of the biceps tendon on the left side entirely reproducible with palpation in the area as well as range of motion testing. The patient does not have any actual weakness to the left upper extremity. She has full 5 out of 5 biceps and triceps strength bilaterally. RMU motor and sensory distribution is intact including against resistance on strength testing. Capillary refill less than 1 second in all digits of the left hand. Strong 2+ radial pulse. I do not clinically suspect an acute stroke. The patient's NIH stroke scale is 0. X-ray of the affected area unremarkable. No appreciable swelling or mass to the area. I do not suspect an acute upper extremity DVT. Patient is already on Xarelto although does admit that she has missed several doses and I have instructed her to be compliant with this medication. Patient has been started on topical Voltaren gel and Tylenol as needed. At this time will discharge with return precautions and follow-up recommendations. Verbal discharge instructions given a the bedside and opportunity for questions given. Medication warnings reviewed. Patient is in agreement with this plan and has verbalized understanding of return precautions and the need for primary care follow-up in the next 24-72 hours. - Vital Signs Vital signs: Temp Pulse Resp BP Pulse Ox 98.4 F 90 18 124/74 98 05/04/18 20:17 05/04/18 20:17 05/04/18 20:17 05/04/18 20:17 05/04/18 20:17 - Diagnostic Test Radiology reviewed: Image reviewed, Reports reviewed Radiology results interpreted by me: 05/04/18 19:51 Left elbow x-ray: No acute fracture or dislocation Discharge - Discharge Clinical Impression: Tendinitis of long head of biceps, Left arm pain Condition: Good Disposition: HOME, SELF-CARE Additional Instructions: Your symptoms are not consistent with a stroke. It appears that you have an inflammation of the head of your biceps tendon which should resolve within the next several weeks. Apply the topical Voltaren gel that has been prescribed as directed. You may also take Tylenol 1000 mg every 6 hours as needed for additional pain not controlled by Voltaren. You should apply an ice compress to the area 20 minutes every 2 hours. Follow-up with your primary care doctor as you may require for referral to physical therapy. Return if you develop numbness, headache, neck pain, fever, chest pain or any other symptoms that are worrisome to you. Prescriptions: Diclofenac Sodium [Voltaren] 100 gm TP TID PRN #100 gel..gm. PRN Reason: Referrals: IVY TURK MD [ACTIVE STAFF] - Follow up as needed
[2018-05-04 20:20] VITALS: BP 124/74
== END 2018-05-04 20:19 | disposition home or self-care (01) ==
LOC: ER 18:28
DX: M75.22 Bicipital tendinitis, left shoulder (principal); M79.602 Pain in left arm; M62.81 Muscle weakness (generalized); M79.642 Pain in left hand; I50.9 Heart failure, unspecified; I25.10 Atherosclerotic heart disease of native coronary artery without angina pectoris; I11.0 Hypertensive heart disease with heart failure; J44.9 Chronic obstructive pulmonary disease, unspecified; E11.9 Type 2 diabetes mellitus without complications
CPT/HCPCS: 99283; 96372; 73080; J1885

== ENCOUNTER → 2018-05-09 | Outpatient (CLI) | payer MEDICARE, MEDICAID ==
--- NOTE | 2018-05-09 14:09 | RADIOLOGY REPORT (SQ) ---
EXAM DESCRIPTION: CT CHEST WITHOUT COMPLETED DATE/TIME: 05/09/2018 1:56 pm REASON FOR STUDY: BREAST CANCER C50.919 MALIGNANT NEOPLASM OF UNSP SITE OF UNSPECIFIED FEMAL C50.91 1 MALIGNANT NEOPLASM OF UNSP SITE OF RIGHT FEMALE GIO COMPARISON: PET-CT 10/27/2016 CT chest 03/05/2017, 06/07/2017, 07/08/2017, 09/16/2017 mild cardiomegaly TECHNIQUE: CT scan performed of the chest without intravenous contrast. Images reviewed with lung, soft tissue and bone windows. Reconstructed coronal and sagittal MPR images reviewed. All images st ored on PACS. All CT scanners at this facility use dose modulation, iterative reconstruction, and/or weight based d osing when appropriate to reduce radiation dose to as low as reasonably achievable (ALARA). [facility]: Dose Right [facility]: CareDose [facility]: Dose Right [facility]: Teradose 4D [facility]: [employer] RADIATION DOSE: CT Rad equipment meets quality standard of care and radiation dose reduction techniq ues were employed. CTDIvol: 19.4 mGy. DLP: 658 mGy-cm. mGy. LIMITATIONS: No technical limitations. FINDINGS: LUNGS AND PLEURA: No masses, infiltrates, or pneumothorax. No pleural effusions or pleura l calcifications. HILAR AND MEDIASTINAL STRUCTURES: No identified masses or abnormal nodes. No obvious aneurysm. HEART AND VASCULAR STRUCTURES: No aneurysm. No pericardial effusion. Mild cardiomegaly UPPER ABDOMEN: No significant findings. Limited exam. THYROID AND OTHER SOFT TISSUES: Left anterior chest wall seroma unchanged from multiple prior study, 6 x 2 cm in size on axial image 34. Thyroid and other soft tissues are unremarkable. Left axillary surgical clips. BONES: No significant finding. HARDWARE: Left axillary surgical clips, right permanent central line tip superior vena cava. Implant ed left cardiac monitoring device anterior left chest wall OTHER: No other significant findings. IMPRESSION: Stable appearance of the chest TECHNICAL DOCUMENTATION: JOB ID: [id number] Quality ID # [id number]: Final reports with documentation of one or more dose reduction techniques (e.g., Au tomated exposure control, adjustment of the mA and/or kV according to patient size, use of iterative reconstruction technique) 2010 [employer]- All Rights Reserved Reading location - IP/workstation name: [email or web address]
== END ==
LOC: RAD 13:37
PROVIDERS: ATTEND Internal Medicine Medical Oncology
DX: C50.919 Malignant neoplasm of unspecified site of unspecified female breast (principal); C50.911 Malignant neoplasm of unspecified site of right female breast
CPT/HCPCS: 71250

== ENCOUNTER 2018-05-12 12:19 | Emergency (ER) | payer MEDICARE, MEDICAID ==
[2018-05-12] MEDS ORDERED: DILTIAZEM HCL INJ 25 MG/5 ML VIAL IV ONE ×2 (12:47→13:13)
--- NOTE | 2018-05-12 12:52 | ER Document Report ---
ED General <ALEIDA RODRIGUEZ - Last Filed: 05/12/18 20:31> - General TRAVEL OUTSIDE OF THE [place] IN LAST 30 DAYS: No <CHRISTELLE PARDO - Last Filed: 05/12/18 21:01> - General Stated Complaint: PAPLITATIONS Time Seen by Provider: 05/12/18 12:40 Notes: Patient is a 52-year-old female who presents to the emergency department with a chief complaint of palpitations. She stated that her palpitations started last night at 1800. She checked her heart rate at home and she has been in an e rratic and high rate since last night. She did have some associated dizziness. She feels like when she walks her heart rate goes higher. If she is staying in one spot, she is fine but still feels like her heart rate is up. When she woke up she felt more pounding in her chest. She denies any actual true pain. She denies any nausea, vomiting, shortness of breath, cough, or fevers. She does friend ve a history of atrial fibrillation, cardioversion, IVC filter, protein deficiency, cervical cancer, osteoarthritis, diabetes, and hypertension. She is on Cardizem at home. She sees Dr. Tse as her juke box mechanic. She was seen at [facility] about 3 months ago to have a possible AICD/pacemaker. (CHRISTELLE PARDO) - Related Data Allergies/Adverse Reactions: adhesive [Adhesive] Allergy (Mild, Verified 05/12/18 12:57) Generalized rash methicillin [Methicillin] Allergy (Mild, Verified 05/12/18 12:57) Generalized rash vancomycin [Vancomycin] Allergy (Mild, Verified 05/12/18 12:57) Generalized rash Past Medical History - Social History Smoking Status: Current Every Day Smoker Family History: Arthritis, CAD, DM, Hyperlipidemia, Hypertension, Malignancy - Past Medical History Cardiac Medical History: Reports: Hx Atrial Fibrillation, Hx Congestive Heart Failure, Hx Coronary Artery Disease - HIGH CHOLESTEROL, Hx DVT, Hx Hypercholesterolemia, Hx Hypertension, Hx Pulmonary Embolism Denies: Hx Heart Attack Pulmonary Medical History: Reports: Hx Bronchitis, Hx COPD, Hx Pneumonia, Hx Intubation, Hx Respiratory Failure, Hx Sleep Apnea Denies: Hx Asthma, Hx Tuberculosis Neurological Medical History: Denies: Hx Cerebrovascular Accident, Hx Migraine, Hx Seizures Endocrine Medical History: Reports: Hx Diabetes Mellitus Type 2 Renal/ Medical History: Denies: Hx Peritoneal Dialysis Malignancy Medical History: Reports: Hx Breast Cancer, Hx Cervical Cancer GI Medical History: Reports: Hx Gastroesophageal Reflux Disease, Hx Hiatal Hernia, Hx Liver Failure - fatty liver Musculoskeletal Medical History: Reports Hx Arthritis - KNEES/BACK, Reports Hx Fibromyalgia Skin Medical History: Reports Hx Psoriasis Psychiatric Medical History: Reports: Hx Anxiety, Hx Bipolar Disorder, Hx Depression Past Surgical History: Reports: Hx Cholecystectomy, Hx Hysterectomy, Hx Mastectomy, Hx Orthopedic Surgery, Hx Vascular Surgery - port, Other - IVC filter placement. Denies: Hx Pacemaker - Immunizations Immunizations up to date: Yes Hx Diphtheria, Pertussis, Tetanus Vaccination: Yes - 01/2014 Hx Pneumococcal Vaccination: 04/23/15 <CHRISTELLE PARDO - Last Filed: 05/12/18 21:01> Review of Systems <CHRISTELLE PARDO - Last Filed: 05/12/18 21:01> - Review of Systems Notes: REVIEW OF SYSTEMS: CONSTITUTIONAL : Denies recent illness. Denies recent unintentional weight loss. Denies fever, chills, or sweats. EENT: Denies eye, ear, throat, or mouth pain, discharge, or symptoms. Denies nasal or sinus congestion. CARDIOVASCULAR: See HPI RESPIRATORY: Denies shortness of breath, cough, congestion, difficulty breathing, or wheezing. GASTROINTESTINAL: Denies nausea, vomiting, and diarrhea. Denies abdominal pain. Denies constipation. GENITOURINARY: Denies difficulty urinating, burning, blood in urine, urgency or frequency. MUSCULOSKELETAL: Denies neck and back pain. Denies joint pain or swelling. SKIN: Denies rash, itchiness, or lesions HEMATOLOGIC : Denies easy bruising or bleeding. LYMPHATIC: Denies swollen, painful, enlarged glands. NEUROLOGICAL: Denies no numbness or tingling denies weakness. Denies headache. Denies altered mental status. Denies alteration in speech. PSYCHIATRIC: Denies stress, anxiety, alteration in sleep patterns, or depression. All other systems reviewed and negative. (CHRISTELLE PARDO) Physical Exam <CHRISTELLE PARDO - Last Filed: 05/12/18 21:01> - Vital signs Vitals: Resp Pulse Ox 18 97 05/12/18 12:35 05/12/18 12:35 - Notes Notes: PHYSICAL EXAMINATION: GENERAL: Morbidly obese, HEAD: Normocephalic, atraumatic. EYES: PERRL, conjunctiva normal, all extraocular movements intact, sclera nonicteric ENT: Moist mucous membranes. NECK: Supple, no noticeable swelling, redness, rash. Normal range of motion. LUNGS: Equal breath sounds bilaterally and clear to auscultation. No wheezes rales or rhonchi. CARDIOVASCULAR: S1-S2, irregularly irregular rhythm. Radial pulses 2+, normal. ABDOMEN: Normoactive bowel sounds. Soft, nontender, no guarding, no rebound tenderness, and no masses palpated. EXTREMITIES: Normal strength and range of motion, 2+ pitting edema. No cyanosis. NEUROLOGICAL: Moves all extremities upon command. Strength 5/5 in all extremities. PSYCH: Normal mood, normal affect. SKIN: Warm, dry. No rash, lesions, ulcerations noted. Normal skin turgor. (CHRISTELLE PARDO) Course - Laboratory Result Diagrams: 05/12/18 12:54 05/12/18 12:54 <ALEIDA RODRIGUEZ - Last Filed: 05/12/18 20:31> - Laboratory Result Diagrams: 05/12/18 12:54 05/12/18 12:54 <CHRISTELLE PARDO - Last Filed: 05/12/18 21:01> - Re-evaluation Re-evalutation: 05/12/18 20:31 Patient transport is at bedside at this time. Patient is stable for transport. Heart rate 111, blood pressure 147/79, SPO2 95% respiratory rate 20. Patient is denying any chest pain or palpitations at this time. Patient stable for transfer. (ALEIDA RODRIGUEZ) 05/12/18 12:47 The patient is in atrial fibrillation with rapid ventricular response at a rate of 120s-130s. She will be given 10 mg of Cardizem IV. Will reevaluate the patient. 05/12/18 13:14 Patient's heart rate still is in the 1 teens she will receive another 10 mg of Cardizem IV. 05/12/18 13:48 Patient's heart rate is in the 110's. I will start her on a Cardizem drip. Her CBC is unremarkable. Her troponin is negative at this time. Her chemistries are unremarkable. Her chest x-ray is negative for pneumonia. 05/12/18 15:[address] Isabel and Dr. Tse in regards to admission. They both would like me to speak with [facility] in regards to the patient's case. She was seen by Dr. Marin in their outpatient clinic. Dr. Tse recommends that she be switched from Cardizem to amiodarone drip at 0.5 mg/h. 05/12/18 15:27 I have talked with [facility] and spoke with Dr. Rider, the juke box mechanic who saw the patient 9 months ago. She states that the patient needs to be off the amiodarone because she is on Tikosyn. I stopped the amiodarone drip. 05/12/18 15:[address] Tse, he will talk with Dr. Vu from [place] to see if the patient can be evaluated there. 05/12/18 16:[address] Tse and the patient will be transferred to [facility] under the care of Dr. Vu. 05/12/18 17:07 I spoke with [facility] and the patient has received a bed. I asked the transfer center if I need to give report to Dr. Aggarwal, and they said that Dr. Aggarwal is okay with the report from Dr. Tse. I reevaluated the patient and she is still in A. fib in the low 100s. Her blood pressure is 133/86. 05/12/18 19:30 Report was given to DAYNE Pierre. I have also reordered a Cardizem drip. (CHRISTELLE PARDO) - Vital Signs Vital signs: Temp Pulse Resp BP Pulse Ox 98.7 F 135 H 24 H 123/99 H 94 05/12/18 12:59 05/12/18 12:40 05/12/18 17:31 05/12/18 17:31 05/12/18 17:31 - Laboratory Laboratory results interpreted by me: 05/12/18 05/12/18 12:54 12:54 RDW 14.5 H Glucose 140 H AST 40 H - EKG Interpretation by Me Additional EKG results interpreted by me: 01/20/19 12:30 Atrial fibrillation with rapid ventricular response. Heart rate 125. QRS 84; QT 288; QTC 416. No ST elevations or depressions. 05/12/18 18:18 Reevaluation of patient's EKG shows atrial fibrillation. heart rate 102. QRS 84 QTC 360; QTC 469. No ST elevations or depressions. (CHRISTELLE PARDO) Critical Care Note - Critical Care Note Total time excluding time spent on procedures (mins): 40 <CHRISTELLE PARDO - Last Filed: 05/12/18 21:01> - Critical Care Note Comments: Critical care time spent obtaining history from patient or surrogate, discussions with consultants, development of treatment plan with patient or surrogate, evaluation of patient's response to treatment, examination of patient, ordering and performing treatments and interventions, ordering and review of laboratory studies, re-evaluation of patient's condition, ordering and review of radiographic studies and review of old charts (CHRISTELLE PARDO) Discharge <ALEIAD RODRIGUEZ - Last Filed: 05/12/18 20:31> <CHRISTELLE PARDO - Last Filed: 05/12/18 21:01> - Discharge Clinical Impression: Atrial fibrillation with RVR Condition: Fair Disposition: [facility] Referrals: CHANELLE WOODS MD [Primary Care Provider] - Follow up as needed
[2018-05-12 13:10] LABS: ABSOLUTE BASOPHILS # (AUTO) 0.1 10^3/uL (0.0-0.2); ABSOLUTE EOSINOPHILS # (AUTO) 0.3 10^3/uL (0.0-0.6); ABSOLUTE LYMPHOCYTES (AUTO) 1.7 10^3/uL (0.5-4.7); ABSOLUTE MONOCYTES (AUTO) 0.7 10^3/uL (0.1-1.4); ABSOLUTE NEUT (AUTO) 4.4 10^3/uL (1.7-8.2); BASOPHILS % (AUTO) 0.9 % (0-2); EOSINOPHILS % (AUTO) 3.6 % (0-6); HEMATOCRIT 42.1 % (36.0-47.0); LYMPHOCYTES % (AUTO) 23.9 % (13-45); MEAN CORPUSCULAR HEMOGLOBIN 31.1 pg (27.0-33.4); MEAN CORPUSCULAR HGB CONC 33.3 g/dL (32.0-36.0); MEAN CORPUSCULAR VOLUME 94 fl (80-97); MONOCYTES % (AUTO) 10.5 % (3-13); PLATELET COUNT 370 10^3/uL (150-450); RED CELL DISTRIBUTION WIDTH 14.5 % (11.5-14.0); SEGMENTED NEUTROPHILS % (AUTO) 61.1 % (42-78); TOTAL CELLS COUNTED % (AUTO) 100 %; WHITE BLOOD COUNT 7.1 10^3/uL (4.0-10.5)
--- NOTE | 2018-05-12 13:26 | RADIOLOGY REPORT (SQ) ---
EXAM DESCRIPTION: CHEST SINGLE VIEW COMPLETED DATE/TIME: 05/12/2018 1:17 pm REASON FOR STUDY: palpitations COMPARISON: 09/16/2017. NUMBER OF VIEWS: One view. TECHNIQUE: Single frontal radiographic view of the chest acquired. LIMITATIONS: None. FINDINGS: LUNGS AND PLEURA: No opacities, masses or pneumothorax. No pleural effusion. MEDIASTINUM AND HILAR STRUCTURES: No masses. Contour normal. HEART AND VASCULAR STRUCTURES: Heart enlarged without failure. Normal vasculature. BONES: No acute findings. HARDWARE: Vascular port. Surgical clips. OTHER: No other significant finding. IMPRESSION: HEART ENLARGED WITHOUT FAILURE. NO OTHER SIGNIFICANT RADIOGRAPHIC FINDING IN THE CHEST. TECHNICAL DOCUMENTATION: JOB ID: [id number] [employer]- All Rights Reserved Reading location - IP/workstation name: [email or web address]
[2018-05-12 13:29] LABS: ALANINE AMINOTRANSFERASE 36 U/L (9-52); ALBUMIN 3.5 g/dL (3.5-5.0); ALKALINE PHOSPHATASE 61 U/L (38-126); ANION GAP 6 (5-19); ASPARTATE AMINO TRANSFERASE 40 U/L (14-36); BILIRUBIN,DIRECT 0.3 mg/dL (0.0-0.4); BILIRUBIN,TOTAL 0.7 mg/dL (0.2-1.3); BLOOD UREA NITROGEN 14 mg/dL (7-20); CALCIUM 9.2 mg/dL (8.4-10.2); CARBON DIOXIDE 26 mmol/L (22-30); CHLORIDE 107 mmol/L (98-107); GLUCOSE 140 mg/dL (75-110); POTASSIUM 4.7 mmol/L (3.6-5.0); TOTAL PROTEIN 6.3 g/dL (6.3-8.2)
[2018-05-12 13:42] LABS: CREATINE KINASE MB < 0.22 ng/mL (<4.55); TROPONIN I < 0.012 ng/mL
[2018-05-12] MEDS ORDERED: DILTIAZEM HCL/D5W 125 MG/125 ML RTUINJ IV PRN ×2 (13:46→19:43)
[2018-05-12] MEDS ORDERED: DEXTROSE 5%-WATER 500 ML with AMIODARONE HCL 900 MG IV PRN ×2 (15:06)
[2018-05-12] MEDS ORDERED: AMIODARONE HCL INJ 150 MG/3 ML VIAL IV ONE (15:17)
[2018-05-12] MEDS ORDERED: LORAZEPAM 1 MG TABLET PO ONE (17:02)
[2018-05-12] MEDS ORDERED: METOPROLOL SUCCINATE 50 MG TAB.SR.24H PO ONE (17:05)
[2018-05-12 17:33] VITALS: BP 123/99
--- NOTE | 2018-05-12 20:39 | ER Document Report ---
Doctor's Note Notes: 05/12/18 20:38 Patient seen and examined, at time of transport, all questions answered, patient is stable for transport.
--- NOTE | 2018-05-12 23:44 | EKG REPORT ---
SEVERITY:- ABNORMAL ECG - ATRIAL FIBRILLATION BORDERLINE T ABNORMALITIES, DIFFUSE LEADS : Confirmed by: Edita Zendejas 12-May-2018 23:44:14
--- NOTE | 2018-05-12 23:44 | EKG REPORT ---
SEVERITY:- ABNORMAL ECG - ATRIAL FIBRILLATION, V-RATE 63-135 LVH BY VOLTAGE BORDERLINE T ABNORMALITIES, INFERIOR LEADS : Confirmed by: Edita Zendejas 12-May-2018 23:44:08
== END 2018-05-12 20:45 | disposition short-term general hospital (02) ==
LOC: ER 12:19
DX: I48.91 Unspecified atrial fibrillation (principal); R42 Dizziness and giddiness; E66.01 Morbid (severe) obesity due to excess calories; I10 Essential (primary) hypertension; I25.10 Atherosclerotic heart disease of native coronary artery without angina pectoris; E11.9 Type 2 diabetes mellitus without complications; J44.9 Chronic obstructive pulmonary disease, unspecified; F17.200 Nicotine dependence, unspecified, uncomplicated; Z85.41 Personal history of malignant neoplasm of cervix uteri; Z79.899 Other long term (current) drug therapy; Z91.048 Other nonmedicinal substance allergy status; Z88.1 Allergy status to other antibiotic agents; Z82.49 Family history of ischemic heart disease and other diseases of the circulatory system; Z85.3 Personal history of malignant neoplasm of breast; Z86.711 Personal history of pulmonary embolism; Z86.718 Personal history of other venous thrombosis and embolism
CPT/HCPCS: 93005; 36591; 96376; 99285; 96365; 96366; 96368; 36415; 82553; 82550; 85025; 80053; 84484; 71045; 93010; J3490 ×2; A9270 ×2; J7060; J0282

== ENCOUNTER 2018-09-19 23:42 | Emergency (ER) | payer MEDICARE, MEDICAID ==
[2018-09-20] MEDS ORDERED: NORMAL SALINE 1000 ML 1,000 ML IV ONE (00:32)
--- NOTE | 2018-09-20 00:35 | ER Document Report ---
ED Medical Screen (RME) - General Chief Complaint: Fever Stated Complaint: FEELIN SICK Time Seen by Provider: 09/20/18 00:32 Primary Care Provider: MAGNOLIA ADLER MD [Primary Care Provider] - Follow up as needed Notes: Patient is a morbidly obese 53-year-old female presents to the emergency department for weakness. Patient states she is had a fever for the last 3 days. Also complaining of URI symptoms bilateral lower rib pain only when she coughs. Patient also states she has had 8 episodes of non-bloody diarrhea today. Patient is denying any vomiting, dysuria, abdominal pain. GENERAL: Alert, interacts well. No acute distress. LUNGS: Clear to auscultation bilaterally, no wheezes, rales, or rhonchi. No respiratory distress. ABDOMEN: Soft, non-tender. Non-distended. Bowel sounds present in all 4 quadrants. Patient is afebrile, non-tachycardic, non-hypotensive upon triage vitals I have greeted and performed a rapid initial assessment of this patient. A comprehensive ED assessment and evaluation of the patient, analysis of test results and completion of the medical decision making process will be conducted by additional ED providers. TRAVEL OUTSIDE OF THE [place] IN LAST 30 DAYS: No - Related Data Allergies/Adverse Reactions: adhesive [Adhesive] Allergy (Mild, Verified 08/19/18 11:53) Generalized rash methicillin [Methicillin] Allergy (Mild, Verified 08/19/18 11:53) Generalized rash vancomycin [Vancomycin] Allergy (Mild, Verified 08/19/18 11:53) Generalized rash Past Medical History - Past Medical History Cardiac Medical History: Reports: Hx Atrial Fibrillation, Hx Congestive Heart Failure, Hx Coronary Artery Disease - HIGH CHOLESTEROL, Hx DVT, Hx Hyp ercholesterolemia, Hx Hypertension, Hx Pulmonary Embolism Denies: Hx Heart Attack Pulmonary Medical History: Reports: Hx Bronchitis, Hx COPD, Hx Pneumonia, Hx Intubation, Hx Respiratory Failure, Hx Sleep Apnea Denies: Hx Asthma, Hx Tuberculosis Neurological Medical History: Denies: Hx Cerebrovascular Accident, Hx Migraine, Hx Seizures Endocrine Medical History: Reports: Hx Diabetes Mellitus Type 2 Renal/ Medical History: Denies: Hx Peritoneal Dialysis Malignancy Medical History: Reports: Hx Breast Cancer, Hx Cervical Cancer GI Medical History: Reports: Hx Gastroesophageal Reflux Disease, Hx Hiatal Hernia, Hx Liver Failure - fatty liver Musculoskeltal Medical History: Reports Hx Arthritis - KNEES/BACK, Reports Hx Fibromyalgia Skin Medical History: Reports Hx Psoriasis Psychiatric Medical History: Reports: Hx Anxiety, Hx Bipolar Disorder, Hx Depression Past Surgical History: Reports: Hx Cardiac Surgery - Pace maker, Hx Cholecystectomy, Hx Hysterectomy, Hx Mastectomy, Hx Orthopedic Surgery, Hx Tubal Ligation, Hx Vascular Surgery - port, Other - IVC filter placement. Denies: Hx Pacemaker - Immunizations Immunizations up to date: Yes Hx Diphtheria, Pertussis, Tetanus Vaccination: Yes - 01/2014 History of Influenza Vaccine for 01/2017 - 06/2017 Season: Yes Influenza Administration Date for 01/2017 - 06/2017 Season: 11/21/16 Physical Exam - Vital signs Vitals: Temp Pulse Resp BP Pulse Ox 98.7 F 79 24 H 141/76 H 94 09/19/18 23:57 09/19/18 23:57 09/19/18 23:57 09/19/18 23:57 09/19/18 23:57 Course - Vital Signs Vital signs: Temp Pulse Resp BP Pulse Ox 98.7 F 79 24 H 141/76 H 94 09/19/18 23:57 09/19/18 23:57 09/19/18 23:57 09/19/18 23:57 09/19/18 23:57 Doctor's Discharge - Discharge Referrals: MAGNOLIA ADLER MD [Primary Care Provider] - Follow up as needed
--- NOTE | 2018-09-20 01:09 | RADIOLOGY REPORT (SQ) ---
EXAM DESCRIPTION: XR CHEST 2 VIEWS COMPLETED DATE/TME: 09/20/2018 00:32 CLINICAL HISTORY: 53 years, Female, rib pain cough COMPARISON: 05/12/2018 chest NUMBER OF VIEWS: 2 TECHNIQUE: 2 views of the chest LIMITATIONS: None FINDINGS: Heart size is stable. Left-sided pacing device. Central venous catheter in place. No pneumothorax. Lungs are clear. Osteopenia with accentuation of the normal thoracic kyphosis IMPRESSION: No acute cardiopulmonary process copyright 2010 [employer]- All Rights Reserved
[2018-09-20] MEDS ORDERED: ACETAMINOPHEN 325 MG TABLET PO ONE (02:48)
--- NOTE | 2018-09-20 02:57 | ER Document Report ---
ED General - General Chief Complaint: Fever Stated Complaint: FEELIN SICK Time Seen by Provider: 09/20/18 00:32 Primary Care Provider: MAGNOLIA ADLER MD [Primary Care Provider] - Follow up tomorrow Notes: 53-year-old female patient emergency department and not feeling well for the last several days. Has had increased cough, fever, chills, diarrhea and generally not feeling well. States that she was so weak she needed to come in tonight so had to call 911. Complaining of some tightness in her chest from coughing so much. TRAVEL OUTSIDE OF THE [place] IN LAST 30 DAYS: No - Related Data Allergies/Adverse Reactions: adhesive [Adhesive] Allergy (Mild, Verified 08/19/18 11:53) Generalized rash methicillin [Methicillin] Allergy (Mild, Verified 08/19/18 11:53) Generalized rash vancomycin [Vancomycin] Allergy (Mild, Verified 08/19/18 11:53) Generalized rash Past Medical History - General Information source: Patient, [facility] Records - Social History Smoking Status: Never Smoker Frequency of alcohol use: None Drug Abuse: None Lives with: Family Family History: Arthritis, CAD, DM, Hyperlipidemia, Hypertension, Malignancy Patient has suicidal ideation: No Patient has homicidal ideation: No - Past Medical History Cardiac Medical History: Reports: Hx Atrial Fibrillation, Hx Congestive Heart Failure, Hx Coronary Artery Disease - HIGH CHOLESTEROL, Hx DVT, Hx Hypercholesterolemia, Hx Hypertension, Hx Pulmonary Embolism Denies: Hx Heart Attack Pulmonary Medical History: Reports: Hx Bronchitis, Hx COPD, Hx Pneumonia, Hx Int ubation, Hx Respiratory Failure, Hx Sleep Apnea Denies: Hx Asthma, Hx Tuberculosis Neurological Medical History: Denies: Hx Cerebrovascular Accident, Hx Migraine, Hx Seizures Endocrine Medical History: Reports: Hx Diabetes Mellitus Type 2 Renal/ Medical History: Denies: Hx Peritoneal Dialysis Malignancy Medical History: Reports: Hx Breast Cancer, Hx Cervical Cancer GI Medical History: Reports: Hx Gastroesophageal Reflux Disease, Hx Hiatal Hernia, Hx Liver Failure - fatty liver Musculoskeletal Medical History: Reports Hx Arthritis - KNEES/BACK, Reports Hx Fibromyalgia Skin Medical History: Reports Hx Psoriasis Psychiatric Medical History: Reports: Hx Anxiety, Hx Bipolar Disorder, Hx Depres jose elias Past Surgical History: Reports: Hx Cardiac Surgery - Pace maker, Hx Ch olecystectomy, Hx Hysterectomy, Hx Mastectomy, Hx Orthopedic Surgery, Hx Tubal Ligation, Hx Vascular Surgery - port, Other - IVC filter placement. Denies: Hx Pacemaker - Immunizations Immunizations up to date: Yes Hx Diphtheria, Pertussis, Tetanus Vaccination: Yes - 01/2014 Hx Pneumococcal Vaccination: 04/23/15 Review of Systems - Review of Systems Notes: Constitutional: denies: Chills, Diaphoresis, +Fever, Malaise, Weakness EENT: denies: Eye discharge, Blurred vision, Tearing, Double vision, Nose congestion, Nose discharge, Throat swelling, Mouth pain Cardiovascular: denies: Palpitations, Heart racing, Orthopnea, Dyspnea, Chest pain Respiratory: Planing of cough, wheeze, shortness of breath Gastrointestinal: denies: Abdominal pain, Diarrhea, Nausea, Vomiting, Black stools, bright red blood in stool Genitourinary: denies: Burning, Dysuria, Discharge, Frequency, Flank pain, Hematuria Musculoskeletal: denies: Joint pain, Joint swelling, Muscle pain, Muscle stiffness, back pain Hematologic/Lymphatic: denies: Anemia, Easy bleeding, Easy bruising, + history of multiple blood clots Neurological/Psychological: denies: Confusion, Dementia, Depression, Loss of consciousness Skin: No lesions, no masses, no skin breakdown, no abscesses Physical Exam - Vital signs Vitals: Temp Pulse Resp BP Pulse Ox 98.7 F 79 24 H 141/76 H 94 09/19/18 23:57 09/19/18 23:57 09/19/18 23:57 09/19/18 23:57 09/19/18 23:57 Interpretation: Tachycardic, Tachypneic, Febrile - General General appearance: Appears well, Alert - HEENT Head: Normocephalic, Atraumatic Eyes: Normal Pupils: PERRL - Respiratory Respiratory status: No respiratory distress Chest status: Nontender Breath sounds: Nonproductive cough, Rhonchi - The left base Chest palpation: Normal - Cardiovascular Rhythm: Tachycardia Heart sounds: Normal auscultation Murmur: No - Abdominal Inspection: Normal Distension: No distension Bowel sounds: Normal Tenderness: Nontender Organomegaly: No organomegaly - Back Back: Normal, Nontender - Extremities General upper extremity: Normal inspection, Nontender, Normal color, Normal ROM, Normal temperature General lower extremity: Normal inspection, Nontender, Normal color, Normal ROM, Normal temperature, Normal weight bearing. No: Shaheen's sign - Neurological Neuro grossly intact: Yes Cognition: Normal Orientation: AAOx4 Cato Coma Scale Eye Opening: Spontaneous Karen Coma Scale Verbal: Oriented Cato Coma Scale Motor: Obeys Commands Cato Coma Scale Total: 15 Speech: Normal Motor strength normal: LUE, RUE, LLE, RLE Sensory: Normal - Psychological Associated symptoms: Normal affect, Normal mood - Skin Skin Temperature: Warm Skin Moisture: Dry Skin Color: Normal Course - Re-evaluation Re-evalutation: 09/20/18 04:43 course sounds on the left. Will treat empirically for pneumonia based cough, fever and adventitious breath sounds on the left even if the chest x-ray is unremarkable. Patient states that she is having some tightness and pain in the chest from coughing and is requesting something for that. 09/20/18 05:38 Laboratory 09/20/18 09/20/18 09/20/18 04:50 04:50 04:50 WBC 7.7 RBC 4.11 Hgb 12.6 Hct 37.9 MCV 92 MCH 30.7 MCHC 33.2 RDW 15.0 H Plt Count 269 Seg Neutrophils % 61.1 Lymphocytes % 24.4 Monocytes % 11.1 Eosinophils % 1.9 Basophils % 1.5 Absolute Neutrophils 4.7 Absolute Lymphocytes 1.9 Absolute Monocytes 0.9 Absolute Eosinophils 0.1 Absolute Basophils 0.1 PT INR APTT Sodium 139.9 Potassium 3.9 Chloride 109 H Carbon Dioxide 21 L Anion Gap 10 BUN 12 Creatinine 0.83 Est GFR ( Amer) > 60 Est GFR (Non-Af Amer) > 60 Glucose 100 Lactic Acid 1.3 Calcium 9.2 Total Bilirubin 0.6 Direct Bilirubin 0.3 Neonat Total Bilirubin Not Reportable Neonat Direct Bilirubin Not Reportable Neonat Indirect Bili Not Reportable AST 31 ALT 33 Alkaline Phosphatase 83 Troponin I Total Protein 6.2 L Albumin 3.5 Urine Color Urine Appearance Urine pH Ur Specific Bowdle Urine Protein Urine Glucose (UA) Urine Ketones Urine Blood Urine Nitrite Urine Bilirubin Urine Urobilinogen Ur Leukocyte Esterase Urine WBC (Auto) Urine RBC (Auto) Urine Bacteria (Auto) Squamous Epi Cells Auto Urine Mucus (Auto) Urine Ascorbic Acid 09/20/18 09/20/18 09/20/18 04:50 04:50 05:23 WBC RBC Hgb Hct MCV MCH MCHC RDW Plt Count Seg Neutrophils % Lymphocytes % Monocytes % Eosinophils % Basophils % Absolute Neutrophils Absolute Lymphocytes Absolute Monocytes Absolute Eosinophils Absolute Basophils PT 13.5 INR 0.98 APTT 30.8 Sodium Potassium Chloride Carbon Dioxide Anion Gap BUN Creatinine Est GFR ( Amer) Est GFR (Non-Af Amer) Glucose Lactic Acid Calcium Total Bilirubin Direct Bilirubin Neonat Total Bilirubin Neonat Direct Bilirubin Neonat Indirect Bili AST ALT Alkaline Phosphatase Troponin I < 0.012 Total Protein Albumin Urine Color YELLOW Urine Appearance SLIGHTLY-CLOUDY Urine pH 5.0 Ur Specific Bowdle 1.020 Urine Protein NEGATIVE Urine Glucose (UA) NEGATIVE Urine Ketones NEGATIVE Urine Blood SMALL H Urine Nitrite NEGATIVE Urine Bilirubin NEGATIVE Urine Urobilinogen NEGATIVE Ur Leukocyte Esterase TRACE H Urine WBC (Auto) 7 Urine RBC (Auto) 1 Urine Bacteria (Auto) 1+ Squamous Epi Cells Auto 2 Urine Mucus (Auto) RARE Urine Ascorbic Acid NEGATIVE Chest X-Ray 09/20/18 00:32 IMPRESSION: No acute cardiopulmonary process copyright 2010 [employer]- All Rights Reserved 09/20/18 05:38 Patient is non-toxic appearing. Blood pressure is good. Does not appear septic. Her lactate is within normal limits. I am starting her on some IV antibiotics. More likely she does have a pneumonia. She will need breathing treatments and antibiotics. Anticipate patient will be stable for outpatient treatment at this time. Patient does have a history of blood clots however she is not hypoxic or tachycardic and she is on anticoagulation therapy at this time as well. Patient knows that if her symptoms are getting worse she should retu rn. Will discharge after IV antibiotic are complete and will continue on same medication as an outpatient. 09/20/18 05:39 - Vital Signs Vital signs: Temp Pulse Resp BP Pulse Ox 100.1 F 79 20 154/66 H 95 09/20/18 02:42 09/20/18 02:42 09/20/18 02:42 09/20/18 02:42 09/20/18 02:42 - Laboratory Result Diagrams: 09/20/18 04:50 09/20/18 04:50 Laboratory results interpreted by me: 09/20/18 09/20/18 09/20/18 04:50 04:50 05:23 RDW 15.0 H Chloride 109 H Carbon Dioxide 21 L Total Protein 6.2 L Urine Blood SMALL H Ur Leukocyte Esterase TRACE H - EKG Interpretation by Me Additional EKG results interpreted by me: 09/20/18 05:37 Patient has a paced ventricular rhythm. Rate of 80. No significant change from prior. Atrial fibrillation Discharge - Discharge Clinical Impression: Left lower lobe pneumonia Qualifiers: Pneumonia type: due to unspecified organism Qualified Code(s): J18.1 - Lobar pneumonia, unspecified organism Condition: Good Disposition: HOME, SELF-CARE Instructions: Acetaminophen, Fever ([facility]), Pneumonia ([facility]) Additional Instructions: Based on your physical exam today it is possible that you have pneumonia. We are going to treat you with antibiotics. It is very important that you take all of your medications as prescribed. It is also very important that you follow- up with your primary care doctor for repeat exam in 1 to 2 days. In the event that your symptoms are getting worse, you begin to have significant shortness of breath, you have altered mental status, worsening symptoms then you should return immediately. Prescriptions: Albuterol Sulfate [Proair HFA Inhalation Aerosol 8.5 gm MDI] 2 puff IH Q4H PRN #1 mdi PRN Reason: Azithromycin [Zithromax 250 mg Tablet] 250 mg PO DAILY 6 Days #6 tablet Referrals: MAGNOLIA ADLER MD [Primary Care Provider] - 09/20/18 11:00 am
[2018-09-20] MEDS ORDERED: IPRATROPIUM/ALBUTEROL 0.5-2.5 MG/3 ML AMPUL NEB ONE (03:05)
[2018-09-20] MEDS ORDERED: AZITHROMYCIN INJ 500 MG VIAL IV ONE ×2 (03:24→06:04)
[2018-09-20] MEDS ORDERED: HYDROCODONE/ACETAMINOPHEN 5-325 MG TABLET PO ONE (04:44)
[2018-09-20 05:06] LABS: ABSOLUTE BASOPHILS # (AUTO) 0.1 10^3/uL (0.0-0.2); ABSOLUTE EOSINOPHILS # (AUTO) 0.1 10^3/uL (0.0-0.6); ABSOLUTE LYMPHOCYTES (AUTO) 1.9 10^3/uL (0.5-4.7); ABSOLUTE MONOCYTES (AUTO) 0.9 10^3/uL (0.1-1.4); ABSOLUTE NEUT (AUTO) 4.7 10^3/uL (1.7-8.2); BASOPHILS % (AUTO) 1.5 % (0-2); EOSINOPHILS % (AUTO) 1.9 % (0-6); HEMATOCRIT 37.9 % (36.0-47.0); HEMOGLOBIN 12.6 g/dL (12.0-15.5); LYMPHOCYTES % (AUTO) 24.4 % (13-45); MEAN CORPUSCULAR HEMOGLOBIN 30.7 pg (27.0-33.4); MEAN CORPUSCULAR HGB CONC 33.2 g/dL (32.0-36.0); MEAN CORPUSCULAR VOLUME 92 fl (80-97); MONOCYTES % (AUTO) 11.1 % (3-13); PLATELET COUNT 269 10^3/uL (150-450); RED BLOOD COUNT 4.11 10^6/uL (3.72-5.28); SEGMENTED NEUTROPHILS % (AUTO) 61.1 % (42-78); TOTAL CELLS COUNTED % (AUTO) 100 %; WHITE BLOOD COUNT 7.7 10^3/uL (4.0-10.5)
[2018-09-20 05:17] LABS: INTERNATIONAL RATION (INR) 0.98; PROTHROMBIN TIME 13.5 SEC (11.4-15.4)
[2018-09-20 05:18] LABS: PARTIAL THROMBOPLASTIN TIME 30.8 SEC (23.5-35.8)
[2018-09-20 05:25] LABS: ALANINE AMINOTRANSFERASE 33 U/L (9-52); ALBUMIN 3.5 g/dL (3.5-5.0); ALKALINE PHOSPHATASE 83 U/L (38-126); ANION GAP 10 (5-19); ASPARTATE AMINO TRANSFERASE 31 U/L (14-36); BILIRUBIN,DIRECT 0.3 mg/dL (0.0-0.4); BILIRUBIN,TOTAL 0.6 mg/dL (0.2-1.3); BLOOD UREA NITROGEN 12 mg/dL (7-20); CALCIUM 9.2 mg/dL (8.4-10.2); CARBON DIOXIDE 21 mmol/L (22-30); CHLORIDE 109 mmol/L (98-107); GLUCOSE 100 mg/dL (75-110); POTASSIUM 3.9 mmol/L (3.6-5.0); SODIUM 139.9 mmol/L (137-145); TOTAL PROTEIN 6.2 g/dL (6.3-8.2)
[2018-09-20 05:35] LABS: APPEARANCE,URINE SLIGHTLY-CLOUDY; BILIRUBIN,URINE NEGATIVE (NEGATIVE); COLOR,URINE YELLOW; GLUCOSE, URINE NEGATIVE (NEGATIVE); KETONES,URINE NEGATIVE (NEGATIVE); LEUKOCYTE ESTERASE,URINE TRACE (NEGATIVE); NITRITE,URINE NEGATIVE (NEGATIVE); PROTEIN,URINE NEGATIVE (NEGATIVE); UROBILINOGEN,URINE NEGATIVE mg/dL (<2.0)
[2018-09-20 07:37] VITALS: BP 116/72
--- NOTE | 2018-09-20 19:25 | EKG REPORT ---
SEVERITY:- ABNORMAL ECG - AFIB/FLUTTER AND VENTRICULAR-PACED RHYTHM : Confirmed by: Meagan Tse MD 20-Sep-2018 19:24:43
== END 2018-09-20 07:37 | disposition home or self-care (01) ==
LOC: ER 23:42
DX: J18.1 Lobar pneumonia, unspecified organism (principal); R50.9 Fever, unspecified; R19.7 Diarrhea, unspecified; Z88.3 Allergy status to other anti-infective agents
CPT/HCPCS: 93005; 94640; 99284; 96361; 96365; 36415; 87040; 87086; 85025; 85610; 85730; 87088; 80053; 81001; 84484; 87186; 83605; 71046; 93010; A9270 ×3; J7030; J0456; J7620

== ENCOUNTER 2018-09-21 12:22 | Emergency (ER) | payer MEDICARE, MEDICAID ==
[2018-09-21] MEDS ORDERED: IPRATROPIUM/ALBUTEROL 0.5-2.5 MG/3 ML AMPUL NEB ONE (12:45)
--- NOTE | 2018-09-21 12:47 | ER Document Report ---
ED Medical Screen (RME) - General Chief Complaint: Shortness Of Breath Stated Complaint: COUGH Time Seen by Provider: 09/21/18 12:38 Primary Care Provider: MAGNOLIA ADLER MD [Primary Care Provider] - Follow up as needed Mode of Arrival: Wheelchair Information source: Patient Notes: Patient presents complaining of cough for the past 5 days. Patient was here 2 days ago and diagnosed with pneumonia and placed on azithromycin. Patient reports persistent fever shortness of breath and rib pain with coughing. Patient states she does feel faint. hx: DVT, PE, asthma, COPD, CHF, diabetes, breast and cervical cancer, pacemaker I have greeted and performed a rapid initial assessment of this patient. A comprehensive ED assessment and evaluation of the patient, analysis of test results and completion of the medical decision making process will be conducted by additional ED providers. TRAVEL OUTSIDE OF THE [place] IN LAST 30 DAYS: No - Related Data Allergies/Adverse Reactions: adhesive [Adhesive] Allergy (Mild, Verified 08/19/18 11:53) Generalized rash methicillin [Methicillin] Allergy (Mild, Verified 08/19/18 11:53) Generalized rash vancomycin [Vancomycin] Allergy (Mild, Verified 08/19/18 11:53) Generalized rash Past Medical History - Past Medical History Cardiac Medical History: Reports: Hx Atrial Fibrillation, Hx Congestive Heart Failure, Hx Coronary Artery Disease - HIGH CHOLESTEROL, Hx DVT, Hx Hypercholesterolemia, Hx Hypertension, Hx Pulmonary Embolism Denies: Hx Heart Attack Pulmonary Medical History: Reports: Hx Bronchitis, Hx COPD, Hx Pneumonia, Hx Intubation, Hx Respiratory Failure, Hx Sleep Apnea Denies: Hx Asthma, Hx Tuberculosis Neurological Medical History: Denies: Hx Cerebrovascular Accident, Hx Migraine, Hx Seizures Endocrine Medical History: Reports: Hx Diabetes Mellitus Type 2 Renal/ Medical History: Denies: Hx Peritoneal Dialysis Malignancy Medical History: Reports: Hx Breast Cancer, Hx Cervical Cancer GI Medical History: Reports: Hx Gastroesophageal Reflux Disease, Hx Hiatal Hernia, Hx Liver Failure - fatty liver Musculoskeltal Medical History: Reports Hx Arthritis - KNEES/BACK, Reports Hx Fibromyalgia Skin Medical History: Reports Hx Psoriasis Psychiatric Medical History: Reports: Hx Anxiety, Hx Bipolar Disorder, Hx Depression Past Surgical History: Reports: Hx Cardiac Surgery - Pace maker, Hx Cholecystectomy, Hx Hysterectomy, Hx Mastectomy, Hx Orthopedic Surgery, Hx Tubal Ligation, Hx Vascular Surgery - port, Other - IVC filter placement. Denies: Hx Pacemaker - Immunizations Immunizations up to date: Yes Hx Diphtheria, Pertussis, Tetanus Vaccination: Yes - 01/2014 History of Influenza Vaccine for 01/2017 - 06/2017 Season: Yes Influenza Administration Date for 01/2017 - 06/2017 Season: 11/21/16 Physical Exam - Vital signs Vitals: Temp Pulse BP Pulse Ox 98.7 F 78 117/71 95 09/21/18 12:40 09/21/18 12:40 09/21/18 12:40 09/21/18 12:40 - Respiratory Chest status: Pain with cough, Pain with deep breathing Breath sounds: Nonproductive cough, Rhonchi, Wheezing Course - Vital Signs Vital signs: Temp Pulse Resp BP Pulse Ox 98.7 F 78 117/71 95 09/21/18 12:40 09/21/18 12:40 09/21/18 12:40 09/21/18 12:40 Doctor's Discharge - Discharge Referrals: MAGNOLIA ADLER MD [Primary Care Provider] - Follow up as needed
--- NOTE | 2018-09-21 13:39 | RADIOLOGY REPORT (SQ) ---
EXAM DESCRIPTION: CHEST 2 VIEWS COMPLETED DATE/TIME: 09/21/2018 1:30 pm REASON FOR STUDY: cough, sob COMPARISON: 119 and earlier EXAM PARAMETERS: NUMBER OF VIEWS: two views TECHNIQUE: Digital Frontal and Lateral radiographic views of the chest acquired. RADIATION DOSE: NA LIMITATIONS: none FINDINGS: LUNGS AND PLEURA: No opacities, masses or pneumothorax. No pleural effusion. MEDIASTINUM AND HILAR STRUCTURES: No masses or contour abnormalities. HEART AND VASCULAR STRUCTURES: Heart normal size. No evidence for failure. BONES: No acute findings. HARDWARE: Unchanged positioning of the right-sided chest port. Unchanged positioning of the triple l ead left-sided cardiac pacing device and left-sided loop recorder. Metallic clips project over the s oft tissues of the left hemithorax. OTHER: No other significant finding. IMPRESSION: NO ACUTE RADIOGRAPHIC FINDING IN THE CHEST. TECHNICAL DOCUMENTATION: JOB ID: [id number] [employer]- All Rights Reserved Reading location - IP/workstation name: [email or web address]
[2018-09-21 14:46] LABS: INTERNATIONAL RATION (INR) 0.98; PROTHROMBIN TIME 13.5 SEC (11.4-15.4)
[2018-09-21 14:51] LABS: HEMATOCRIT 38.9 % (36.0-47.0); HEMOGLOBIN 12.8 g/dL (12.0-15.5); MEAN CORPUSCULAR HEMOGLOBIN 30.6 pg (27.0-33.4); MEAN CORPUSCULAR VOLUME 93 fl (80-97); PLATELET COUNT 238 10^3/uL (150-450); RED BLOOD COUNT 4.19 10^6/uL (3.72-5.28); RED CELL DISTRIBUTION WIDTH 15.3 % (11.5-14.0); WHITE BLOOD COUNT 5.1 10^3/uL (4.0-10.5)
[2018-09-21 14:59] LABS: ALANINE AMINOTRANSFERASE 40 U/L (9-52); ALBUMIN 3.5 g/dL (3.5-5.0); ALKALINE PHOSPHATASE 88 U/L (38-126); ANION GAP 10 (5-19); ASPARTATE AMINO TRANSFERASE 42 U/L (14-36); BILIRUBIN,DIRECT 0.2 mg/dL (0.0-0.4); BILIRUBIN,TOTAL 0.5 mg/dL (0.2-1.3); BLOOD UREA NITROGEN 11 mg/dL (7-20); CARBON DIOXIDE 21 mmol/L (22-30); CHLORIDE 110 mmol/L (98-107); GLUCOSE 109 mg/dL (75-110); POTASSIUM 4.7 mmol/L (3.6-5.0); SODIUM 140.5 mmol/L (137-145); TOTAL PROTEIN 6.5 g/dL (6.3-8.2)
[2018-09-21] MEDS ORDERED: ACETAMINOPHEN 325 MG TABLET PO ONE (15:08)
[2018-09-21 15:36] LABS: ABSOLUTE LYMPHOCYTES# (MANUAL) 1.6 10^3/uL (0.5-4.7); ABSOLUTE MONOCYTES # (MANUAL) 0.3 10^3/uL (0.1-1.4); ABSOLUTE NEUTROPHILS# (MANUAL) 3.2 10^3/uL (1.7-8.2); BASOPHILS % (MANUAL) 1 % (0-2); EOSINOPHILS % (MANUAL) 0 % (0-6); LYMPHOCYTES % (MANUAL) 31 % (13-45); MONOCYTES % (MANUAL) 6 % (3-13); SEGMENTED NEUTROPHILS % (MAN) 62 % (42-78); TOTAL CELLS COUNTED 100
[2018-09-21 15:37] LABS: ANISOCYTOSIS SLIGHT; PLATELET COMMENT ADEQUATE
--- NOTE | 2018-09-21 16:15 | ER Document Report ---
ED General - General Chief Complaint: Shortness Of Breath Stated Complaint: SHORTNESS OF BREATH Time Seen by Provider: 09/21/18 12:38 Primary Care Provider: MAGNOLIA ADLER MD [Primary Care Provider] - Follow up in 3-5 days Mode of Arrival: Wheelchair Notes: Patient says she continues to have cough and congestion that started with an upper respiratory illness on Sunday. She has had a cough productive of green phlegm, no blood. She had some diarrhea a couple of days ago and has been naus eated but not vomiting. She was seen here just last night and diagnosed with pneumonia and given an infusion of IV fluids and medications and sent home on Zithromax. She says that she is experiencing dizziness today. No loss of consciousness and no unilateral loss of function of any part of her body. She has a history of COPD. Says she is running fevers up to 103 yesterday. Patient has had breast cancer and had a double mastectomy. NIDDM. Hypertension, high cholesterol, and atrial fibrillation. Patient has had 7 blood clots in the past, 3 of her leg, 3 of her lung, and one in her arm. However, her most recent blood clot is 7 years ago. She is on Xarelto. Patient also has pacemaker. She has atrial fibrillation. TRAVEL OUTSIDE OF THE [place] IN LAST 30 DAYS: No - Related Data Allergies/Adverse Reactions: adhesive [Adhesive] Allergy (Mild, Verified 08/19/18 11:53) Generalized rash methicillin [Methicillin] Allergy (Mild, Verified 08/19/18 11:53) Generalized rash vancomycin [Vancomycin] Allergy (Mild, Verified 08/19/18 11:53) Generalized rash Past Medical History - General Information source: Patient - Social History Smoking Status: Never Smoker Frequency of alcohol use: None Drug Abuse: None Family History: Arthritis, CAD, DM, Hyperlipidemia, Hypertension, Malignancy Patient has suicidal ideation: No Patient has homicidal ideation: No - Past Medical History Cardiac Medical History: Reports: Hx Atrial Fibrillation, Hx Congestive Heart Failure, Hx Coronary Artery Disease - HIGH CHOLESTEROL, Hx DVT, Hx Hypercholesterolemia, Hx Hypertension, Hx Pulmonary Embolism Pulmonary Medical History: Reports: Hx Bronchitis, Hx COPD, Hx Pneumonia, Hx Intubation, Hx Respiratory Failure, Hx Sleep Apnea Endocrine Medical History: Reports: Hx Diabetes Mellitus Type 2 Malignancy Medical History: Reports: Hx Breast Cancer, Hx Cervical Cancer GI Medical History: Reports: Hx Gastroesophageal Reflux Disease, Hx Hiatal Hernia, Hx Liver Failure - fatty liver Musculoskeletal Medical History: Reports Hx Arthritis - KNEES/BACK, Reports Hx Fibromyalgia Skin Medical History: Reports Hx Psoriasis Psychiatric Medical History: Reports: Hx Anxiety, Hx Bipolar Disorder, Hx Depression Past Surgical History: Reports: Hx Cardiac Surgery - Pace maker, Hx Cholecystectomy, Hx Hysterectomy, Hx Mastectomy, Hx Orthopedic Surgery, Hx Pacemaker, Hx Tubal Ligation, Hx Vascular Surgery - port, Other - IVC filter placement - Immunizations Immunizations up to date: Yes Hx Diphtheria, Pertussis, Tetanus Vaccination: Yes - 01/2014 Hx Pneumococcal Vaccination: 04/23/15 Review of Systems - Review of Systems Notes: REVIEW OF SYSTEMS: CONSTITUTIONAL : Denies fever. EENT: Denies eye, ear, nose or mouth or throat pain or other symptoms. CARDIOVASCULAR: Denies chest pain except for lower left lateral rib region which hurts mostly when she coughs. RESPIRATORY: See HPI. GASTROINTESTINAL: Denies abdominal pain and no vomiting but is nauseated and has had some diarrhea. GENITOURINARY: Denies difficulty or painful urinating, urinary frequency, blood in urine. MUSCULOSKELETAL: Denies back or neck pain. Denies joint pain or swelling. SKIN: Denies rash or skin lesions. NEUROLOGICAL: Denies LOC or altered mental status. Denies sensory loss or motor deficits. ALL OTHER SYSTEMS REVIEWED AND NEGATIVE. Physical Exam - Vital signs Vitals: Temp Pulse BP Pulse Ox 98.7 F 78 117/71 95 09/21/18 12:40 09/21/18 12:40 09/21/18 12:40 09/21/18 12:40 Interpretation: Normal Notes: PHYSICAL EXAMINATION: GENERAL: Well-appearing, in no acute distress. Weight 150 kg. HEAD: Atraumatic, normocephalic. EYES: Pupils equal round and reactive to light, extraocular movements intact. ENT: oropharynx clear without exudates. Moist mucous membranes. NECK: Normal range of motion, supple. LUNGS: Breath sounds clear and equal bilaterally. Some tenderness to pushing palpate along the lower lateral left rib region. No subcutaneous air felt. HEART: Regular rate and rhythm without murmurs. ABDOMEN: Soft, nontender. No guarding or rebound. No masses. BACK: No tenderness throughout entire back. EXTREMITIES: Normal range of motion without pain. Negative Homans bilaterally. NEUROLOGICAL: Normal speech, normal gait. Normal sensory, motor, and reflex exams. Awake, alert, and oriented x3. Cranial nerves normal. PSYCH: Normal mood, normal affect. SKIN: Warm, dry, no rashes. Course - Re-evaluation Re-evalutation: 09/21/18 16:27 Patient's labs are all essentially normal and essentially the same as they were when she was here just 1 day ago. EKG shows a paced rhythm. Chest x-ray shows no acute processes. Advised the patient I have no explanation for her dizziness unless it is possibly a side effect of the Zithromax that she was prescribed. I recommend she continue taking that medication until it is finished. Drink plenty fluids. Return for recheck if new or worsening symptoms. 09/21/18 18:53 I discussed the merits of trying to do another CT scan on this patient to look for blood clots and I pointed out that her heart rate is 80, her O2 sat is in the upper 90s on room air, she does not have symptoms that make me think of a pulmonary embolus. And, the patient is already on Xarelto and should be adequately anticoagulated so the value of knowing whether there may be another pulmonary embolus or not his mitigated as she is currently being appropriately treated for same. - Vital Signs Vital signs: Temp Pulse Resp BP Pulse Ox 99.5 F 78 6 L 137/79 H 91 L 09/21/18 16:01 09/21/18 12:40 09/21/18 15:54 09/21/18 16:01 09/21/18 16:01 - Laboratory Result Diagrams: 09/21/18 14:25 09/21/18 14:25 Laboratory results interpreted by me: 09/21/18 09/21/18 14:25 14:25 RDW 15.3 H Chloride 110 H Carbon Dioxide 21 L AST 42 H - EKG Interpretation by Me Additional EKG results interpreted by me: 09/21/18 16:14 EKG shows atrial flutter and fibrillation with ventricular paced rhythm. No acute changes or STEMI. Discharge - Discharge Clinical Impression: Dizziness, Medication side effect, URI (upper respiratory infection) Disposition: HOME, SELF-CARE Additional Instructions: DIZZINESS: Under normal circumstances, your sense of balance is controlled by a number of signals that your brain receives from several locations: Eyes. No matter what your position, visual signals help you determine where your body is in space and how it's moving. Sensory nerves. These are in your skin, muscles and joints. Sensory nerves send messages to your brain about body movements and positions. Inner ear. The organ of balance in your inner ear is the vestibular labyrinth. It includes loop-shaped structures (semicircular canals) that contain fluid and fine, hair-like sensors that monitor the rotation of your head. Near the semicircular canals are the utricle and saccule, which contain tiny particles called otoconia ([id number]). These particles are attached to sensors that help detect gravity and [id number] motion. Good balance depends on at least two of these three sensory systems working well. For instance, closing your eyes while washing your hair in the shower doesn't mean you'll lose your balance. Signals from your inner ear and sensory nerves help keep you upright. However, if your central nervous system can't process signals from all of these locations, if the messages are contradictory, or if the sensory systems aren't functioning properly, you may experience loss of balance. Dizziness may have a number of potential causes. These may include: Vertigo Vertigo - the false sense of motion or spinning - is the most common symptom of dizziness. Sitting up or moving around may make it worse. Sometimes vertigo is severe enough to cause nausea and vomiting. Vertigo usually results from a problem with the nerves and the structures of the balance mechanism in your inner ear (vestibular system), which sense movement and changes in your head position. Abnormal rhythmic eye movements (nystagmus) almost always accompany vertigo. Causes of vertigo may include: Benign paroxysmal positional vertigo (BPPV). BPPV involves intense, brief episodes of vertigo associated with a change in the position of your head, often when you turn over in bed or sit up in the morning. It occurs when normal calcium carbonate crystals (otoconia) break loose and fall into the wrong part of the canals in your inner ear. When these particles shift, they stimulate sensors in your ear, producing an episode of vertigo. Doctors don't know what causes BPPV, but it may be a natural result of aging. Trauma to your head also may lead to BPPV. Inflammation in the inner ear. Signs and symptoms of inflammation of the inner ear (acute vestibular neuronitis or labyrinthitis) include sudden, intense vertigo that may persist for several days, with nausea and vomiting. It can be incapacitating, requiring bed rest to minimize the signs and symptoms. Fortunately, vestibular neuronitis generally subsides and clears up on its own. Recovery time may be shorter with vestibular rehabilitation exercises. Although the cause of this condition is unknown, it may be a viral infection. Meniere's disease. This disease involves the excessive buildup of fluid in your inner ear. It may affect adults at any age and is characterized by sudden episodes of vertigo lasting 30 minutes to an hour or longer. Other signs and symptoms include the feeling of fullness in your ear, buzzing or ringing in your ear (tinnitus), and fluctuating hearing loss. The cause of Meniere's disease is unknown. Vestibular migraine. People who experience a vestibular migraine are very sensitive to motion. Dizziness and vertigo caused by a vestibular migraine may be triggered by turning your head quickly, being in a crowded or confusing place, driving or riding in a vehicle, or even watching movement on TV. A vestibular migraine may cause feelings of imbalance or unsteadiness, hearing loss, "muffled" hearing, or ringing in your ears (tinnitus). For most people with a vestibular migraine, vertigo doesn't necessarily happen at the same time as the headache. Instead, typical migraine triggers may lead to vertigo without an actual migraine. Attacks of migrainous vertigo can last from a few minutes to several days. Acoustic neuroma. An acoustic neuroma (schwannoma) is a noncancerous (benign) growth on the acoustic nerve, which connects the inner ear to your brain. Signs and symptoms of an acoustic neuroma may include dizziness, loss of balance, hearing loss and tinnitus. Rapid changes in motion. Riding on roller coasters or in boats, cars or even airplanes may on occasion make you dizzy. Other causes. Rarely, vertigo can be a symptom of a more serious neurological problem such as a stroke, brain hemorrhage or multiple sclerosis. Feeling of faintness (presyncope) "Presyncope" is the medical term for feeling faint and lightheaded without losing consciousness. Sometimes nausea, pale skin and a sense of dizziness accompany a feeling of faintness. Causes of presyncope include: Drop in blood pressure (orthostatic hypotension). A dramatic drop in your systolic blood pressure - the higher number in your blood pressure reading - may result in lightheadedness or a feeling of faintness. It can occur after sitting up or standing too quickly. Inadequate output of blood from the heart. Conditions such as partially blocked arteries (atherosclerosis), disease of the heart muscle (card iomyopathy), abnormal heart rhythm (arrhythmia) or a decrease in blood volume may cause inadequate blood flow from your heart. Loss of balance (disequilibrium) Disequilibrium is the loss of balance or the feeling of unsteadiness when you walk. Causes may include: Inner ear (vestibular) problems. Abnormalities with your inner ear can cause you to feel like you are floating, have a heavy head or are unsteady in the dark. Sensory disorders. Failing vision and nerve damage in your legs (peripheral neuropathy) are common in older adultsand may result in difficulty maintaining your balance. Joint and muscle problems. Muscle weakness and osteoarthritis - the type of arthritis that involves wear and tear of your joints - can contribute to loss of balance when it involves your weight-bearing joints. Medications. Loss of balance can be a side effect of certain medications, such as anti-seizure drugs, sedatives and tranquilizers. Lightheadedness and other kinds of dizziness Feeling lightheaded is the feeling of being "spaced out" or having the sensation of spinning inside your head. It can also give you the sensation that if your lightheadedness worsens, you might lose consciousness. Causes may include: Inner ear disorders. These abnormalities of your inner ear can lead to illusions of motion and make you feel like you're floating. Anxiety disorders. Certain anxiety disorders, such as panic attacks and a fear of leaving home or being in large, open spaces (agoraphobia), may cause lightheadedness. Hyperventilation. Abnormally rapid breathing that often accompanies anxiety disorders may make you feel lightheaded. NORMAL EXAM AND WORKUP: At this time, your examination and workup show no significant abnormality. No significant abnormal physical findings were noted. All laboratory, EKG, and imaging (x-ray, CT scans, ultrasound) studies that were ordered show no significant abnormality. Although your examination and all studies that were ordered showed no significant abnormal finding, there are no examinations and no studies that are 100% accurate. There is always the possibility that some abnormality could exist and not be detected with physical examination or within the limits and capabilities of laboratory and other studies. You should return or follow up as you were instructed on your visit today for further evaluation if your symptoms do not resolve. Continue taking your current medications. Its possible that you are having some side effects from the antibiotic that you are prescribed which is known to cause some dizziness occasionally. I would try to finish that medication if you can. Return for further reevaluation if you start running a fever or having new or worsening symptoms of any sort. Medication Side Effects Your unpleasant symptoms may be due to a drug you're taking. These symptoms are a common side effect of the medicine. It's not a true allergy. We stop any unnecessary drugs when bothersome side effects occur. Sometimes we'll substitute a different type of drug. In other cases, we must continue the drug. If so, we try to find a way to decrease the side effects. Many side effects decrease with time. Call us if the symptoms don't go away. FOLLOW-UP CARE: If you have been referred to a physician for follow-up care, call the physicians office for an appointment as you were instructed or within the next two days. If you experience worsening or a significant change in your symptoms, notify the physician immediately or return to the Emergency Department at any time for re-evaluation. Referrals: MAGNOLIA ADLER MD [Primary Care Provider] - Follow up in 3-5 days
[2018-09-21 16:43] VITALS: BP 137/79
--- NOTE | 2018-09-21 23:41 | EKG REPORT ---
SEVERITY:- ABNORMAL ECG - AFIB/FLUTTER AND VENTRICULAR-PACED RHYTHM : Confirmed by: Meagan Tse MD 21-Sep-2018 23:41:18
== END 2018-09-21 16:43 | disposition home or self-care (01) ==
LOC: ER 12:22
DX: R06.02 Shortness of breath (principal); R42 Dizziness and giddiness; T36.3X5A Adverse effect of macrolides, initial encounter; X58.XXXA Exposure to other specified factors, initial encounter; J06.9 Acute upper respiratory infection, unspecified; I48.91 Unspecified atrial fibrillation; I11.0 Hypertensive heart disease with heart failure; I50.9 Heart failure, unspecified; E78.00 Pure hypercholesterolemia, unspecified; Z86.718 Personal history of other venous thrombosis and embolism; J44.9 Chronic obstructive pulmonary disease, unspecified; E11.9 Type 2 diabetes mellitus without complications; Z90.49 Acquired absence of other specified parts of digestive tract; Z90.710 Acquired absence of both cervix and uterus; Z95.0 Presence of cardiac pacemaker; Z88.0 Allergy status to penicillin; Z88.3 Allergy status to other anti-infective agents
CPT/HCPCS: 93005; 94640; 99284; 36415; 85025; 85610; 85730; 80053; 71046; 93010; A9270 ×2; J7620

== ENCOUNTER → 2018-09-27 | Outpatient (CLI) | payer MEDICARE, MEDICAID ==
--- NOTE | 2018-09-27 13:23 | RADIOLOGY REPORT (SQ) ---
EXAM DESCRIPTION: CHEST PA/LATERAL COMPLETED DATE/TIME: 09/27/2018 1:03 pm REASON FOR STUDY: COUGH COMPARISON: None. EXAM PARAMETERS: NUMBER OF VIEWS: two views TECHNIQUE: Digital Frontal and Lateral radiographic views of the chest acquired. RADIATION DOSE: NA LIMITATIONS: none FINDINGS: LUNGS AND PLEURA: No opacities, masses or pneumothorax. No pleural effusion. MEDIASTINUM AND HILAR STRUCTURES: No masses or contour abnormalities. HEART AND VASCULAR STRUCTURES: Heart size is borderline. No pulmonary edema. BONES: No acute findings. HARDWARE: Pacemaker. Injection port on the right. OTHER: No other significant finding. IMPRESSION: NO SIGNIFICANT RADIOGRAPHIC FINDING IN THE CHEST. TECHNICAL DOCUMENTATION: JOB ID: [id number] [employer] [place]- All Rights Reserved Reading location - IP/workstation name: [email or web address]
== END ==
LOC: OD 12:49
PROVIDERS: ATTEND Family Medicine
DX: R05 Cough (principal)
CPT/HCPCS: 71046

== ENCOUNTER 2018-10-15 15:10 | Emergency (ER) | payer MEDICARE, MEDICAID ==
[2018-10-15] MEDS ORDERED: IPRATROPIUM/ALBUTEROL 0.5-2.5 MG/3 ML AMPUL NEB ONE (15:34)
--- NOTE | 2018-10-15 15:36 | ER Document Report ---
ED Medical Screen (RME) - General Chief Complaint: Breathing Difficulty Stated Complaint: TROUBLE BREATHING Time Seen by Provider: 10/15/18 15:33 Primary Care Provider: MAGNOLIA ADLER MD [Primary Care Provider] - Follow up as needed Information source: Patient Notes: Patient presents complaining of cough for the past 5 weeks. Patient reports a left lower anterior chest wall tenderness with shortness of breath. Patient denies any fever. Patient states that she has missed a couple doses of her Xarelto and has a history of 7 PEs in the past. Patient also has a history of A. fib, asthma and COPD. Patient is here because she is concerned she may have a PE today. I have greeted and performed a rapid initial assessment of this patient. A comprehensive ED assessment and evaluation of the patient, analysis of test results and completion of the medical decision making process will be conducted by additional ED providers. TRAVEL OUTSIDE OF THE [place] IN LAST 30 DAYS: No - Related Data Allergies/Adverse Reactions: adhesive [Adhesive] Allergy (Mild, Verified 10/15/18 15:12) Generalized rash methicillin [Methicillin] Allergy (Mild, Verified 10/15/18 15:12) Generalized rash vancomycin [Vancomycin] Allergy (Mild, Verified 10/15/18 15:12) Generalized rash Past Medical History - Past Medical History Cardiac Medical History: Reports: Hx Atrial Fibrillation, Hx Congestive Heart Failure, Hx Coronary Artery Disease - HIGH CHOLESTEROL, Hx DVT, Hx H ypercholesterolemia, Hx Hypertension, Hx Pulmonary Embolism Denies: Hx Heart Attack Pulmonary Medical History: Reports: Hx Bronchitis, Hx COPD, Hx Pneumonia, Hx Intubation, Hx Respiratory Failure, Hx Sleep Apnea Denies: Hx Asthma, Hx Tuberculosis Neurological Medical History: Denies: Hx Cerebrovascular Accident, Hx Migraine, Hx Seizures Endocrine Medical History: Reports: Hx Diabetes Mellitus Type 2 Renal/ Medical History: Denies: Hx Peritoneal Dialysis Malignancy Medical History: Reports: Hx Breast Cancer, Hx Cervical Cancer GI Medical History: Reports: Hx Gastroesophageal Reflux Disease, Hx Hiatal Hernia, Hx Liver Failure - fatty liver Musculoskeltal Medical History: Reports Hx Arthritis - KNEES/BACK, Reports Hx Fibromyalgia Skin Medical History: Reports Hx Psoriasis Psychiatric Medical History: Reports: Hx Anxiety, Hx Bipolar Disorder, Hx Depression Past Surgical History: Reports: Hx Cardiac Surgery - Pace maker, Hx Cholecystectomy, Hx Hysterectomy, Hx Mastectomy, Hx Orthopedic Surgery, Hx Pacemaker, Hx Tubal Ligation, Hx Vascular Surgery - port, Other - IVC filter placement - Immunizations Immunizations up to date: Yes Hx Diphtheria, Pertussis, Tetanus Vaccination: Yes - 01/2014 History of Influenza Vaccine for 01/2017 - 06/2017 Season: Yes Influenza Administration Date for 01/2017 - 06/2017 Season: 11/21/16 Physical Exam - Vital signs Vitals: Temp Pulse Resp BP Pulse Ox 99 F 85 18 117/77 96 10/15/18 15:22 10/15/18 15:22 10/15/18 15:22 10/15/18 15:22 10/15/18 15:22 - Respiratory Respiratory status: No respiratory distress Breath sounds: Nonproductive cough, Wheezing Course - Vital Signs Vital signs: Temp Pulse Resp BP Pulse Ox 99 F 85 18 117/77 96 10/15/18 15:22 10/15/18 15:22 10/15/18 15:22 10/15/18 15:22 10/15/18 15:22 Doctor's Discharge - Discharge Referrals: MAGNOLIA ADLER MD [Primary Care Provider] - Follow up as needed
--- NOTE | 2018-10-15 16:34 | ER Document Report ---
ED General - General Chief Complaint: Breathing Difficulty Stated Complaint: TROUBLE BREATHING Time Seen by Provider: 10/15/18 15:33 Primary Care Provider: MAGNOLIA ADLER MD [Primary Care Provider] - Follow up in 3-5 days TRAVEL OUTSIDE OF THE [place] IN LAST 30 DAYS: No - HPI Notes: Patient is a 53-year-old female that presents to the emergency department for chief complaint of left side pain. Patient reports history of frequent pulmonary embolisms. She states she does have an IVC filter but has had PE since the filter was placed. She also states she had PEs while on Lovenox. She is currently on Xarelto but states she missed 2 doses last week. Patient reports having a cough and bronchitis which is being followed by her primary care for the last 5 weeks. She states that she has not had any more fevers and the cough seems to be improving. She is now having a sharp pain on her left side below her breast that radiates over to her left adnexa. The pain is worse when she lies flat, coughs, or takes deep breaths. She states it feels very similar to PE she has had in the past. She denies any lightheaded numbness, palpitations, or syncope. Past Medical History: Hypertension, pulmonary embolism, asthma, A. fib Past Surgical History: IVC filter Social History: Denies tobacco and alcohol use Family History: Reviewed and noncontributory for presenting illness Allergies: Reviewed, see documented allergy list. REVIEW OF SYSTEMS: CONSTITUTIONAL : No fever No chills No diaphoresis No recent illness EENT: No vision changes No congestion No sore throat CARDIOVASCULAR: chest pain No palpitations RESPIRATORY: shortness of breath No cough No difficulty breathing GASTROINTESTINAL: No abdominal pain No nausea No vomiting No diarrhea GENITOURINARY: No dysuria No hematuria No difficulty urinating MUSCULOSKELETAL: No back pain No leg pain No arm pain SKIN: No rashes No lesions LYMPHATIC: No swollen, enlarged glands. NEUROLOGICAL: No lightheadedness No headache No weakness No paresthesias PSYCHIATRIC: No anxiety No depression PHYSICAL EXAMINATION: Vital signs reviewed, nursing noted reviewed. GENERAL: Well-appearing, obese and in no acute distress. HEAD: Atraumatic, normocephalic. EYES: Eyes appear normal, extraocular movements intact, sclera anicteric, conjunctiva are normal. ENT: nares patent, oropharynx clear without exudates. Moist mucous membranes. NECK: Normal range of motion, supple without lymphadenopathy LUNGS: No appreciable chest wall tenderness, breath sounds diminished to auscultation bilaterally and equal. No wheezes rales or rhonchi. HEART: Regular rate and rhythm without murmurs ABDOMEN: Soft, nontender, normoactive bowel sounds. No rebound, guarding, or rigidity. No masses appreciated. EXTREMITIES: Nontender, good range of motion, trace pretibial edema bilaterally and symmetric NEUROLOGICAL: No focal neurological deficits. Moves all extremities spontaneou sly Motor and sensory grossly intact on exam. PSYCH: Normal mood, normal affect. SKIN: Warm, Dry, normal turgor, no rashes or lesions noted on exposed skin - Related Data Allergies/Adverse Reactions: adhesive [Adhesive] Allergy (Mild, Verified 10/15/18 15:12) Generalized rash methicillin [Methicillin] Allergy (Mild, Verified 10/15/18 15:12) Generalized rash vancomycin [Vancomycin] Allergy (Mild, Verified 10/15/18 15:12) Generalized rash Past Medical History - General Information source: Patient - Social History Smoking Status: Never Smoker Chew tobacco use (# tins/day): No Drug Abuse: None Family History: Arthritis, CAD, DM, Hyperlipidemia, Hypertension, Malignancy Patient has suicidal ideation: No Patient has homicidal ideation: No - Past Medical History Cardiac Medical History: Reports: Hx Atrial Fibrillation, Hx Congestive Heart Failure, Hx Coronary Artery Disease - HIGH CHOLESTEROL, Hx DVT, Hx Hypercholesterolemia, Hx Hypertension, Hx Pulmonary Embolism Denies: Hx Heart Attack Pulmonary Medical History: Reports: Hx Bronchitis, Hx COPD, Hx Pneumonia, Hx Intubation, Hx Respiratory Failure, Hx Sleep Apnea Denies: Hx Asthma, Hx Tuberculosis Neurological Medical History: Denies: Hx Cerebrovascular Accident, Hx Migraine, Hx Seizures Endocrine Medical History: Reports: Hx Diabetes Mellitus Type 2 Renal/ Medical History: Denies: Hx Peritoneal Dialysis Malignancy Medical History: Reports: Hx Breast Cancer, Hx Cervical Cancer GI Medical History: Reports: Hx Gastroesophageal Reflux Disease, Hx Hiatal Hernia, Hx Liver Failure - fatty liver Musculoskeletal Medical History: Reports Hx Arthritis - KNEES/BACK, Reports Hx Fibromyalgia Skin Medical History: Reports Hx Psoriasis Psychiatric Medical History: Reports: Hx Anxiety, Hx Bipolar Disorder, Hx Depression Past Surgical History: Reports: Hx Cardiac Surgery - Pace maker, Hx Cholecystectomy, Hx Hysterectomy, Hx Mastectomy, Hx Orthopedic Surgery, Hx Pace maker, Hx Tubal Ligation, Hx Vascular Surgery - port, Other - IVC filter placement - Immunizations Immunizations up to date: Yes Hx Diphtheria, Pertussis, Tetanus Vaccination: Yes - 01/2014 Hx Pneumococcal Vaccination: 04/23/15 Physical Exam - Vital signs Vitals: Temp Pulse Resp BP Pulse Ox 99 F 85 18 117/77 96 10/15/18 15:22 10/15/18 15:22 10/15/18 15:22 10/15/18 15:22 10/15/18 15:22 Course - Re-evaluation Re-evalutation: 10/15/18 16:34 Vitals reviewed. Nursing notes reviewed. Patient is currently oxygenating well on room air and in no acute distress. She has a significant history of blood clots and did miss 2 consecutive doses of Xarelto. CTA will be obtained to evaluate for new pulmonary embolism 10/15/18 21:27 CT scan shows no acute pulmonary embolism or other cardiopulmonary process. Patient CBC is unremarkable. There has been multiple attempts to access patient's port as well as draw labs which has delayed redraw however hemolyzed initial CMP and troponin. This test is still currently pending. Patient has been reevaluated on multiple occasions and is resting comfortably and in no acute distress. 10/15/18 21:56 The remainder patient's work-up is unremarkable including a negative troponin. She has been coughing for the last 5 weeks and her pain is likely musculoskeletal. She will continue to follow with her primary care doctor regarding her persistent bronchitis. She will return for new or worsening symptoms. She is stable at discharge. Laboratory 10/15/18 10/15/18 10/15/18 17:20 18:20 18:20 WBC 7.1 RBC 4.05 Hgb 12.5 Hct 37.7 MCV 93 MCH 30.9 MCHC 33.2 RDW 15.3 H Plt Count 228 Seg Neutrophils % 51.0 Lymphocytes % 34.4 Monocytes % 9.8 Eosinophils % 4.3 Basophils % 0.5 Absolute Neutrophils 3.6 Absolute Lymphocytes 2.4 Absolute Monocytes 0.7 Absolute Eosinophils 0.3 Absolute Basophils 0.0 Sodium Cancelled Potassium Cancelled Chloride Cancelled Carbon Dioxide Cancelled Anion Gap Cancelled BUN Cancelled Creatinine Cancelled Est GFR ( Amer) Cancelled Est GFR (Non-Af Amer) Cancelled Glucose Cancelled Calcium Cancelled Total Bilirubin Cancelled Direct Bilirubin Cancelled Neonat Total Bilirubin Cancelled Neonat Direct Bilirubin Cancelled Neonat Indirect Bili Cancelled AST Cancelled ALT Cancelled Alkaline Phosphatase Cancelled Troponin I Cancelled Total Protein Cancelled Albumin Cancelled 10/15/18 10/15/18 20:50 20:50 WBC RBC Hgb Hct MCV MCH MCHC RDW Plt Count Seg Neutrophils % Lymphocytes % Monocytes % Eosinophils % Basophils % Absolute Neutrophils Absolute Lymphocytes Absolute Monocytes Absolute Eosinophils Absolute Basophils Sodium 137.9 Potassium 4.1 Chloride 109 H Carbon Dioxide 24 Anion Gap 5 BUN 10 Creatinine 0.74 Est GFR ( Amer) > 60 Est GFR (Non-Af Amer) > 60 Glucose 84 Calcium 8.8 Total Bilirubin 1.0 Direct Bilirubin 0.2 Neonat Total Bilirubin Not Reportable Neonat Direct Bilirubin Not Reportable Neonat Indirect Bili Not Reportable AST 30 ALT 37 Alkaline Phosphatase 70 Troponin I < 0.012 Total Protein 5.9 L Albumin 3.1 L Chest X-Ray 10/15/18 15:34 IMPRESSION: Stable cardiomegaly. No acute findings Chest/Abdomen CTA 10/15/18 16:22 IMPRESSION: No emboli visualized in the main pulmonary arteries or the segmental branches. No consolidation or pleural effusion. . - Vital Signs Vital signs: Temp Pulse Resp BP Pulse Ox 99 F 85 14 114/67 97 10/15/18 15:22 10/15/18 15:22 10/15/18 21:01 10/15/18 21:01 10/15/18 21:01 - Laboratory Result Diagrams: 10/15/18 17:20 10/15/18 20:50 Laboratory results interpreted by me: 10/15/18 10/15/18 17:20 20:50 RDW 15.3 H Chloride 109 H Total Protein 5.9 L Albumin 3.1 L - EKG Interpretation by Me Additional EKG results interpreted by me: 10/15/18 17:00 Interpreted by myself 1654: AV dual paced rhythm, rate 89, no ectopy, no change from 09/21/2018 Discharge - Discharge Clinical Impression: Chest pain Qualifiers: Chest pain type: unspecified Qualified Code(s): R07.9 - Chest pain, unspecified Condition: Stable Disposition: HOME, SELF-CARE Instructions: Chest Wall Pain ([facility]) Additional Instructions: Please return to the emergency department if you have any worsening, or concern of your symptoms. Please return to the emergency department if you develop chest pain, difficulty breathing, severe abdominal pain, or ongoing vomiting. Please follow-up with your primary care physician in 2-3 days and any other recommended physicians. If prescribed, take all medications as directed. If you have any questions or concerns do not hesitate to return the emergency department for evaluation. Referrals: MAGNOLIA ADLER MD [Primary Care Provider] - Follow up in 3-5 days
--- NOTE | 2018-10-15 16:37 | RADIOLOGY REPORT (SQ) ---
EXAM DESCRIPTION: CHEST 2 VIEWS COMPLETED DATE/TIME: 10/15/2018 4:27 pm REASON FOR STUDY: cp COMPARISON: Chest films 09/27/2018, 09/21/2018, 09/20/2018, 05/12/2018 CT chest 05/09/2018 EXAM PARAMETERS: NUMBER OF VIEWS: two views TECHNIQUE: Digital Frontal and Lateral radiographic views of the chest acquired. RADIATION DOSE: NA LIMITATIONS: none FINDINGS: LUNGS AND PLEURA: No opacities, masses or pneumothorax. No pleural effusion. MEDIASTINUM AND HILAR STRUCTURES: No masses or contour abnormalities. HEART AND VASCULAR STRUCTURES: Stable moderate cardiomegaly BONES: No acute findings. HARDWARE: Unchanged left-sided pacemaker/ defibrillator. Left anterior chest loop recorder. Right p ermanent central line tip superior vena cava OTHER: No other significant finding. IMPRESSION: Stable cardiomegaly. No acute findings TECHNICAL DOCUMENTATION: JOB ID: [id number] [employer]- All Rights Reserved Reading location - IP/workstation name: [email or web address]
[2018-10-15 18:05] LABS: ABSOLUTE EOSINOPHILS # (AUTO) 0.3 10^3/uL (0.0-0.6); ABSOLUTE LYMPHOCYTES (AUTO) 2.4 10^3/uL (0.5-4.7); ABSOLUTE MONOCYTES (AUTO) 0.7 10^3/uL (0.1-1.4); ABSOLUTE NEUT (AUTO) 3.6 10^3/uL (1.7-8.2); BASOPHILS % (AUTO) 0.5 % (0-2); EOSINOPHILS % (AUTO) 4.3 % (0-6); HEMATOCRIT 37.7 % (36.0-47.0); HEMOGLOBIN 12.5 g/dL (12.0-15.5); LYMPHOCYTES % (AUTO) 34.4 % (13-45); MEAN CORPUSCULAR HEMOGLOBIN 30.9 pg (27.0-33.4); MEAN CORPUSCULAR HGB CONC 33.2 g/dL (32.0-36.0); MEAN CORPUSCULAR VOLUME 93 fl (80-97); MONOCYTES % (AUTO) 9.8 % (3-13); PLATELET COUNT 228 10^3/uL (150-450); RED BLOOD COUNT 4.05 10^6/uL (3.72-5.28); RED CELL DISTRIBUTION WIDTH 15.3 % (11.5-14.0); TOTAL CELLS COUNTED % (AUTO) 100 %; WHITE BLOOD COUNT 7.1 10^3/uL (4.0-10.5)
--- NOTE | 2018-10-15 18:19 | RADIOLOGY REPORT (SQ) ---
EXAM DESCRIPTION: CTA CHEST COMPLETED DATE/TIME: 10/15/2018 5:57 pm REASON FOR STUDY: PE COMPARISON: 05/09/2018 TECHNIQUE: CT scan of the chest performed using helical scanning technique with dynamic intravenous contrast injection. Images reviewed with lung, soft tissue and bone windows. Reconstructed coronal and sagittal MPR images reviewed. Additional 3 dimensional post-processing performed to develop Maximal Intensity Projection images (MN P). All images stored on PACS. All CT scanners at this facility use dose modulation, iterative reconstruction, and/or weight based d osing when appropriate to reduce radiation dose to as low as reasonably achievable (ALARA). [facility]: Dose Right [facility]: CareDose [facility]: Dose Right [facility]: Teradose 4D [facility]: CIQUAL CONTRAST TYPE AND DOSE: contrast/concentration: Isovue 350.00 mg/ml; Total Contrast Delivered: 90.0 ml; Total Saline Delivered: 80.0 ml Contrast bolus optimized for the pulmonary arteries. Not diagnostic for the aorta. RENAL FUNCTION: GFR > 60. RADIATION DOSE: CT Rad equipment meets quality standard of care and radiation dose reduction techniq ues were employed. CTDIvol: 37.8 - 44.6 mGy. DLP: 1417 mGy-cm. . LIMITATIONS: None. FINDINGS: LUNGS AND PLEURA: No masses, infiltrates, or pneumothorax. No pleural effusions or pleura l calcifications. AORTA AND GREAT VESSELS: No aneurysm. Contrast bolus not optimized for the aorta. HEART: No pericardial effusion. Moderate coronary artery calcifications. PULMONARY ARTERIES: No emboli visualized in the main pulmonary arteries or the segmental branches. HILAR AND MEDIASTINAL STRUCTURES: No bulky nodes. HARDWARE: Cardiac pacer. UPPER ABDOMEN: No acute findings. Limited exam. THYROID AND OTHER SOFT TISSUES: No masses. No adenopathy. BONES: No acute or significant finding. 3D MIPS: Confirm above findings. OTHER: No other significant finding. IMPRESSION: No emboli visualized in the main pulmonary arteries or the segmental branches. No consolidation or pleural effusion. . COMMENT: Quality ID # [id number]: Final reports with documentation of one or more dose reduction techniques (e.g., Automated exposure control, adjustment of the mA and/or kV according to patient size, use of iterative reconstruction technique) TECHNICAL DOCUMENTATION: JOB ID: [id number] [place]-72 2010 [employer]- All Rights Reserved Reading location - IP/workstation name: [email or web address]
--- NOTE | 2018-10-15 20:23 | EKG REPORT ---
SEVERITY:- ABNORMAL ECG - ATRIAL-VENTRICULAR DUAL-PACED RHYTHM : Confirmed by: Edita Zendejas 15-Oct-2018 20:22:33
[2018-10-15 21:07] VITALS: BP 114/67
[2018-10-15 21:44] LABS: ALANINE AMINOTRANSFERASE 37 U/L (9-52); ALBUMIN 3.1 g/dL (3.5-5.0); ALKALINE PHOSPHATASE 70 U/L (38-126); ANION GAP 5 (5-19); ASPARTATE AMINO TRANSFERASE 30 U/L (14-36); BILIRUBIN,DIRECT 0.2 mg/dL (0.0-0.4); BLOOD UREA NITROGEN 10 mg/dL (7-20); CALCIUM 8.8 mg/dL (8.4-10.2); CARBON DIOXIDE 24 mmol/L (22-30); CHLORIDE 109 mmol/L (98-107); GLUCOSE 84 mg/dL (75-110); POTASSIUM 4.1 mmol/L (3.6-5.0); SODIUM 137.9 mmol/L (137-145); TOTAL PROTEIN 5.9 g/dL (6.3-8.2)
== END 2018-10-15 22:09 | disposition home or self-care (01) ==
LOC: ER 15:10
DX: R07.9 Chest pain, unspecified (principal); J44.9 Chronic obstructive pulmonary disease, unspecified; I11.0 Hypertensive heart disease with heart failure; R06.02 Shortness of breath; I25.10 Atherosclerotic heart disease of native coronary artery without angina pectoris; E11.9 Type 2 diabetes mellitus without complications; Z86.711 Personal history of pulmonary embolism; Z79.02 Long term (current) use of antithrombotics/antiplatelets; Z95.828 Presence of other vascular implants and grafts; Z86.718 Personal history of other venous thrombosis and embolism; Z87.01 Personal history of pneumonia (recurrent); Z91.048 Other nonmedicinal substance allergy status; Z88.1 Allergy status to other antibiotic agents; Z88.0 Allergy status to penicillin; Z95.0 Presence of cardiac pacemaker
CPT/HCPCS: 93005; 94640; 99285; 36415; 85025; 80053; 84484; 71046; 71275; 93010; A9270; J7620

== ENCOUNTER 2019-01-28 04:36 | Inpatient (IN) | payer MEDICARE, MEDICAID ==
[2019-01-28 06:52] LABS: ABSOLUTE BASOPHILS # (AUTO) 0.1 10^3/uL (0.0-0.2); ABSOLUTE EOSINOPHILS # (AUTO) 0.3 10^3/uL (0.0-0.6); ABSOLUTE LYMPHOCYTES (AUTO) 2.3 10^3/uL (0.5-4.7); ABSOLUTE MONOCYTES (AUTO) 1.1 10^3/uL (0.1-1.4); ABSOLUTE NEUT (AUTO) 5.9 10^3/uL (1.7-8.2); EOSINOPHILS % (AUTO) 2.7 % (0-6); HEMATOCRIT 40.3 % (36.0-47.0); HEMOGLOBIN 13.2 g/dL (12.0-15.5); LYMPHOCYTES % (AUTO) 24.1 % (13-45); MEAN CORPUSCULAR HEMOGLOBIN 30.9 pg (27.0-33.4); MEAN CORPUSCULAR HGB CONC 32.8 g/dL (32.0-36.0); MEAN CORPUSCULAR VOLUME 94 fl (80-97); PLATELET COUNT 274 10^3/uL (150-450); RED BLOOD COUNT 4.29 10^6/uL (3.72-5.28); RED CELL DISTRIBUTION WIDTH 14.8 % (11.5-14.0); SEGMENTED NEUTROPHILS % (AUTO) 61.2 % (42-78); TOTAL CELLS COUNTED % (AUTO) 100 %; WHITE BLOOD COUNT 9.6 10^3/uL (4.0-10.5)
[2019-01-28 07:19] LABS: ALBUMIN 3.5 g/dL (3.5-5.0); ALKALINE PHOSPHATASE 75 U/L (38-126); ANION GAP 9 (5-19); ASPARTATE AMINO TRANSFERASE 42 U/L (14-36); BILIRUBIN,DIRECT 0.1 mg/dL (0.0-0.4); BILIRUBIN,TOTAL 0.5 mg/dL (0.2-1.3); BLOOD UREA NITROGEN 11 mg/dL (7-20); CALCIUM 9.4 mg/dL (8.4-10.2); CARBON DIOXIDE 24 mmol/L (22-30); CHLORIDE 106 mmol/L (98-107); GLUCOSE 110 mg/dL (75-110); POTASSIUM 4.7 mmol/L (3.6-5.0); TOTAL PROTEIN 6.4 g/dL (6.3-8.2)
[2019-01-28] MEDS ORDERED: MORPHINE SULFATE 10 MG/ML INJ IV ONE (08:40)
--- NOTE | 2019-01-28 08:43 | ER Document Report ---
ED General - General Chief Complaint: Lower Abdominal Pain Stated Complaint: LOWER ABDOMINAL PAIN Time Seen by Provider: 01/28/19 08:30 Primary Care Provider: MAGNOLIA ADLER MD [Primary Care Provider] - Follow up as needed TRAVEL OUTSIDE OF THE [place] IN LAST 30 DAYS: No - HPI Notes: Patient is a 53-year-old female who presents emergency department for evaluation of left lower quadrant pain. She states she awoke with this pain last night. It sharp, stabbing, shooting. It is constant in nature, worsened by movement, nothing seems to make it better. She denies any associated fevers or chills, no nausea or vomiting. She had a bowel movement with some bright red blood yes terday, but this has been ongoing for several months. She had a colonoscopy that was unremarkable just a few months ago, her bobbin doffer and primary care physicians are aware of this. She denies any associated urinary symptoms. She states she is never had similar pain in the past. Does have chronic UTIs, is awaiting referral to urology. - Related Data Allergies/Adverse Reactions: adhesive [Adhesive] Allergy (Mild, Verified 10/15/18 15:12) Generalized rash methicillin [Methicillin] Allergy (Mild, Verified 10/15/18 15:12) Generalized rash vancomycin [Vancomycin] Allergy (Mild, Verified 10/15/18 15:12) Generalized rash Past Medical History - General Information source: Patient - Social History Smoking Status: Never Smoker Family History: Arthritis, CAD, DM, Hyperlipidemia, Hypertension, Malignancy Patient has suicidal ideation: No Patient has homicidal ideation: No - Past Medical History Cardiac Medical History: Reports: Hx Atrial Fibrillation, Hx Congestive Heart Failure, Hx Coronary Artery Disease - HIGH CHOLESTEROL, Hx DVT, Hx Hypercholesterolemia, Hx Hypertension, Hx Pulmonary Embolism Denies: Hx Heart Attack Pulmonary Medical History: Reports: Hx Bronchitis, Hx COPD, Hx Pneumonia, Hx Intubation, Hx Respiratory Failure, Hx Sleep Apnea Denies: Hx Asthma, Hx Tuberculosis Neurological Medical History: Denies: Hx Cerebrovascular Accident, Hx Migraine, Hx Seizures Endocrine Medical History: Reports: Hx Diabetes Mellitus Type 2 Renal/ Medical History: Denies: Hx Peritoneal Dialysis Malignancy Medical History: Reports: Hx Breast Cancer, Hx Cervical Cancer GI Medical History: Reports: Hx Gastroesophageal Reflux Disease, Hx Hiatal Hernia, Hx Liver Failure - fatty liver Musculoskeletal Medical History: Reports Hx Arthritis - KNEES/BACK, Reports Hx Fibromyalgia Skin Medical History: Reports Hx Psoriasis Psychiatric Medical History: Reports: Hx Anxiety, Hx Bipolar Disorder, Hx Depression Past Surgical History: Reports: Hx Cardiac Surgery - Pace maker, Hx Cholecystectomy, Hx Hysterectomy, Hx Mastectomy, Hx Orthopedic Surgery, Hx Pacemaker, Hx Tubal Ligation, Hx Vascular Surgery - port, Other - IVC filter placement - Immunizations Immunizations up to date: Yes Hx Diphtheria, Pertussis, Tetanus Vaccination: Yes - 01/2014 Hx Pneumococcal Vaccination: 04/23/15 Review of Systems - Review of Systems Constitutional: No symptoms reported EENT: No symptoms reported Cardiovascular: No symptoms reported Respiratory: No symptoms reported Gastrointestinal: See HPI Genitourinary: No symptoms reported Female Genitourinary: No symptoms reported Musculoskeletal: No symptoms reported Skin: No symptoms reported Neurological/Psychological: No symptoms reported Physical Exam - Vital signs Vitals: Temp Pulse Resp BP Pulse Ox 97.7 F 79 28 H 127/60 H 96 01/28/19 04:51 01/28/19 04:51 01/28/19 04:51 01/28/19 04:51 01/28/19 04:51 - Notes Notes: Vital signs reviewed, please refer to chart. Head is normocephalic, atraumatic. Pupils equal round, reactive to light. Neck is supple without meningismus. Heart is regular rate and rhythm. Lungs are clear to auscultation bilaterally. Abdomen is is, soft, moderately tender in the left lower quadrant without rebound or guarding, normoactive bowel sounds throughout. Extremities without cyanosis, clubbing. Posterior calves are nontender. Peripheral pulses are equal. Skin is warm and dry. Patient is awake, alert, neurological exam is nonfocal. Course - Re-evaluation Re-evalutation: 01/28/19 10:57 Presents emergency department for evaluation of left lower quadrant pain. Her vitals are largely unremarkable, but the patient is markedly tender. Given this information I sent her for CT scan. CT scan findings consistent with sigmoid diverticulitis, likely phlegmon. She was given IV Cipro and Flagyl. Given this patient's morbid obesity and multiple other comorbidities, I felt that inpatient management was appropriate. I spoke with Dr. Adler, who will accept the patient for further care. 01/28/19 10:58 - Vital Signs Vital signs: Temp Pulse Resp BP Pulse Ox 97.7 F 79 31 H 111/59 L 94 10/08/19 04:51 01/28/19 04:51 01/28/19 09:36 01/28/19 09:36 01/28/19 09:36 - Laboratory Result Diagrams: 01/28/19 06:30 01/28/19 06:30 Laboratory results interpreted by me: 01/28/19 01/28/19 06:30 06:30 RDW 14.8 H AST 42 H - Diagnostic Test Radiology reviewed: Reports reviewed Radiology results interpreted by me: 01/28/19 10:58 Abdomen/Pelvis CT 01/28/19 08:39 IMPRESSION: There is sigmoid diverticulosis with fat stranding about the proximal sigmoid and a probable phlegmon measuring 2.1 cm directed posteriorly (series 2, image 63). No evidence of overt perforation or abscess. Discharge - Discharge Clinical Impression: Sigmoid diverticulitis Condition: Stable Disposition: ADMITTED INPATIENT Admitting Provider: Adler Unit Admitted: Medical Floor Referrals: MAGNOLIA ADLER MD [Primary Care Provider] - Follow up as needed
[2019-01-28 09:18] LABS: APPEARANCE,URINE CLEAR; BILIRUBIN,URINE NEGATIVE (NEGATIVE); COLOR,URINE YELLOW; GLUCOSE, URINE NEGATIVE (NEGATIVE); KETONES,URINE NEGATIVE (NEGATIVE); LEUKOCYTE ESTERASE,URINE NEGATIVE (NEGATIVE); NITRITE,URINE NEGATIVE (NEGATIVE); PROTEIN,URINE NEGATIVE (NEGATIVE); URINE SPECIFIC GRAVITY 1.012; UROBILINOGEN,URINE NEGATIVE mg/dL (<2.0)
--- NOTE | 2019-01-28 09:31 | RADIOLOGY REPORT (SQ) ---
EXAM DESCRIPTION: CT ABD/PELVIS NO ORAL OR IV COMPLETED DATE/TIME: 01/28/2019 9:06 am REASON FOR STUDY: LLQ pain COMPARISON: 12/05/2016 TECHNIQUE: CT scan of the abdomen and pelvis performed without intravenous or oral contrast. Images reviewed with lung, soft tissue, and bone windows. Reconstructed coronal and sagittal MPR images revi ewed. All images stored on PACS. All CT scanners at this facility use dose modulation, iterative reconstruction, and/or weight based d osing when appropriate to reduce radiation dose to as low as reasonably achievable (ALARA). [facility]: Dose Right [facility]: CareDose [facility]: Dose Right [facility]: Teradose 4D [facility]: [employer] RADIATION DOSE: CT Rad equipment meets quality standard of care and radiation dose reduction techniq ues were employed. CTDIvol: 29.0 mGy. DLP: 1748 mGy-cm.mGy. LIMITATIONS: None. FINDINGS: LOWER CHEST: No significant findings. No nodules or infiltrates. NON-CONTRASTED LIVER, SPLEEN, ADRENALS: Evaluation limited by lack of IV contrast. No identified sign ificant masses. PANCREAS: No masses. No peripancreatic inflammatory changes. GALLBLADDER: Surgically absent. RIGHT KIDNEY AND URETER: No suspicious masses. Assessment limited by lack of IV contrast. No signif icant calcifications. No hydronephrosis or hydroureter. LEFT KIDNEY AND URETER: No suspicious masses. Assessment limited by lack of IV contrast. No signifi cant calcifications. No hydronephrosis or hydroureter. AORTA AND RETROPERITONEUM: No aneurysm. No retroperitoneal masses or adenopathy. Infrarenal IVC filt er. BOWEL AND PERITONEAL CAVITY: There is sigmoid diverticulosis with fat stranding about the proximal si gmoid and a probable phlegmon measuring 2.1 cm directed posteriorly (series 2, image 63). No free fl uid. APPENDIX: Normal. PELVIS, BLADDER, AND ABDOMINAL WALL:No abnormal masses. Status post hysterectomy. No free fluid. Bl adder normal. BONES: No significant findings. OTHER: No other significant finding. IMPRESSION: There is sigmoid diverticulosis with fat stranding about the proximal sigmoid and a prob able phlegmon measuring 2.1 cm directed posteriorly (series 2, image 63). No evidence of overt perf oration or abscess. COMMENT: Quality ID # [id number]: Final reports with documentation of one or more dose reduction techniques (e.g., Automated exposure control, adjustment of the mA and/or kV according to patient size, use of iterative reconstruction technique) TECHNICAL DOCUMENTATION: JOB ID: [id number] [employer]- All Rights Reserved Reading location - IP/workstation name: [email or web address]
[2019-01-28] MEDS ORDERED: CIPROFLOXACIN 400 MG/D5W RTU 400 MG/200 ML RTUPB IV ONE (10:26)
[2019-01-28] MEDS ORDERED: METRONIDAZOLE 500 MG/NS RTU 500 MG/100 ML RTUPB IV ONE (10:27)
[2019-01-28] MEDS ORDERED: ONDANSETRON HCL INJ/PF 4 MG/2 ML SDV IV PRN (12:02)
[2019-01-28] MEDS ORDERED: ACETAMINOPHEN 325 MG TABLET PO PRN (12:02)
[2019-01-28] MEDS ORDERED: FENTANYL CITRATE INJ/PF 100 MCG/2 ML AMPUL IV ONE (12:59)
--- NOTE | 2019-01-28 14:02 | PDOC CONSULTATION ---
Consultation Consult Date: 01/28/19 Provider Consulted: AYLEEN SILVER Consult reason:: abnormal CT, abdominal pain History of Present Illness Admission Date/PCP: 01/28/19 12:03 MAGNOLIA ADLER MD History of Present Illness: AGUSTIN ETIENNE is a 53 year old female I am asked to see this patient by Dr Adler history of known diverticulosis in the past presented to the ED with abdominal pain had CT scan done noted to have a phlegmon adjacent to diverticulosis associated with fat stranding no elevated WBC however findings are suggestive of a walled off abscess likely due to diverticulitis I agree with her admission, she will need antibiotics IV and then followed by oral for a maximum of 2 weeks then she will need an outpatient colonoscopy she is at high risk of overt perforation now and is not a candidate for inpatient colonoscopy Past Medical History Cardiac Medical History: Reports: Atrial Fibrillation, Congestive Heart Failure, Coronary Artery Disease - HIGH CHOLESTEROL, DVT, Hyperlipidema, Hypertension, Pulmonary Embolism Denies: Myocardial Infarction Pulmonary Medical History: Reports: Bronchitis, Chronic Obstructive Pulmonary Disease (COPD), Intubation, Pneumonia, Respiratory Failure, Sleep Apnea Denies: Asthma, Tuberculosis Neurological Medical History: Denies: Migraine, Seizures Endocrine Medical History: Reports: Diabetes Mellitus Type 2 Malignancy Medical History: Reports: Breast Cancer, Cervical Cancer GI Medical History: Reports: Gastroesophageal Reflux Disease, Hiatal Hernia Musculoskeltal Medical History: Reports: Arthritis - KNEES/BACK, Fibromyalgia Skin Medical History: Reports: Psoriasis Psychiatric Medical History: Reports: Bipolar Disorder, Depression Hematology: Denies: Anemia Past Surgical History Past Surgical History: Reports: Cholecystectomy, Hysterectomy, Mastectomy, Orthopedic Surgery, Pacemaker, Tubal Ligation, Vascular Surgery - port, Other - IVC filter placement Social History Smoking Status: Never Smoker Frequency of Alcohol Use: Rare Hx Recreational Drug Use: No Drugs: None Hx Prescription Drug Abuse: No Family History Family History: Arthritis, CAD, DM, Hyperlipidemia, Hypertension, Malignancy Parental Family History Reviewed: Yes Children Family History Reviewed: Unknown Sibling(s) Family History Reviewed.: Unknown Medication/Allergy Home Medications: Aspirin [Aspirin EC] 81 mg PO DAILY 03/05/17 Atorvastatin Calcium [Lipitor 10 mg Tablet] 10 mg PO QHS 03/05/17 Cholecalciferol (Vitamin D3) [Vitamin D3 5000 unit Capsule] 5,000 units PO DAILY 03/05/17 Colestipol HCl [Colestid 1 gm Tablet] 2 gm PO Q12 03/05/17 Esomeprazole Magnesium [Nexium] 20 mg PO DAILY 03/05/17 Fiber [Fiber Diet] 1 tab PO DAILY 03/05/17 Lorazepam [Ativan 1 mg Tablet] 1 mg PO Q8HP PRN 03/05/17 Losartan Potassium [Cozaar 50 mg Tablet] 50 mg PO QHS 03/05/17 Metformin HCl [Glucophage 500 mg Tablet] 500 mg PO DAILY 03/05/17 Multivit-Minerals/Folic Acid [One Daily Womens 50 Plus Tab] 1 tab PO DAILY 03/05/17 Ranolazine [Ranexa 500 mg Tab.sr] 1,000 mg PO Q12 03/05/17 Rivaroxaban [Xarelto] 20 mg PO WSUPPER 03/05/17 Solifenacin Succinate [Vesicare] 10 mg PO DAILY 03/05/17 Spironolactone [Aldactone 25 mg Tablet] 25 mg PO DAILY #30 tablet 03/09/17 Brexpiprazole [Rexulti] 2 mg PO DAILY 09/21/18 Metoprolol Tartrate [Lopressor 50 mg Tablet] 50 mg PO Q12 09/21/18 Paroxetine HCl [Paxil 20 mg Tablet] 20 mg PO QAM 09/21/18 Allergies/Adverse Reactions: adhesive [Adhesive] Allergy (Mild, Verified 10/15/18 15:12) Generalized rash methicillin [Methicillin] Allergy (Mild, Verified 10/15/18 15:12) Generalized rash vancomycin [Vancomycin] Allergy (Mild, Verified 10/15/18 15:12) Generalized rash Review of Systems Constitutional: ABSENT: fever(s), headache(s), night sweats, weakness Eyes: ABSENT: visual disturbances Ears: ABSENT: hearing changes Nose, Mouth, and Throat: ABSENT: mouth pain, sore throat Cardiovascular: ABSENT: orthropnea, palpitations Respiratory: ABSENT: dyspnea, hemoptysis Gastrointestinal: PRESENT: abdominal pain. ABSENT: dysphagia, hematochezia, melena Genitourinary: ABSENT: dysuria, hematuria Musculoskeletal: ABSENT: deformity, joint swelling Integumentary: ABSENT: lesions, pruritus Neurological: ABSENT: syncope, tingling, tremor(s), vertigo Endocrine: ABSENT: polydipsia, polyphagia, polyuria Hematologic/Lymphatic: ABSENT: easy bruising Physical Exam Vital Signs: Temp Pulse Resp BP Pulse Ox 97.7 F 79 19 107/66 96 01/28/19 04:51 01/28/19 04:51 01/28/19 11:06 01/28/19 11:06 01/28/19 11:06 Intake & Output 01/27/19 01/28/19 01/29/19 06:59 06:59 06:59 Intake Total 200 Balance 200 Weight 151.9 kg General appearance: PRESENT: no acute distress, well-developed Head exam: PRESENT: atraumatic, normocephalic Eye exam: PRESENT: EOMI, PERRLA. ABSENT: nystagmus, scleral icterus Mouth exam: PRESENT: moist, neck supple Throat exam: ABSENT: tonsillar exudate, tonsillogmegaly Neck exam: ABSENT: meningismus, tenderness, thyromegaly Respiratory exam: PRESENT: symmetrical, unlabored. ABSENT: tachypnea, wheezes Cardiovascular exam: PRESENT: RRR, +S1, +S2 GI/Abdominal exam: PRESENT: soft. ABSENT: rebound, rigid Extremities exam: ABSENT: joint swelling Musculoskeletal exam: PRESENT: full ROM Neurological exam: PRESENT: oriented to time, oriented to situation, CN II-XII grossly intact Focused psych exam: ABSENT: restlessness Skin exam: PRESENT: normal color. ABSENT: mottled, urticaria Results Laboratory Results: 01/28/19 06:30 01/28/19 06:30 01/28/19 01/28/19 01/28/19 06:30 06:30 08:42 WBC 9.6 RBC 4.29 Hgb 13.2 Hct 40.3 MCV 94 MCH 30.9 MCHC 32.8 RDW 14.8 H Plt Count 274 Seg Neutrophils % 61.2 Sodium 138.8 Potassium 4.7 Chloride 106 Carbon Dioxide 24 Anion Gap 9 BUN 11 Creatinine 0.79 Est GFR ( Amer) > 60 Glucose 110 Calcium 9.4 Total Bilirubin 0.5 AST 42 H Alkaline Phosphatase 75 Total Protein 6.4 Albumin 3.5 Urine Color YELLOW Urine Appearance CLEAR Urine pH 5.0 Ur Specific [place] 1.012 Urine Protein NEGATIVE Urine Glucose (UA) NEGATIVE Urine Ketones NEGATIVE Urine Blood NEGATIVE Urine Nitrite NEGATIVE Ur Leukocyte Esterase NEGATIVE Urine WBC (Auto) 3 Urine RBC (Auto) 1 Impressions: Abdomen/Pelvis CT 01/28/19 08:39 IMPRESSION: There is sigmoid diverticulosis with fat stranding about the proximal sigmoid and a probable phlegmon measuring 2.1 cm directed posteriorly (series 2, image 63). No evidence of overt perforation or abscess. Assessment & Plan - Diagnosis (1) Sigmoid diverticulitis Plan: with phlegmon and fat stranding, it is certainly consistent with diverticulitis will need to be on antibiotics avoid inpatient colonoscopy 6 week follow up outpatient colonoscopy discussed with Dr Adler - Time Time Spent: 50 to 70 Minutes
[2019-01-28] MEDS ORDERED: GLUCAGON,HUMAN RECOMB 1 MG INJ IM PRN (16:46)
[2019-01-28] MEDS ORDERED: DEXTROSE 50%-WATER 25 GM/50 ML DISP.SYRIN IV PRN ×2 (16:46)
[2019-01-28] MEDS ORDERED: DEXTROSE 40% GEL 15 GM TUBE PO PRN ×2 (16:46)
--- NOTE | 2019-01-28 17:12 | PDOC H&P ---
History of Present Illness Admission Date/PCP: 01/28/19 12:03 MAGNOLIA ADLER MD Patient complains of: Left-sided abdominal pain History of Present Illness: AGUSTIN ETIENNE is a 53 year old female This is a 53-year-old female with a significant history of the chronic A. fib history of the DVT history of the chronic anticoagulations history of the chronic congestive heart failure history of the hypertension's hyperlipidemia multiple comorbidity presented the emergency department with a complaining of her left-sided abdominal pain sudden onset last night Patient's denied any nausea no vomiting no blood in the stools In the emergency department patient underwent for the CT scan of the abdomen and pelvis did show some phlegmon on the sigmoid colon area but no abscess or possible diverticulitis Patient's white count other blood work is all stable Received 1 dose of IV morphine's help for the pain Was seen by the Dr. Aguero and agree with IV antibiotic for now and then oral antibiotics and outpatients colonoscopy Patient's denied any chest pain no short of breath Colonoscopy doneThis year Past Medical History Cardiac Medical History: Reports: Atrial Fibrillation, Congestive Heart Failure, Coronary Artery Disease - HIGH CHOLESTEROL, DVT, Hyperlipidema, Hypertension, Pulmonary Embolism Denies: Myocardial Infarction Pulmonary Medical History: Reports: Bronchitis, Chronic Obstructive Pulmonary Disease (COPD), Intubation, Pneumonia, Respiratory Failure, Sleep Apnea Denies: Asthma, Tuberculosis Neurological Medical History: Denies: Migraine, Seizures Endocrine Medical History: Reports: Diabetes Mellitus Type 2 Malignancy Medical History: Reports: Breast Cancer, Cervical Cancer GI Medical History: Reports: Gastroesophageal Reflux Disease, Hiatal Hernia Musculoskeltal Medical History: Reports: Arthritis - KNEES/BACK, Fibromyalgia Skin Medical History: Reports: Psoriasis Psychiatric Medical History: Reports: Bipolar Disorder, Depression Hematology: Denies: Anemia Past Surgical History Past Surgical History: Reports: Cholecystectomy, Hysterectomy, Mastectomy, Orthopedic Surgery, Pacemaker, Tubal Ligation, Vascular Surgery - port, Other - IVC filter placement Social History Smoking Status: Never Smoker Frequency of Alcohol Use: Rare Hx Recreational Drug Use: No Drugs: None Hx Prescription Drug Abuse: No Family History Family History: Arthritis, CAD, DM, Hyperlipidemia, Hypertension, Malignancy Parental Family History Reviewed: Yes Children Family History Reviewed: Yes Sibling(s) Family History Reviewed.: Yes Medication/Allergy Home Medications: Aspirin [Aspirin EC] 81 mg PO DAILY 03/05/17 Atorvastatin Calcium [Lipitor 10 mg Tablet] 10 mg PO QHS 03/05/17 Cholecalciferol (Vitamin D3) [Vitamin D3 5000 unit Capsule] 5,000 units PO DAILY 03/05/17 Colestipol HCl [Colestid 1 gm Tablet] 2 gm PO Q12 03/05/17 Esomeprazole Magnesium [Nexium] 20 mg PO DAILY 03/05/17 Fiber [Fiber Diet] 1 tab PO DAILY 03/05/17 Lorazepam [Ativan 1 mg Tablet] 1 mg PO Q8HP PRN 03/05/17 Losartan Potassium [Cozaar 50 mg Tablet] 50 mg PO QHS 03/05/17 Metformin HCl [Glucophage 500 mg Tablet] 500 mg PO DAILY 03/05/17 Multivit-Minerals/Folic Acid [One Daily Womens 50 Plus Tab] 1 tab PO DAILY 03/05/17 Ranolazine [Ranexa 500 mg Tab.sr] 1,000 mg PO Q12 03/05/17 Rivaroxaban [Xarelto] 20 mg PO WSUPPER 03/05/17 Solifenacin Succinate [Vesicare] 10 mg PO DAILY 03/05/17 Spironolactone [Aldactone 25 mg Tablet] 25 mg PO DAILY #30 tablet 03/09/17 Brexpiprazole [Rexulti] 2 mg PO DAILY 09/21/18 Metoprolol Tartrate [Lopressor 50 mg Tablet] 50 mg PO Q12 09/21/18 Paroxetine HCl [Paxil 20 mg Tablet] 20 mg PO QAM 09/21/18 Allergies/Adverse Reactions: adhesive [Adhesive] Allergy (Mild, Verified 10/15/18 15:12) Generalized rash methicillin [Methicillin] Allergy (Mild, Verified 10/15/18 15:12) Generalized rash vancomycin [Vancomycin] Allergy (Mild, Verified 10/15/18 15:12) Generalized rash Review of Systems Constitutional: ABSENT: chills, fever(s), headache(s), weight gain, weight loss Eyes: ABSENT: visual disturbances Ears: ABSENT: hearing changes Cardiovascular: ABSENT: chest pain, dyspnea on exertion, edema, orthropnea, palpitations Respiratory: ABSENT: cough, hemoptysis Gastrointestinal: PRESENT: abdominal pain. ABSENT: constipation, diarrhea, hematemesis, hematochezia, nausea, vomiting Genitourinary: ABSENT: dysuria, hematuria Musculoskeletal: ABSENT: joint swelling Integumentary: ABSENT: rash, wounds Neurological: ABSENT: abnormal gait, abnormal speech, confusion, dizziness, focal weakness, syncope Psychiatric: ABSENT: anxiety, depression, homidical ideation, suicidal ideation Endocrine: ABSENT: cold intolerance, heat intolerance, menstrual abnormalities, polydipsia, polyuria Hematologic/Lymphatic: ABSENT: easy bleeding, easy bruising, lymphadenopathy Physical Exam Vital Signs: Temp Pulse Resp BP Pulse Ox 97.7 F 79 19 107/66 96 01/28/19 04:51 01/28/19 04:51 01/28/19 11:06 01/28/19 11:06 01/28/19 11:06 Intake & Output 01/27/19 01/28/19 01/29/19 06:59 06:59 06:59 Intake Total 200 Balance 200 Weight 151.9 kg General appearance: PRESENT: no acute distress, well-developed, well-nourished Head exam: PRESENT: atraumatic, normocephalic Eye exam: PRESENT: conjunctiva pink, EOMI, PERRLA. ABSENT: scleral icterus Ear exam: PRESENT: normal external ear exam Mouth exam: PRESENT: moist, tongue midline Neck exam: PRESENT: full ROM. ABSENT: carotid bruit, JVD, lymphadenopathy, thyromegaly Respiratory exam: PRESENT: clear to auscultation ingrid Cardiovascular exam: PRESENT: RRR. ABSENT: diastolic murmur, rubs, systolic murmur Pulses: PRESENT: normal dorsalis pedis pul, +2 pedal pulses bilateral Vascular exam: PRESENT: normal capillary refill GI/Abdominal exam: PRESENT: normal bowel sounds, soft, tenderness. ABSENT: distended, guarding, mass, organolmegaly, rebound Rectal exam: PRESENT: deferred Neurological exam: PRESENT: alert, awake, oriented to person, oriented to place, oriented to time, oriented to situation, CN II-XII grossly intact. ABSENT: motor sensory deficit Psychiatric exam: PRESENT: appropriate affect, normal mood. ABSENT: homicidal ideation, suicidal ideation Skin exam: PRESENT: dry, intact, warm. ABSENT: cyanosis, rash Results Laboratory Results: 01/28/19 06:30 01/28/19 06:30 01/28/19 01/28/19 01/28/19 06:30 06:30 08:42 WBC 9.6 RBC 4.29 Hgb 13.2 Hct 40.3 MCV 94 MCH 30.9 MCHC 32.8 RDW 14.8 H Plt Count 274 Seg Neutrophils % 61.2 Sodium 138.8 Potassium 4.7 Chloride 106 Carbon Dioxide 24 Anion Gap 9 BUN 11 Creatinine 0.79 Est GFR ( Amer) > 60 Glucose 110 Calcium 9.4 Total Bilirubin 0.5 AST 42 H Alkaline Phosphatase 75 Total Protein 6.4 Albumin 3.5 Urine Color YELLOW Urine Appearance CLEAR Urine pH 5.0 Ur Specific [place] 1.012 Urine Protein NEGATIVE Urine Glucose (UA) NEGATIVE Urine Ketones NEGATIVE Urine Blood NEGATIVE Urine Nitrite NEGATIVE Ur Leukocyte Esterase NEGATIVE Urine WBC (Auto) 3 Urine RBC (Auto) 1 Impressions: Abdomen/Pelvis CT 01/28/19 08:39 IMPRESSION: There is sigmoid diverticulosis with fat stranding about the proximal sigmoid and a probable phlegmon measuring 2.1 cm directed posteriorly (series 2, image 63). No evidence of overt perforation or abscess. Assessment & Plan - Diagnosis (1) Sigmoid diverticulitis Is this a current diagnosis for this admission?: Yes Plan: Continues the patient on IV antibiotics (2) Atrial fibrillation Qualifiers: Atrial fibrillation type: unspecified persistent Qualified Code(s): I48.19 - Other persistent atrial fibrillation; I48.1 - Persistent atrial fibrillation Is this a current diagnosis for this admission?: Yes Plan: Is currently on Xarelto currently see a cardiology at [place] Dr. Aggarwal (3) Breast cancer Qualifiers: Laterality: unspecified laterality Is this a current diagnosis for this admission?: Yes (4) Congestive heart failure Qualifiers: Heart failure type: diastolic Heart failure chronicity: chronic Qualified Code(s): I50.32 - Chronic diastolic (congestive) heart failure Is this a current diagnosis for this admission?: Yes Plan: Continues to current medications patient is followed Dr. Tse locally here (5) DVT, recurrent, lower extremity, chronic Qualifiers: Laterality: unspecified laterality Qualified Code(s): I82.509 - Chronic embolism and thrombosis of unspecified deep veins of unspecified lower extremity Is this a current diagnosis for this admission?: Yes Plan: Is currently on a Xarelto daily (6) HTN (hypertension) Qualifiers: Hypertension type: essential hypertension Qualified Code(s): I10 - Essential (primary) hypertension Is this a current diagnosis for this admission?: Yes Plan: Currently all stable (7) History of pulmonary embolus (PE) Is this a current diagnosis for this admission?: Yes (8) Osteoarthritis Qualifiers: Osteoarthritis location: unspecified site Is this a current diagnosis for this admission?: Yes (9) Sleep apnea Qualifiers: Sleep apnea type: unspecified type Qualified Code(s): G47.30 - Sleep apnea, unspecified Is this a current diagnosis for this admission?: Yes Plan: Continues to use a CPAP (10) Type 2 diabetes mellitus Qualifiers: Diabetes mellitus intermediate 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 Diabetes mellitus complication status: with unspecified complications Is this a current diagnosis for this admission?: Yes Plan: Continues to sliding scale with [facility] protocol - Time Time Spent: 50 to 70 Minutes Medications reviewed and adjusted accordingly: Yes Anticipated discharge: Home Within: Other - Inpatient Certification Based on my medical assessment, after consideration of the patient's comorbidities, presenting symptoms, or acuity I expect that the services needed warrant INPATIENT care.: Yes I certify that my determination is in accordance with my understanding of Medicare's requirements for reasonable and necessary INPATIENT services [42 CFR 412.3e].: Yes Medical Necessity: Need Close Monitoring Due to Risk of Patient Decompensation, Need for Pain Control, Need for IV Antibiotics Post Hospital Care: D/C Investment Director Documentation - Plan Summary Plan Summary: Admit the patient in a telemetry bed See MD orders
[2019-01-28] MEDS ORDERED: (PENDING PHARMACY ID) (Magnesium Oxide [Magnesium] 400 MG) PO SCH (18:00)
[2019-01-28] MEDS: METRONIDAZOLE 500 MG/NS RTU 500 MG/100 ML RTUPB IV SCH ×2 (18:17→23:54)
[2019-01-28] MEDS: OXYCODONE-ACETAMINOPHEN 5-325 MG TABLET PO PRN (18:17)
[2019-01-28] MEDS: RIVAROXABAN 10 MG TABLET PO SCH (19:46)
[2019-01-28] MEDS ORDERED: (PENDING PHARMACY ID) (Colestipol Hcl [Colestid 1 Gm Tablet] 2 GM) PO SCH (22:00)
[2019-01-28] MEDS ORDERED: (PENDING PHARMACY ID) (Zolpidem Tartrate [Ambien] 10 MG) PO SCH (22:00)
[2019-01-28] MEDS: CIPROFLOXACIN 400 MG/D5W RTU 400 MG/200 ML RTUPB IV SCH (22:35)
[2019-01-28] MEDS: ZOLPIDEM TARTRATE 5 MG TABLET PO SCH (22:35)
[2019-01-28] MEDS: TOLTERODINE TARTRATE 1 MG TABLET PO SCH (22:35)
[2019-01-28] MEDS: ATORVASTATIN CALCIUM 10 MG TABLET PO SCH (22:36)
[2019-01-28] MEDS: RANOLAZINE 500 MG TAB.SR.12H PO SCH (22:36)
[2019-01-28] MEDS: METOPROLOL TARTRATE 50 MG TABLET PO SCH (22:36)
[2019-01-28] MEDS: LOSARTAN POTASSIUM 50 MG TABLET PO SCH (22:36)
[2019-01-28] MEDS: INSULIN LISPRO 100 UNIT/ML 3 ML VIAL SUBCUT SCH (23:29)
[2019-01-29] MEDS: OXYCODONE-ACETAMINOPHEN 5-325 MG TABLET PO PRN ×3 (01:55→18:07)
[2019-01-29] MEDS: METRONIDAZOLE 500 MG/NS RTU 500 MG/100 ML RTUPB IV SCH ×3 (05:11→21:28)
[2019-01-29] MEDS: PANTOPRAZOLE SODIUM 40 MG TABLET.DR PO SCH (05:13)
[2019-01-29] MEDS: INSULIN LISPRO 100 UNIT/ML 3 ML VIAL SUBCUT SCH ×4 (07:56→21:25)
[2019-01-29 07:59] LABS: ABSOLUTE BASOPHILS # (AUTO) 0.1 10^3/uL (0.0-0.2); ABSOLUTE EOSINOPHILS # (AUTO) 0.2 10^3/uL (0.0-0.6); ABSOLUTE LYMPHOCYTES (AUTO) 1.9 10^3/uL (0.5-4.7); ABSOLUTE MONOCYTES (AUTO) 0.7 10^3/uL (0.1-1.4); ABSOLUTE NEUT (AUTO) 3.4 10^3/uL (1.7-8.2); BASOPHILS % (AUTO) 1.3 % (0-2); EOSINOPHILS % (AUTO) 3.6 % (0-6); HEMATOCRIT 38.6 % (36.0-47.0); HEMOGLOBIN 12.8 g/dL (12.0-15.5); LYMPHOCYTES % (AUTO) 30.3 % (13-45); MEAN CORPUSCULAR HEMOGLOBIN 30.8 pg (27.0-33.4); MEAN CORPUSCULAR HGB CONC 33.2 g/dL (32.0-36.0); MEAN CORPUSCULAR VOLUME 93 fl (80-97); PLATELET COUNT 247 10^3/uL (150-450); RED BLOOD COUNT 4.16 10^6/uL (3.72-5.28); RED CELL DISTRIBUTION WIDTH 15.1 % (11.5-14.0); SEGMENTED NEUTROPHILS % (AUTO) 53.8 % (42-78); TOTAL CELLS COUNTED % (AUTO) 100 %; WHITE BLOOD COUNT 6.3 10^3/uL (4.0-10.5)
[2019-01-29] MEDS ORDERED: INFLUENZA QUAD (6MOS+) 2019-20 VAC 0.5 ML SYR IM ONE (08:00)
[2019-01-29 08:19] LABS: ALBUMIN 3.3 g/dL (3.5-5.0); ALKALINE PHOSPHATASE 77 U/L (38-126); ANION GAP 9 (5-19); ASPARTATE AMINO TRANSFERASE 43 U/L (14-36); BILIRUBIN,DIRECT 0.2 mg/dL (0.0-0.4); BLOOD UREA NITROGEN 10 mg/dL (7-20); CALCIUM 8.9 mg/dL (8.4-10.2); CARBON DIOXIDE 23 mmol/L (22-30); CHLORIDE 106 mmol/L (98-107); GLUCOSE 104 mg/dL (75-110); POTASSIUM 4.6 mmol/L (3.6-5.0); TOTAL PROTEIN 6.1 g/dL (6.3-8.2)
[2019-01-29] MEDS: PAROXETINE HCL 20 MG TABLET PO SCH (08:36)
--- NOTE | 2019-01-29 08:51 | PDOC PROGRESS REPORT ---
Subjective Progress Note for:: 01/29/19 Subjective:: records are reviewed she had an EGD in the past I am not able to find records of a colonoscopy unless it was done elsewhere by another physician no elevated WBC remains on antibiotics since there is a phlegmon and some fat stranding, it is consistent with diverticulitis until proven otherwise she will need an outpatient colonoscopy following treatment VSS Reason For Visit: ABDOMINAL PAIN Physical Exam Vital Signs: Temp Pulse Resp BP Pulse Ox 98.5 F 79 16 104/61 95 01/29/19 08:00 01/29/19 08:00 01/29/19 08:00 01/29/19 08:00 01/29/19 08:00 Intake & Output 01/28/19 01/29/19 01/30/19 06:59 06:59 06:59 Intake Total 1030 Balance 1030 Weight 151.9 kg 140.2 kg General appearance: PRESENT: no acute distress Head exam: PRESENT: atraumatic, normocephalic Eye exam: PRESENT: EOMI, PERRLA. ABSENT: scleral icterus Mouth exam: PRESENT: moist, neck supple Throat exam: ABSENT: tonsillar exudate, tonsillogmegaly Neck exam: ABSENT: meningismus, tenderness, thyromegaly Respiratory exam: PRESENT: symmetrical, unlabored. ABSENT: tachypnea, wheezes Cardiovascular exam: PRESENT: RRR, +S1, +S2 GI/Abdominal exam: PRESENT: soft, tenderness. ABSENT: rebound, rigid Gentrourinary exam: ABSENT: lesions Extremities exam: ABSENT: joint swelling, pedal edema Neurological exam: PRESENT: oriented to time, oriented to situation, CN II-XII grossly intact Focused psych exam: ABSENT: restlessness Skin exam: PRESENT: normal color. ABSENT: mottled, pallor, urticaria, vesicles Results Laboratory Results: 01/29/19 07:07 01/29/19 07:07 01/28/19 01/29/19 01/29/19 08:42 07:07 07:07 WBC 6.3 RBC 4.16 Hgb 12.8 Hct 38.6 MCV 93 MCH 30.8 MCHC 33.2 RDW 15.1 H Plt Count 247 Seg Neutrophils % 53.8 Sodium Potassium Chloride Carbon Dioxide Anion Gap BUN Creatinine Est GFR ( Amer) Glucose Lactic Acid 1.6 Calcium Total Bilirubin AST Alkaline Phosphatase Total Protein Albumin Urine Color YELLOW Urine Appearance CLEAR Urine pH 5.0 Ur Specific [place] 1.012 Urine Protein NEGATIVE Urine Glucose (UA) NEGATIVE Urine Ketones NEGATIVE Urine Blood NEGATIVE Urine Nitrite NEGATIVE Ur Leukocyte Esterase NEGATIVE Urine WBC (Auto) 3 Urine RBC (Auto) 1 01/29/19 07:07 WBC RBC Hgb Hct MCV MCH MCHC RDW Plt Count Seg Neutrophils % Sodium 137.7 Potassium 4.6 Chloride 106 Carbon Dioxide 23 Anion Gap 9 BUN 10 Creatinine 0.79 Est GFR ( Amer) > 60 Glucose 104 Lactic Acid Calcium 8.9 Total Bilirubin 1.0 AST 43 H Alkaline Phosphatase 77 Total Protein 6.1 L Albumin 3.3 L Urine Color Urine Appearance Urine pH Ur Specific [place] Urine Protein Urine Glucose (UA) Urine Ketones Urine Blood Urine Nitrite Ur Leukocyte Esterase Urine WBC (Auto) Urine RBC (Auto) Impressions: Abdomen/Pelvis CT 01/28/19 08:39 IMPRESSION: There is sigmoid diverticulosis with fat stranding about the proximal sigmoid and a probable phlegmon measuring 2.1 cm directed posteriorly (series 2, image 63). No evidence of overt perforation or abscess. Assessment & Plan - Diagnosis (1) Sigmoid diverticulitis Is this a current diagnosis for this admission?: Yes Plan: will see as outpatient will schedule once antibiotics have been completed orally continue current care - Time Time Spent with patient: 15-24 minutes
--- NOTE | 2019-01-29 09:17 | RADIOLOGY REPORT (SQ) ---
EXAM DESCRIPTION: HIP BILATERAL COMPLETED DATE/TIME: 01/29/2019 8:51 am REASON FOR STUDY: hip pain COMPARISON: 12/02/2014 NUMBER OF VIEWS: Two views. TECHNIQUE: AP pelvis and additional frog-leg view of the right and left hip. LIMITATIONS: None. FINDINGS: MINERALIZATION: Normal. RIGHT HIP: No fracture or dislocation. No worrisome bone lesions.Mild osteophytosis. Joint space re latively well-maintained. LEFT HIP: No fracture or dislocation. No worrisome bone lesions. Mild osteophytosis. Joint space re latively well-maintained. PUBIS AND ISCHIUM: No fracture. Mild degenerative changes at the pubic symphysis. PELVIS: No fracture. SACRUM: No fracture or dislocation. No worrisome bone lesions. LOWER LUMBAR SPINE: No fracture or dislocation. No worrisome bone lesions. Mild spondylosis and face t arthropathy. SOFT TISSUES: No findings. OTHER: IVC filter overlies expected location of infrarenal vena cava. IMPRESSION: No evidence of acute bony abnormality. Mild bilateral hip degenerative changes relatively well-maintained joint spaces. TECHNICAL DOCUMENTATION: JOB ID: [id number] [employer]- All Rights Reserved Reading location - IP/workstation name: [email or web address]
[2019-01-29] MEDS ORDERED: [UNRECOGNIZED DRUG - OTHER] PO SCH (10:00)
[2019-01-29] MEDS: METOPROLOL TARTRATE 50 MG TABLET PO SCH ×2 (10:00→21:38)
[2019-01-29] MEDS ORDERED: (PENDING PHARMACY ID) (Solifenacin Succinate [Vesicare] 10 MG) PO SCH (10:00)
[2019-01-29] MEDS ORDERED: FOLIC ACID PO SCH (10:00)
[2019-01-29] MEDS ORDERED: FIBER PO SCH (10:00)
[2019-01-29] MEDS ORDERED: (PENDING PHARMACY ID) (Esomeprazole Magnesium [Nexium] 20 MG) PO SCH (10:00)
[2019-01-29] MEDS ORDERED: POTASSIUM CHLORIDE 10 MEQ CAPSULE.ER PO SCH (10:00)
[2019-01-29] MEDS ORDERED: MULTIVIT MINERALS PO SCH (10:00)
[2019-01-29] MEDS ORDERED: PANTOPRAZOLE SODIUM 20 MG TABLET.DR PO SCH (10:00)
[2019-01-29] MEDS ORDERED: (PENDING PHARMACY ID) (Brexpiprazole [Rexulti] 2 MG) PO SCH (10:00)
[2019-01-29] MEDS: RANOLAZINE 500 MG TAB.SR.12H PO SCH ×2 (10:37→21:29)
[2019-01-29] MEDS: SPIRONOLACTONE 25 MG TABLET PO SCH (10:38)
[2019-01-29] MEDS: MAGNESIUM OXIDE 400 MG TABLET PO SCH ×2 (10:38→17:10)
[2019-01-29] MEDS: CHOLECALCIFEROL (D3) 1,000 UNIT (25 MCG) TABLET PO SCH (10:38)
[2019-01-29] MEDS: MULTIVITAMIN TABLET PO SCH (10:39)
[2019-01-29] MEDS: TOLTERODINE TARTRATE 1 MG TABLET PO SCH ×2 (10:39→21:28)
[2019-01-29] MEDS: CIPROFLOXACIN 400 MG/D5W RTU 400 MG/200 ML RTUPB IV SCH (10:42)
--- NOTE | 2019-01-29 12:44 | PDOC PROGRESS REPORT ---
Subjective Progress Note for:: 01/29/19 Subjective:: Patient is still complaining of her left lower quadrant pain Patient's denied any nausea no vomiting no blood in the stools Reason For Visit: ABDOMINAL PAIN Physical Exam Vital Signs: Temp Pulse Resp BP Pulse Ox 98.5 F 79 16 104/61 95 01/29/19 08:00 01/29/19 08:00 01/29/19 08:00 01/29/19 08:00 01/29/19 08:00 Intake & Output 01/28/19 01/29/19 01/30/19 06:59 06:59 06:59 Intake Total 1030 Balance 1030 Weight 151.9 kg 140.2 kg General appearance: PRESENT: no acute distress, well-developed, well-nourished Head exam: PRESENT: atraumatic, normocephalic Eye exam: PRESENT: conjunctiva pink, EOMI, PERRLA. ABSENT: scleral icterus Ear exam: PRESENT: normal external ear exam Mouth exam: PRESENT: moist, tongue midline Neck exam: PRESENT: full ROM. ABSENT: carotid bruit, JVD, lymphadenopathy, thyromegaly Respiratory exam: PRESENT: clear to auscultation ingrid Cardiovascular exam: PRESENT: RRR. ABSENT: diastolic murmur, rubs, systolic murmur Pulses: PRESENT: normal dorsalis pedis pul, +2 pedal pulses bilateral Vascular exam: PRESENT: normal capillary refill GI/Abdominal exam: PRESENT: normal bowel sounds, soft. ABSENT: distended, guarding, mass, organolmegaly, rebound, tenderness Additonal comments: Mild tenderness in the left lower quadrant but no guarding Rectal exam: PRESENT: deferred Musculoskeletal exam: PRESENT: ambulatory Neurological exam: PRESENT: alert, awake, oriented to person, oriented to place, oriented to time, oriented to situation, CN II-XII grossly intact. ABSENT: motor sensory deficit Psychiatric exam: PRESENT: appropriate affect, normal mood. ABSENT: homicidal ideation, suicidal ideation Skin exam: PRESENT: dry, intact, warm. ABSENT: cyanosis, rash Results Laboratory Results: 01/29/19 07:07 01/29/19 07:07 01/29/19 01/29/19 01/29/19 07:07 07:07 07:07 WBC 6.3 RBC 4.16 Hgb 12.8 Hct 38.6 MCV 93 MCH 30.8 MCHC 33.2 RDW 15.1 H Plt Count 247 Seg Neutrophils % 53.8 Sodium 137.7 Potassium 4.6 Chloride 106 Carbon Dioxide 23 Anion Gap 9 BUN 10 Creatinine 0.79 Est GFR ( Amer) > 60 Glucose 104 Lactic Acid 1.6 Calcium 8.9 Total Bilirubin 1.0 AST 43 H Alkaline Phosphatase 77 Total Protein 6.1 L Albumin 3.3 L Impressions: Abdomen/Pelvis CT 01/28/19 08:39 IMPRESSION: There is sigmoid diverticulosis with fat stranding about the proxi mal sigmoid and a probable phlegmon measuring 2.1 cm directed posteriorly (series 2, image 63). No evidence of overt perforation or abscess. Hip X-Ray 01/29/19 00:00 IMPRESSION: No evidence of acute bony abnormality. Mild bilateral hip degenerative changes relatively well-maintained joint spaces. Assessment & Plan - Diagnosis (1) Sigmoid diverticulitis Is this a current diagnosis for this admission?: Yes Plan: Continues IV antibiotic (2) Atrial fibrillation Qualifiers: Atrial fibrillation type: unspecified persistent Qualified Code(s): I48.19 - Other persistent atrial fibrillation; I48.1 - Persistent atrial fibrillation Is this a current diagnosis for this admission?: Yes Plan: Is currently on Xarelto currently see a cardiology at [place] Dr. Aggarwal (3) Breast cancer Qualifiers: Laterality: unspecified laterality Is this a current diagnosis for this admission?: Yes (4) Congestive heart failure Qualifiers: Heart failure type: diastolic Heart failure chronicity: chronic Qualified Code(s): I50.32 - Chronic diastolic (congestive) heart failure Is this a current diagnosis for this admission?: Yes Plan: Continues to current medications patient is followed Dr. Tse locally here (5) DVT, recurrent, lower extremity, chronic Qualifiers: Laterality: unspecified laterality Qualified Code(s): I82.509 - Chronic embolism and thrombosis of unspecified deep veins of unspecified lower extremity Is this a current diagnosis for this admission?: Yes Plan: Is currently on a Xarelto daily (6) HTN (hypertension) Qualifiers: Hypertension type: essential hypertension Qualified Code(s): I10 - Essential (primary) hypertension Is this a current diagnosis for this admission?: Yes Plan: Currently all stable (7) History of pulmonary embolus (PE) Is this a current diagnosis for this admission?: Yes (8) Osteoarthritis Qualifiers: Osteoarthritis location: unspecified site Is this a current diagnosis for this admission?: Yes Plan: Patient's x-ray stable (9) Sleep apnea Qualifiers: Sleep apnea type: unspecified type Qualified Code(s): G47.30 - Sleep apnea, unspecified Is this a current diagnosis for this admission?: Yes Plan: Continues to use a CPAP (10) Type 2 diabetes mellitus Qualifiers: Diabetes mellitus 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
[2019-01-29] MEDS: RIVAROXABAN 10 MG TABLET PO SCH (17:09)
[2019-01-29] MEDS ORDERED: (PENDING PHARMACY ID) (Potassium Chloride [Potassium Chloride] 40 MEQ) PO SCH (18:00)
[2019-01-29] MEDS: LORAZEPAM 1 MG TABLET PO PRN (18:06)
[2019-01-29] MEDS: ATORVASTATIN CALCIUM 10 MG TABLET PO SCH (21:30)
[2019-01-29] MEDS: ZOLPIDEM TARTRATE 5 MG TABLET PO SCH (21:30)
[2019-01-29] MEDS: LOSARTAN POTASSIUM 50 MG TABLET PO SCH (21:38)
[2019-01-29] MEDS ORDERED: OXYCODONE-ACETAMINOPHEN 5-325 MG TABLET PO ONE (22:00)
[2019-01-30] MEDS: METRONIDAZOLE 500 MG/NS RTU 500 MG/100 ML RTUPB IV SCH ×5 (00:28→20:10)
[2019-01-30] MEDS: CIPROFLOXACIN 400 MG/D5W RTU 400 MG/200 ML RTUPB IV SCH ×3 (01:59→22:12)
[2019-01-30] MEDS: PANTOPRAZOLE SODIUM 40 MG TABLET.DR PO SCH (05:02)
[2019-01-30 05:39] LABS: ABSOLUTE BASOPHILS # (AUTO) 0.1 10^3/uL (0.0-0.2); ABSOLUTE EOSINOPHILS # (AUTO) 0.3 10^3/uL (0.0-0.6); ABSOLUTE LYMPHOCYTES (AUTO) 1.6 10^3/uL (0.5-4.7); ABSOLUTE MONOCYTES (AUTO) 0.7 10^3/uL (0.1-1.4); ABSOLUTE NEUT (AUTO) 3.5 10^3/uL (1.7-8.2); BASOPHILS % (AUTO) 1.2 % (0-2); EOSINOPHILS % (AUTO) 4.7 % (0-6); HEMATOCRIT 36.5 % (36.0-47.0); LYMPHOCYTES % (AUTO) 26.5 % (13-45); MEAN CORPUSCULAR HEMOGLOBIN 30.6 pg (27.0-33.4); MEAN CORPUSCULAR HGB CONC 32.8 g/dL (32.0-36.0); MEAN CORPUSCULAR VOLUME 93 fl (80-97); MONOCYTES % (AUTO) 11.4 % (3-13); PLATELET COUNT 246 10^3/uL (150-450); RED BLOOD COUNT 3.91 10^6/uL (3.72-5.28); RED CELL DISTRIBUTION WIDTH 14.9 % (11.5-14.0); SEGMENTED NEUTROPHILS % (AUTO) 56.2 % (42-78); TOTAL CELLS COUNTED % (AUTO) 100 %; WHITE BLOOD COUNT 6.2 10^3/uL (4.0-10.5)
--- NOTE | 2019-01-30 06:53 | PDOC CONSULTATION ---
Consultation Consult Date: 01/30/19 Provider Consulted: RAJNI DEL RIO Consult reason:: Acute sigmoid diverticulitis with phlegmon History of Present Illness Admission Date/PCP: 01/28/19 12:03 MAGNOLIA ADLER MD Patient complains of: Left lower quadrant abdominal pain History of Present Illness: AGUSTIN ETIENNE is a 53 year old female morbid obese, with history of type 2 di abetes, COPD, congestive heart failure, multiple DVTs, status post tracheostomy x2, s/p breast cancer and cervical cancer, and atrial fibrillation admitted on January 28 with a history of left lower abdominal pain. Her blood work was within normal limit. A CT scan of the abdomen pelvis with IV and oral contrasts was done and it revealed sigmoid diverticulosis, sigmoid diverticulitis with phlegmon, no evidence of perforation, no free air or free fluid. The patient was admitted for IV antibiotics (Levaquin and Flagyl); however, currently she has lost her peripheral IV. She is scheduled to undergo repeat placement today to continue the IV antibiotics treatment. She is currently on a full liquid diet which is well-tolerated. She denies bowel movements, she reports flatus and hematochezia last week. The patient has undergone a colonoscopy in June 2018 with a diagnosis of diverticulosis, internal hemorrhoids, and polypectomy x1 (benign pathology). She has had a previous colonoscopy in August 2017 with polypectomy x1 (precancerous polyp). Past Medical History Cardiac Medical History: Reports: Atrial Fibrillation, Congestive Heart Failure, Coronary Artery Disease - HIGH CHOLESTEROL, DVT, Hyperlipidema, Hypertension, Pulmonary Embolism Denies: Myocardial Infarction Pulmonary Medical History: Reports: Bronchitis, Chronic Obstructive Pulmonary Disease (COPD), Intubation, Pneumonia, Respiratory Failure, Sleep Apnea Denies: Asthma, Tuberculosis Neurological Medical History: Denies: Migraine, Seizures Endocrine Medical History: Reports: Diabetes Mellitus Type 2 Malignancy Medical History: Reports: Breast Cancer, Cervical Cancer GI Medical History: Reports: Gastroesophageal Reflux Disease, Hiatal Hernia Musculoskeltal Medical History: Reports: Arthritis - KNEES/BACK, Fibromyalgia Skin Medical History: Reports: Psoriasis Psychiatric Medical History: Reports: Bipolar Disorder, Depression Hematology: Denies: Anemia Past Surgical History Past Surgical History: Reports: Cholecystectomy, Hysterectomy, Mastectomy, Orthopedic Surgery, Pacemaker, Tubal Ligation, Vascular Surgery - port, Other - IVC filter placement Social History Smoking Status: Never Smoker Frequency of Alcohol Use: Occasional Hx Recreational Drug Use: No Drugs: None Hx Prescription Drug Abuse: No Family History Family History: Arthritis, CAD, DM, Hyperlipidemia, Hypertension, Malignancy Parental Family History Reviewed: Yes - n/a Children Family History Reviewed: No Sibling(s) Family History Reviewed.: No Medication/Allergy Home Medications: Atorvastatin Calcium [Lipitor 10 mg Tablet] 10 mg PO QHS 03/05/17 Cholecalciferol (Vitamin D3) [Vitamin D3 5000 unit Capsule] 5,000 units PO DAILY 03/05/17 Colestipol HCl [Colestid 1 gm Tablet] 2 gm PO Q12 03/05/17 Esomeprazole Magnesium [Nexium] 20 mg PO DAILY 03/05/17 Fiber [Fiber Diet] 1 tab PO DAILY 03/05/17 Lorazepam [Ativan 1 mg Tablet] 1 mg PO Q8HP PRN 03/05/17 Losartan Potassium [Cozaar 50 mg Tablet] 50 mg PO QHS 03/05/17 Metformin HCl [Glucophage 500 mg Tablet] 500 mg PO DAILY 03/05/17 Multivit-Minerals/Folic Acid [One Daily Womens 50 Plus Tab] 1 tab PO DAILY 03/05/17 Ranolazine [Ranexa 500 mg Tab.sr] 1,000 mg PO Q12 03/05/17 Rivaroxaban [Xarelto] 20 mg PO WSUPPER 03/05/17 Solifenacin Succinate [Vesicare] 10 mg PO DAILY 03/05/17 Spironolactone [Aldactone 25 mg Tablet] 25 mg PO DAILY #30 tablet 03/09/17 Brexpiprazole [Rexulti] 2 mg PO DAILY 09/21/18 Metoprolol Tartrate [Lopressor 50 mg Tablet] 50 mg PO Q12 09/21/18 Paroxetine HCl [Paxil 20 mg Tablet] 20 mg PO QAM 09/21/18 Furosemide [Lasix 40 mg Tablet] 40 mg PO BID 01/28/19 Magnesium Oxide [Magnesium] 400 mg PO BID 01/28/19 Potassium Chloride 40 meq PO BID 01/28/19 Zolpidem Tartrate [Ambien] 10 mg PO QHS 01/28/19 Allergies/Adverse Reactions: adhesive [Adhesive] Allergy (Mild, Verified 10/15/18 15:12) Generalized rash methicillin [Methicillin] Allergy (Mild, Verified 10/15/18 15:12) Generalized rash vancomycin [Vancomycin] Allergy (Mild, Verified 10/15/18 15:12) Generalized rash Physical Exam Vital Signs: Temp Pulse Resp BP Pulse Ox 97.5 F 79 19 98/54 L 96 01/30/19 03:45 01/30/19 03:45 01/30/19 03:45 01/30/19 03:45 01/30/19 03:45 Intake & Output 01/28/19 01/29/19 01/30/19 06:59 06:59 06:59 Intake Total 1030 2043 Balance 1030 2043 Weight 151.9 kg 140.2 kg General appearance: PRESENT: no acute distress, obese Head exam: PRESENT: atraumatic, normocephalic Eye exam: PRESENT: EOMI Mouth exam: PRESENT: moist, neck supple Neck exam: PRESENT: full ROM Respiratory exam: PRESENT: clear to auscultation ingrid Cardiovascular exam: PRESENT: RRR GI/Abdominal exam: PRESENT: soft, tenderness - In the left lower quadrant, other - Allergy for obesity Rectal exam: PRESENT: deferred Extremities exam: PRESENT: full ROM Musculoskeletal exam: PRESENT: full ROM, normal inspection Neurological exam: PRESENT: alert, oriented to person, oriented to place Skin exam: PRESENT: warm Results Laboratory Results: 01/30/19 04:50 01/29/19 07:07 01/29/19 01/29/19 01/29/19 07:07 07:07 07:07 WBC 6.3 RBC 4.16 Hgb 12.8 Hct 38.6 MCV 93 MCH 30.8 MCHC 33.2 RDW 15.1 H Plt Count 247 Seg Neutrophils % 53.8 Sodium 137.7 Potassium 4.6 Chloride 106 Carbon Dioxide 23 Anion Gap 9 BUN 10 Creatinine 0.79 Est GFR ( Amer) > 60 Glucose 104 Lactic Acid 1.6 Calcium 8.9 Total Bilirubin 1.0 AST 43 H Alkaline Phosphatase 77 Total Protein 6.1 L Albumin 3.3 L 01/30/19 04:50 WBC 6.2 RBC 3.91 Hgb 12.0 Hct 36.5 MCV 93 MCH 30.6 MCHC 32.8 RDW 14.9 H Plt Count 246 Seg Neutrophils % 56.2 Sodium Potassium Chloride Carbon Dioxide Anion Gap BUN Creatinine Est GFR ( Amer) Glucose Lactic Acid Calcium Total Bilirubin AST Alkaline Phosphatase Total Protein Albumin Impressions: Abdomen/Pelvis CT 01/28/19 08:39 IMPRESSION: There is sigmoid diverticulosis with fat stranding about the proximal sigmoid and a probable phlegmon measuring 2.1 cm directed posteriorly (series 2, image 63). No evidence of overt perforation or abscess. Hip X-Ray 01/29/19 00:00 IMPRESSION: No evidence of acute bony abnormality. Mild bilateral hip degenerative changes relatively well-maintained joint spaces. Assessment & Plan - Diagnosis (1) Sigmoid diverticulitis Is this a current diagnosis for this admission?: Yes - Plan Summary Plan Summary: Assessment: Morbidly obese 53-year-old female with multiple medical problems secondary to obesity as well as atrial fibrillation and congestive heart failure history of DVT Sigmoid diverticulitis with phlegmon formation without evidence of free perforation, no free air, no free fluid Blood per cell count within normal limit Patient afebrile Full liquid diet tolerated Patient has no IV access and she is scheduled to undergo a PICC line today to continue her course of IV antibiotics Plan: No general surgery intervention contemplated at this time on this patient Once daily IV antibiotic therapy has been resumed and patient pain improves, I am recommending that her diet can be advanced to low residue diet I am recommending a low residue diet for about 3 weeks after discharge, afterwards she can reintroduce vegetable fibers I would add Colace 100 mg p.o. twice daily to her medication regimen to stim ulate her bowel function The patient will need to undergo colonoscopy 3 to 4 months after the resolution of this episode of acute diverticulitis
[2019-01-30] MEDS: INSULIN LISPRO 100 UNIT/ML 3 ML VIAL SUBCUT SCH ×4 (07:30→22:13)
[2019-01-30] MEDS ORDERED: METOPROLOL TARTRATE 50 MG TABLET PO SCH (10:00)
[2019-01-30] MEDS: SPIRONOLACTONE 25 MG TABLET PO SCH (10:10)
[2019-01-30] MEDS: METOPROLOL TARTRATE 25 MG TABLET PO SCH ×2 (10:10→22:13)
[2019-01-30] MEDS: MAGNESIUM OXIDE 400 MG TABLET PO SCH ×2 (10:10→17:22)
[2019-01-30] MEDS: TOLTERODINE TARTRATE 1 MG TABLET PO SCH ×2 (10:11→22:14)
[2019-01-30] MEDS: DOCUSATE SODIUM 100 MG CAPSULE PO SCH ×2 (10:11→17:22)
[2019-01-30] MEDS: RANOLAZINE 500 MG TAB.SR.12H PO SCH ×2 (10:11→22:12)
[2019-01-30] MEDS: MULTIVITAMIN TABLET PO SCH (10:11)
[2019-01-30] MEDS: CHOLECALCIFEROL (D3) 1,000 UNIT (25 MCG) TABLET PO SCH (10:12)
[2019-01-30] MEDS: PAROXETINE HCL 20 MG TABLET PO SCH (10:14)
[2019-01-30] MEDS: OXYCODONE-ACETAMINOPHEN 5-325 MG TABLET PO PRN ×2 (11:50→20:14)
[2019-01-30] MEDS ORDERED: ONDANSETRON HCL INJ/PF 4 MG/2 ML SDV IV PRN (13:00)
[2019-01-30] MEDS: LORAZEPAM 1 MG TABLET PO PRN (14:47)
--- NOTE | 2019-01-30 15:26 | PDOC PROGRESS REPORT ---
Subjective Progress Note for:: 01/30/19 Subjective:: Patient still complaining of left lower quadrant pain surgical consult was placed to rule out the further evaluations and suggests that this continues to antibiotics No fever no chills patient's white count is all normal Difficult for the IV access scheduled for the PICC line today Port-A-Cath but is not working Reason For Visit: ABDOMINAL PAIN Physical Exam Vital Signs: Temp Pulse Resp BP Pulse Ox 97.9 F 74 19 101/70 96 01/30/19 11:49 01/30/19 14:00 01/30/19 11:49 01/30/19 11:49 01/30/19 11:49 Intake & Output 01/29/19 01/30/19 01/31/19 06:59 06:59 06:59 Intake Total 1030 2265 780 Balance 1030 2265 780 Weight 140.2 kg 144.4 kg General appearance: PRESENT: no acute distress, well-developed, well-nourished Head exam: PRESENT: atraumatic, normocephalic Eye exam: PRESENT: conjunctiva pink, EOMI, PERRLA. ABSENT: scleral icterus Ear exam: PRESENT: normal external ear exam Mouth exam: PRESENT: moist, tongue midline Neck exam: PRESENT: full ROM. ABSENT: carotid bruit, JVD, lymphadenopathy, thyromegaly Respiratory exam: PRESENT: clear to auscultation ingrid Cardiovascular exam: PRESENT: RRR. ABSENT: diastolic murmur, rubs, systolic murmur Pulses: PRESENT: normal dorsalis pedis pul, +2 pedal pulses bilateral Vascular exam: PRESENT: normal capillary refill GI/Abdominal exam: PRESENT: normal bowel sounds, soft. ABSENT: distended, guarding, mass, organolmegaly, rebound, tenderness Rectal exam: PRESENT: deferred Extremities exam: ABSENT: pedal edema Musculoskeletal exam: PRESENT: ambulatory Neurological exam: PRESENT: alert, awake, oriented to person, oriented to place, oriented to time, oriented to situation, CN II-XII grossly intact. ABSENT: motor sensory deficit Psychiatric exam: PRESENT: appropriate affect, normal mood. ABSENT: homicidal ideation, suicidal ideation Skin exam: PRESENT: dry, intact, warm. ABSENT: cyanosis, rash Results Laboratory Results: 01/30/19 04:50 01/29/19 07:07 01/30/19 04:50 WBC 6.2 RBC 3.91 Hgb 12.0 Hct 36.5 MCV 93 MCH 30.6 MCHC 32.8 RDW 14.9 H Plt Count 246 Seg Neutrophils % 56.2 Impressions: Abdomen/Pelvis CT 01/28/19 08:39 IMPRESSION: There is sigmoid diverticulosis with fat stranding about the proximal sigmoid and a probable phlegmon measuring 2.1 cm directed posteriorly (series 2, image 63). No evidence of overt perforation or abscess. Hip X-Ray 01/29/19 00:00 IMPRESSION: No evidence of acute bony abnormality. Mild bilateral hip degenerative changes relatively well-maintained joint spaces. Assessment & Plan - Diagnosis (1) Sigmoid diverticulitis Is this a current diagnosis for this admission?: Yes Plan: Continues to IV antibiotics (2) Atrial fibrillation Qualifiers: Atrial fibrillation type: unspecified persistent Qualified Code(s): I48.19 - Other persistent atrial fibrillation; I48.1 - Persistent atrial fibrillation Is this a current diagnosis for this admission?: Yes Plan: Is currently on Xarelto currently see a cardiology at [place] Dr. Aggarwal (3) Breast cancer Qualifiers: Laterality: unspecified laterality Is this a current diagnosis for this admission?: Yes (4) Congestive heart failure Qualifiers: Heart failure type: diastolic Heart failure chronicity: chronic Qualified Code(s): I50.32 - Chronic diastolic (congestive) heart failure Is this a current diagnosis for this admission?: Yes Plan: Continues to current medications patient is followed Dr. Tse locally here (5) DVT, recurrent, lower extremity, chronic Qualifiers: Laterality: unspecified laterality Qualified Code(s): I82.509 - Chronic embolism and thrombosis of unspecified deep veins of unspecified lower extremity Is this a current diagnosis for this admission?: Yes Plan: Is currently on a Xarelto daily (6) HTN (hypertension) Qualifiers: Hypertension type: essential hypertension Qualified Code(s): I10 - Essential (primary) hypertension Is this a current diagnosis for this admission?: Yes Plan: Currently all stable (7) History of pulmonary embolus (PE) Is this a current diagnosis for this admission?: Yes (8) Osteoarthritis Qualifiers: Osteoarthritis location: unspecified site Is this a current diagnosis for this admission?: Yes Plan: Patient's x-ray stable (9) Sleep apnea Qualifiers: Sleep apnea type: unspecified type Qualified Code(s): G47.30 - Sleep apnea, unspecified Is this a current diagnosis for this admission?: Yes Plan: Continues to use a CPAP (10) Type 2 diabetes mellitus Qualifiers: 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
--- NOTE | 2019-01-30 16:09 | RADIOLOGY REPORT (SQ) ---
EXAM DESCRIPTION: PICC INSERTION; FLUORO/CV PLACEMENT; U/S GUIDE FOR VASCULAR ACCESS COMPLETED DATE/TIME: 01/30/2019 3:54 pm REASON FOR STUDY: unable to obtain IV access after multiple attempts; IV ACCESS COMPARISON: Two-view chest 10/15/2018 CT chest 10/15/2018 FLUOROSCOPY TIME: 3 minutes 10 seconds 1 digital fluoroscopic image, 1 ultrasound image saved to PACS. TECHNIQUE: Fluoroscopic and ultrasound guided PICC placement. LIMITATIONS: None. PROCEDURE: After written consent and assessment were obtained, the patient was brought into the fluo roscopy room and placed supine on the table. Ultrasound evaluation of potential access sites were per formed. After successfully identifying a patent right basilic vein, the right arm was prepped and nishi ped in a sterile fashion along with the ultrasound probe. The entry site was anesthetized with 1% lid ocaine. A 21 gauge 7 cm needle was advanced through the skin and into the basilic vein under live ult rasound guidance. An ultrasound image was saved to PACS confirming access site. A .018 guide wire w as then inserted through the needle and into the venous system. The needle was then removed and an 11 blade scalpel was used to make a 1cm skin incision. A 5 fr peel-away sheath was advanced over the w anabel and into the venous system. A measurement was then made using the existing wire and live fluorosc opic guidance. The wire was then removed and trimmed. The PICC was advanced through the peel-away she ath and into the venous system. The peel-away sheath was removed and the catheter was adhered to the patients arm with a stat lock. The catheter was then aspirated and flushed and a sterile bandage was placed over the access site. A fluoroscopic spot image was saved to PACS confirming the catheter tip within the superior vena cava. IMPRESSION: SUCCESSFUL PLACEMENT OF A 5 FR DUAL LUMEN 48 CM PICC IN THE RIGHT BASILIC VEIN. COMMENT: Patient medication list reviewed: Yes- Quality ID# 130:Eligible professional attests to doc umenting in the medical record they obtained, updated, or reviewed the patient's current medications. . Quality ID 145: Final reports for procedures using fluoroscopy that document radiation exposure raza melly, or exposure time and number of fluorographic images (if radiation exposure indices are not avail able) Quality ID #76: The patient was prepped and draped using maximum sterile barrier technique including cap, mask, sterile gown, sterile gloves, a large sterile sheet, hand hygiene, and 2% Chlorhexidine fo r cutaneous antisepsis. When ultrasound is used, sterile ultrasound techniques are followed requiring sterile gel and sterile probes. TECHNICAL DOCUMENTATION: JOB ID: [id number] [employer]- All Rights Reserved rev-09/07 Reading location - IP/workstation name: [id number]
[2019-01-30] MEDS: FUROSEMIDE 40 MG TABLET PO SCH (17:22)
[2019-01-30] MEDS: RIVAROXABAN 10 MG TABLET PO SCH (17:22)
--- NOTE | 2019-01-30 17:49 | PDOC PROGRESS REPORT ---
Subjective Progress Note for:: 01/30/19 Subjective:: Patient states she still having abdominal pain however she tolerated a diet to day liquids. No fever overnight. Reason For Visit: ABDOMINAL PAIN Physical Exam Vital Signs: Temp Pulse Resp BP Pulse Ox 97.9 F 74 19 101/70 96 01/30/19 11:49 01/30/19 14:00 01/30/19 11:49 01/30/19 11:49 01/30/19 11:49 Intake & Output 01/29/19 01/30/19 01/31/19 06:59 06:59 06:59 Intake Total 1030 2265 780 Balance 1030 2265 780 Weight 140.2 kg 144.4 kg General appearance: PRESENT: no acute distress GI/Abdominal exam: PRESENT: other - No localized peritoneal signs, or guarding. Results Laboratory Results: 01/30/19 04:50 01/29/19 07:07 01/30/19 04:50 WBC 6.2 RBC 3.91 Hgb 12.0 Hct 36.5 MCV 93 MCH 30.6 MCHC 32.8 RDW 14.9 H Plt Count 246 Seg Neutrophils % 56.2 Impressions: Abdomen/Pelvis CT 01/28/19 08:39 IMPRESSION: There is sigmoid diverticulosis with fat stranding about the proximal sigmoid and a probable phlegmon measuring 2.1 cm directed posteriorly (series 2, image 63). No evidence of overt perforation or abscess. Hip X-Ray 01/29/19 00:00 IMPRESSION: No evidence of acute bony abnormality. Mild bilateral hip degenerative changes relatively well-maintained joint spaces. Guidance Fluoroscopy 01/30/19 00:00 IMPRESSION: SUCCESSFUL PLACEMENT OF A 5 FR DUAL LUMEN 48 CM PICC IN THE RIGHT BASILIC VEIN. Interventional Vascular Procedure 01/30/19 00:00 IMPRESSION: SUCCESSFUL PLACEMENT OF A 5 FR DUAL LUMEN 48 CM PICC IN THE RIGHT BASILIC VEIN. PICC Line Insertion 01/30/19 00:00 IMPRESSION: SUCCESSFUL PLACEMENT OF A 5 FR DUAL LUMEN 48 CM PICC IN THE RIGHT BASILIC VEIN. Assessment & Plan - Diagnosis (1) Sigmoid diverticulitis Is this a current diagnosis for this admission?: Yes Plan: Impression: Acute appendicitis with very localized pericolonic inflammatory collection, hinchey classification 1, clinically improved with no abdominal tenderness on physical exam; no indication for further surgical intervention Recommendations: 1. Patient has a history of a colon polyp and will need repeat colonoscopy on outpatient basis. 2. Patient is received a PICC line. We agree with short course of p.o. then conversion to oral antibiotics for another week. 3. Surgery will sign off at this point. Please reconsult surgery service if clinically indicated. - Time Time Spent with patient: Less than 15 minutes
[2019-01-30] MEDS ORDERED: NORMAL SALINE 10 ML SDV (AFTER EACH USE) IV PRN (18:00)
[2019-01-30] MEDS: ZOLPIDEM TARTRATE 5 MG TABLET PO SCH (22:12)
[2019-01-30] MEDS: LOSARTAN POTASSIUM 50 MG TABLET PO SCH (22:12)
[2019-01-30] MEDS: ATORVASTATIN CALCIUM 10 MG TABLET PO SCH (22:13)
[2019-01-30] MEDS: NORMAL SALINE 10 ML SDV (SCHEDULED) IV SCH (22:14)
[2019-01-31] MEDS: METRONIDAZOLE 500 MG/NS RTU 500 MG/100 ML RTUPB IV SCH ×4 (03:30→22:30)
[2019-01-31] MEDS: OXYCODONE-ACETAMINOPHEN 5-325 MG TABLET PO PRN ×2 (03:30→17:14)
[2019-01-31] MEDS: PANTOPRAZOLE SODIUM 40 MG TABLET.DR PO SCH (05:05)
[2019-01-31 05:29] LABS: ABSOLUTE BASOPHILS # (AUTO) 0.1 10^3/uL (0.0-0.2); ABSOLUTE EOSINOPHILS # (AUTO) 0.3 10^3/uL (0.0-0.6); ABSOLUTE MONOCYTES (AUTO) 0.8 10^3/uL (0.1-1.4); ABSOLUTE NEUT (AUTO) 3.8 10^3/uL (1.7-8.2); BASOPHILS % (AUTO) 0.9 % (0-2); EOSINOPHILS % (AUTO) 3.9 % (0-6); HEMATOCRIT 35.7 % (36.0-47.0); HEMOGLOBIN 11.7 g/dL (12.0-15.5); LYMPHOCYTES % (AUTO) 28.6 % (13-45); MEAN CORPUSCULAR HEMOGLOBIN 30.5 pg (27.0-33.4); MEAN CORPUSCULAR HGB CONC 32.9 g/dL (32.0-36.0); MEAN CORPUSCULAR VOLUME 93 fl (80-97); MONOCYTES % (AUTO) 11.3 % (3-13); PLATELET COUNT 250 10^3/uL (150-450); RED BLOOD COUNT 3.84 10^6/uL (3.72-5.28); RED CELL DISTRIBUTION WIDTH 14.8 % (11.5-14.0); SEGMENTED NEUTROPHILS % (AUTO) 55.3 % (42-78); TOTAL CELLS COUNTED % (AUTO) 100 %; WHITE BLOOD COUNT 6.9 10^3/uL (4.0-10.5)
[2019-01-31] MEDS: INSULIN LISPRO 100 UNIT/ML 3 ML VIAL SUBCUT SCH ×4 (07:46→21:55)
[2019-01-31] MEDS: PAROXETINE HCL 20 MG TABLET PO SCH (08:07)
[2019-01-31] MEDS: CIPROFLOXACIN 400 MG/D5W RTU 400 MG/200 ML RTUPB IV SCH ×2 (09:18→22:35)
[2019-01-31] MEDS: FUROSEMIDE 40 MG TABLET PO SCH ×2 (09:20→17:11)
[2019-01-31] MEDS: TOLTERODINE TARTRATE 1 MG TABLET PO SCH ×2 (09:20→22:43)
[2019-01-31] MEDS: MULTIVITAMIN TABLET PO SCH (09:20)
[2019-01-31] MEDS: MAGNESIUM OXIDE 400 MG TABLET PO SCH ×2 (09:20→17:11)
[2019-01-31] MEDS: METOPROLOL TARTRATE 25 MG TABLET PO SCH ×2 (09:20→22:34)
[2019-01-31] MEDS: RANOLAZINE 500 MG TAB.SR.12H PO SCH ×2 (09:20→22:43)
[2019-01-31] MEDS: SPIRONOLACTONE 25 MG TABLET PO SCH (09:20)
[2019-01-31] MEDS: CHOLECALCIFEROL (D3) 1,000 UNIT (25 MCG) TABLET PO SCH (09:20)
[2019-01-31] MEDS: NORMAL SALINE 10 ML SDV (SCHEDULED) IV SCH ×2 (09:21→22:45)
[2019-01-31] MEDS: DOCUSATE SODIUM 100 MG CAPSULE PO SCH ×2 (09:21→17:27)
--- NOTE | 2019-01-31 10:46 | PDOC PROGRESS REPORT ---
Subjective Progress Note for:: 01/31/19 Subjective:: Patient is feeling much better Patient's denied any chest pain to than any shortness of the breath Patient's abdominal pain is much improved PICC line put yesterday seen by surgery Patient's white count is also normal I think patients probably need a next 24 hours IV antibiotic and probably discharged with a 10 days course of the p.o. antibiotic I will send the prescription for the Cipro and Flagyl for 10 days to the patient's pharmacy today if the patient is doing well tomorrow we will discharge the patient's at home's as per patient's wants to go home tomorrow Reason For Visit: ABDOMINAL PAIN Physical Exam Vital Signs: Temp Pulse Resp BP Pulse Ox 97.4 F 74 20 99/57 L 95 01/31/19 07:37 01/31/19 07:37 01/31/19 07:37 01/31/19 07:37 01/31/19 07:37 Intake & Output 01/30/19 01/31/19 02/01/19 06:59 06:59 06:59 Intake Total 2265 2540 300 Output Total 100 Balance 2265 2440 300 Weight 144.4 kg 140.8 kg General appearance: PRESENT: no acute distress, well-developed, well-nourished Head exam: PRESENT: atraumatic, normocephalic Eye exam: PRESENT: conjunctiva pink, EOMI, PERRLA. ABSENT: scleral icterus Ear exam: PRESENT: normal external ear exam Mouth exam: PRESENT: moist, tongue midline Neck exam: PRESENT: full ROM. ABSENT: carotid bruit, JVD, lymphadenopathy, thyromegaly Respiratory exam: PRESENT: clear to auscultation ingrid Cardiovascular exam: PRESENT: RRR. ABSENT: diastolic murmur, rubs, systolic murmur Pulses: PRESENT: normal dorsalis pedis pul, +2 pedal pulses bilateral Vascular exam: PRESENT: normal capillary refill GI/Abdominal exam: PRESENT: normal bowel sounds, soft. ABSENT: distended, guarding, mass, organolmegaly, rebound, tenderness Rectal exam: PRESENT: deferred Musculoskeletal exam: PRESENT: ambulatory Neurological exam: PRESENT: alert, awake, oriented to person, oriented to place, oriented to time, oriented to situation, CN II-XII grossly intact. ABSENT: motor sensory deficit Psychiatric exam: PRESENT: appropriate affect, normal mood. ABSENT: homicidal ideation, suicidal ideation Skin exam: PRESENT: dry, intact, warm. ABSENT: cyanosis, rash Results Laboratory Results: 01/31/19 05:10 01/29/19 07:07 01/31/19 05:10 WBC 6.9 RBC 3.84 Hgb 11.7 L Hct 35.7 L MCV 93 MCH 30.5 MCHC 32.9 RDW 14.8 H Plt Count 250 Seg Neutrophils % 55.3 Impressions: Abdomen/Pelvis CT 01/28/19 08:39 IMPRESSION: There is sigmoid diverticulosis with fat stranding about the proxim al sigmoid and a probable phlegmon measuring 2.1 cm directed posteriorly (series 2, image 63). No evidence of overt perforation or abscess. Hip X-Ray 01/29/19 00:00 IMPRESSION: No evidence of acute bony abnormality. Mild bilateral hip degenerative changes relatively well-maintained joint spaces. Guidance Fluoroscopy 01/30/19 00:00 IMPRESSION: SUCCESSFUL PLACEMENT OF A 5 FR DUAL LUMEN 48 CM PICC IN THE RIGHT BASILIC VEIN. Interventional Vascular Procedure 01/30/19 00:00 IMPRESSION: SUCCESSFUL PLACEMENT OF A 5 FR DUAL LUMEN 48 CM PICC IN THE RIGHT BASILIC VEIN. PICC Line Insertion 01/30/19 00:00 IMPRESSION: SUCCESSFUL PLACEMENT OF A 5 FR DUAL LUMEN 48 CM PICC IN THE RIGHT BASILIC VEIN. Assessment & Plan - Diagnosis (1) Sigmoid diverticulitis Is this a current diagnosis for this admission?: Yes Plan: Currently doing very well will continues IV antibiotics if is remained stable white count is normal discharge tomorrow home with the p.o. antibiotics and remove the PICC line's (2) Atrial fibrillation Qualifiers: Atrial fibrillation type: unspecified persistent Qualified Code(s): I48.19 - Other persistent atrial fibrillation; I48.1 - Persistent atrial fibrillation Is this a current diagnosis for this admission?: Yes Plan: Is currently on Xarelto currently see a cardiology at [place] Dr. Aggarwal (3) Breast cancer Qualifiers: Laterality: unspecified laterality Is this a current diagnosis for this admission?: Yes (4) Congestive heart failure Qualifiers: Heart failure type: diastolic Heart failure chronicity: chronic Qualified Code(s): I50.32 - Chronic diastolic (congestive) heart failure Is this a current diagnosis for this admission?: Yes Plan: Continues to current medications patient is followed Dr. Tse locally here (5) DVT, recurrent, lower extremity, chronic Qualifiers: Laterality: unspecified laterality Qualified Code(s): I82.509 - Chronic embolism and thrombosis of unspecified deep veins of unspecified lower extremity Is this a current diagnosis for this admission?: Yes Plan: Is currently on a Xarelto daily (6) HTN (hypertension) Qualifiers: Hypertension type: essential hypertension Qualified Code(s): I10 - Essential (primary) hypertension Is this a current diagnosis for this admission?: Yes Plan: Currently all stable (7) History of pulmonary embolus (PE) Is this a current diagnosis for this admission?: Yes (8) Osteoarthritis Qualifiers: Osteoarthritis location: unspecified site Is this a current diagnosis for this admission?: Yes Plan: Patient's x-ray stable (9) Sleep apnea Qualifiers: Sleep apnea type: unspecified type Qualified Code(s): G47.30 - Sleep apnea, unspecified Is this a current diagnosis for this admission?: Yes Plan: Continues to use a CPAP (10) Type 2 diabetes mellitus Qualifiers: Diabetes mellitus terminal gauger insulin use: unspecified alf insulin use status Diabetes mellitus complication status: with unspecified complications Is this a current diagnosis for this admission?: Yes Plan: Continues to sliding scale with [facility] protocol - Time Time Spent with patient: 15-24 minutes Medications reviewed and adjusted accordingly: Yes Anticipated discharge: Home Within: within 24 hours - Plan Summary Plan Summary: We will advance the patient's diet The patient's diet tolerate CBC is normal normal pain will discharge tomorrow with the p.o. antibiotic I will send the prescription to patient's pharmacy today Also scheduled for surgery for the malfunctioning port we will discontinues the PICC line's before the discharge
[2019-01-31] MEDS: RIVAROXABAN 10 MG TABLET PO SCH (17:11)
[2019-01-31] MEDS ORDERED: METRONIDAZOLE 500 MG TABLET PO SCH (21:00)
[2019-01-31] MEDS ORDERED: CIPROFLOXACIN HCL 500 MG TABLET PO SCH (22:00)
[2019-01-31] MEDS: ZOLPIDEM TARTRATE 5 MG TABLET PO SCH (22:34)
[2019-01-31] MEDS: LOSARTAN POTASSIUM 50 MG TABLET PO SCH (22:34)
[2019-01-31] MEDS: ATORVASTATIN CALCIUM 10 MG TABLET PO SCH (22:34)
[2019-02-01] MEDS: METRONIDAZOLE 500 MG/NS RTU 500 MG/100 ML RTUPB IV SCH ×4 (03:37→20:53)
[2019-02-01 04:00] LABS: ABSOLUTE EOSINOPHILS # (AUTO) 0.3 10^3/uL (0.0-0.6); ABSOLUTE LYMPHOCYTES (AUTO) 2.4 10^3/uL (0.5-4.7); ABSOLUTE MONOCYTES (AUTO) 0.9 10^3/uL (0.1-1.4); ABSOLUTE NEUT (AUTO) 3.5 10^3/uL (1.7-8.2); BASOPHILS % (AUTO) 0.6 % (0-2); EOSINOPHILS % (AUTO) 4.1 % (0-6); HEMATOCRIT 35.4 % (36.0-47.0); HEMOGLOBIN 11.5 g/dL (12.0-15.5); LYMPHOCYTES % (AUTO) 33.5 % (13-45); MEAN CORPUSCULAR HEMOGLOBIN 30.5 pg (27.0-33.4); MEAN CORPUSCULAR HGB CONC 32.4 g/dL (32.0-36.0); MEAN CORPUSCULAR VOLUME 94 fl (80-97); MONOCYTES % (AUTO) 12.4 % (3-13); PLATELET COUNT 250 10^3/uL (150-450); RED BLOOD COUNT 3.76 10^6/uL (3.72-5.28); RED CELL DISTRIBUTION WIDTH 14.4 % (11.5-14.0); SEGMENTED NEUTROPHILS % (AUTO) 49.4 % (42-78); TOTAL CELLS COUNTED % (AUTO) 100 %; WHITE BLOOD COUNT 7.2 10^3/uL (4.0-10.5)
[2019-02-01 04:22] LABS: ANION GAP 6 (5-19); BLOOD UREA NITROGEN 11 mg/dL (7-20); CALCIUM 8.6 mg/dL (8.4-10.2); CARBON DIOXIDE 30 mmol/L (22-30); CHLORIDE 102 mmol/L (98-107); GLUCOSE 121 mg/dL (75-110); POTASSIUM 3.5 mmol/L (3.6-5.0)
[2019-02-01] MEDS: PANTOPRAZOLE SODIUM 40 MG TABLET.DR PO SCH (06:38)
[2019-02-01] MEDS: INSULIN LISPRO 100 UNIT/ML 3 ML VIAL SUBCUT SCH ×4 (08:13→22:24)
[2019-02-01] MEDS: PAROXETINE HCL 20 MG TABLET PO SCH (08:44)
[2019-02-01] MEDS: NORMAL SALINE 10 ML SDV (SCHEDULED) IV SCH ×2 (10:00→22:17)
[2019-02-01] MEDS: MULTIVITAMIN TABLET PO SCH (10:34)
[2019-02-01] MEDS: SPIRONOLACTONE 25 MG TABLET PO SCH (10:34)
[2019-02-01] MEDS: CHOLECALCIFEROL (D3) 1,000 UNIT (25 MCG) TABLET PO SCH (10:34)
[2019-02-01] MEDS: METOPROLOL TARTRATE 25 MG TABLET PO SCH ×2 (10:34→22:16)
[2019-02-01] MEDS: CIPROFLOXACIN 400 MG/D5W RTU 400 MG/200 ML RTUPB IV SCH ×2 (10:34→22:19)
[2019-02-01] MEDS: DOCUSATE SODIUM 100 MG CAPSULE PO SCH ×2 (10:34→17:35)
[2019-02-01] MEDS: MAGNESIUM OXIDE 400 MG TABLET PO SCH ×2 (10:34→17:37)
[2019-02-01] MEDS: FUROSEMIDE 40 MG TABLET PO SCH ×2 (10:34→17:37)
[2019-02-01] MEDS: RANOLAZINE 500 MG TAB.SR.12H PO SCH ×2 (10:35→22:22)
[2019-02-01] MEDS: TOLTERODINE TARTRATE 1 MG TABLET PO SCH ×2 (10:35→22:22)
[2019-02-01] MEDS: LORAZEPAM 1 MG TABLET PO PRN (13:58)
--- NOTE | 2019-02-01 14:11 | PDOC PROGRESS REPORT ---
Subjective Progress Note for:: 02/01/19 Subjective:: Patient seen by the bedside, she was admitted for the management of acute sigmoid diverticulitis Reason For Visit: ABDOMINAL PAIN Physical Exam Vital Signs: Temp Pulse Resp BP Pulse Ox 98.4 F 76 17 121/47 L 92 02/01/19 07:13 02/01/19 07:13 02/01/19 07:13 02/01/19 10:33 02/01/19 07:13 Intake & Output 01/31/19 02/01/19 02/02/19 06:59 06:59 06:59 Intake Total 2540 1670 560 Output Total 100 Balance 2440 1670 560 Weight 140.8 kg 143.5 kg General appearance: PRESENT: no acute distress Eye exam: PRESENT: PERRLA Respiratory exam: PRESENT: clear to auscultation ingrid Cardiovascular exam: PRESENT: +S1, +S2 GI/Abdominal exam: PRESENT: soft Results Laboratory Results: 02/01/19 03:30 02/01/19 03:30 02/01/19 02/01/19 03:30 03:30 WBC 7.2 RBC 3.76 Hgb 11.5 L Hct 35.4 L MCV 94 MCH 30.5 MCHC 32.4 RDW 14.4 H Plt Count 250 Seg Neutrophils % 49.4 Sodium 137.8 Potassium 3.5 L Chloride 102 Carbon Dioxide 30 Anion Gap 6 BUN 11 Creatinine 0.91 Est GFR ( Amer) > 60 Glucose 121 H Calcium 8.6 Impressions: Abdomen/Pelvis CT 01/28/19 08:39 IMPRESSION: There is sigmoid diverticulosis with fat stranding about the proximal sigmoid and a probable phlegmon measuring 2.1 cm directed posteriorly (series 2, image 63). No evidence of overt perforation or abscess. Hip X-Ray 01/29/19 00:00 IMPRESSION: No evidence of acute bony abnormality. Mild bilateral hip degenerative changes relatively well-maintained joint spaces. Guidance Fluoroscopy 01/30/19 00:00 IMPRESSION: SUCCESSFUL PLACEMENT OF A 5 FR DUAL LUMEN 48 CM PICC IN THE RIGHT BASILIC VEIN. Interventional Vascular Procedure 01/30/19 00:00 IMPRESSION: SUCCESSFUL PLACEMENT OF A 5 FR DUAL LUMEN 48 CM PICC IN THE RIGHT BASILIC VEIN. PICC Line Insertion 01/30/19 00:00 IMPRESSION: SUCCESSFUL PLACEMENT OF A 5 FR DUAL LUMEN 48 CM PICC IN THE RIGHT BASILIC VEIN. Assessment & Plan - Diagnosis (1) Sigmoid diverticulitis Is this a current diagnosis for this admission?: Yes Plan: Continue treatment - Time Time Spent with patient: 15-24 minutes
[2019-02-01] MEDS: OXYCODONE-ACETAMINOPHEN 5-325 MG TABLET PO PRN ×2 (14:53→22:15)
[2019-02-01] MEDS: RIVAROXABAN 10 MG TABLET PO SCH (17:37)
[2019-02-01] MEDS: ZOLPIDEM TARTRATE 5 MG TABLET PO SCH (22:15)
[2019-02-01] MEDS: ATORVASTATIN CALCIUM 10 MG TABLET PO SCH (22:15)
[2019-02-01] MEDS: LOSARTAN POTASSIUM 50 MG TABLET PO SCH (22:16)
[2019-02-02] MEDS: METRONIDAZOLE 500 MG/NS RTU 500 MG/100 ML RTUPB IV SCH ×2 (02:39→08:34)
[2019-02-02 03:38] LABS: C DIFFICILE GDH NEGATIVE (NEGATIVE)
[2019-02-02] MEDS: PANTOPRAZOLE SODIUM 40 MG TABLET.DR PO SCH (05:16)
[2019-02-02 07:06] LABS: ANION GAP 7 (5-19); BLOOD UREA NITROGEN 10 mg/dL (7-20); CALCIUM 8.4 mg/dL (8.4-10.2); CARBON DIOXIDE 29 mmol/L (22-30); CHLORIDE 103 mmol/L (98-107); GLUCOSE 108 mg/dL (75-110); POTASSIUM 3.7 mmol/L (3.6-5.0)
[2019-02-02] MEDS: INSULIN LISPRO 100 UNIT/ML 3 ML VIAL SUBCUT SCH (08:08)
[2019-02-02] MEDS: PAROXETINE HCL 20 MG TABLET PO SCH (08:34)
[2019-02-02] MEDS: DOCUSATE SODIUM 100 MG CAPSULE PO SCH (09:46)
[2019-02-02] MEDS: SPIRONOLACTONE 25 MG TABLET PO SCH (10:00)
[2019-02-02] MEDS: MULTIVITAMIN TABLET PO SCH (10:02)
[2019-02-02] MEDS: CHOLECALCIFEROL (D3) 1,000 UNIT (25 MCG) TABLET PO SCH (10:03)
[2019-02-02] MEDS: CIPROFLOXACIN 400 MG/D5W RTU 400 MG/200 ML RTUPB IV SCH (10:03)
[2019-02-02] MEDS: MAGNESIUM OXIDE 400 MG TABLET PO SCH (10:03)
[2019-02-02] MEDS: METOPROLOL TARTRATE 25 MG TABLET PO SCH (10:03)
[2019-02-02] MEDS: FUROSEMIDE 40 MG TABLET PO SCH (10:03)
[2019-02-02] MEDS: TOLTERODINE TARTRATE 1 MG TABLET PO SCH (10:04)
[2019-02-02] MEDS: RANOLAZINE 500 MG TAB.SR.12H PO SCH (10:04)
--- NOTE | 2019-02-02 12:59 | PDOC DISCHARGE SUMMARY ---
Impression - Admit/DC Date/PCP Admission Date/Primary Care Provider: 01/28/19 12:03 MAGNOLIA ADLER MD Discharge Date: 02/02/19 - Discharge Diagnosis (1) Sigmoid diverticulitis Is this a current diagnosis for this admission?: Yes (2) Atrial fibrillation Is this a current diagnosis for this admission?: Yes (3) HTN (hypertension) Is this a current diagnosis for this admission?: Yes (4) Morbid obesity Is this a current diagnosis for this admission?: Yes (6) Type 2 diabetes mellitus Is this a current diagnosis for this admission?: Yes - Additional Information Referrals: MAGNOLIA ADLER MD [Primary Care Provider] - 02/10/19 9:45 am Prescriptions: RX: Ciprofloxacin 250 mg PO BID #14 [email or web address] Metronidazole [Flagyl] 500 mg PO TID #21 tablet Home Medications: RX: Atorvastatin Calcium [Lipitor 10 mg Tablet] 10 mg PO QHS 03/05/17 RX: Cholecalciferol (Vitamin D3) [Vitamin D3 5000 unit Capsule] 5,000 units PO DAILY 03/05/17 RX: Colestipol HCl [Colestid 1 gm Tablet] 2 gm PO Q12 03/05/17 RX: Esomeprazole Magnesium [Nexium] 20 mg PO DAILY 03/05/17 RX: Fiber [Fiber Diet] 1 tab PO DAILY 03/05/17 RX: Lorazepam [Ativan 1 mg Tablet] 1 mg PO Q8HP PRN 03/05/17 RX: Losartan Potassium [Cozaar 50 mg Tablet] 50 mg PO QHS 03/05/17 RX: Metformin HCl [Glucophage 500 mg Tablet] 500 mg PO DAILY 03/05/17 RX: Multivit-Minerals/Folic Acid [One Daily Womens 50 Plus Tab] 1 tab PO DAILY 03/05/17 RX: Ranolazine [Ranexa 500 mg Tab.sr] 1,000 mg PO Q12 03/05/17 RX: Rivaroxaban [Xarelto] 20 mg PO WSUPPER 03/05/17 RX: Solifenacin Succinate [Vesicare] 10 mg PO DAILY 03/05/17 RX: Spironolactone [Aldactone 25 mg Tablet] 25 mg PO DAILY #30 tablet 03/09/17 RX: Brexpiprazole [Rexulti] 2 mg PO DAILY 09/21/18 RX: Metoprolol Tartrate [Lopressor 50 mg Tablet] 50 mg PO Q12 09/21/18 RX: Paroxetine HCl [Paxil 20 mg Tablet] 20 mg PO QAM 09/21/18 RX: Furosemide [Lasix 40 mg Tablet] 40 mg PO BID 01/28/19 RX: Magnesium Oxide [Magnesium] 400 mg PO BID 01/28/19 RX: Potassium Chloride 40 meq PO BID 01/28/19 RX: Zolpidem Tartrate [Ambien] 10 mg PO QHS 01/28/19 Metronidazole [Flagyl] 500 mg PO TID #21 tablet 02/02/19 RX: Ciprofloxacin 250 mg PO BID #14 [facility]rec 02/02/19 History of Present Illiness History of Present Illness: AGUSTIN ETIENNE is a 53 year old female, she presented on 01/28/2019 with left-side d abdominal pain, she had a CAT scan of abdomen pelvis that demonstrated phlegmon in the sigmoid colon with possible diverticulitis Hospital Course Hospital Course: She was admitted for the management of acute diverticulitis of the sigmoid colon, she was treated with IV antibiotic. She was seen by Dr. Aguero, GI, there was no immediate indication for colonoscopy, the plan is to finish the antibiotic and undergo outpatient colonoscopy. Patient presently stable no abdominal pain no vomiting no diarrhea Physical Exam Vital Signs: Temp Pulse Resp BP Pulse Ox 97.7 F 81 19 93/47 L 96 02/02/19 07:51 02/02/19 07:51 02/02/19 07:51 02/02/19 07:51 02/02/19 07:51 Intake & Output 02/01/19 02/02/19 02/03/19 06:59 06:59 06:59 Intake Total 1670 1860 Balance 1670 1860 Weight 143.5 kg 140.3 kg General appearance: PRESENT: no acute distress Eye exam: PRESENT: PERRLA Respiratory exam: PRESENT: clear to auscultation ingrid Cardiovascular exam: PRESENT: +S1, +S2 GI/Abdominal exam: PRESENT: soft Neurological exam: PRESENT: alert, CN II-XII grossly intact Results Laboratory Results: WBC 7.2 10^3/uL (4.0-10.5) 02/01/19 03:30 RBC 3.76 10^6/uL (3.72-5.28) 02/01/19 03:30 Hgb 11.5 g/dL (12.0-15.5) L 02/01/19 03:30 Hct 35.4 % (36.0-47.0) L 02/01/19 03:30 MCV 94 fl (80-97) 02/01/19 03:30 MCH 30.5 pg (27.0-33.4) 02/01/19 03:30 MCHC 32.4 g/dL (32.0-36.0) 02/01/19 03:30 RDW 14.4 % (11.5-14.0) H 02/01/19 03:30 Plt Count 250 10^3/uL (150-450) 02/01/19 03:30 Lymph % (Auto) 33.5 % (13-45) 02/01/19 03:30 Crowley % (Auto) 12.4 % (3-13) 02/01/19 03:30 Eos % (Auto) 4.1 % (0-6) 02/01/19 03:30 Baso % (Auto) 0.6 % (0-2) 02/01/19 03:30 Absolute Neuts (auto) 3.5 10^3/uL (1.7-8.2) 02/01/19 03:30 Absolute Lymphs (auto) 2.4 10^3/uL (0.5-4.7) 02/01/19 03:30 Absolute Monos (auto) 0.9 10^3/uL (0.1-1.4) 02/01/19 03:30 Absolute Eos (auto) 0.3 10^3/uL (0.0-0.6) 02/01/19 03:30 Absolute Basos (auto) 0.0 10^3/uL (0.0-0.2) 02/01/19 03:30 Seg Neutrophils % 49.4 % (42-78) 02/01/19 03:30 Sodium 139.4 mmol/L (137-145) 02/02/19 06:30 Potassium 3.7 mmol/L (3.6-5.0) 02/02/19 06:30 Chloride 103 mmol/L (98-107) 02/02/19 06:30 Carbon Dioxide 29 mmol/L (22-30) 02/02/19 06:30 Anion Gap 7 (5-19) 02/02/19 06:30 BUN 10 mg/dL (7-20) 02/02/19 06:30 Creatinine 0.87 mg/dL (0.52-1.25) 02/02/19 06:30 Est GFR ( Amer) > 60 (>60) 02/02/19 06:30 Est GFR (MDRD) Non-Af > 60 (>60) 02/02/19 06:30 Glucose 108 mg/dL (75-110) 02/02/19 06:30 POC Glucose 123 mg/dL (70-110) H 02/02/19 12:04 Lactic Acid 1.6 mmol/L (0.7-2.1) 01/29/19 07:07 Calcium 8.4 mg/dL (8.4-10.2) 02/02/19 06:30 Total Bilirubin 1.0 mg/dL (0.2-1.3) 01/29/19 07:07 Direct Bilirubin 0.2 mg/dL (0.0-0.4) 01/29/19 07:07 Neonat Total Bilirubin Not Reportable 01/29/19 07:07 Neonat Direct Bilirubin Not Reportable 01/29/19 07:07 Neonat Indirect Bili Not Reportable 01/29/19 07:07 AST 43 U/L (14-36) H 01/29/19 07:07 ALT 35 U/L (<35) 01/29/19 07:07 Alkaline Phosphatase 77 U/L (38-126) 01/29/19 07:07 Total Protein 6.1 g/dL (6.3-8.2) L 01/29/19 07:07 Albumin 3.3 g/dL (3.5-5.0) L 01/29/19 07:07 Urine Color YELLOW 01/28/19 08:42 Urine Appearance CLEAR 01/28/19 08:42 Urine pH 5.0 (5.0-9.0) 01/28/19 08:42 Ur Specific [place] 1.012 01/28/19 08:42 Urine Protein NEGATIVE mg/dL (NEGATIVE) 01/28/19 08:42 Urine Glucose (UA) NEGATIVE mg/dL (NEGATIVE) 01/28/19 08:42 Urine Ketones NEGATIVE mg/dL (NEGATIVE) 01/28/19 08:42 Urine Blood NEGATIVE (NEGATIVE) 01/28/19 08:42 Urine Nitrite NEGATIVE (NEGATIVE) 01/28/19 08:42 Urine Bilirubin NEGATIVE (NEGATIVE) 01/28/19 08:42 Urine Urobilinogen NEGATIVE mg/dL (<2.0) 01/28/19 08:42 Ur Leukocyte Esterase NEGATIVE (NEGATIVE) 01/28/19 08:42 Urine WBC (Auto) 3 /HPF 01/28/19 08:42 Urine RBC (Auto) 1 /HPF 01/28/19 08:42 Squamous Epi Cells Auto 2 /HPF 01/28/19 08:42 Urine Mucus (Auto) RARE /LPF 01/28/19 08:42 Urine Ascorbic Acid NEGATIVE (NEGATIVE) 01/28/19 08:42 Stl C. Difficile GDH Ag NEGATIVE (NEGATIVE) 02/02/19 01:20 Stl C.difficile Tox A&B NEGATIVE (NEGATIVE) 02/02/19 01:20 Impressions: Abdomen/Pelvis CT 01/28/19 08:39 IMPRESSION: There is sigmoid diverticulosis with fat stranding about the proximal sigmoid and a probable phlegmon measuring 2.1 cm directed posteriorly (series 2, image 63). No evidence of overt perforation or abscess. Hip X-Ray 01/29/19 00:00 IMPRESSION: No evidence of acute bony abnormality. Mild bilateral hip degenerative changes relatively well-maintained joint spaces. Guidance Fluoroscopy 01/30/19 00:00 IMPRESSION: SUCCESSFUL PLACEMENT OF A 5 FR DUAL LUMEN 48 CM PICC IN THE RIGHT BASILIC VEIN. Interventional Vascular Procedure 01/30/19 00:00 IMPRESSION: SUCCESSFUL PLACEMENT OF A 5 FR DUAL LUMEN 48 CM PICC IN THE RIGHT BASILIC VEIN. PICC Line Insertion 01/30/19 00:00 IMPRESSION: SUCCESSFUL PLACEMENT OF A 5 FR DUAL LUMEN 48 CM PICC IN THE RIGHT BASILIC VEIN. Stroke Is this a Stroke Patient?: No Acute Heart Failure - Is this a Heart Failure Patient?: No
[2019-02-02 13:37] VITALS: BP 121/47
== END 2019-02-02 14:04 | disposition home or self-care (01) | DRG 392 ==
LOC: ER 04:36 → EH 12:03 → 4N 17:23
PROVIDERS: ADMIT Family Medicine; ATTEND Family Medicine
PROC: 02HV33Z Insertion of Infusion Device into Superior Vena Cava, Percutaneous Approach (ICD-10-PCS; principal; 2019-01-30)
PROC: B518ZZA Fluoroscopy of Superior Vena Cava, Guidance (ICD-10-PCS; 2019-01-30)
PROC: B548ZZA Ultrasonography of Superior Vena Cava, Guidance (ICD-10-PCS; 2019-01-30)
PROC: 3E02340 Introduction of Influenza Vaccine into Muscle, Percutaneous Approach (ICD-10-PCS; 2019-02-02)
DX: K57.20 Diverticulitis of large intestine with perforation and abscess without bleeding (principal); I48.19 Other persistent atrial fibrillation; I82.509 Chronic embolism and thrombosis of unspecified deep veins of unspecified lower extremity; Z68.43 Body mass index [BMI] 50.0-59.9, adult; I50.32 Chronic diastolic (congestive) heart failure; Z86.718 Personal history of other venous thrombosis and embolism; I11.0 Hypertensive heart disease with heart failure; E78.5 Hyperlipidemia, unspecified; I25.10 Atherosclerotic heart disease of native coronary artery without angina pectoris; Z86.711 Personal history of pulmonary embolism; E11.9 Type 2 diabetes mellitus without complications; Z79.01 Long term (current) use of anticoagulants; K21.9 Gastro-esophageal reflux disease without esophagitis; M17.0 Bilateral primary osteoarthritis of knee; M47.9 Spondylosis, unspecified; L40.9 Psoriasis, unspecified; G47.30 Sleep apnea, unspecified; E66.01 Morbid (severe) obesity due to excess calories; F31.9 Bipolar disorder, unspecified; Z90.49 Acquired absence of other specified parts of digestive tract; Z82.49 Family history of ischemic heart disease and other diseases of the circulatory system; Z83.3 Family history of diabetes mellitus; Z79.4 Long term (current) use of insulin; Z23 Encounter for immunization; Z85.3 Personal history of malignant neoplasm of breast; Z85.41 Personal history of malignant neoplasm of cervix uteri; Z79.899 Other long term (current) drug therapy; Z88.1 Allergy status to other antibiotic agents
CPT/HCPCS: 36415; 36569; 73522; 74176; 76937; 77001; 80048; 80053; 81001; 82962; 83605; 85025; 87040; 87086; 87324; 87449; 90686; 96365; 96375; 99285; C1769; J0744; J1642; J2270; J2405; J3010; J3490

== ENCOUNTER → 2019-02-06 | Outpatient (CLI) | payer MEDICARE, MEDICAID ==
[2019-02-06 17:42] LABS: ABSOLUTE EOSINOPHILS # (AUTO) 0.3 10^3/uL (0.0-0.6); ABSOLUTE LYMPHOCYTES (AUTO) 2.1 10^3/uL (0.5-4.7); ABSOLUTE MONOCYTES (AUTO) 0.7 10^3/uL (0.1-1.4); ABSOLUTE NEUT (AUTO) 4.3 10^3/uL (1.7-8.2); BASOPHILS % (AUTO) 0.1 % (0-2); EOSINOPHILS % (AUTO) 3.6 % (0-6); HEMATOCRIT 40.3 % (36.0-47.0); HEMOGLOBIN 13.1 g/dL (12.0-15.5); LYMPHOCYTES % (AUTO) 28.2 % (13-45); MEAN CORPUSCULAR HEMOGLOBIN 30.6 pg (27.0-33.4); MEAN CORPUSCULAR HGB CONC 32.6 g/dL (32.0-36.0); MEAN CORPUSCULAR VOLUME 94 fl (80-97); PLATELET COUNT 316 10^3/uL (150-450); RED BLOOD COUNT 4.29 10^6/uL (3.72-5.28); RED CELL DISTRIBUTION WIDTH 15.1 % (11.5-14.0); SEGMENTED NEUTROPHILS % (AUTO) 59.1 % (42-78); TOTAL CELLS COUNTED % (AUTO) 100 %; WHITE BLOOD COUNT 7.4 10^3/uL (4.0-10.5)
[2019-02-06 17:56] LABS: ALBUMIN 3.5 g/dL (3.5-5.0); ALKALINE PHOSPHATASE 74 U/L (38-126); ANION GAP 5 (5-19); ASPARTATE AMINO TRANSFERASE 68 U/L (14-36); BILIRUBIN,DIRECT 0.1 mg/dL (0.0-0.4); BILIRUBIN,TOTAL 0.5 mg/dL (0.2-1.3); BLOOD UREA NITROGEN 8 mg/dL (7-20); CALCIUM 9.1 mg/dL (8.4-10.2); CARBON DIOXIDE 25 mmol/L (22-30); CHLORIDE 108 mmol/L (98-107); GLUCOSE 97 mg/dL (75-110); POTASSIUM 4.8 mmol/L (3.6-5.0); TOTAL PROTEIN 6.4 g/dL (6.3-8.2)
[2019-02-07 10:13] LABS: C DIFFICILE GDH NEGATIVE (NEGATIVE)
== END ==
LOC: OD 17:04
PROVIDERS: ATTEND Family Medicine
DX: R19.7 Diarrhea, unspecified (principal)
CPT/HCPCS: 36415; 80053; 85025; 87324; 87449

== ENCOUNTER → 2019-02-11 | Outpatient (CLI) | payer MEDICARE, MEDICAID ==
--- NOTE | 2019-02-11 17:02 | RADIOLOGY REPORT (SQ) ---
EXAM DESCRIPTION: CT ABD/PELVIS WITH IV ONLY COMPLETED DATE/TIME: 02/11/2019 11:34 am REASON FOR STUDY: DIARRHEA, UNSPECIFIED TYPE K57.92 DVTRCLI OF INTEST, PART UNSP, W/O PERF OR ABSCE SS W/O R19.7 DIARRHEA, UNSPECIFIED COMPARISON: 12/17/2014 TECHNIQUE: CT scan of the abdomen and pelvis performed using helical scanning technique with dynamic intravenous contrast injection. No oral contrast. Images reviewed with lung, soft tissue, and bone windows. Reconstructed coronal and sagittal MPR images reviewed. Delayed images for evaluation of the urinary system also acquired. All images stored on PACS. All CT scanners at this facility use dose modulation, iterative reconstruction, and/or weight based d osing when appropriate to reduce radiation dose to as low as reasonably achievable (ALARA). [facility]: Dose Right [facility]: CareDose [facility]: Dose Right [facility]: Teradose 4D [facility]: [employer] CONTRAST TYPE AND DOSE: 99 mL Omnipaque 350- low osmolar. RENAL FUNCTION: BUN 8 creatinine 0.89 RADIATION DOSE: . LIMITATIONS: None. FINDINGS: LOWER CHEST: No significant findings. No nodules or infiltrates. LIVER: Normal size. No masses. No dilated ducts. SPLEEN: Normal size. No focal lesions. PANCREAS: No masses. No significant calcifications. No adjacent inflammation or peripancreatic fluid collections. Pancreatic duct not dilated. GALLBLADDER: Surgically absent. ADRENAL GLANDS: No significant masses or asymmetry. RIGHT KIDNEY AND URETER: No solid masses. No significant calcifications. No hydronephrosis or hyd roureter. LEFT KIDNEY AND URETER: No solid masses. No significant calcifications. No hydronephrosis or hydr oureter. AORTA AND VESSELS: No aneurysm. No dissection. Renal arteries, SMA, celiac without stenosis. RETROPERITONEUM: No retroperitoneal adenopathy, hemorrhage or masses. BOWEL AND PERITONEAL CAVITY: Mild diverticulosis with no associated inflammation. No obvious bowel m ass. APPENDIX: Not identified. PELVIS: No mass. No free fluid. Normal bladder. ABDOMINAL WALL: No masses. No hernias. BONES: No significant or acute findings. OTHER: An IVC filter is present. IMPRESSION: No significant acute finding in the abdomen or pelvis. There is mild diverticulosis col i. TECHNICAL DOCUMENTATION: JOB ID: [id number] Quality ID # [id number]: Final reports with documentation of one or more dose reduction techniques (e.g., Au tomated exposure control, adjustment of the mA and/or kV according to patient size, use of iterative reconstruction technique) 2010 [employer]- All Rights Reserved Reading location - IP/workstation name: [email or web address]
== END ==
LOC: RAD 10:49
PROVIDERS: ATTEND Family Medicine
DX: K57.30 Diverticulosis of large intestine without perforation or abscess without bleeding (principal); R19.7 Diarrhea, unspecified
CPT/HCPCS: 74177

== ENCOUNTER 2019-03-11 07:51 | Day surgery (SDC) | payer MEDICARE, MEDICAID ==
--- NOTE | 2019-02-11 13:11 | RADIOLOGY REPORT (SQ) ---
EXAM DESCRIPTION: CHEST PA/LATERAL COMPLETED DATE/TIME: 02/11/2019 12:00 pm REASON FOR STUDY: PRE-OP COMPARISON: PA and lateral views of the chest from 10/15/2018 EXAM PARAMETERS: NUMBER OF VIEWS: two views TECHNIQUE: Digital Frontal and Lateral radiographic views of the chest acquired. RADIATION DOSE: NA LIMITATIONS: none FINDINGS: LUNGS AND PLEURA: Bibasilar atelectasis. There is no pleural effusion, consolidation or p neumothorax. MEDIASTINUM AND HILAR STRUCTURES: Stable mediastinal and hilar contours. HEART AND VASCULAR STRUCTURES: The cardiac silhouette is enlarged but stable. The pulmonary vasculat ure is within normal limits. BONES: No acute findings. HARDWARE: Right-sided single-lumen port that terminates within the SVC, left-sided left subclavian ap proach transvenous pacemaker and with leads that project within the right atrium, right ventricle, an d coronary sinus, and implantable cardiac monitoring device. There are surgical clips that project within the right breast OTHER: No other finding. IMPRESSION: No acute cardiopulmonary process. TECHNICAL DOCUMENTATION: JOB ID: [id number]- All Rights Reserved Reading location - IP/workstation name: [email or web address]
--- NOTE | 2019-02-11 23:48 | EKG REPORT ---
SEVERITY:- ABNORMAL ECG - VENTRICULAR-PACED COMPLEXES : Confirmed by: Meagan Tse MD 11-Feb-2019 23:47:18
[~2019-03-11 07:51] MED LIST: ACETAMINOPHEN 325 MG TABLET PO PRN; CEFAZOLIN SODIUM 1 GM in DEXTROSE 5%-WATER 50 ML IV PRN; DEXAMETHASONE SOD PHOSPHATE INJ 4 MG/1 ML VIAL ONE; FENTANYL CITRATE INJ/PF 100 MCG/2 ML AMPUL ONE; LACTATED RINGERS 1000 ML IV PRN; LIDOCAINE 0.5% INJ-PF (5 MG/ML) 50 ML SDV SUBCUT PRN; MIDAZOLAM 2 MG/2 ML INJ ONE; ONDANSETRON HCL INJ/PF 4 MG/2 ML SDV ONE; PROPOFOL INJ 200 MG/20 ML VIAL IV ONE
[2019-03-11] MEDS ORDERED: BUPIVACAINE HCL 0.25 % INJ/PF (2.5 MG/1 ML) 30 ML VIAL ONE (08:50)
[2019-03-11 09:01] LABS: INTERNATIONAL RATION (INR) 0.92; PROTHROMBIN TIME 12.3 SEC (11.4-15.4)
[2019-03-11 09:02] LABS: PARTIAL THROMBOPLASTIN TIME 26.5 SEC (23.5-35.8)
[2019-03-11 09:14] LABS: POTASSIUM 4.7 mmol/L (3.6-5.0)
[2019-03-11] MEDS ORDERED: FENTANYL CITRATE INJ/PF 100 MCG/2 ML AMPUL IV PRN ×3 (10:22)
[2019-03-11] MEDS ORDERED: OXYCODONE-ACETAMINOPHEN 5-325 MG TABLET PO PRN ×2 (10:22)
[2019-03-11] MEDS ORDERED: DIPHENHYDRAMINE HCL 50 MG/ML VIAL IV PRN (10:22)
[2019-03-11] MEDS ORDERED: ONDANSETRON HCL INJ/PF 4 MG/2 ML SDV IV PRN (10:22)
[2019-03-11] MEDS ORDERED: MEPERIDINE HCL/PF INJ 25 MG/1 ML DISP.SYRIN IV PRN (10:22)
[2019-03-11] MEDS ORDERED: MORPHINE SULFATE 10 MG/ML INJ IV PRN (10:22)
[2019-03-11] MEDS ORDERED: PROPOFOL INJ 200 MG/20 ML VIAL IV ONE (10:54)
--- NOTE | 2019-03-11 11:45 | Operative Report ---
Nonrecallable Operative Report DATE OF SURGERY: 03/11/19 PREOPERATIVE DIAGNOSIS: non functioning portacath POSTOPERATIVE DIAGNOSIS: non functioning portacath OPERATION: placement of singlelumen portacath SURGEON: AYO RIDER ANESTHESIA: Moderate Sedation TISSUE REMOVED OR ALTERED: old portacath COMPLICATIONS: none ESTIMATED BLOOD LOSS: 50cc INTRAOPERATIVE FINDINGS: see dictation PROCEDURE: Patient was brought to the operating awake alert stable condition placed in the operative table supine position and given IV sedation for the procedure. The chest and neck on the right side were prepped and draped in usual sterile fashion. Appropriate timeout site verification were given. The area over the old dual port on the right chest were anesthetized with 0.5% bupivacaine. A transverse incision was made directly over the old port site dissection was carried down through subtenons tissue with Bovie cautery the port was identified and dissected from the subcutaneous tissue and removed from the wound. Using a Beckwith needle we then cannulated the dual port system and unable to withdraw blood however it did instill fairly easily heparinized saline. But no blood could be withdrawn I pulled back on the catheter a slight amount and still was unable to withdraw blood I therefore remove the catheter in total and there was a fibrin sheath on it. We therefore at this point elected to perform a new subclavian stick and place a new single-lumen Port-A-Cath catheter. After anesthetizing the anterior chest wall with 0.5% bupivacaine. a Subclavian stick was made with a 16-gauge needle the subclavian vein was accessed and through the needle a wire was placed confirmed in superior vena cava on fluoroscopy over the wire then a tear-away introducer dilator was placed over the wire. It was removed the Port-A-Cath catheter it was then placed through the introducer and the introducer was torn away the tip of the catheter was noted to be in the superior vena cava. Using the tunnel maker supplied with the kit tunnel was created between the subclavian stick site and the incision on the anterior chest wall on the right. The catheter was then pulled through subcutaneously with a tunnel maker. The catheter was attached to the single port and placed into the subcutaneous pocket on the anterior chest wall previously made with the Bovie cautery. It irrigated and withdrew well. Was then heparinized with a heparinized saline solution. The subcutaneous tissue was then closed with interrupted 3-0 Vicryls and the skin was closed with intracuticular 4-0 Biosyn Steri-Strips completed the procedure estimated blood loss was less than 50 cc sponge and needle counts correct x2 the patient was transferred recovery in stable condition no complications
--- NOTE | 2019-03-11 11:50 | Discharge Summary ---
Discharge Summary (SDC) - Discharge Final Diagnosis: nonfunctioning salazar cath Date of Surgery: 03/11/19 Discharge Date: 03/11/19 Condition: Good Referrals: MAGNOLIA ADLER MD [Primary Care Provider] - Discharge Diet: As Tolerated Discharge Activity: Activity As Tolerated, No Lifting Over 10 Pounds Report the Following to Your Physician Immediately: Shortness of Breath, Vomiting, Increase in Pain, Signs of Hyperglycemia - pt needs post op with me2-3 wk.s
--- NOTE | 2019-03-11 13:40 | RADIOLOGY REPORT (SQ) ---
EXAM DESCRIPTION: FLUORO/CV PLACEMENT; CHEST SINGLE VIEW COMPLETED DATE/TIME: 03/11/2019 1:22 pm; 03/11/2019 1:21 pm REASON FOR STUDY: PORT- A-CATH Z45.2 ENCOUNTER FOR ADJUSTMENT AND MANAGEMENT OF VAD Z79.01 LONG TE RM (CURRENT) USE OF ANTICOAGULANTS Z79.899 OTHER INTERMEDIATE (CURRENT) DRUG THERAPY COMPARISON: 02/11/2019. FLUOROSCOPY TIME: 6.7 minutes 6 images saved to PACS. TECHNIQUE: Intra-operative images acquired during surgical procedure to evaluate progress. NUMBER OF IMAGES: 6 LIMITATIONS: None. FINDINGS: Limited intraoperative fluoroscopic images obtained. Evidence of right subclavian based c hest port placement. Please see operative report for detailed description. IMPRESSION: IMAGE(S) OBTAINED DURING PROCEDURE. COMMENT: Quality ID [id number]: Final reports for procedures using fluoroscopy that document radiation exp osure indices, or exposure time and number of fluorographic images (if radiation exposure indices are not available) Please consult full operative report of the attending physician for description of the procedure. TECHNICAL DOCUMENTATION: JOB ID: [id number] [employer]- All Rights Reserved Reading location - IP/workstation name: [email or web address]
--- NOTE | 2019-03-11 13:40 | RADIOLOGY REPORT (SQ) ---
EXAM DESCRIPTION: FLUORO/CV PLACEMENT; CHEST SINGLE VIEW COMPLETED DATE/TIME: 03/11/2019 1:22 pm; 03/11/2019 1:21 pm REASON FOR STUDY: PORT- A-CATH Z45.2 ENCOUNTER FOR ADJUSTMENT AND MANAGEMENT OF VAD Z79.01 LONG TE RM (CURRENT) USE OF ANTICOAGULANTS Z79.899 OTHER ASSISTED (CURRENT) DRUG THERAPY COMPARISON: 02/11/2019. FLUOROSCOPY TIME: 6.7 minutes 6 images saved to PACS. TECHNIQUE: Intra-operative images acquired during surgical procedure to evaluate progress. NUMBER OF IMAGES: 6 LIMITATIONS: None. FINDINGS: Limited intraoperative fluoroscopic images obtained. Evidence of right subclavian based c hest port placement. Please see operative report for detailed description. IMPRESSION: IMAGE(S) OBTAINED DURING PROCEDURE. COMMENT: Quality ID [id number]: Final reports for procedures using fluoroscopy that document radiation exp osure indices, or exposure time and number of fluorographic images (if radiation exposure indices are not available) Please consult full operative report of the attending physician for description of the procedure. TECHNICAL DOCUMENTATION: JOB ID: [id number] [employer]- All Rights Reserved Reading location - IP/workstation name: [email or web address]
[2019-03-11 13:55] VITALS: BP 123/77
== END 2019-03-11 12:55 | disposition home or self-care (01) ==
LOC: OROUT 07:51
PROVIDERS: ATTEND Surgery
DX: Z45.2 Encounter for adjustment and management of vascular access device (principal); I50.9 Heart failure, unspecified; I48.91 Unspecified atrial fibrillation; E66.01 Morbid (severe) obesity due to excess calories; J44.9 Chronic obstructive pulmonary disease, unspecified; E78.00 Pure hypercholesterolemia, unspecified; K76.0 Fatty (change of) liver, not elsewhere classified; I10 Essential (primary) hypertension; Z85.3 Personal history of malignant neoplasm of breast; Z95.0 Presence of cardiac pacemaker; Z86.711 Personal history of pulmonary embolism; Z79.01 Long term (current) use of anticoagulants; Z79.899 Other long term (current) drug therapy; Z79.84 Long term (current) use of oral hypoglycemic drugs; Z79.51 Long term (current) use of inhaled steroids; Z79.82 Long term (current) use of aspirin
CPT/HCPCS: 93005; 36415; 82947; 84132; 85610; 85730; 71046; 71045; 77001; 93010; 36561; C1788; C1769; J2250; J0690; J1100; J3010; J2405; J7060; J2704; J1642; 532

== ENCOUNTER → 2019-03-26 | Outpatient (CLI) | payer MEDICARE, MEDICAID ==
--- NOTE | 2019-03-26 13:15 | RADIOLOGY REPORT (SQ) ---
EXAM DESCRIPTION: CT HEAD WITHOUT COMPLETED DATE/TIME: 03/26/2019 12:52 pm REASON FOR STUDY: R51 HEADACHE R51 HEADACHE COMPARISON: 01/06/2015 TECHNIQUE: Axial images acquired through the brain without intravenous contrast. Images reviewed wi th bone, brain and subdural windows. Additional sagittal and coronal reconstructions were generated. Images stored on PACS. All CT scanners at this facility use dose modulation, iterative reconstruction, and/or weight based d osing when appropriate to reduce radiation dose to as low as reasonably achievable (ALARA). [facility]: Dose Right [facility]: CareDose [facility]: Dose Right [facility]: Teradose 4D [facility]: [employer] RADIATION DOSE: CT Rad equipment meets quality standard of care and radiation dose reduction techniq ues were employed. CTDIvol: 48.6 mGy. DLP: 979 mGy-cm. LIMITATIONS: None. FINDINGS: VENTRICLES: The ventricles appears slightly prominent when compared to the prior examinat ion. The cisterns are patent. CEREBRUM: No masses. No hemorrhage. No midline shift. No evidence for acute infarction. Normal gra y/white matter differentiation. No areas of low density in the white matter. CEREBELLUM: No masses. No hemorrhage. No alteration of density. No evidence for acute infarction. EXTRAAXIAL SPACES: No fluid collections. No masses. ORBITS AND GLOBE: No intra- or extraconal masses. Normal contour of globe without masses. CALVARIUM: No fracture. PARANASAL SINUSES: Deviation of the nasal septum to the left of the midline. Nasal bony spur. Conc friend bullosa in the bilateral middle turbinates. Mild mucosal thickening in the left middle terminate suggest inflammatory changes. SOFT TISSUES: No mass or hematoma. OTHER: No other significant finding. IMPRESSION: 1. No acute intracranial abnormality. 2. The ventricles appear slightly prominent when compared to the prior examination dated 01/06/2015. EVIDENCE OF ACUTE STROKE: NO. COMMENT: Quality ID # [id number]: Final reports with documentation of one or more dose reduction techniques (e.g., Automated exposure control, adjustment of the mA and/or kV according to patient size, use of iterative reconstruction technique) TECHNICAL DOCUMENTATION: JOB ID: [id number] [employer]- All Rights Reserved Reading location - IP/workstation name: [email or web address]
[2019-03-26 13:29] LABS: ABSOLUTE BASOPHILS # (AUTO) 0.1 10^3/uL (0.0-0.2); ABSOLUTE EOSINOPHILS # (AUTO) 0.2 10^3/uL (0.0-0.6); ABSOLUTE LYMPHOCYTES (AUTO) 2.6 10^3/uL (0.5-4.7); ABSOLUTE MONOCYTES (AUTO) 0.7 10^3/uL (0.1-1.4); ABSOLUTE NEUT (AUTO) 5.3 10^3/uL (1.7-8.2); BASOPHILS % (AUTO) 1.5 % (0-2); EOSINOPHILS % (AUTO) 2.3 % (0-6); HEMOGLOBIN 13.2 g/dL (12.0-15.5); LYMPHOCYTES % (AUTO) 29.3 % (13-45); MEAN CORPUSCULAR HEMOGLOBIN 30.6 pg (27.0-33.4); MEAN CORPUSCULAR HGB CONC 32.3 g/dL (32.0-36.0); MEAN CORPUSCULAR VOLUME 95 fl (80-97); MONOCYTES % (AUTO) 7.5 % (3-13); PLATELET COUNT 315 10^3/uL (150-450); RED BLOOD COUNT 4.33 10^6/uL (3.72-5.28); RED CELL DISTRIBUTION WIDTH 14.9 % (11.5-14.0); SEGMENTED NEUTROPHILS % (AUTO) 59.4 % (42-78); TOTAL CELLS COUNTED % (AUTO) 100 %
[2019-03-26 13:41] LABS: ALBUMIN 3.9 g/dL (3.5-5.0); ALKALINE PHOSPHATASE 74 U/L (38-126); ANION GAP 10 (5-19); ASPARTATE AMINO TRANSFERASE 42 U/L (14-36); BILIRUBIN,DIRECT 0.2 mg/dL (0.0-0.4); BILIRUBIN,TOTAL 0.5 mg/dL (0.2-1.3); BLOOD UREA NITROGEN 14 mg/dL (7-20); CARBON DIOXIDE 22 mmol/L (22-30); CHLORIDE 108 mmol/L (98-107); GLUCOSE 111 mg/dL (75-110); POTASSIUM 5.6 mmol/L (3.6-5.0); TOTAL PROTEIN 6.9 g/dL (6.3-8.2)
[2019-03-26 14:07] LABS: ERYTHROCYTE SEDIMENTATION RATE 23 mm/hr (0-30)
== END ==
LOC: RAD 12:32
PROVIDERS: ATTEND Physician Assistant
DX: R51 Headache (principal)
CPT/HCPCS: 36415; 70450; 80053; 85025; 85652

== ENCOUNTER → 2019-03-27 | Outpatient (CLI) | payer MEDICARE, MEDICAID ==
[2019-03-27 11:41] LABS: ABSOLUTE BASOPHILS # (AUTO) 0.1 10^3/uL (0.0-0.2); ABSOLUTE EOSINOPHILS # (AUTO) 0.2 10^3/uL (0.0-0.6); ABSOLUTE LYMPHOCYTES (AUTO) 1.6 10^3/uL (0.5-4.7); ABSOLUTE MONOCYTES (AUTO) 0.5 10^3/uL (0.1-1.4); ABSOLUTE NEUT (AUTO) 4.5 10^3/uL (1.7-8.2); BASOPHILS % (AUTO) 0.9 % (0-2); EOSINOPHILS % (AUTO) 2.5 % (0-6); HEMATOCRIT 40.6 % (36.0-47.0); HEMOGLOBIN 13.4 g/dL (12.0-15.5); MEAN CORPUSCULAR HEMOGLOBIN 30.9 pg (27.0-33.4); MEAN CORPUSCULAR HGB CONC 33.1 g/dL (32.0-36.0); MEAN CORPUSCULAR VOLUME 93 fl (80-97); MONOCYTES % (AUTO) 7.8 % (3-13); PLATELET COUNT 330 10^3/uL (150-450); RED BLOOD COUNT 4.35 10^6/uL (3.72-5.28); SEGMENTED NEUTROPHILS % (AUTO) 65.8 % (42-78); TOTAL CELLS COUNTED % (AUTO) 100 %; WHITE BLOOD COUNT 6.8 10^3/uL (4.0-10.5)
[2019-03-27 12:01] LABS: ALBUMIN 3.8 g/dL (3.5-5.0); ALKALINE PHOSPHATASE 73 U/L (38-126); ANION GAP 11 (5-19); ASPARTATE AMINO TRANSFERASE 41 U/L (14-36); BILIRUBIN,DIRECT 0.1 mg/dL (0.0-0.4); BILIRUBIN,TOTAL 0.8 mg/dL (0.2-1.3); BLOOD UREA NITROGEN 12 mg/dL (7-20); CALCIUM 9.6 mg/dL (8.4-10.2); CARBON DIOXIDE 23 mmol/L (22-30); CHLORIDE 108 mmol/L (98-107); GLUCOSE 127 mg/dL (75-110); TOTAL PROTEIN 6.9 g/dL (6.3-8.2)
[2019-03-27 12:21] LABS: ERYTHROCYTE SEDIMENTATION RATE 22 mm/hr (0-30)
== END ==
LOC: OD 11:09
PROVIDERS: ATTEND Physician Assistant
DX: R51 Headache (principal)
CPT/HCPCS: 36415; 80053; 85025; 85652

== ENCOUNTER → 2019-04-14 | Outpatient (CLI) | payer MEDICARE, MEDICAID ==
--- NOTE | 2019-04-14 14:11 | WOMENS IMAGING REPORT ---
EXAM DESCRIPTION: BONE DENSITY HIP/SPINE COMPLETED DATE/TIME: 04/14/2019 1:57 pm REASON FOR STUDY: M81.0 BONE DENSITY M81.0 AGE-RELATED OSTEOPOROSIS W/O CURRENT PATHOLOGICAL FRAC COMPARISON: None. TECHNIQUE: Dual-Energy X-ray Absorptiometry (DEXA) of the AP Spine and Hip. LIMITATIONS: None. FINDINGS: LUMBAR SPINE: The bone mineral density (BMD) measured from L1-L4 in the AP projection correlates with a T-score of 1.1, which is normal as defined by the World Health Organization. BMD Change vs Baseline: N/A HIP: The bone mineral density (BMD) measured in the left hip correlates with a T-score of 0.7, which is no rmal as defined by the World Health Organization. BMD Change vs Baseline: N/A 10 year Fracture Risk Assessment: Major Osteoporotic Fracture: Not available. Hip Fracture: Not available. IMPRESSION: 1. LUMBAR SPINE WHO CLASSIFICATION: Normal 2. HIP WHO CLASSIFICATION: Normal OVERALL ASSESSMENT: WHO CLASSIFICATION: Normal COMMENT: The World Health Organization defines low BMD as follows: T-score: Normal: Greater than -1.0 Osteopenia: Between -1.0 and -2.5 Osteoporosis: Less than -2.5 without fractures Established osteoporosis: Less than -2.5 with fractures In general, you may wish to consider: Diagnosis Treatment Follow-up DEXA Normal BMD Prevention 2-3 years Osteopenia Prevention/Therapy 1-2 years Osteoporosis Therapy Yearly TECHNICAL DOCUMENTATION: JOB ID: [id number] [employer]- All Rights Reserved Reading location - IP/workstation name: [email or web address]
== END ==
LOC: WI 13:30
PROVIDERS: ATTEND Internal Medicine Hematology & Oncology
DX: M81.0 Age-related osteoporosis without current pathological fracture (principal)
CPT/HCPCS: 77080

== ENCOUNTER → 2019-07-02 | Outpatient (CLI) | payer MEDICARE, MEDICAID ==
--- NOTE | 2019-07-02 14:17 | RADIOLOGY REPORT (SQ) ---
EXAM DESCRIPTION: INJECT VENOUS ACCESS DEVICE COMPLETED DATE/TIME: 07/02/2019 1:39 pm REASON FOR STUDY: PORT STUDY. DIFFICULTY FLUSHING (Z45.2) Z45.2 ENCOUNTER FOR ADJUSTMENT AND MANAGE MENT OF VAD COMPARISON: None. FLUORO TIME: 1.5 MINUTES 4 images saved to PACS LIMITATIONS: None. PROCEDURE: After obtaining informed consent and explaining the risks and benefits of conscious sedat ion, the patient was brought to the special procedures suite and was placed supine on the fluoroscopy table. Skin overlying the port was sterilely prepped and draped. Under fluoroscopic guidance the p ort was accessed. Contrast was injected. There is extravasation near where the catheter dives under the clavicle. IMPRESSION: Findings are consistent with catheter disruption. The leak appears to be of where the c atheter dives under the clavicle. COMMENT: Patient medication list reviewed: No Quality ID #76: The patient was prepped and draped using maximum sterile barrier technique including cap, mask, sterile gown, sterile gloves, a large sterile sheet, hand hygiene, and 2% Chlorhexidine fo r cutaneous antisepsis. When ultrasound is used, sterile ultrasound techniques are followed requiring sterile gel and sterile probes. Quality ID 145: Final reports for procedures using fluoroscopy that document radiation exposure raza melly, or exposure time and number of fluorographic images (if radiation exposure indices are not avail able) TECHNICAL DOCUMENTATION: JOB ID: [id number] 2010 [employer]- All Rights Reserved Reading location - IP/workstation name: [email or web address]
== END ==
LOC: RAD 12:30
PROVIDERS: ATTEND Internal Medicine Hematology & Oncology
DX: Z45.2 Encounter for adjustment and management of vascular access device (principal)
CPT/HCPCS: 36598

== ENCOUNTER 2019-07-09 13:59 | Emergency (ER) | payer MEDICARE, MEDICAID ==
--- NOTE | 2019-07-09 14:23 | ER Document Report ---
ED Medical Screen (RME) - General Chief Complaint: Other Stated Complaint: PORT PROBLEM Time Seen by Provider: 07/09/19 14:11 Primary Care Provider: CHANO REYES MD [Primary Care Provider] - Follow up as needed Mode of Arrival: Ambulatory Information source: Patient Notes: 54-year-old female patient presenting to the emergency department with chief complaint of shortness of breath. Patient has a port to her right chest wall, she states the port has a fracture in it and she was referred here by her surgeon. She states she has had increased shortness of breath. She stopped taking her anticoagulation a few days ago in preparation for surgery. She has a history of multiple DVTs and multiple PEs. Patient does appear dyspneic on exertion. Her lung sounds are clear and equal bilaterally. I have greeted and performed a rapid initial assessment of this patient. A comprehensive ED assessment and evaluation of the patient, analysis of test results and completion of the medical decision making process will be conducted by additional ED providers. I have specifically instructed the patient or family members with the patient to immediately return to any nursing staff should anything change in the patient's condition or with their chief complaint. TRAVEL OUTSIDE OF THE [place] IN LAST 30 DAYS: No - Related Data Allergies/Adverse Reactions: adhesive [Adhesive] Allergy (Mild, Verified 07/09/19 14:11) Generalized rash methicillin [Methicillin] Allergy (Mild, Verified 07/09/19 14:11) Generalized rash vancomycin [Vancomycin] Allergy (Mild, Verified 07/09/19 14:11) Generalized rash Past Medical History - Past Medical History Cardiac Medical History: Reports: Hx Atrial Fibrillation, Hx Congestive Heart Failure, Hx Coronary Artery Disease - HIGH CHOLESTEROL, Hx DVT, Hx Hypercholesterolemia, Hx Hypertension, Hx Pulmonary Embolism Denies: Hx Heart Attack Pulmonary Medical History: Reports: Hx Bronchitis, Hx COPD, Hx Pneumonia, Hx Intubation, Hx Respiratory Failure, Hx Sleep Apnea Denies: Hx Asthma, Hx Tuberculosis Neurological Medical History: Denies: Hx Cerebrovascular Accident, Hx Migraine, Hx Seizures Endocrine Medical History: Reports: Hx Diabetes Mellitus Type 2 Renal/ Medical History: Denies: Hx Peritoneal Dialysis Malignancy Medical History: Reports: Hx Breast Cancer, Hx Cervical Cancer GI Medical History: Reports: Hx Gastroesophageal Reflux Disease, Hx Hiatal Hernia, Hx Liver Failure - fatty liver Musculoskeltal Medical History: Reports Hx Arthritis - KNEES/BACK, Reports Hx Fibromyalgia Skin Medical History: Reports Hx Psoriasis Psychiatric Medical History: Reports: Hx Anxiety, Hx Bipolar Disorder, Hx Depression Past Surgical History: Reports: Hx Cardiac Surgery - Pace maker, Hx Cholecystectomy, Hx Hysterectomy, Hx Mastectomy, Hx Orthopedic Surgery, Hx Pacemaker, Hx Tubal Ligation, Hx Vascular Surgery - port, Other - IVC filter placement - Immunizations Immunizations up to date: Yes Hx Diphtheria, Pertussis, Tetanus Vaccination: Yes - 01/2014 Physical Exam - Vital signs Vitals: Temp Pulse Resp BP Pulse Ox 97.6 F 84 28 H 151/91 H 96 07/09/19 14:06 07/09/19 14:06 07/09/19 14:06 07/09/19 14:06 07/09/19 14:06 Course - Vital Signs Vital signs: Temp Pulse Resp BP Pulse Ox 97.6 F 84 28 H 151/91 H 96 07/09/19 14:06 07/09/19 14:06 07/09/19 14:06 07/09/19 14:06 07/09/19 14:06 Doctor's Discharge - Discharge Referrals: CHANO REYES MD [Primary Care Provider] - Follow up as needed
[2019-07-09 15:20] LABS: A TYPE INFLUENZA AG NEGATIVE (NEGATIVE)
[2019-07-09 15:21] LABS: B INFLUENZA AG NEGATIVE (NEGATIVE)
[2019-07-09 15:58] LABS: ABSOLUTE EOSINOPHILS # (AUTO) 0.2 10^3/uL (0.0-0.6); ABSOLUTE LYMPHOCYTES (AUTO) 2.1 10^3/uL (0.5-4.7); ABSOLUTE MONOCYTES (AUTO) 0.6 10^3/uL (0.1-1.4); ABSOLUTE NEUT (AUTO) 5.3 10^3/uL (1.7-8.2); BASOPHILS % (AUTO) 0.1 % (0-2); EOSINOPHILS % (AUTO) 2.5 % (0-6); HEMATOCRIT 38.8 % (36.0-47.0); LYMPHOCYTES % (AUTO) 25.6 % (13-45); MEAN CORPUSCULAR HEMOGLOBIN 31.5 pg (27.0-33.4); MEAN CORPUSCULAR HGB CONC 33.6 g/dL (32.0-36.0); MEAN CORPUSCULAR VOLUME 94 fl (80-97); MONOCYTES % (AUTO) 6.7 % (3-13); PLATELET COUNT 340 10^3/uL (150-450); RED BLOOD COUNT 4.14 10^6/uL (3.72-5.28); RED CELL DISTRIBUTION WIDTH 15.4 % (11.5-14.0); SEGMENTED NEUTROPHILS % (AUTO) 65.1 % (42-78); TOTAL CELLS COUNTED % (AUTO) 100 %; WHITE BLOOD COUNT 8.2 10^3/uL (4.0-10.5)
[2019-07-09 16:08] LABS: INTERNATIONAL RATION (INR) 0.93; PROTHROMBIN TIME 12.5 SEC (11.4-15.4)
--- NOTE | 2019-07-09 16:08 | ER Document Report ---
ED General - General Chief Complaint: Other Stated Complaint: PORT PROBLEM Time Seen by Provider: 07/09/19 14:11 Primary Care Provider: MAGNOLIA ADLER MD [Primary Care Provider] - Follow up as needed KAYLI TINAJERO MD [ACTIVE STAFF] - Follow up in 1 week Mode of Arrival: Ambulatory Notes: Patient is a 54-year-old female who presents emergency department with a chief complaint of pain due to her Port-A-Cath site moving. Denies any chest pain, but reports chest wall pain. On 01 July, she had a port study done and there was a disruption in her catheter. Patient states that she was supposed to have her Port-A-Cath changed out today, but she states that she reported a "fever." States that her temperature was 99 last night and then this morning she was referred here to the emergency department. Patient has an AICD on the left side. Patient is worried that the port-A-cath is moving. She has a history of DVTs, PEs, atrial fibrillation, rhabdomyolysis, renal failure, cervical cancer, and breast cancer. TRAVEL OUTSIDE OF THE [place] IN LAST 30 DAYS: No - Related Data Allergies/Adverse Reactions: adhesive [Adhesive] Allergy (Mild, Verified 07/09/19 14:11) Generalized rash methicillin [Methicillin] Allergy (Mild, Verified 07/09/19 14:11) Generalized rash vancomycin [Vancomycin] Allergy (Mild, Verified 07/09/19 14:11) Generalized rash Past Medical History - General Information source: Patient - Social History Smoking Status: Never Smoker Chew tobacco use (# tins/day): No Drug Abuse: None Family History: Arthritis, CAD, DM, Hyperlipidemia, Hypertension, Malignancy Patient has suicidal ideation: No Patient has homicidal ideation: No - Past Medical History Cardiac Medical History: Reports: Hx Atrial Fibrillation, Hx Congestive Heart Failure, Hx Coronary Artery Disease - HIGH CHOLESTEROL, Hx DVT, Hx Hypercholesterolemia, Hx Hypertension, Hx Pulmonary Embolism Denies: Hx Heart Attack Pulmonary Medical History: Reports: Hx Bronchitis, Hx COPD, Hx Pneumonia, Hx Intubation, Hx Respiratory Failure, Hx Sleep Apnea Denies: Hx Asthma, Hx Tuberculosis Neurological Medical History: Denies: Hx Cerebrovascular Accident, Hx Migraine, Hx Seizures Endocrine Medical History: Reports: Hx Diabetes Mellitus Type 2 Renal/ Medical History: Denies: Hx Peritoneal Dialysis Malignancy Medical History: Reports: Hx Breast Cancer, Hx Cervical Cancer GI Medical History: Reports: Hx Gastroesophageal Reflux Disease, Hx Hiatal Hernia, Hx Liver Failure - fatty liver Musculoskeletal Medical History: Reports Hx Arthritis - KNEES/BACK, Reports Hx Fibromyalgia Skin Medical History: Reports Hx Psoriasis Psychiatric Medical History: Reports: Hx Anxiety, Hx Bipolar Disorder, Hx Depression Past Surgical History: Reports: Hx Cardiac Surgery - Pace maker, Hx Cholecystectomy, Hx Hysterectomy, Hx Mastectomy, Hx Orthopedic Surgery, Hx Pacemaker, Hx Tubal Ligation, Hx Vascular Surgery - port, Other - IVC filter placement - Immunizations Immunizations up to date: Yes Hx Diphtheria, Pertussis, Tetanus Vaccination: Yes - 01/2014 Hx Pneumococcal Vaccination: 04/23/15 Review of Systems - Review of Systems Notes: REVIEW OF SYSTEMS: CONSTITUTIONAL : Denies recent illness. Denies recent unintentional weight loss. Denies fever, chills, or sweats. EENT: Denies eye, ear, throat, or mouth pain, discharge, or symptoms. Denies nasal or sinus congestion. CARDIOVASCULAR: Denies chest pain. CHEST WALL: See HPI. RESPIRATORY: Denies shortness of breath, cough, congestion, difficulty breathing, or wheezing. GASTROINTESTINAL: Denies nausea, vomiting, and diarrhea. Denies abdominal pain. Denies constipation. GENITOURINARY: Denies difficulty urinating, burning, blood in urine, urgency or frequency. MUSCULOSKELETAL: Denies neck and back pain. Denies joint pain or swelling. SKIN: Denies rash, itchiness, or lesions HEMATOLOGIC : Denies easy bruising or bleeding. LYMPHATIC: Denies swollen, painful, enlarged glands. NEUROLOGICAL: Denies no numbness or tingling denies weakness. Denies headache. Denies altered mental status. Denies alteration in speech. PSYCHIATRIC: Denies stress, anxiety, alteration in sleep patterns, or de pression. All other systems reviewed and negative. Physical Exam - Vital signs Vitals: Temp Pulse Resp BP Pulse Ox 97.6 F 84 28 H 151/91 H 96 07/09/19 14:06 07/09/19 14:06 07/09/19 14:06 07/09/19 14:06 07/09/19 14:06 - Notes Notes: PHYSICAL EXAMINATION: GENERAL: Appears well, healthy, well-nourished, no acute distress. HEAD: Normocephalic, atraumatic. EYES: PERRL, conjunctiva normal, all extraocular movements intact, sclera nonicteric ENT: Moist mucous membranes. NECK: Supple, no noticeable swelling, redness, rash. Normal range of motion. LUNGS: Equal breath sounds bilaterally and clear to auscultation. No wheezes rales or rhonchi. CARDIOVASCULAR: S1-S2, regular rate, regular rhythm. Radial pulses 2+, normal. ABDOMEN: Normoactive bowel sounds. Soft, nontender, no guarding, no rebound tenderness, and no masses palpated. EXTREMITIES: Normal strength and range of motion, no pitting or edema. No cyanosis. NEUROLOGICAL: Moves all extremities upon command. Strength 5/5 in all extremities. PSYCH: Normal mood, normal affect. SKIN: Warm, dry. No rash, lesions, ulcerations noted. Normal skin turgor. CHEST WALL: Port-A-Cath noted to right side of chest. Pacemaker noted to left side of chest. Course - Re-evaluation Re-evalutation: 07/09/19 16:[address] Tinajero, the surgeon clay preparation supervisor. He states that he will evaluate the patient. 07/09/19 18:21 Dr. Tinajero is at bedside to remove the Port-A-Cath. 07/09/19 19:07 Heart cath was successfully removed by Dr. Tinajero. Patient will follow-up with surgery in 1 week. Follow-up precautions were given. Verbal discharge instructions were given to the patient. They verbalized understanding. They are stable for discharge. - Vital Signs Vital signs: Temp Pulse Resp BP Pulse Ox 98.7 F 84 28 H 129/83 H 96 07/09/19 18:50 07/09/19 14:06 07/09/19 14:06 07/09/19 18:31 07/09/19 18:31 - Laboratory Result Diagrams: 07/09/19 15:40 07/09/19 15:40 Laboratory results interpreted by me: 07/09/19 07/09/19 15:40 15:40 RDW 15.4 H BUN 21 H Discharge - Discharge Clinical Impression: Encounter for care related to Port-a-Cath Condition: Stable Disposition: HOME, SELF-CARE Additional Instructions: You were seen today in the emergency department for a complication with your Port-A-Cath. It was removed by Dr. Tinajero. Please follow-up with the surgical clinic in 1 week in regards to this visit. Referrals: MAGNOLIA ADLER MD [Primary Care Provider] - Follow up as needed KAYLI TINAJERO MD [ACTIVE STAFF] - Follow up in 1 week
[2019-07-09 16:09] LABS: PARTIAL THROMBOPLASTIN TIME 27.2 SEC (23.5-35.8)
[2019-07-09 16:16] LABS: ALBUMIN 3.7 g/dL (3.5-5.0); ALKALINE PHOSPHATASE 65 U/L (38-126); ANION GAP 8 (5-19); ASPARTATE AMINO TRANSFERASE 35 U/L (14-36); BILIRUBIN,DIRECT 0.2 mg/dL (0.0-0.4); BILIRUBIN,TOTAL 0.8 mg/dL (0.2-1.3); BLOOD UREA NITROGEN 21 mg/dL (7-20); CALCIUM 9.1 mg/dL (8.4-10.2); CARBON DIOXIDE 25 mmol/L (22-30); CHLORIDE 106 mmol/L (98-107); GLUCOSE 102 mg/dL (75-110)
[2019-07-09] MEDS ORDERED: LIDOCAINE 1.5%/EPINEPHRINE INJ-PF 30 ML SDV INJ ONE (17:32)
[2019-07-09] MEDS ORDERED: MORPHINE SULFATE 10 MG/ML INJ IV ONE (17:33)
[2019-07-09] MEDS ORDERED: LIDOCAINE 1%/EPINEPHRINE INJ 20 ML VIAL ONE (17:43)
[2019-07-09] MEDS ORDERED: LIDOCAINE 1%/EPINEPHRINE INJ 20 ML VIAL INJ ONE (17:54)
[2019-07-09 18:51] VITALS: BP 129/83
--- NOTE | 2019-07-09 22:35 | PDOC CONSULTATION ---
Consultation Consult Date: 07/09/19 Provider Consulted: SURGICAL SURGICALIST Consult reason:: Dysfunctional Mediport History of Present Illness Admission Date/PCP: MAGNOLIA ADLER MD Patient complains of: Dysfunctional Mediport History of Present Illness: AGUSTIN ETIENNE is a 54 year old female with a history of poor venous access and multiple Mediport placed over the last 10 years. She is seen in consultation at the request of the emergency department. Patient presented today with pain around the Mediport, requesting its bedside removal. I was consulted to help co mplete this request. The patient reports pain around the Mediport site, as well as subjective fevers at home. The patient denies overt chest pain, shortness of breath, nausea, vomiting, hematemesis, melena, hematochezia, dizziness, blurry vision, orthostasis. Past Medical History Cardiac Medical History: Reports: Atrial Fibrillation, Congestive Heart Failure, Coronary Artery Disease - HIGH CHOLESTEROL, DVT, Hyperlipidema, Hypertension, Pulmonary Embolism Denies: Myocardial Infarction Pulmonary Medical History: Reports: Bronchitis, Chronic Obstructive Pulmonary Disease (COPD), Intubation, Pneumonia, Respiratory Failure, Sleep Apnea Denies: Asthma, Tuberculosis Neurological Medical History: Denies: Migraine, Seizures Endocrine Medical History: Reports: Diabetes Mellitus Type 2 Malignancy Medical History: Reports: Breast Cancer, Cervical Cancer GI Medical History: Reports: Gastroesophageal Reflux Disease, Hiatal Hernia Musculoskeltal Medical History: Reports: Arthritis - KNEES/BACK, Fibromyalgia Skin Medical History: Reports: Psoriasis Psychiatric Medical History: Reports: Bipolar Disorder, Depression Hematology: Denies: Anemia Past Surgical History Past Surgical History: Reports: Cholecystectomy, Hysterectomy, Mastectomy, Orthopedic Surgery, Pacemaker, Tubal Ligation, Vascular Surgery - port, Other - IVC filter placement Social History Smoking Status: Never Smoker Electronic Cigarette use?: No Frequency of Alcohol Use: Occasional Hx Recreational Drug Use: No Drugs: None Hx Prescription Drug Abuse: No Family History Family History: Arthritis, CAD, DM, Hyperlipidemia, Hypertension, Malignancy Parental Family History Reviewed: Yes Children Family History Reviewed: Yes Sibling(s) Family History Reviewed.: Yes Medication/Allergy Home Medications: Atorvastatin Calcium [Lipitor 10 mg Tablet] 10 mg PO QHS 03/05/17 Cholecalciferol (Vitamin D3) [Vitamin D3 5000 unit Capsule] 5,000 units PO DAILY 03/05/17 Colestipol HCl [Colestid 1 gm Tablet] 2 gm PO Q12 03/05/17 Esomeprazole Magnesium [Nexium] 20 mg PO DAILY 03/05/17 Fiber [Fiber Diet] 1 tab PO DAILY 03/05/17 Lorazepam [Ativan 1 mg Tablet] 1 mg PO TID PRN 03/05/17 Losartan Potassium [Cozaar 50 mg Tablet] 50 mg PO QHS 03/05/17 Metformin HCl [Glucophage 500 mg Tablet] 500 mg PO DAILY 03/05/17 Multivit-Minerals/Folic Acid [One Daily Womens 50 Plus Tab] 1 tab PO DAILY 03/05/17 Ranolazine [Ranexa 500 mg Tab.sr] 1,000 mg PO Q12 03/05/17 Rivaroxaban [Xarelto] 20 mg PO WSUPPER 03/05/17 Solifenacin Succinate [Vesicare] 10 mg PO DAILY 03/05/17 Spironolactone [Aldactone 25 mg Tablet] 25 mg PO DAILY #30 tablet 03/09/17 Brexpiprazole [Rexulti] 2 mg PO DAILY 09/21/18 Metoprolol Tartrate [Lopressor 50 mg Tablet] 50 mg PO Q12 09/21/18 Paroxetine HCl [Paxil 20 mg Tablet] 20 mg PO QAM 09/21/18 Furosemide [Lasix 40 mg Tablet] 40 mg PO BID 01/28/19 Magnesium Oxide [Magnesium] 400 mg PO BID 01/28/19 Potassium Chloride 40 meq PO BID 01/28/19 Zolpidem Tartrate [Ambien] 10 mg PO QHS 01/28/19 Metronidazole [Flagyl] 500 mg PO TID #21 tablet 02/02/19 Budesonide/Formoterol Fumarate [Symbicort Hfa 160-4.5 Mcg Inhaler 6 gm] 2 puff IH Q12 02/11/19 Allergies/Adverse Reactions: adhesive [Adhesive] Allergy (Mild, Verified 07/09/19 14:11) Generalized rash methicillin [Methicillin] Allergy (Mild, Verified 07/09/19 14:11) Generalized rash vancomycin [Vancomycin] Allergy (Mild, Verified 07/09/19 14:11) Generalized rash Review of Systems Constitutional: PRESENT: chills. ABSENT: anorexia, fatigue Eyes: ABSENT: visual disturbances Ears: ABSENT: hearing changes Nose, Mouth, and Throat: ABSENT: mouth pain, sore throat Cardiovascular: ABSENT: chest pain Respiratory: ABSENT: cough Gastrointestinal: ABSENT: abdominal pain, hematemesis, hematochezia, melena, nausea, vomiting Genitourinary: ABSENT: difficulty urinating Musculoskeletal: ABSENT: back pain Integumentary: ABSENT: diaphoresis, pruritus, rash Neurological: ABSENT: confusion, convulsions, dizziness Psychiatric: ABSENT: anxiety Endocrine: ABSENT: cold intolerance, heat intolerance Hematologic/Lymphatic: ABSENT: easy bleeding, easy bruising Physical Exam Vital Signs: Temp Pulse Resp BP Pulse Ox 98.7 F 84 28 H 129/83 H 96 07/09/19 18:50 07/09/19 14:06 07/09/19 14:06 07/09/19 18:31 07/09/19 18:31 Intake & Output 07/08/19 07/09/19 07/10/19 06:59 06:59 06:59 Weight 149.685 kg General appearance: PRESENT: no acute distress, morbidly obese Head exam: PRESENT: atraumatic, normocephalic Eye exam: PRESENT: EOMI, PERRLA. ABSENT: scleral icterus Mouth exam: PRESENT: moist, neck supple Neck exam: ABSENT: meningismus, tenderness, thyromegaly, tracheal deviation Respiratory exam: PRESENT: unlabored. ABSENT: chest wall tenderness, tachypnea, wheezes Cardiovascular exam: ABSENT: tachycardia Vascular exam: PRESENT: normal capillary refill GI/Abdominal exam: PRESENT: soft. ABSENT: distended, firm, guarding, tenderness Rectal exam: PRESENT: deferred Extremities exam: ABSENT: clubbing Musculoskeletal exam: ABSENT: deformity Neurological exam: PRESENT: alert, awake, oriented to person, oriented to place, oriented to time, oriented to situation Psychiatric exam: ABSENT: agitated, anxious, depressed Focused psych exam: ABSENT: delusional Skin exam: ABSENT: cyanosis, erythema, jaundice Results Laboratory Results: 07/09/19 15:40 07/09/19 15:40 07/09/19 07/09/19 15:40 15:40 WBC 8.2 RBC 4.14 Hgb 13.0 Hct 38.8 MCV 94 MCH 31.5 MCHC 33.6 RDW 15.4 H Plt Count 340 Seg Neutrophils % 65.1 Sodium 139.0 Potassium 5.0 Chloride 106 Carbon Dioxide 25 Anion Gap 8 BUN 21 H Creatinine 0.81 Est GFR ( Amer) > 60 Glucose 102 Calcium 9.1 Total Bilirubin 0.8 AST 35 Alkaline Phosphatase 65 Total Protein 7.0 Albumin 3.7 Assessment & Plan - Diagnosis (1) Vascular port complication Qualifiers: Encounter type: initial encounter Qualified Code(s): T82.9XXA - Unspecified complication of cardiac and vascular prosthetic device, implant and graft, initial encounter Is this a current diagnosis for this admission?: Yes - Plan Summary Plan Summary: This is a 54-year-old female with a leaking Mediport. She complains of symptoms in the area of the port. The patient also had a subjective fever at home. She is requesting removal of the Mediport. I will plan to perform this at the bedside today. Risks/benefits discussed, informed consent obtained, and all questions answered.
--- NOTE | 2019-07-09 22:37 | Operative Report ---
Nonrecallable Operative Report DATE OF SURGERY: 07/09/19 PREOPERATIVE DIAGNOSIS: Dysfunctional Mediport POSTOPERATIVE DIAGNOSIS: Same as above OPERATION: Removal of right chest Mediport SURGEON: KAYLI TINAJERO ANESTHESIA: Local TISSUE REMOVED OR ALTERED: Mediport COMPLICATIONS: None apparent ESTIMATED BLOOD LOSS: Minimal PROCEDURE: Drains/implants: None. Procedure in detail: After informed consent was obtained, the patient was sat in a semi-upright position in the emergency department. The area of the right ch est was prepped and draped in a normal sterile fashion. 1% lidocaine was used to infiltrate the skin of the right chest wall. An incision was created within the bounds of the previous scar. The capsule surrounding the Mediport was incised. The Mediport was then delivered through the skin. The Mediport hub and catheter were removed as one continuous piece. The Mediport catheter appeared completely intact. Once the port was completely removed from the patient, hemostasis was achieved using direct pressure. Next, the subcutaneous tissues were closed using 2-0 Vicryl suture in simple running fashion. The skin was also closed using 2-0 Vicryl suture in simple running fashion. A dressing was placed, and the procedure was concluded. All sponge, instrument, and needle counts were correct x2. Condition: Stable.
== END 2019-07-09 19:49 | disposition home or self-care (01) ==
LOC: ER 13:59
DX: Z45.2 Encounter for adjustment and management of vascular access device (principal); T82.848A Pain due to vascular prosthetic devices, implants and grafts, initial encounter; R07.89 Other chest pain; Y82.8 Other medical devices associated with adverse incidents; I25.10 Atherosclerotic heart disease of native coronary artery without angina pectoris; J44.9 Chronic obstructive pulmonary disease, unspecified; E11.9 Type 2 diabetes mellitus without complications; E78.00 Pure hypercholesterolemia, unspecified; K21.9 Gastro-esophageal reflux disease without esophagitis; F41.9 Anxiety disorder, unspecified; I48.91 Unspecified atrial fibrillation; I11.0 Hypertensive heart disease with heart failure; I50.9 Heart failure, unspecified; F31.9 Bipolar disorder, unspecified; Z79.51 Long term (current) use of inhaled steroids; Z79.84 Long term (current) use of oral hypoglycemic drugs; Z79.01 Long term (current) use of anticoagulants; Z79.899 Other long term (current) drug therapy; Z95.810 Presence of automatic (implantable) cardiac defibrillator; Z91.048 Other nonmedicinal substance allergy status; Z88.1 Allergy status to other antibiotic agents; Z88.0 Allergy status to penicillin
CPT/HCPCS: 99284; 96374; 36415; 87040; 85025; 85610; 85730; 80053; 87804; 36590; J2270; 87077; 87150; J3490

== ENCOUNTER 2019-10-22 19:03 | Emergency (ER) | payer MEDICARE, MEDICAID ==
--- NOTE | 2019-10-23 00:01 | ER Document Report ---
ED GI Bleed / Rectal Pain - General Chief Complaint: Black/Tarry Stools Stated Complaint: BLACK TARRY STOOLS, COUGH, SHORTNESS OF BREATH Time Seen by Provider: 10/22/19 23:23 Primary Care Provider: SUBHA HARVEY MD [ACTIVE STAFF] - 10/23/19 MAGNOLIA ISABEL MD [Primary Care Provider] - 10/23/19 Notes: Patient is a 54-year-old female presents to the emergency department with a chief complaint of black tarry stools. Her symptoms started about 3 days ago. Patient states that she has had some nausea, but has not vomited. She denies any pain. Patient is currently on Xarelto. 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 States that she took some Imodium to help with the diarrhea.Patient also states that she is being followed by Dr. Harvey for a thrombosed hemorrhoid. Patient states that she had close contact with a person with someone whose tested positive for COVID-19. Patient denies any shortness of breath, difficulty breathing, fever, body aches, chills, or any other symptoms. TRAVEL OUTSIDE OF THE [place] IN LAST 30 DAYS: No - Related Data Allergies/Adverse Reactions: adhesive [Adhesive] Allergy (Mild, Verified 10/23/19 02:16) Generalized rash methicillin [Methicillin] Allergy (Mild, Verified 10/23/19 02:16) Generalized rash vancomycin [Vancomycin] Allergy (Mild, Verified 10/23/19 02:16) Generalized rash Past Medical History - General Information source: Patient - Social History Smoking Status: Never Smoker Family History: Arthritis, CAD, DM, Hyperlipidemia, Hypertension, Malignancy - Past Medical History Cardiac Medical History: Reports: Hx Atrial Fibrillation, Hx Congestive Heart Failure, Hx Coronary Artery Disease - HIGH CHOLESTEROL, Hx DVT, Hx Hypercholesterolemia, Hx Hypertension, Hx Pulmonary Embolism Denies: Hx Heart Attack Pulmonary Medical History: Reports: Hx Bronchitis, Hx COPD, Hx Pneumonia, Hx Intubation, Hx Respiratory Failure, Hx Sleep Apnea Denies: Hx Asthma, Hx Tuberculosis Neurological Medical History: Denies: Hx Cerebrovascular Accident, Hx Migraine, Hx Seizures Endocrine Medical History: Reports: Hx Diabetes Mellitus Type 2 Renal/ Medical History: Denies: Hx Peritoneal Dialysis Malignancy Medical History: Reports: Hx Breast Cancer, Hx Cervical Cancer GI Medical History: Reports: Hx Gastroesophageal Reflux Disease, Hx Hiatal Hernia, Hx Liver Failure - fatty liver Musculoskeletal Medical History: Reports Hx Arthritis - KNEES/BACK, Reports Hx Fibromyalgia Skin Medical History: Reports Hx Psoriasis Psychiatric Medical History: Reports: Hx Anxiety, Hx Bipolar Disorder, Hx Depression Past Surgical History: Reports: Hx Cardiac Surgery - Pace maker, Hx Cholecystectomy, Hx Hysterectomy, Hx Mastectomy, Hx Orthopedic Surgery, Hx Pacemaker, Hx Tubal Ligation, Hx Vascular Surgery - port, Other - IVC filter placement - Immunizations Immunizations up to date: Yes Hx Diphtheria, Pertussis, Tetanus Vaccination: Yes - 01/2014 Hx Pneumococcal Vaccination: 04/23/15 Review of Systems - Review of Systems Notes: REVIEW OF SYSTEMS: CONSTITUTIONAL : Denies recent illness. Denies recent unintentional weight loss. Denies fever, chills, or sweats. EENT: Denies eye, ear, throat, or mouth pain, discharge, or symptoms. Denies nasal or sinus congestion. CARDIOVASCULAR: Denies chest pain. RESPIRATORY: Denies shortness of breath, cough, congestion, difficulty breathing, or wheezing. GASTROINTESTINAL: See HPI. GENITOURINARY: Denies difficulty urinating, burning, blood in urine, urgency or frequency. MUSCULOSKELETAL: Denies neck and back pain. Denies joint pain or swelling. SKIN: Denies rash, itchiness, or lesions HEMATOLOGIC : Denies easy bruising or bleeding. LYMPHATIC: Denies swollen, painful, enlarged glands. NEUROLOGICAL: Denies no numbness or tingling denies weakness. Denies headache. Denies altered mental status. Denies alteration in speech. PSYCHIATRIC: Denies stress, anxiety, alteration in sleep patterns, or depression. All other systems reviewed and negative. Physical Exam - Vital signs Vitals: Temp Pulse Resp BP Pulse Ox 98.2 F 79 24 H 119/78 97 10/22/19 19:04 10/22/19 19:04 10/22/19 19:04 10/22/19 19:04 10/22/19 19:04 - Notes Notes: PHYSICAL EXAMINATION: GENERAL: Appears obese, no acute distress. HEAD: Normocephalic, atraumatic. EYES: PERRL, conjunctiva normal, all extraocular movements intact, sclera nila cteric ENT: Moist mucous membranes. NECK: Supple, no noticeable swelling, redness, rash. Normal range of motion. LUNGS: Equal breath sounds bilaterally and clear to auscultation. No wheezes rales or rhonchi. CARDIOVASCULAR: S1-S2, regular rate, regular rhythm. Radial pulses 2+, normal. ABDOMEN: Normoactive bowel sounds. Soft, nontender, no guarding, no rebound tenderness, and no masses palpated. EXTREMITIES: Normal strength and range of motion, no pitting or edema. No cyanosis. NEUROLOGICAL: Moves all extremities upon command. Strength 5/5 in all extremities. PSYCH: Normal mood, normal affect. SKIN: Warm, dry. No rash, lesions, ulcerations noted. Normal skin turgor. RECTAL: Melena stool noted. Course - Re-evaluation Re-evalutation: 10/22/19 23:30 Janel, PCT at bedside. Occult stool positive on Hemoccult. 10/23/19 02:00 Nursing staff was a having a hard time starting an IV. Ultrasound-guided IV d one by myself. 20-gauge IV placed in the right forearm. Patient tolerated procedures well. Labs drawn. 10/23/19 02:47 Hematology is unremarkable. Hemoglobin is stable at 13.3 with a hematocrit of 39.7. Coags are unremarkable. Chemistries are also unremarkable.I spoke with Dr. Isabel, patient's primary care provider. He would like the patient follow-up with him and Dr. Harvey first thing in the morning. Dr. Benavidez, my attending overheard my conversation and the nursing supervisor wood room was also here. We can send a rapid COVID test and test the patient. I will call the patient with results. She is in agreement with this plan. Follow-up precautions were given. Verbal discharge instructions were given to the patient. They verbalized understanding. They are stable for discharge. 10/23/19 07:11 Patient's COVID test is negative. Informed the patient of this result. She agrees to follow-up with Dr. Harvey and Dr. Isabel. - Vital Signs Vital signs: Temp Pulse Resp BP Pulse Ox 97.6 F 79 18 142/81 H 95 10/23/19 03:45 10/23/19 03:45 10/23/19 03:45 10/23/19 03:45 10/23/19 03:45 - Laboratory Result Diagrams: 10/23/19 01:55 10/23/19 01:55 Laboratory results interpreted by me: 10/23/19 10/23/19 01:55 01:55 RDW 14.5 H Chloride 108 H Albumin 3.4 L Discharge - Discharge Clinical Impression: Melena, Suspected COVID-19 virus infection Condition: Stable Disposition: HOME, SELF-CARE Additional Instructions: You were seen today in the emergency department for black, tarry stools. Your lab work was normal. Please do not take your Xarelto in the morning. As discussed, please follow-up with Dr. Harvey in the morning. Follow-up with Dr. Isabel in the morning. You were tested for COVID-19. Referrals: MAGNOLIA ISABEL MD [Primary Care Provider] - 10/23/19 SUBHA HARVEY MD [ACTIVE STAFF] - 10/23/19
[2019-10-23 02:05] LABS: ABSOLUTE BASOPHILS # (AUTO) 0.1 10^3/uL (0.0-0.2); ABSOLUTE EOSINOPHILS # (AUTO) 0.3 10^3/uL (0.0-0.6); ABSOLUTE LYMPHOCYTES (AUTO) 2.7 10^3/uL (0.5-4.7); ABSOLUTE MONOCYTES (AUTO) 0.8 10^3/uL (0.1-1.4); BASOPHILS % (AUTO) 1.2 % (0-2); EOSINOPHILS % (AUTO) 3.1 % (0-6); HEMATOCRIT 39.7 % (36.0-47.0); HEMOGLOBIN 13.3 g/dL (12.0-15.5); LYMPHOCYTES % (AUTO) 30.1 % (13-45); MEAN CORPUSCULAR HEMOGLOBIN 32.3 pg (27.0-33.4); MEAN CORPUSCULAR HGB CONC 33.6 g/dL (32.0-36.0); MEAN CORPUSCULAR VOLUME 96 fl (80-97); MONOCYTES % (AUTO) 8.6 % (3-13); PLATELET COUNT 306 10^3/uL (150-450); RED BLOOD COUNT 4.12 10^6/uL (3.72-5.28); RED CELL DISTRIBUTION WIDTH 14.5 % (11.5-14.0); TOTAL CELLS COUNTED % (AUTO) 100 %; WHITE BLOOD COUNT 8.8 10^3/uL (4.0-10.5)
[2019-10-23 02:23] LABS: ALBUMIN 3.4 g/dL (3.5-5.0); ALKALINE PHOSPHATASE 67 U/L (38-126); ASPARTATE AMINO TRANSFERASE 31 U/L (14-36); BILIRUBIN,TOTAL 0.8 mg/dL (0.2-1.3); BLOOD UREA NITROGEN 12 mg/dL (7-20); CALCIUM 9.1 mg/dL (8.4-10.2); CARBON DIOXIDE 26 mmol/L (22-30); GLUCOSE 91 mg/dL (75-110); POTASSIUM 4.3 mmol/L (3.6-5.0); TOTAL PROTEIN 6.3 g/dL (6.3-8.2)
[2019-10-23 02:28] LABS: CHLORIDE 108 mmol/L (98-107)
[2019-10-23 02:29] LABS: ANION GAP 5 (5-19)
[2019-10-23 02:36] LABS: INTERNATIONAL RATION (INR) 1.04; PARTIAL THROMBOPLASTIN TIME 29.7 SEC (23.5-35.8); PROTHROMBIN TIME 13.6 SEC (11.4-15.4)
[2019-10-23 03:51] VITALS: BP 142/81
== END 2019-10-23 03:51 | disposition home or self-care (01) ==
LOC: ER 19:03
DX: K92.1 Melena (principal); R19.7 Diarrhea, unspecified; R11.0 Nausea; I25.10 Atherosclerotic heart disease of native coronary artery without angina pectoris; I10 Essential (primary) hypertension; E11.9 Type 2 diabetes mellitus without complications; Z20.828 Contact with and (suspected) exposure to other viral communicable diseases; Z79.01 Long term (current) use of anticoagulants; Z85.3 Personal history of malignant neoplasm of breast; Z85.41 Personal history of malignant neoplasm of cervix uteri; Z95.0 Presence of cardiac pacemaker; Z91.048 Other nonmedicinal substance allergy status; Z88.1 Allergy status to other antibiotic agents; Z88.0 Allergy status to penicillin
CPT/HCPCS: 99283; 36415; 85025; 85610; 85730; 80053; U0003; C9803; 87635

== ENCOUNTER 2020-01-15 10:25 | Observation (INO) | payer MEDICARE, MEDICAID ==
--- NOTE | 2020-01-15 10:46 | ER Document Report ---
ED Medical Screen (RME) - General Chief Complaint: Bloody Stools Stated Complaint: BLOODY STOOLS Time Seen by Provider: 01/15/20 10:36 Primary Care Provider: MAGNOLIA ADLER MD [Primary Care Provider] - Follow up as needed Notes: Patient is a 54-year-old female with a history of DVTs, currently on Xarelto who presents emergency department with black, tarry stools. Patient states that her symptoms started 2 days ago. Also reports upper abdominal cramping. Patient was seen here in the beginning of October and was to follow-up with her director [facility] that next morning for her regular appointment, but she states that she ended up going to [place] and was admitted for a GI bleed. Patient states that this is a similar presentation. When she was here in October, her primary care provider wanted her to follow-up with GI in the morning instead of being admitted in the hospital. Admits to some nausea. Denies any leg pain, shortness of breath, or other symptoms. Exam: Tender mid upper abdomen. I have greeted and performed a rapid initial assessment of this patient. A comprehensive ED assessment and evaluation of the patient, analysis of test results and completion of medical decision making process will be conducted by an additional ED providers. TRAVEL OUTSIDE OF THE [place] IN LAST 30 DAYS: No - Related Data Allergies/Adverse Reactions: adhesive [Adhesive] Allergy (Mild, Verified 10/23/19 02:16) Generalized rash methicillin [Methicillin] Allergy (Mild, Verified 10/23/19 02:16) Generalized rash vancomycin [Vancomycin] Allergy (Mild, Verified 10/23/19 02:16) Generalized rash Past Medical History - Past Medical History Cardiac Medical History: Reports: Hx Atrial Fibrillation, Hx Congestive Heart Failure, Hx Coronary Artery Disease - HIGH CHOLESTEROL, Hx DVT, Hx Hypercholesterolemia, Hx Hypertension, Hx Pulmonary Embolism Denies: Hx Heart Attack Pulmonary Medical History: Reports: Hx Bronchitis, Hx COPD, Hx Pneumonia, Hx Intubation, Hx Respiratory Failure, Hx Sleep Apnea Denies: Hx Asthma, Hx Tuberculosis Neurological Medical History: Denies: Hx Cerebrovascular Accident, Hx Migraine, Hx Seizures Endocrine Medical History: Reports: Hx Diabetes Mellitus Type 2 Renal/ Medical History: Denies: Hx Peritoneal Dialysis Malignancy Medical History: Reports: Hx Breast Cancer, Hx Cervical Cancer GI Medical History: Reports: Hx Gastroesophageal Reflux Disease, Hx Hiatal Hernia, Hx Liver Failure - fatty liver Musculoskeltal Medical History: Reports Hx Arthritis - KNEES/BACK, Reports Hx Fibromyalgia Skin Medical History: Reports Hx Psoriasis Psychiatric Medical History: Reports: Hx Anxiety, Hx Bipolar Disorder, Hx Depression Past Surgical History: Reports: Hx Cardiac Surgery - Pace maker, Hx Cholecystectomy, Hx Hysterectomy, Hx Mastectomy, Hx Orthopedic Surgery, Hx Pacemaker, Hx Tubal Ligation, Hx Vascular Surgery - port, Other - IVC filter placement - Immunizations Immunizations up to date: Yes Hx Diphtheria, Pertussis, Tetanus Vaccination: Yes - 01/2014 Physical Exam - Vital signs Vitals: Temp Pulse Resp BP Pulse Ox 98.1 F 79 18 120/78 98 01/15/20 10:30 01/15/20 10:30 01/15/20 10:30 01/15/20 10:30 01/15/20 10:30 Course - Vital Signs Vital signs: Temp Pulse Resp BP Pulse Ox 98.1 F 79 18 120/78 98 01/15/20 10:30 01/15/20 10:30 01/15/20 10:30 01/15/20 10:30 01/15/20 10:30 Doctor's Discharge - Discharge Referrals: MAGNOLIA ADLER MD [Primary Care Provider] - Follow up as needed
[2020-01-15] MEDS ORDERED: ONDANSETRON HCL INJ/PF 4 MG/2 ML SDV IV ONE (10:50)
[2020-01-15] MEDS ORDERED: PANTOPRAZOLE SODIUM 40 MG VIAL IV ONE (11:51)
[2020-01-15 12:16] LABS: ABSOLUTE BASOPHILS # (AUTO) 0.1 10^3/uL (0.0-0.2); ABSOLUTE EOSINOPHILS # (AUTO) 0.2 10^3/uL (0.0-0.6); ABSOLUTE LYMPHOCYTES (AUTO) 1.5 10^3/uL (0.5-4.7); ABSOLUTE MONOCYTES (AUTO) 0.6 10^3/uL (0.1-1.4); ABSOLUTE NEUT (AUTO) 5.3 10^3/uL (1.7-8.2); EOSINOPHILS % (AUTO) 2.6 % (0-6); HEMOGLOBIN 12.7 g/dL (12.0-15.5); LYMPHOCYTES % (AUTO) 19.3 % (13-45); MEAN CORPUSCULAR HEMOGLOBIN 32.7 pg (27.0-33.4); MEAN CORPUSCULAR HGB CONC 34.2 g/dL (32.0-36.0); MEAN CORPUSCULAR VOLUME 96 fl (80-97); MONOCYTES % (AUTO) 7.8 % (3-13); PLATELET COUNT 291 10^3/uL (150-450); RED BLOOD COUNT 3.87 10^6/uL (3.72-5.28); RED CELL DISTRIBUTION WIDTH 15.3 % (11.5-14.0); SEGMENTED NEUTROPHILS % (AUTO) 69.3 % (42-78); TOTAL CELLS COUNTED % (AUTO) 100 %; WHITE BLOOD COUNT 7.7 10^3/uL (4.0-10.5)
--- NOTE | 2020-01-15 12:36 | ER Document Report ---
Entered by ZEN CESAR SCRIBE 01/15/20 1151 Acting as scribe for:MAY GARCIA MD ED General - General Chief Complaint: Black/Tarry Stools Stated Complaint: BLOODY STOOLS Time Seen by Provider: 01/15/20 10:36 Primary Care Provider: MAGNOLIA ADLER MD [Primary Care Provider] - Follow up as needed Mode of Arrival: Ambulatory Information source: Patient Notes: This 54 year female patient with a history of DVTs and PE on Xarelto presents to the ED today with complaints of black tarry stools that started x2 days ago. She reports associated upper abdominal cramping. Patient was seen here on 10/21 with same complaint and was discharged with instructions per her PCP to follow up with Dr. Coats the next morning; however, the patient states that she she continued to have bleeding and was advised to go to [facility] by her PCP where she was admitted for GI bleed for x4 days. She states that she had an EGD done and was told that there was bleeding and that "it would repair itself." She states that she was discharged with instructions to decrease her Xarelto and was started on Carafate and Protonix. TRAVEL OUTSIDE OF THE [place] IN LAST 30 DAYS: No - Related Data Allergies/Adverse Reactions: adhesive [Adhesive] Allergy (Mild, Verified 01/15/20 10:48) Generalized rash methicillin [Methicillin] Allergy (Mild, Verified 01/15/20 10:48) Generalized rash vancomycin [Vancomycin] Allergy (Mild, Verified 01/15/20 10:48) Generalized rash Home Medications: xarelto. pt states she forgot list but meds same as last time Past Medical History - General Information source: Patient, [facility] Records - Social History Smoking Status: Never Smoker Cigarette use (# per day): No Chew tobacco use (# tins/day): No Smoking Education Provided: No Drug Abuse: None Family History: Arthritis, CAD, DM, Hyperlipidemia, Hypertension, Malignancy Patient has suicidal ideation: No Patient has homicidal ideation: No - Past Medical History Cardiac Medical History: Reports: Hx Atrial Fibrillation, Hx Congestive Heart Failure, Hx Coronary Artery Disease - HIGH CHOLESTEROL, Hx DVT, Hx Hypercholesterolemia, Hx Hypertension, Hx Pulmonary Embolism Pulmonary Medical History: Reports: Hx Bronchitis, Hx COPD, Hx Pneumonia, Hx Intubation, Hx Respiratory Failure, Hx Sleep Apnea Endocrine Medical History: Reports: Hx Diabetes Mellitus Type 2 Malignancy Medical History: Reports: Hx Breast Cancer, Hx Cervical Cancer GI Medical History: Reports: Hx Gastroesophageal Reflux Disease, Hx Hiatal Hernia, Hx Liver Failure - fatty liver Musculoskeletal Medical History: Reports Hx Arthritis - KNEES/BACK, Reports Hx Fibromyalgia Skin Medical History: Reports Hx Psoriasis Psychiatric Medical History: Reports: Hx Anxiety, Hx Bipolar Disorder, Hx Depression Past Surgical History: Reports: Hx Cholecystectomy, Hx Hysterectomy, Hx Mastectomy, Hx Orthopedic Surgery, Hx Pacemaker, Hx Tubal Ligation, Hx Vascular Surgery - port, Other - IVC filter placement - Immunizations Immunizations up to date: Yes Hx Diphtheria, Pertussis, Tetanus Vaccination: Yes - 01/2014 Hx Pneumococcal Vaccination: 04/23/15 Review of Systems - Review of Systems Constitutional: No symptoms reported EENT: No symptoms reported Cardiovascular: No symptoms reported Respiratory: No symptoms reported Gastrointestinal: See HPI, Abdominal pain, Black stools Genitourinary: No symptoms reported Female Genitourinary: No symptoms reported Musculoskeletal: No symptoms reported Skin: No symptoms reported Hematologic/Lymphatic: No symptoms reported Neurological/Psychological: No symptoms reported -: Yes All other systems reviewed and negative Physical Exam - Vital signs Vitals: Temp Pulse Resp BP Pulse Ox 98.1 F 79 18 120/78 98 01/15/20 10:30 01/15/20 10:30 01/15/20 10:30 01/15/20 10:30 01/15/20 10:30 Interpretation: Normal - General General appearance: Alert In distress: None - HEENT Head: Normocephalic, Atraumatic Eyes: Normal Pupils: PERRL - Respiratory Respiratory status: No respiratory distress Chest status: Nontender Breath sounds: Normal Chest palpation: Normal - Cardiovascular Rhythm: Regular Heart sounds: Normal auscultation Murmur: No Friction rub: No Gallop: None auscultated - Abdominal Inspection: Obese Distension: No distension Bowel sounds: Normal Tenderness: Nontender - Abdomen soft Organomegaly: No organomegaly - Back Back: Normal, Nontender - Extremities General upper extremity: Normal inspection General lower extremity: Edema - Lymphedema, bilateral lower extremities - Neurological Neuro grossly intact: Yes Orientation: AAOx4 [place] Coma Scale Eye Opening: Spontaneous [place] Coma Scale Verbal: Oriented [place] Coma Scale Motor: Obeys Commands Karen Coma Scale Total: 15 - Psychological Associated symptoms: Normal affect, Normal mood - Skin Skin Temperature: Warm Skin Moisture: Dry Skin Color: Normal Course - Re-evaluation Re-evalutation: 01/15/20 14:01 Patient reports her last meal was pizza about 7 PM last night. She has not eaten anything today. - Vital Signs Vital signs: Temp Pulse Resp BP Pulse Ox 98.1 F 79 18 155/112 H 99 01/15/20 10:30 01/15/20 10:30 01/15/20 10:30 01/15/20 14:01 01/15/20 14:02 - Laboratory Result Diagrams: 01/15/20 12:00 01/15/20 12:00 Laboratory results interpreted by me: 01/15/20 01/15/20 01/15/20 12:00 12:00 12:00 RDW 15.3 H PT 17.9 H Chloride 111 H Est GFR (MDRD) Non-Af 55 L Total Protein 6.2 L Albumin 3.4 L - EKG Interpretation by Me EKG shows normal: [place], Intervals, QRS Complexes, ST-T Waves Rate: Normal - 79 Rhythm: A.Fib, A.Flutter When compared to previous EKG there are: No significant change - Consults Dr. Avila Time consulted: 13:50 Consulted provider: will see as inpatient DR. Adler Time consulted: 14:08 Consulted provider: will see as inpatient - Request IMCU admission and to consult Dr. Tse. Discharge - Discharge Clinical Impression: Upper GI bleeding, Taking Xarelto Condition: Stable Disposition: ADMITTED INPATIENT Admitting Provider: [facility] Unit Admitted: IMCU Referrals: MAGNOLIA ADLER MD [Primary Care Provider] - Follow up as needed I personally performed the services described in the documentation, reviewed and edited the documentation which was dictated to the scribe in my presence, and it accurately records my words and actions.
[2020-01-15 12:39] LABS: ALBUMIN 3.4 g/dL (3.5-5.0); ALKALINE PHOSPHATASE 61 U/L (38-126); ANION GAP 8 (5-19); ASPARTATE AMINO TRANSFERASE 22 U/L (14-36); BILIRUBIN,DIRECT 0.3 mg/dL (0.0-0.4); BILIRUBIN,TOTAL 0.6 mg/dL (0.2-1.3); BLOOD UREA NITROGEN 14 mg/dL (7-20); CALCIUM 8.9 mg/dL (8.4-10.2); CARBON DIOXIDE 23 mmol/L (22-30); CHLORIDE 111 mmol/L (98-107); GLUCOSE 110 mg/dL (75-110); POTASSIUM 4.7 mmol/L (3.6-5.0); TOTAL PROTEIN 6.2 g/dL (6.3-8.2)
[2020-01-15] MEDS ORDERED: FAMOTIDINE 20 MG TABLET PO ONE (12:41)
[2020-01-15 14:03] LABS: INTERNATIONAL RATION (INR) 1.47; PROTHROMBIN TIME 17.9 SEC (11.4-15.4)
[2020-01-15] MEDS ORDERED: ACETAMINOPHEN 325 MG TABLET PO PRN (14:10)
--- NOTE | 2020-01-15 15:14 | RADIOLOGY REPORT (SQ) ---
EXAM DESCRIPTION: CHEST SINGLE VIEW IMAGES COMPLETED DATE/TIME: 01/15/2020 2:52 pm REASON FOR STUDY: Upper GI bleed COMPARISON: 02/11/2019 EXAM PARAMETERS: NUMBER OF VIEWS: One view. TECHNIQUE: Single frontal radiographic view of the chest acquired. RADIATION DOSE: NA LIMITATIONS: Positioning. FINDINGS: LUNGS AND PLEURA: No opacities, masses or pneumothorax. No pleural effusion. MEDIASTINUM AND HILAR STRUCTURES: No masses. Contour normal. HEART AND VASCULAR STRUCTURES: Cardiomegaly. Normal vasculature. BONES: No acute findings. HARDWARE: Stable position of left pacemaker. OTHER: No other significant finding. IMPRESSION: NO ACUTE RADIOGRAPHIC FINDING IN THE CHEST. TECHNICAL DOCUMENTATION: JOB ID: [id number] 2010 [employer]- All Rights Reserved Reading location - IP/workstation name: [email or web address]
[2020-01-15] MEDS: ONDANSETRON HCL INJ/PF 4 MG/2 ML SDV IV PRN (15:55)
--- NOTE | 2020-01-15 16:26 | PDOC CONSULTATION ---
Consultation Consult Date: 01/15/20 Provider Consulted: TASIA LUU Consult reason:: Evaluate gastrointestinal bleed History of Present Illness Admission Date/PCP: 01/15/20 14:20 MAGNOLIA ADLER MD Patient complains of: Dark tarry stools History of Present Illness: AGUSTIN ETIENNE is a 54 year old female with multiple medical problems including hypercoagulability with protein S deficiency with history of pulmonary embolism and deep venous thrombosis on chronic Xarelto. She has a history of a gastrointestinal bleed 2 months ago as evidenced by melena but did not require blood transfusions at that time. She had been admitted to [facility] for several days for evaluation of her gastrointestinal bleed. At that time she underwent an upper and lower endoscopy. She was told that she had diverticulosis but the source of her bleed apparently was not clearly identified. She was discharged home with proton pump inhibitor and a decrease of her Xarelto to 10 mg a day. Patient was doing well up until 2 days ago when she developed some crampy abdominal pain along with black and brown stool. Last night she had 3 episodes of black tarry appearing stools along with crampy abdominal pain. Currently she does not have abdominal pain and she has not experienced any lightheadedness. She has had no emesis. She has no history of alcohol abuse. She takes ibuprofen on rare occasions perhaps once a month. Patient does have multiple other medical problems including diabetes, congestive heart failure, atrial fib, pacemaker dependence, COPD, history of breast cancer as well as cervical cancer. Patient does have a history of IVC filter placement in the past and despite the IVC filter being in place she has had embolisms. Past Medical History Cardiac Medical History: Reports: Atrial Fibrillation, Congestive Heart Failure, Coronary Artery Disease - HIGH CHOLESTEROL, DVT, Hyperlipidema, Hypertension, Pu lmonary Embolism Denies: Myocardial Infarction Pulmonary Medical History: Reports: Bronchitis, Chronic Obstructive Pulmonary Disease (COPD), Intubation, Pneumonia, Respiratory Failure, Sleep Apnea Denies: Asthma, Tuberculosis Neurological Medical History: Denies: Migraine, Seizures Endocrine Medical History: Reports: Diabetes Mellitus Type 2 Malignancy Medical History: Reports: Breast Cancer, Cervical Cancer GI Medical History: Reports: Gastroesophageal Reflux Disease, Hiatal Hernia Musculoskeltal Medical History: Reports: Arthritis - KNEES/BACK, Fibromyalgia Skin Medical History: Reports: Psoriasis Psychiatric Medical History: Reports: Bipolar Disorder, Depression Hematology: Denies: Anemia Past Surgical History Past Surgical History: Reports: Cholecystectomy, Hysterectomy, Mastectomy, Orthopedic Surgery, Pacemaker, Tubal Ligation, Vascular Surgery, Other - IVC filter placement Social History Smoking Status: Never Smoker Electronic Cigarette use?: No Frequency of Alcohol Use: Occasional Hx Recreational Drug Use: No Drugs: None Hx Prescription Drug Abuse: No Family History Family History: Arthritis, CAD, DM, Hyperlipidemia, Hypertension, Malignancy Parental Family History Reviewed: Yes - Mother with gallbladder cancer. Father with alcoholism. Children Family History Reviewed: Yes Sibling(s) Family History Reviewed.: Yes Medication/Allergy Home Medications: Atorvastatin Calcium [Lipitor 10 mg Tablet] 10 mg PO QHS 03/05/17 Colestipol HCl [Colestid 1 gm Tablet] 2 gm PO QID 03/05/17 Lorazepam [Ativan 1 mg Tablet] 1 mg PO BID 03/05/17 Losartan Potassium [Cozaar 50 mg Tablet] 50 mg PO QHS 03/05/17 Metformin HCl [Glucophage 500 mg Tablet] 500 mg PO DAILY 03/05/17 Ranolazine [Ranexa 500 mg Tab.sr] 1,000 mg PO Q12 03/05/17 Rivaroxaban [Xarelto] 20 mg PO DAILY 03/05/17 Spironolactone [Aldactone 25 mg Tablet] 25 mg PO DAILY #30 tablet 03/09/17 Metoprolol Tartrate [Lopressor 50 mg Tablet] 50 mg PO Q12 09/21/18 Zolpidem Tartrate [Ambien] 10 mg PO QHS 01/28/19 Cariprazine HCl [Vraylar] 3 mg PO DAILY 01/15/20 Oxybutynin Chloride [Oxybutynin Chloride ER] 15 mg PO DAILY 01/15/20 Paroxetine HCl [Paxil] 30 mg PO DAILY 01/15/20 Allergies/Adverse Reactions: adhesive [Adhesive] Allergy (Mild, Verified 01/15/20 10:48) Generalized rash methicillin [Methicillin] Allergy (Mild, Verified 01/15/20 10:48) Generalized rash vancomycin [Vancomycin] Allergy (Mild, Verified 01/15/20 10:48) Generalized rash Review of Systems All systems: reviewed and no additional remarkable complaints except as stated Cardiovascular: PRESENT: as per HPI Physical Exam Vital Signs: Temp Pulse Resp BP Pulse Ox 98.1 F 79 21 H 141/88 H 98 01/15/20 10:30 01/15/20 10:30 01/15/20 14:38 01/15/20 14:38 01/15/20 14:38 Intake & Output 01/14/20 01/15/20 01/16/20 06:59 06:59 06:59 Weight 154 kg General appearance: PRESENT: no acute distress, cooperative Neck exam: PRESENT: other - No masses and no tenderness. Patient with scar consistent with past tracheostomy. Respiratory exam: PRESENT: clear to auscultation ingrid Cardiovascular exam: PRESENT: RRR - Monitor patient is paced Breast: PRESENT: Other - Patient is post mastectomy. No palpable axillary lymphadenopathy nor supraclavicular lymphadenopathy. GI/Abdominal exam: PRESENT: other - Soft, nondistended, nontender to palpation. No palpable hepatosplenomegaly. No stigmata of portal hypertension. Neurological exam: PRESENT: alert, awake Psychiatric exam: PRESENT: appropriate affect Skin exam: PRESENT: warm Results Laboratory Results: 01/15/20 12:00 01/15/20 12:00 01/15/20 01/15/20 01/15/20 12:00 12:00 12:00 WBC 7.7 RBC 3.87 Hgb 12.7 Hct 37.0 MCV 96 MCH 32.7 MCHC 34.2 RDW 15.3 H Plt Count 291 Seg Neutrophils % 69.3 Sodium 141.5 Potassium 4.7 Chloride 111 H Carbon Dioxide 23 Anion Gap 8 BUN 14 Creatinine 1.05 Est GFR ( Amer) > 60 Glucose 110 Calcium 8.9 Total Bilirubin 0.6 AST 22 Alkaline Phosphatase 61 Total Protein 6.2 L Albumin 3.4 L Lipase 60.7 Blood Type A POSITIVE Antibody Screen NEGATIVE Impressions: Chest X-Ray 01/15/20 14:21 IMPRESSION: NO ACUTE RADIOGRAPHIC FINDING IN THE CHEST. Assessment & Plan - Diagnosis (1) Gastrointestinal bleed Is this a current diagnosis for this admission?: Yes Plan: Of unknown known etiology in a patient requiring Xarelto for her hypercoagulability disease. It sounds like it was undefined 2 months ago when she had bleeding then. Patient with melena and therefore we will start the work-up with a upper endoscopy. I have discussed with the patient the risk and benefits of the procedure including risk of intestinal injury and bleeding and aspiration. Patient understands and agrees to proceed. If the upper endoscopy is unremarkable, will need to do a bowel prep for a colonoscopy. If colonoscopy and upper endoscopy fails to reveal source of bleed, will need small bowel work-up with possible enteroclysis and capsule endoscopy.
[2020-01-15 17:27] LABS: ANION GAP 7 (5-19); BLOOD UREA NITROGEN 13 mg/dL (7-20); CARBON DIOXIDE 26 mmol/L (22-30); CHLORIDE 109 mmol/L (98-107); GLUCOSE 100 mg/dL (75-110); POTASSIUM 4.6 mmol/L (3.6-5.0)
[2020-01-15] MEDS ORDERED: ONDANSETRON HCL INJ/PF 4 MG/2 ML SDV ONE (17:30)
[2020-01-15] MEDS ORDERED: PROPOFOL INJ 200 MG/20 ML VIAL IV ONE (17:30)
[2020-01-15] MEDS ORDERED: MEPERIDINE HCL/PF INJ 25 MG/1 ML DISP.SYRIN IV PRN (18:39)
[2020-01-15] MEDS ORDERED: DIPHENHYDRAMINE HCL 50 MG/ML VIAL IV PRN (18:39)
[2020-01-15] MEDS ORDERED: FENTANYL CITRATE INJ/PF 100 MCG/2 ML AMPUL IV PRN ×3 (18:39)
[2020-01-15] MEDS ORDERED: PROMETHAZINE HCL INJ 25 MG/1 ML VIAL IV PRN ×2 (18:39)
--- NOTE | 2020-01-15 20:38 | Operative Report ---
Operative Report DATE OF SURGERY: 01/15/20 PREOPERATIVE DIAGNOSIS: Gastrointestinal bleed. POSTOPERATIVE DIAGNOSIS: Gastrointestinal bleed. OPERATION: Esophagogastroduodenoscopy. SURGEON: TASIA LUU ANESTHESIA: LMAC TISSUE REMOVED OR ALTERED: None COMPLICATIONS: None ESTIMATED BLOOD LOSS: None INTRAOPERATIVE FINDINGS: Normal-appearing duodenum stomach and esophagus. PROCEDURE: Form consent was obtained. Patient was brought to the operating room. Procedure was done under LMAC. After sufficient IV sedation, endoscope was passed via the patient's mouth into the second portion of the duodenum. The duodenum appeared to be completely normal with no blood no lesions and no ulcerations. The stomach also appeared to be normal with no lesions no ulcerations no blood. Retroflexed view demonstrated no abnormalities. The esophagus appeared to be normal as well. The stomach was desufflated and scope withdrawn. Patient tolerated procedure well with no apparent complications. No evidence of upper gastrointestinal bleeding found by endoscopy. Will have her undergo a bowel prep she is awake and alert for colonoscopy tomorrow.
--- NOTE | 2020-01-15 21:49 | PDOC H&P ---
History of Present Illness Admission Date/PCP: 01/15/20 14:20 MAGNOLIA ADLER MD Patient complains of: Black tarry stool History of Present Illness: AGUSTIN ETIENNE is a 54 year old female This is a 54-year-old female with a significant history of the atrial fibrillat ion was status post ablations history of the hypertension hyperlipidemia history of the congestive heart failure history of the morbid obesity history of the chronic DVT PE on chronic anticoagulation Xarelto and multiple other medical problems with a history of the GI bleed recently admitted to the [facility] in October of endoscopy was done and put the patient on a Protonix and Carafate patient also follow-up with the Dr. Coats as outpatient came to the emergency department with a complaint of black tarry stools and some abdominal cramping since last 24 hours Patient's denied any chest pain no short of breath Patient also see Dr. MARLOW locally here and also see Dr. Aggarwal at [place] patient also see hematology for chronic DVT and PE and chronic and chronic anticoagulations In the emergency department patient's all blood work is stable patient's at this point admitting in the hospital as per ER physician discussed with the surgery keep n.p.o. and hold the Xarelto Patient is otherwise stable we will do the COVID test before the procedures currently on no contact with any COVID We also consult the patient's cardiology Past Medical History Cardiac Medical History: Reports: Atrial Fibrillation, Congestive Heart Failure, Coronary Artery Disease - HIGH CHOLESTEROL, DVT, Hyperlipidema, Hypertension, Pulmonary Embolism Denies: Myocardial Infarction Pulmonary Medical History: Reports: Bronchitis, Chronic Obstructive Pulmonary Disease (COPD), Intubation, Pneumonia, Respiratory Failure, Sleep Apnea Denies: Asthma, Tuberculosis Neurological Medical History: Denies: Migraine, Seizures Endocrine Medical History: Reports: Diabetes Mellitus Type 2 Malignancy Medical History: Reports: Breast Cancer, Cervical Cancer GI Medical History: Reports: Gastroesophageal Reflux Disease, Hiatal Hernia Musculoskeltal Medical History: Reports: Arthritis - KNEES/BACK, Fibromyalgia Skin Medical History: Reports: Psoriasis Psychiatric Medical History: Reports: Bipolar Disorder, Depression Hematology: Denies: Anemia Past Surgical History Past Surgical History: Reports: Cholecystectomy, Hysterectomy, Mastectomy, Orthopedic Surgery, Pacemaker, Tubal Ligation, Vascular Surgery - port, Other - IVC filter placement Social History Information Source: Patient Smoking Status: Never Smoker Electronic Cigarette use?: No Frequency of Alcohol Use: Occasional Hx Recreational Drug Use: No Drugs: None Hx Prescription Drug Abuse: No Family History Family History: Arthritis, CAD, DM, Hyperlipidemia, Hypertension, Malignancy Parental Family History Reviewed: Yes Children Family History Reviewed: Yes Sibling(s) Family History Reviewed.: Yes Medication/Allergy Home Medications: Atorvastatin Calcium [Lipitor 10 mg Tablet] 10 mg PO QHS 03/05/17 Cholecalciferol (Vitamin D3) [Vitamin D3 5000 unit Capsule] 5,000 units PO DAILY 03/05/17 Colestipol HCl [Colestid 1 gm Tablet] 2 gm PO Q12 03/05/17 Esomeprazole Magnesium [Nexium] 20 mg PO DAILY 03/05/17 Fiber [Fiber Diet] 1 tab PO DAILY 03/05/17 Lorazepam [Ativan 1 mg Tablet] 1 mg PO TID PRN 03/05/17 Losartan Potassium [Cozaar 50 mg Tablet] 50 mg PO QHS 03/05/17 Metformin HCl [Glucophage 500 mg Tablet] 500 mg PO DAILY 03/05/17 Multivit-Minerals/Folic Acid [One Daily Womens 50 Plus Tab] 1 tab PO DAILY 03/05/17 Ranolazine [Ranexa 500 mg Tab.sr] 1,000 mg PO Q12 03/05/17 Rivaroxaban [Xarelto] 20 mg PO WSUPPER 03/05/17 Solifenacin Succinate [Vesicare] 10 mg PO DAILY 03/05/17 Spironolactone [Aldactone 25 mg Tablet] 25 mg PO DAILY #30 tablet 03/09/17 Brexpiprazole [Rexulti] 2 mg PO DAILY 09/21/18 Metoprolol Tartrate [Lopressor 50 mg Tablet] 50 mg PO Q12 09/21/18 Paroxetine HCl [Paxil 20 mg Tablet] 20 mg PO QAM 09/21/18 Furosemide [Lasix 40 mg Tablet] 40 mg PO BID 01/28/19 Magnesium Oxide [Magnesium] 400 mg PO BID 01/28/19 Potassium Chloride 40 meq PO BID 01/28/19 Zolpidem Tartrate [Ambien] 10 mg PO QHS 01/28/19 Metronidazole [Flagyl] 500 mg PO TID #21 tablet 02/02/19 Budesonide/Formoterol Fumarate [Symbicort Hfa 160-4.5 Mcg Inhaler 6 gm] 2 puff IH Q12 02/11/19 Allergies/Adverse Reactions: adhesive [Adhesive] Allergy (Mild, Verified 01/15/20 10:48) Generalized rash methicillin [Methicillin] Allergy (Mild, Verified 01/15/20 10:48) Generalized rash vancomycin [Vancomycin] Allergy (Mild, Verified 01/15/20 10:48) Generalized rash Review of Systems Constitutional: ABSENT: chills, fever(s), headache(s), weight gain, weight loss Eyes: ABSENT: visual disturbances Ears: ABSENT: hearing changes Cardiovascular: ABSENT: chest pain, dyspnea on exertion, edema, orthropnea, palpitations Respiratory: ABSENT: cough, hemoptysis Gastrointestinal: PRESENT: abdominal pain. ABSENT: constipation, diarrhea, hematemesis, hematochezia, nausea, vomiting Genitourinary: ABSENT: dysuria, hematuria Musculoskeletal: ABSENT: joint swelling Integumentary: ABSENT: rash, wounds Neurological: ABSENT: abnormal gait, abnormal speech, confusion, dizziness, focal weakness, syncope Psychiatric: ABSENT: anxiety, depression, homidical ideation, suicidal ideation Endocrine: ABSENT: cold intolerance, heat intolerance, menstrual abnormalities, polydipsia, polyuria Hematologic/Lymphatic: ABSENT: easy bleeding, easy bruising, lymphadenopathy Physical Exam Vital Signs: Temp Pulse Resp BP Pulse Ox 98.1 F 79 21 H 141/88 H 98 01/15/20 10:30 01/15/20 10:30 01/15/20 14:38 01/15/20 14:38 01/15/20 14:38 Intake & Output 01/14/20 01/15/20 01/16/20 06:59 06:59 06:59 Weight 154 kg General appearance: PRESENT: no acute distress, well-developed, well-nourished Head exam: PRESENT: atraumatic, normocephalic Eye exam: PRESENT: conjunctiva pink, EOMI, PERRLA. ABSENT: scleral icterus Ear exam: PRESENT: normal external ear exam Mouth exam: PRESENT: moist, tongue midline Neck exam: PRESENT: full ROM. ABSENT: carotid bruit, JVD, lymphadenopathy, thyromegaly Respiratory exam: PRESENT: clear to auscultation ingrid Cardiovascular exam: PRESENT: RRR. ABSENT: diastolic murmur, rubs, systolic murmur Pulses: PRESENT: normal dorsalis pedis pul, +2 pedal pulses bilateral Vascular exam: PRESENT: normal capillary refill GI/Abdominal exam: PRESENT: normal bowel sounds, soft. ABSENT: distended, guarding, mass, organolmegaly, rebound, tenderness Rectal exam: PRESENT: deferred Musculoskeletal exam: PRESENT: ambulatory Neurological exam: PRESENT: alert, awake, oriented to person, oriented to place, oriented to time, oriented to situation, CN II-XII grossly intact. ABSENT: motor sensory deficit Psychiatric exam: PRESENT: appropriate affect, normal mood. ABSENT: homicidal ideation, suicidal ideation Skin exam: PRESENT: dry, intact, warm. ABSENT: cyanosis, rash Results Laboratory Results: 01/15/20 12:00 01/15/20 12:00 01/15/20 01/15/20 01/15/20 12:00 12:00 12:00 WBC 7.7 RBC 3.87 Hgb 12.7 Hct 37.0 MCV 96 MCH 32.7 MCHC 34.2 RDW 15.3 H Plt Count 291 Seg Neutrophils % 69.3 Sodium 141.5 Potassium 4.7 Chloride 111 H Carbon Dioxide 23 Anion Gap 8 BUN 14 Creatinine 1.05 Est GFR ( Amer) > 60 Glucose 110 Calcium 8.9 Total Bilirubin 0.6 AST 22 Alkaline Phosphatase 61 Total Protein 6.2 L Albumin 3.4 L Lipase 60.7 Blood Type A POSITIVE Antibody Screen NEGATIVE Assessment & Plan - Diagnosis (1) Upper GI bleeding Is this a current diagnosis for this admission?: Yes Plan: Admit the patient in IMCU Start the patient on a Protonix IV Consult surgery for possible endoscopy Continues to monitor Hold the Xarelto (2) Atrial fibrillation Qualifiers: Atrial fibrillation type: unspecified chronic Qualified Code(s): I48.20 - Chronic atrial fibrillation, unspecified; I48.2 - Chronic atrial fibrillation Is this a current diagnosis for this admission?: Yes Plan: Currently due to GI bleed we will hold the Xarelto continues to current medications consult Dr. Tse (3) Breast cancer Qualifiers: Estrogen receptor status: unspecified Is this a current diagnosis for this admission?: No (4) Cervical cancer Qualifiers: Malignant neoplasm of cervix location: unspecified location Is this a current diagnosis for this admission?: No (5) Congestive heart failure Qualifiers: Heart failure type: combined systolic and diastolic Heart failure chronicity: chronic Qualified Code(s): I50.42 - Chronic combined systolic (congestive) and diastolic (congestive) heart failure Is this a current diagnosis for this admission?: Yes Plan: Currently all stable (6) DVT, recurrent, lower extremity, chronic Is this a current diagnosis for this admission?: Yes (7) HTN (hypertension) Qualifiers: Hypertension type: essential hypertension Qualified Code(s): I10 - Essential (primary) hypertension Is this a current diagnosis for this admission?: Yes (8) Protein deficiency Is this a current diagnosis for this admission?: Yes (9) Type 2 diabetes mellitus Qualifiers: Diabetes mellitus [facility] insulin use: without terminal operations manager use Is this a current diagnosis for this admission?: Yes Plan: Continues a sliding scale - Time Time Spent: 50 to 70 Minutes Critical Time spent with patient: 15-24 minutes Medications reviewed and adjusted accordingly: Yes Anticipated Discharge Disposition: Home, Self Care Anticipated Discharge Timeframe: within 48 hours - Inpatient Certification Based on my medical assessment, after consideration of the patient's comorbidities, presenting symptoms, or acuity I expect that the services needed warrant INPATIENT care.: Yes I certify that my determination is in accordance with my understanding of Medic are's requirements for reasonable and necessary INPATIENT services [42 CFR 412.3e].: Yes Medical Necessity: Significant Comorbidiites Make Outpatient Treatment Too Risky, Need Close Monitoring Due to Risk of Patient Decompensation, Need for Surgery Post Hospital Care: D/C Button Breaker Documentation - Plan Summary Plan Summary: Admit the patient in IMCU Hold the Xarelto IV Protonix Consult surgery and consult cardiology
--- NOTE | 2020-01-15 21:53 | PDOC CONSULTATION ---
Consultation-Blank Consultation: CARDIOLOGY CONSULTATION by Dr. Meagan Tse on 01/15/2020. Patient seen at 4 PM. 60 minutes spent with patient more than 50% of time spent in direct patient care. REASON FOR CONSULTATION: Patient with history of atrial fibrillation, and history of protein S deficiency and prior history of pulmonary embolism and DVTs on multiple occasions admitted with GI bleed. Patient on Xarelto. CONSULT REQUESTING PHYSICIAN: Dr. Isabel. HISTORY OF PRESENT ILLNESS: Patient is a morbidly obese 54-year-old female with known history of protein S deficiency, multiple history of pulmonary embolism and DVTs, breast and ovarian cancer, and history of atrial fibrillation which was resistant to controlled ventricular rate, and s/p AV shun ablation on Xarelto for stroke prophylaxis and also for protein S deficiency. Patient admitted with dark stools with her hemoglobin dropping. The patient otherwise h emodynamically stable. She has no chest pain nausea. She did have his dyspnea on exertion which is now improved. There is no PND orthopnea or near syncope or syncope. Past Medical History Cardiac Medical History: Reports: Atrial Fibrillation, Congestive Heart Failure, Coronary Artery Disease - HIGH CHOLESTEROL, DVT, Hyperlipidema, Hypertension, Pulmonary Embolism Denies: Myocardial Infarction Pulmonary Medical History: Reports: Bronchitis, Chronic Obstructive Pulmonary Disease (COPD), Intubation, Pneumonia, Respiratory Failure, Sleep Apnea Denies: Asthma, Tuberculosis Neurological Medical History: Denies: Migraine, Seizures Endocrine Medical History: Reports: Diabetes Mellitus Type 2 Malignancy Medical History: Reports: Breast Cancer, Cervical Cancer GI Medical History: Reports: Gastroesophageal Reflux Disease, Hiatal Hernia Musculoskeltal Medical History: Reports: Arthritis - KNEES/BACK, Fibromyalgia Skin Medical History: Reports: Psoriasis Psychiatric Medical History: Reports: Bipolar Disorder, Depression Hematology: Denies: Anemia Past Surgical History Past Surgical History: Reports: Cholecystectomy, Hysterectomy, Mastectomy, Orthopedic Surgery, Pacemaker, Tubal Ligation, Vascular Surgery - port, Other - IVC filter placement Social History Information Source: Patient Smoking Status: Never Smoker Electronic Cigarette use?: No Frequency of Alcohol Use: Occasional Hx Recreational Drug Use: No Drugs: None Hx Prescription Drug Abuse: No Family History Family History: Arthritis, CAD, DM, Hyperlipidemia, Hypertension, Malignancy Parental Family History Reviewed: Yes Children Family History Reviewed: Yes Sibling(s) Family History Reviewed.: Yes RESUSCITATION STATUS: Patient is a full code. Ms. Jannette Gibson is her surrogate healthcare decision maker Medication/Allergy Home Medications: Atorvastatin Calcium [Lipitor 10 mg Tablet] 10 mg PO QHS 03/05/17 Cholecalciferol (Vitamin D3) [Vitamin D3 5000 unit Capsule] 5,000 units PO DAILY 03/05/17 Colestipol HCl [Colestid 1 gm Tablet] 2 gm PO Q12 03/05/17 Esomeprazole Magnesium [Nexium] 20 mg PO DAILY 03/05/17 Fiber [Fiber Diet] 1 tab PO DAILY 03/05/17 Lorazepam [Ativan 1 mg Tablet] 1 mg PO TID PRN 03/05/17 Losartan Potassium [Cozaar 50 mg Tablet] 50 mg PO QHS 03/05/17 Metformin HCl [Glucophage 500 mg Tablet] 500 mg PO DAILY 03/05/17 Multivit-Minerals/Folic Acid [One Daily Womens 50 Plus Tab] 1 tab PO DAILY 03/05/17 Ranolazine [Ranexa 500 mg Tab.sr] 1,000 mg PO Q12 03/05/17 Rivaroxaban [Xarelto] 20 mg PO WSUPPER 03/05/17 Solifenacin Succinate [Vesicare] 10 mg PO DAILY 03/05/17 Spironolactone [Aldactone 25 mg Tablet] 25 mg PO DAILY #30 tablet 03/09/17 Brexpiprazole [Rexulti] 2 mg PO DAILY 09/21/18 Metoprolol Tartrate [Lopressor 50 mg Tablet] 50 mg PO Q12 09/21/18 Paroxetine HCl [Paxil 20 mg Tablet] 20 mg PO QAM 09/21/18 Furosemide [Lasix 40 mg Tablet] 40 mg PO BID 01/28/19 Magnesium Oxide [Magnesium] 400 mg PO BID 01/28/19 Potassium Chloride 40 meq PO BID 01/28/19 Zolpidem Tartrate [Ambien] 10 mg PO QHS 01/28/19 Metronidazole [Flagyl] 500 mg PO TID #21 tablet 02/02/19 Budesonide/Formoterol Fumarate [Symbicort Hfa 160-4.5 Mcg Inhaler 6 gm] 2 puff IH Q12 02/11/19 Allergies/Adverse Reactions: adhesive [Adhesive] Allergy (Mild, Verified 01/15/20 10:48) Generalized rash methicillin [Methicillin] Allergy (Mild, Verified 01/15/20 10:48) Generalized rash vancomycin [Vancomycin] Allergy (Mild, Verified 01/15/20 10:48) Generalized rash Review of Systems Constitutional: ABSENT: chills, fever(s), headache(s), weight gain, weight loss Eyes: ABSENT: visual disturbances Ears: ABSENT: hearing changes Cardiovascular: ABSENT: chest pain, dyspnea on exertion, edema, orthropnea, palpitations Respiratory: ABSENT: cough, hemoptysis Gastrointestinal: PRESENT: abdominal pain. ABSENT: constipation, diarrhea, hematemesis, hematochezia, nausea, vomiting Genitourinary: ABSENT: dysuria, hematuria Musculoskeletal: ABSENT: joint swelling Integumentary: ABSENT: rash, wounds Neurological: ABSENT: abnormal gait, abnormal speech, confusion, dizziness, focal weakness, syncope Psychiatric: ABSENT: anxiety, depression, homidical ideation, suicidal ideation Endocrine: ABSENT: cold intolerance, heat intolerance, menstrual abnormalities, polydipsia, polyuria Hematologic/Lymphatic: ABSENT: easy bleeding, easy bruising, lymphadenopathy Physical Exam: The patient is morbidly obese. In no acute distress Vital Signs: Temp Pulse Resp BP Pulse Ox 98.1 F 79 21 H 141/88 H 98 HEAD: Is atraumatic normocephalic. EYES: Pupils are equal round regular reactive to light and accommodation. There is no conjunctival pallor. There is no scleral icterus. EARS: Tympanic membranes are intact. External auditory canals are clear. NOSE: There is no deviated nasal septum. There is no inflammation nasal mucous membrane. MOUTH: There is no bleeding from the gums there is no ulcers in the mouth. Mucous membranes of mouth are moist. THROAT: There is no redness of the oropharynx. There is no exudates. SKIN: There is no skin rashes. There is no skin lesions. There is no petechia or ecchymosis. NECK: Supple. There is no JVD. Carotids are equal there is no bruit. There is no lymphadenopathy. There is no goiter. There is no accessory muscle respiration use. Trachea central. LUNGS: Is clear to auscultation percussion. There is no chest wall tenderness. HEART: S1-S2 is heard. S1 is of variable intensity. There is systolic murmur left sternal border and the apex there is no rub. There is no S3 or S4 gallops. ABDOMEN: Is obese. Nontender there is no hepatosplenomegaly. Bowel sounds are well heard. EXTREMITIES: Femorals are deep. Femorals are slightly diminished. There is no femoral bruits. Leg pulses are well felt. At present there is no DVT cellulitis. There is no leg edema. There is no cyanosis or clubbing. Capillary refill is normal. ENTRY LEVEL PARALEGAL: The patient is conscious awake alert oriented x3 with no focal deficits. Psychiatric: The patient judgment site are intact her affect is normal. EKG: Atrial fibrillation with ventricular paced rhythm. Chest X-Ray 01/15/20 14:21 IMPRESSION: NO ACUTE RADIOGRAPHIC FINDING IN THE CHEST. Labs- Entire Visit 01/15/20 01/15/20 01/15/20 12:00 12:00 12:00 WBC 7.7 RBC 3.87 Hgb 12.7 Hct 37.0 MCV 96 MCH 32.7 MCHC 34.2 RDW 15.3 H Plt Count 291 Lymph % (Auto) 19.3 [place] % (Auto) 7.8 Eos % (Auto) 2.6 Baso % (Auto) 1.0 Absolute Neuts (auto) 5.3 Absolute Lymphs (auto) 1.5 Absolute Monos (auto) 0.6 Absolute Eos (auto) 0.2 Absolute Basos (auto) 0.1 Seg Neutrophils % 69.3 PT INR Sodium 141.5 Potassium 4.7 Chloride 111 H Carbon Dioxide 23 Anion Gap 8 BUN 14 Creatinine 1.05 Est GFR ( Amer) > 60 Est GFR (MDRD) Non-Af 55 L Glucose 110 POC Glucose Calcium 8.9 Total Bilirubin 0.6 Direct Bilirubin 0.3 Neonat Total Bilirubin Not Reportable Neonat Direct Bilirubin Not Reportable Neonat Indirect Bili Not Reportable AST 22 ALT 19 Alkaline Phosphatase 61 Total Protein 6.2 L Albumin 3.4 L Lipase 60.7 SARS-CoV-2 (PCR) Blood Type A POSITIVE Antibody Screen NEGATIVE 01/15/20 01/15/20 12:00 14:24 WBC RBC Hgb Hct MCV MCH MCHC RDW Plt Count Lymph % (Auto) [place] % (Auto) Eos % (Auto) Baso % (Auto) Absolute Neuts (auto) Absolute Lymphs (auto) Absolute Monos (auto) Absolute Eos (auto) Absolute Basos (auto) Seg Neutrophils % PT 17.9 H INR 1.47 Sodium Potassium Chloride Carbon Dioxide Anion Gap BUN Creatinine Est GFR ( Amer) Est GFR (MDRD) Non-Af Glucose POC Glucose Calcium Total Bilirubin Direct Bilirubin Neonat Total Bilirubin Neonat Direct Bilirubin Neonat Indirect Bili AST ALT Alkaline Phosphatase Total Protein Albumin Lipase SARS-CoV-2 (PCR) NEGATIVE Blood Type Antibody Screen IMPRESSION/RECOMMENDATION: 1. GI bleed most likely secondary to lower GI bleed. But no active source found. Also there is no further bleed. The patient needs to go back on Xarelto since she has history of protein C deficiency. 2. History of atrial fibrillation chronic. S/p AV shun ablation after permanent pacemaker placement due to uncontrolled ventricular response to atrial fibrillation. 3. History of protein C deficiency. Will have hematology confirm this as an outpatient. If the patient does not have protein C deficiency then may refer her for a laparoscopic thoracotomy procedure to planned the left atrium. If this is done the patient does not need to be on chronic anticoagulation. This has been discussed with the patient. 4. History of pulmonary embolism with no recurrence. 5. History of DVT. 6. History of hypertension. 7. History of permanent pacemaker placement. 8. History of AV shun ablation for atrial fibrillation rate control. 9. History of uterine cancer. 10. History of breast cancer. 11. History of hypertension: Blood pressure well controlled 12. Diabetes mellitus type 2 [id number]. Note the patient is on Ranexa secondary to see if the patient could be kept in sinus mechanism. She does not have coronary artery disease. Hence we will discontinue Ranexa. Medications reviewed. Medical regimen and management plan discussed with Dr. Isabel. Medical decision making is of moderate complexity. 60 minutes spent as patient more than 50% time spent direct patient care. Follow-up
--- NOTE | 2020-01-15 21:58 | EKG REPORT ---
SEVERITY:- ABNORMAL ECG - AFIB/FLUTTER AND VENTRICULAR-PACED RHYTHM : Confirmed by: Meagan Tse MD 15-Jan-2020 21:58:16
[2020-01-15] MEDS ORDERED: (PENDING PHARMACY ID) (Zolpidem Tartrate [Ambien] 10 MG) PO SCH (22:00)
[2020-01-15] MEDS ORDERED: PEG 3350/NA SULF,BICARB,CL/KCL 4000 ML PO ONE (22:00)
[2020-01-15] MEDS: ZOLPIDEM TARTRATE 5 MG TABLET PO SCH (22:15)
[2020-01-15] MEDS: LOSARTAN POTASSIUM 50 MG TABLET PO SCH (22:16)
[2020-01-15] MEDS: OXYBUTYNIN CHLORIDE 5 MG TABLET PO SCH (22:16)
[2020-01-15] MEDS: ATORVASTATIN CALCIUM 10 MG TABLET PO SCH (22:17)
[2020-01-15] MEDS: RANOLAZINE 500 MG TAB.SR.12H PO SCH (22:17)
[2020-01-15] MEDS: METOPROLOL TARTRATE 50 MG TABLET PO SCH (22:17)
[2020-01-15] MEDS: PANTOPRAZOLE SODIUM 40 MG VIAL IV SCH (22:18)
[2020-01-15] MEDS: COLESTIPOL HCL 1 GM TABLET PO SCH (22:26)
[2020-01-15 23:21] LABS: HEMATOCRIT 39.9 % (36.0-47.0); HEMOGLOBIN 13.2 g/dL (12.0-15.5); MEAN CORPUSCULAR HEMOGLOBIN 31.5 pg (27.0-33.4); MEAN CORPUSCULAR HGB CONC 33.1 g/dL (32.0-36.0); MEAN CORPUSCULAR VOLUME 95 fl (80-97); PLATELET COUNT 287 10^3/uL (150-450); RED BLOOD COUNT 4.18 10^6/uL (3.72-5.28); RED CELL DISTRIBUTION WIDTH 15.2 % (11.5-14.0); WHITE BLOOD COUNT 8.8 10^3/uL (4.0-10.5)
[2020-01-16] MEDS: OXYBUTYNIN CHLORIDE 5 MG TABLET PO SCH ×3 (05:18→21:16)
[2020-01-16 06:53] LABS: ABSOLUTE BASOPHILS # (AUTO) 0.1 10^3/uL (0.0-0.2); ABSOLUTE EOSINOPHILS # (AUTO) 0.3 10^3/uL (0.0-0.6); ABSOLUTE LYMPHOCYTES (AUTO) 2.2 10^3/uL (0.5-4.7); ABSOLUTE MONOCYTES (AUTO) 0.6 10^3/uL (0.1-1.4); ABSOLUTE NEUT (AUTO) 4.1 10^3/uL (1.7-8.2); BASOPHILS % (AUTO) 1.2 % (0-2); EOSINOPHILS % (AUTO) 3.9 % (0-6); HEMATOCRIT 36.1 % (36.0-47.0); HEMOGLOBIN 12.2 g/dL (12.0-15.5); LYMPHOCYTES % (AUTO) 30.2 % (13-45); MEAN CORPUSCULAR HEMOGLOBIN 32.4 pg (27.0-33.4); MEAN CORPUSCULAR HGB CONC 33.7 g/dL (32.0-36.0); MEAN CORPUSCULAR VOLUME 96 fl (80-97); MONOCYTES % (AUTO) 8.5 % (3-13); PLATELET COUNT 272 10^3/uL (150-450); RED BLOOD COUNT 3.76 10^6/uL (3.72-5.28); RED CELL DISTRIBUTION WIDTH 14.9 % (11.5-14.0); SEGMENTED NEUTROPHILS % (AUTO) 56.2 % (42-78); TOTAL CELLS COUNTED % (AUTO) 100 %; WHITE BLOOD COUNT 7.3 10^3/uL (4.0-10.5)
--- NOTE | 2020-01-16 09:13 | PDOC PROGRESS REPORT ---
Subjective Progress Note for:: 01/16/20 Subjective:: Patient is currently doing well Denied any blood in the stools or black stool anymore Patient was supposed to go for colonoscopy but stopped the Xarelto yesterday scheduled for tomorrow No chest pain no short of breath Reason For Visit: GI BLEED Physical Exam Vital Signs: Temp Pulse Resp BP Pulse Ox 97.6 F 79 22 H 127/75 H 94 01/16/20 03:28 01/16/20 07:00 01/16/20 03:28 01/16/20 03:28 01/16/20 03:28 Intake & Output 01/15/20 01/16/20 01/17/20 06:59 06:59 06:59 Intake Total 350 Output Total 0 Balance 350 Weight 155.5 kg General appearance: PRESENT: no acute distress, well-developed, well-nourished Head exam: PRESENT: atraumatic, normocephalic Eye exam: PRESENT: conjunctiva pink, EOMI, PERRLA. ABSENT: scleral icterus Ear exam: PRESENT: normal external ear exam Mouth exam: PRESENT: moist, tongue midline Neck exam: PRESENT: full ROM. ABSENT: carotid bruit, JVD, lymphadenopathy, thyromegaly Respiratory exam: PRESENT: clear to auscultation ingrid Cardiovascular exam: PRESENT: RRR. ABSENT: diastolic murmur, rubs, systolic murmur Pulses: PRESENT: normal dorsalis pedis pul, +2 pedal pulses bilateral Vascular exam: PRESENT: normal capillary refill GI/Abdominal exam: PRESENT: normal bowel sounds, soft. ABSENT: distended, guarding, mass, organolmegaly, rebound, tenderness Rectal exam: PRESENT: deferred Neurological exam: PRESENT: alert, awake, oriented to person, oriented to place, oriented to time, oriented to situation, CN II-XII grossly intact. ABSENT: motor sensory deficit Psychiatric exam: PRESENT: appropriate affect, normal mood. ABSENT: homicidal ideation, suicidal ideation Skin exam: PRESENT: dry, intact, warm. ABSENT: cyanosis, rash Results Laboratory Results: 01/16/20 06:01 01/15/20 17:00 01/15/20 01/15/20 01/15/20 12:00 12:00 12:00 WBC 7.7 RBC 3.87 Hgb 12.7 Hct 37.0 MCV 96 MCH 32.7 MCHC 34.2 RDW 15.3 H Plt Count 291 Seg Neutrophils % 69.3 Sodium 141.5 Potassium 4.7 Chloride 111 H Carbon Dioxide 23 Anion Gap 8 BUN 14 Creatinine 1.05 Est GFR ( Amer) > 60 Glucose 110 Calcium 8.9 Total Bilirubin 0.6 AST 22 Alkaline Phosphatase 61 Total Protein 6.2 L Albumin 3.4 L Lipase 60.7 Blood Type A POSITIVE Antibody Screen NEGATIVE 01/15/20 01/15/20 01/16/20 17:00 23:06 06:01 WBC 8.8 7.3 RBC 4.18 3.76 Hgb 13.2 12.2 Hct 39.9 36.1 MCV 95 96 MCH 31.5 32.4 MCHC 33.1 33.7 RDW 15.2 H 14.9 H Plt Count 287 272 Seg Neutrophils % 56.2 Sodium 142.1 Potassium 4.6 Chloride 109 H Carbon Dioxide 26 Anion Gap 7 BUN 13 Creatinine 0.88 Est GFR ( Amer) > 60 Glucose 100 Calcium 9.0 Total Bilirubin AST Alkaline Phosphatase Total Protein Albumin Lipase Blood Type Antibody Screen Impressions: Chest X-Ray 01/15/20 14:21 IMPRESSION: NO ACUTE RADIOGRAPHIC FINDING IN THE CHEST. Assessment & Plan - Diagnosis (1) Upper GI bleeding Is this a current diagnosis for this admission?: Yes (2) Atrial fibrillation Qualifiers: Atrial fibrillation type: unspecified chronic Qualified Code(s): I48.20 - Chronic atrial fibrillation, unspecified; I48.2 - Chronic atrial fibrillation Is this a current diagnosis for this admission?: Yes (3) Breast cancer Qualifiers: Estrogen receptor status: unspecified Is this a current diagnosis for this admission?: No (4) Cervical cancer Qualifiers: Malignant neoplasm of cervix location: unspecified location Is this a current diagnosis for this admission?: No (5) Congestive heart failure Qualifiers: Heart failure type: combined systolic and diastolic Heart failure chronicity: chronic Qualified Code(s): I50.42 - Chronic combined systolic (congestive) and diastolic (congestive) heart failure Is this a current diagnosis for this admission?: Yes (6) DVT, recurrent, lower extremity, chronic Is this a current diagnosis for this admission?: Yes (7) HTN (hypertension) Qualifiers: Hypertension type: essential hypertension Qualified Code(s): I10 - Essential (primary) hypertension Is this a current diagnosis for this admission?: Yes (8) Protein deficiency Is this a current diagnosis for this admission?: Yes (9) Type 2 diabetes mellitus Qualifiers: Diabetes mellitus medical terminologist insulin use: without medical terminologist use Is this a current diagnosis for this admission?: Yes (10) Pacemaker Is this a current diagnosis for this admission?: Yes - Time Time Spent with patient: 15-24 minutes Level of Care: IMCU Medications reviewed and adjusted accordingly: Yes Anticipated discharge: Other Anticipated DC Timeframe: Other - Plan Summary Plan Summary: Continues to current medications
[2020-01-16] MEDS: LORAZEPAM 1 MG TABLET PO SCH ×2 (09:36→18:41)
[2020-01-16] MEDS: SPIRONOLACTONE 25 MG TABLET PO SCH (09:36)
[2020-01-16] MEDS: PAROXETINE HCL 20 MG TABLET PO SCH (09:37)
[2020-01-16] MEDS: RANOLAZINE 500 MG TAB.SR.12H PO SCH ×2 (09:37→21:14)
[2020-01-16] MEDS: COLESTIPOL HCL 1 GM TABLET PO SCH ×4 (09:38→21:25)
[2020-01-16] MEDS: METOPROLOL TARTRATE 50 MG TABLET PO SCH ×2 (09:38→21:16)
[2020-01-16] MEDS: METFORMIN HCL 500 MG TABLET PO SCH (09:38)
[2020-01-16] MEDS: PANTOPRAZOLE SODIUM 40 MG VIAL IV SCH ×2 (09:39→21:16)
[2020-01-16] MEDS ORDERED: (PENDING PHARMACY ID) (Cariprazine Hcl [Vraylar] 3 MG) PO SCH (10:00)
[2020-01-16] MEDS ORDERED: (PENDING PHARMACY ID) (Paroxetine Hcl [Paxil] 30 MG) PO SCH (10:00)
[2020-01-16] MEDS ORDERED: (PENDING PHARMACY ID) (Oxybutynin Chloride [Oxybutynin Chloride Er] 15 MG) PO SCH (10:00)
[2020-01-16] MEDS: ONDANSETRON HCL INJ/PF 4 MG/2 ML SDV IV PRN (13:07)
--- NOTE | 2020-01-16 16:04 | CDI QUERY ---
CDI Query CDI Review: Documentation in the Medical Record indicates this patient has: Height: 5 3 Weight: 155.5 kg (342.1 lbs) Calculated BMI: 60.6 kg/m2 The following is also documented in the Medical Record: history of the morbid obesity Based on your medical judgement, can you further clarify in the Progress Notes the diagnosis associated with these findings: Morbid Obesity / BMI 60.6 kg/m2 Overweight / BMI 60.6 kg/m2 Obesity / BMI 60.6 kg/m2 Other condition (please specify) None of the above / Not applicable Please note: Obesity is defined as: Class 1: BMI of 30 to < 35 Class 2: BMI of 35 to < 40 Class 3: BMI of > 40 (this is also defined as Morbid Obesity) Overweight: BMI 25 to < 30 Normal weight: BMI 18.5 to < 25 Thank you for your consideration. BABAK Hurtado RN Clinical Director Of Mobile Marketing Physician Advisor [email or web address]
--- NOTE | 2020-01-16 19:08 | PDOC PROGRESS REPORT ---
Subjective Progress Note for:: 01/16/20 Subjective:: 54-year-old female with a hypercoagulable state, admitted with melena and anemia. She underwent EGD yesterday, that was essentially normal. Surgery is following in order to provide the patient a colonoscopy to rule out a colonic source of her bleeding. Her anticoagulants are currently on hold. She denies any nausea, vomiting, hematemesis, hematochezia, abdominal pain, fevers, chills, chest pain, shortness of breath, dizziness, orthostasis, blurry vision, head ache. Reason For Visit: GI BLEED Physical Exam Vital Signs: Temp Pulse Resp BP Pulse Ox 97.8 F 79 16 118/77 97 01/16/20 16:18 01/16/20 16:18 01/16/20 16:18 01/16/20 16:18 01/16/20 16:18 Intake & Output 01/15/20 01/16/20 01/17/20 06:59 06:59 06:59 Intake Total 350 1678 Output Total 0 Balance 350 1678 Weight 155.5 kg General appearance: PRESENT: no acute distress, cooperative, morbidly obese Head exam: PRESENT: atraumatic, normocephalic Eye exam: PRESENT: EOMI, PERRLA. ABSENT: scleral icterus Mouth exam: PRESENT: moist, neck supple Neck exam: ABSENT: meningismus, tenderness, thyromegaly, tracheal deviation Respiratory exam: PRESENT: unlabored. ABSENT: tachypnea, wheezes Cardiovascular exam: ABSENT: tachycardia GI/Abdominal exam: PRESENT: soft, other - obese. ABSENT: tenderness Rectal exam: PRESENT: deferred Extremities exam: ABSENT: clubbing Musculoskeletal exam: ABSENT: deformity Neurological exam: PRESENT: alert, awake, oriented to person, oriented to place, oriented to time, oriented to situation Psychiatric exam: ABSENT: agitated, anxious, depressed Focused psych exam: ABSENT: delusional Skin exam: ABSENT: cyanosis, erythema, jaundice Results Laboratory Results: 01/16/20 06:01 01/15/20 17:00 01/15/20 01/16/20 23:06 06:01 WBC 8.8 7.3 RBC 4.18 3.76 Hgb 13.2 12.2 Hct 39.9 36.1 MCV 95 96 MCH 31.5 32.4 MCHC 33.1 33.7 RDW 15.2 H 14.9 H Plt Count 287 272 Seg Neutrophils % 56.2 Impressions: Chest X-Ray 01/15/20 14:21 IMPRESSION: NO ACUTE RADIOGRAPHIC FINDING IN THE CHEST. Assessment & Plan - Diagnosis (1) Melena Is this a current diagnosis for this admission?: Yes (2) Anemia Qualifiers: Anemia type: unspecified type Qualified Code(s): D64.9 - Anemia, unspecifi ed Is this a current diagnosis for this admission?: Yes - Time Anticipated Discharge Disposition: unknown Anticipated Discharge Timeframe: unknown - Plan Summary Plan Summary: 54-year-old female with a hypercoagulable state, on anticoagulation. She reports anemia and melena. EGD was performed yesterday, which was essentially normal. The patient is currently drinking her bowel prep. Her anticoagulation is on hold. Plan for colonoscopy tomorrow. This has been discussed with the patient at length, and she is in agreement with the treatment plan. Risks/be nefits discussed, informed consent obtained, and all questions answered.
[2020-01-16] MEDS: LOSARTAN POTASSIUM 50 MG TABLET PO SCH (21:15)
[2020-01-16] MEDS: ZOLPIDEM TARTRATE 5 MG TABLET PO SCH (21:15)
[2020-01-16] MEDS: ATORVASTATIN CALCIUM 10 MG TABLET PO SCH (21:16)
--- NOTE | 2020-01-16 22:42 | Progress Note ---
Provider Note Provider Note: CARDIOLOGY PROGRESS NOTE by Dr. Meagan Tse on 01/16/2020. SUBJECTIVE: The patient denies any further black tarry stools. There is no chest pain discomfort. There is no shortness of breath. There is no PND orthopnea. There is no ventricular arrhythmias on the monitor. The patient's Xarelto has been held and the patient is for colonoscopy tomorrow. Her upper GI endoscopy showed no evidence of bleeding. PHYSICAL EXAMINATION: The patient is morbidly obese. In no acute distress. She is well-groomed Selected Entries 01/16/20 12:10 Temperature 97.4 F Temperature Oral Source Pulse Rate 79 Respiratory 17 Rate Blood Pressure 119/77 Blood Pressure 91 Mean BP Location Left Wrist BP Position Sitting O2 Sat by Pulse 98 Oximetry Oxygen Delivery Room Air Method HEAD: Is atraumatic normocephalic. EYES: Pupils are equal round regular reactive to light and accommodation. There is no conjunctival pallor. There is no scleral icterus. EARS: Tympanic membranes are intact. External auditory canals are clear. NOSE: There is no deviated nasal septum. There is no inflammation nasal mucous membrane. MOUTH: There is no bleeding from the gums there is no ulcers in the mouth. Mucous membranes of mouth are moist. THROAT: There is no redness of the oropharynx. There is no exudates. SKIN: There is no skin rashes. There is no skin lesions. There is no petechia or ecchymosis. NECK: Supple. There is no JVD. Carotids are equal there is no bruit. There is no lymphadenopathy. There is no goiter. There is no accessory muscle respiration use. Trachea central. LUNGS: Is clear to auscultation percussion. There is no chest wall tenderness. HEART: S1-S2 is heard. S1 is of variable intensity. There is systolic murmur left sternal border and the apex there is no rub. There is no S3 or S4 gallops. ABDOMEN: Is obese. Nontender there is no hepatosplenomegaly. Bowel sounds are well heard. EXTREMITIES: Femorals are deep. Femorals are slightly diminished. There is no femoral bruits. Leg pulses are well felt. At present there is no DVT cellulitis. There is no leg edema. There is no cyanosis or clubbing. Capillary refill is normal. REGIONAL ENGAGEMENT CONSULTANT: The patient is conscious awake alert oriented x3 with no focal deficits. Psychiatric: The patient judgment site are intact her affect is normal. Labs- All tests 24 hr 01/16/20 06:01 WBC 7.3 RBC 3.76 Hgb 12.2 Hct 36.1 MCV 96 MCH 32.4 MCHC 33.7 RDW 14.9 H Plt Count 272 Lymph % (Auto) 30.2 [place] % (Auto) 8.5 Eos % (Auto) 3.9 Baso % (Auto) 1.2 Absolute Neuts (auto) 4.1 Absolute Lymphs (auto) 2.2 Absolute Monos (auto) 0.6 Absolute Eos (auto) 0.3 Absolute Basos (auto) 0.1 Seg Neutrophils % 56.2 Chest X-Ray 01/15/20 14:21 IMPRESSION: NO ACUTE RADIOGRAPHIC FINDING IN THE CHEST. IMPRESSION/RECOMMENDATION: 1. GI bleed most likely secondary to lower GI bleed. Patient for colonoscopy tomorrow. 2. History of atrial fibrillation chronic. S/p AV shun ablation after permanent pacemaker placement due to uncontrolled ventricular response to atrial fibrillation. 3. History of protein C deficiency. 4. History of pulmonary embolism with no recurrence. 5. History of DVT. 6. History of hypertension. 7. History of permanent pacemaker placement. 8. History of AV shun ablation for atrial fibrillation rate control. 9. History of uterine cancer. 10. History of breast cancer. 11. History of hypertension: Blood pressure well controlled 12. Diabetes mellitus type 2 [id number]. Note the patient is on Ranexa secondary to see if the patient could be kept in sinus mechanism. She does not have coronary artery disease. Hence we will discontinue Ranexa. Cardiac status is stable. Medications reviewed. Management plan discussed with Dr. Isabel. Medical decision making is of moderate complexity. 40 minutes spent as patient more than 50% time spent direct care patient care. The patient will be low cardiac risk for this colonoscopy scheduled for tomorrow. Will follow
[2020-01-17] MEDS: OXYBUTYNIN CHLORIDE 5 MG TABLET PO SCH ×2 (05:38→15:18)
[2020-01-17 06:45] LABS: ABSOLUTE BASOPHILS # (AUTO) 0.1 10^3/uL (0.0-0.2); ABSOLUTE EOSINOPHILS # (AUTO) 0.2 10^3/uL (0.0-0.6); ABSOLUTE LYMPHOCYTES (AUTO) 2.4 10^3/uL (0.5-4.7); ABSOLUTE MONOCYTES (AUTO) 0.5 10^3/uL (0.1-1.4); ABSOLUTE NEUT (AUTO) 3.5 10^3/uL (1.7-8.2); BASOPHILS % (AUTO) 1.3 % (0-2); EOSINOPHILS % (AUTO) 3.6 % (0-6); HEMATOCRIT 34.8 % (36.0-47.0); HEMOGLOBIN 11.5 g/dL (12.0-15.5); LYMPHOCYTES % (AUTO) 35.7 % (13-45); MEAN CORPUSCULAR HEMOGLOBIN 31.7 pg (27.0-33.4); MEAN CORPUSCULAR HGB CONC 33.1 g/dL (32.0-36.0); MEAN CORPUSCULAR VOLUME 96 fl (80-97); MONOCYTES % (AUTO) 7.9 % (3-13); PLATELET COUNT 281 10^3/uL (150-450); RED BLOOD COUNT 3.64 10^6/uL (3.72-5.28); SEGMENTED NEUTROPHILS % (AUTO) 51.5 % (42-78); TOTAL CELLS COUNTED % (AUTO) 100 %; WHITE BLOOD COUNT 6.8 10^3/uL (4.0-10.5)
[2020-01-17 07:07] LABS: ANION GAP 6 (5-19); BLOOD UREA NITROGEN 9 mg/dL (7-20); CALCIUM 8.6 mg/dL (8.4-10.2); CARBON DIOXIDE 25 mmol/L (22-30); CHLORIDE 108 mmol/L (98-107); GLUCOSE 87 mg/dL (75-110); POTASSIUM 4.2 mmol/L (3.6-5.0)
[2020-01-17] MEDS ORDERED: PROPOFOL INJ 200 MG/20 ML VIAL IV ONE (07:43)
[2020-01-17] MEDS ORDERED: PROMETHAZINE HCL INJ 25 MG/1 ML VIAL IV PRN ×2 (08:28)
[2020-01-17] MEDS ORDERED: DIPHENHYDRAMINE HCL 50 MG/ML VIAL IV PRN (08:28)
[2020-01-17] MEDS ORDERED: FENTANYL CITRATE INJ/PF 100 MCG/2 ML AMPUL IV PRN ×3 (08:28)
--- NOTE | 2020-01-17 08:47 | Operative Report ---
Operative Report DATE OF SURGERY: 01/17/20 PREOPERATIVE DIAGNOSIS: 1. Melanotic stool. 2. Morbid obesity POSTOPERATIVE DIAGNOSIS: Same; no evidence of active colonic bleeding or Endoluminal pathology OPERATION: Total colonoscopy to cecum SURGEON: THADDEUS CHATTERJEE ANESTHESIA: LMAC TISSUE REMOVED OR ALTERED: None COMPLICATIONS: None ESTIMATED BLOOD LOSS: None INTRAOPERATIVE FINDINGS: None PROCEDURE: Obtaining informed consent the patient was taken from the preoperative holding area to the main operating room where monitoring devices were attached to the patient. Plan and surgical timeout were conducted The patient was placed in the left lateral decubitus position with knees to c hest. A perianal examination was performed. There was no visible or palpable anorectal pathology. Sphincter tone was felt to be normal. Buttock cheeks were spread The flexible adult colonoscope was advanced through the anal rectal canal, all the way to the cecum. Visualization of the cecum was achieved by demonstration of the ileocecal valve, the appendiceal orifice and transillumination of the anterior abdominal wall. This was a fair study on a poorly prepped bowel; there was a moderate amount of residual liquid and particulate yellow and brown stool, requiring aspiration irrigation and re-aspiration. The colonoscope was withdrawn slowly and methodically checked and the mucosa carefully. There was no obvious evidence of tumor, stricture, bleeding or polyp. There was no evidence of diverticuloses. Again endoscopic evaluation limited due to incomplete bowel prep the scope was slowly withdrawn through the anal rectal canal. Complete visualization of the rectum was achieved with photodocumentation. The scope was withdrawn to the patient's anus. The patient tolerated the procedure well and was taken to the recovery area in stable condition. Per surveillance guidelines, patient will be an appropriate candidate for follow-up colonoscopy in [7-10] years. Discussion: 1. No obvious source of bleeding, or endoscopic pathology identified 2. The quality of the study was limited due to incomplete bowel prep. 3. May resume preoperative medication, diet, activity, including 10 a inhibitor 4. Surgery will sign off; reconsult if clinically indicated
[2020-01-17] MEDS: RANOLAZINE 500 MG TAB.SR.12H PO SCH (09:53)
[2020-01-17] MEDS: LORAZEPAM 1 MG TABLET PO SCH (09:53)
[2020-01-17] MEDS: METFORMIN HCL 500 MG TABLET PO SCH (09:53)
[2020-01-17] MEDS: PAROXETINE HCL 20 MG TABLET PO SCH (09:53)
[2020-01-17] MEDS: COLESTIPOL HCL 1 GM TABLET PO SCH ×2 (09:53→15:18)
[2020-01-17] MEDS: PANTOPRAZOLE SODIUM 40 MG VIAL IV SCH (09:54)
[2020-01-17] MEDS: SPIRONOLACTONE 25 MG TABLET PO SCH (09:54)
[2020-01-17] MEDS: METOPROLOL TARTRATE 50 MG TABLET PO SCH (09:54)
--- NOTE | 2020-01-17 15:50 | PDOC DISCHARGE SUMMARY ---
Impression - Admit/DC Date/PCP Admission Date/Primary Care Provider: 01/15/20 14:20 MAGNOLIA ADLER MD Discharge Date: 01/17/20 - Additional Information Resuscitation Status: Full Code Referrals: MAGNOLIA ADLER MD [Primary Care Provider] - Follow up as needed Prescriptions: Rivaroxaban [Xarelto 10 mg Tablet] 10 mg PO DAILY #30 tablet Home Medications: Atorvastatin Calcium [Lipitor 10 mg Tablet] 10 mg PO QHS 03/05/17 Colestipol HCl [Colestid 1 gm Tablet] 2 gm PO QID 03/05/17 Lorazepam [Ativan 1 mg Tablet] 1 mg PO BID 03/05/17 Losartan Potassium [Cozaar 50 mg Tablet] 50 mg PO QHS 03/05/17 Metformin HCl [Glucophage 500 mg Tablet] 500 mg PO DAILY 03/05/17 Ranolazine [Ranexa 500 mg Tab.sr] 1,000 mg PO Q12 03/05/17 Spironolactone [Aldactone 25 mg Tablet] 25 mg PO DAILY #30 tablet 03/09/17 Metoprolol Tartrate [Lopressor 50 mg Tablet] 50 mg PO Q12 09/21/18 Zolpidem Tartrate [Ambien] 10 mg PO QHS 01/28/19 Cariprazine HCl [Vraylar] 3 mg PO DAILY 01/15/20 Oxybutynin Chloride [Oxybutynin Chloride ER] 15 mg PO DAILY 01/15/20 Paroxetine HCl [Paxil] 30 mg PO DAILY 01/15/20 Rivaroxaban [Xarelto 10 mg Tablet] 10 mg PO DAILY #30 tablet 01/17/20 History of Present Illiness History of Present Illness: AGUSTIN ETIENNE is a 54 year old female with multiple medical problems including hypercoagulability with protein S deficiency with history of pulmonary embolism and deep venous thrombosis on chronic Xarelto. She has a history of a gastrointestinal bleed 2 months ago as evidenced by melena but did not require blood transfusions at that time. She had been admitted to [facility] for several days for evaluation of her gastrointestinal bleed. At that time she underwent an upper and lower endoscopy. She was told that she had diverticulosis but the source of her bleed apparently was not clearly identified. She was discharged home with proton pump inhibitor and a decrease of her Xarelto to 10 mg a day. Patient was doing well up until 2 days ago when she developed some crampy abdominal pain along with black and brown stool. Last night she had 3 episodes of black tarry appearing stools along with crampy abdominal pain. Currently she does not have abdominal pain and she has not experienced any lightheadedness. She has had no emesis. She has no history of alcohol abuse. She takes ibuprofen on rare occasions perhaps once a month. Patient does have multiple other medical problems including diabetes, congestive heart failure, atrial fib, pacemaker dependence, COPD, history of breast cancer as well as cervical cancer. Patient does have a history of IVC filter placement in the past and despite the IVC filter being in place she has had embolisms. Hospital Course Hospital Course: Patient was admitted for evaluation and management of passage of melanotic stool, she underwent upper endoscopy on 01/15/2020, it was normal she underwent colonoscopy today the prep was poor for the bowel there was moderate amount of residual liquid and particulate yellow and brown stool requiring aspiration, irrigation, but there was no evidence of active colonic bleed or endoluminal pathology. She did not require any blood transfusion on this admission, she is stable enough for discharge. I saw her today by the bedside, she has no new complaints, she wants to go home. Physical Exam Vital Signs: Temp Pulse Resp BP Pulse Ox 97.7 F 81 18 128/76 H 92 01/17/20 11:58 01/17/20 11:58 01/17/20 11:58 01/17/20 11:58 01/17/20 11:58 Intake & Output 01/16/20 01/17/20 01/18/20 06:59 06:59 06:59 Intake Total 350 1678 750 Output Total 0 Balance 350 1678 750 Weight 155.5 kg 153.8 kg General appearance: PRESENT: no acute distress Eye exam: PRESENT: PERRLA Respiratory exam: PRESENT: clear to auscultation ingrid Cardiovascular exam: PRESENT: +S1, +S2 GI/Abdominal exam: PRESENT: soft Neurological exam: PRESENT: alert Results Laboratory Results: WBC 6.8 10^3/uL (4.0-10.5) 01/17/20 05:50 RBC 3.64 10^6/uL (3.72-5.28) L 01/17/20 05:50 Hgb 11.5 g/dL (12.0-15.5) L 01/17/20 05:50 Hct 34.8 % (36.0-47.0) L 01/17/20 05:50 MCV 96 fl (80-97) 01/17/20 05:50 MCH 31.7 pg (27.0-33.4) 01/17/20 05:50 MCHC 33.1 g/dL (32.0-36.0) 01/17/20 05:50 RDW 15.0 % (11.5-14.0) H 01/17/20 05:50 Plt Count 281 10^3/uL (150-450) 01/17/20 05:50 Lymph % (Auto) 35.7 % (13-45) 01/17/20 05:50 [place] % (Auto) 7.9 % (3-13) 01/17/20 05:50 Eos % (Auto) 3.6 % (0-6) 01/17/20 05:50 Baso % (Auto) 1.3 % (0-2) 01/17/20 05:50 Absolute Neuts (auto) 3.5 10^3/uL (1.7-8.2) 01/17/20 05:50 Absolute Lymphs (auto) 2.4 10^3/uL (0.5-4.7) 01/17/20 05:50 Absolute Monos (auto) 0.5 10^3/uL (0.1-1.4) 01/17/20 05:50 Absolute Eos (auto) 0.2 10^3/uL (0.0-0.6) 01/17/20 05:50 Absolute Basos (auto) 0.1 10^3/uL (0.0-0.2) 01/17/20 05:50 Seg Neutrophils % 51.5 % (42-78) 01/17/20 05:50 PT 17.9 SEC (11.4-15.4) H 01/15/20 12:00 INR 1.47 01/15/20 12:00 Sodium 139.0 mmol/L (137-145) 01/17/20 05:50 Potassium 4.2 mmol/L (3.6-5.0) 01/17/20 05:50 Chloride 108 mmol/L (98-107) H 01/17/20 05:50 Carbon Dioxide 25 mmol/L (22-30) 01/17/20 05:50 Anion Gap 6 (5-19) 01/17/20 05:50 BUN 9 mg/dL (7-20) 01/17/20 05:50 Creatinine 0.90 mg/dL (0.52-1.25) 01/17/20 05:50 Est GFR ( Amer) > 60 (>60) 01/17/20 05:50 Est GFR (MDRD) Non-Af > 60 (>60) 01/17/20 05:50 Glucose 87 mg/dL (75-110) 01/17/20 05:50 POC Glucose 101 mg/dL (70-110) 01/17/20 11:59 Calcium 8.6 mg/dL (8.4-10.2) 01/17/20 05:50 Total Bilirubin 0.6 mg/dL (0.2-1.3) 01/15/20 12:00 Direct Bilirubin 0.3 mg/dL (0.0-0.4) 01/15/20 12:00 Neonat Total Bilirubin Not Reportable 01/15/20 12:00 Neonat Direct Bilirubin Not Reportable 01/15/20 12:00 Neonat Indirect Bili Not Reportable 01/15/20 12:00 AST 22 U/L (14-36) 01/15/20 12:00 ALT 19 U/L (<35) 01/15/20 12:00 Alkaline Phosphatase 61 U/L (38-126) 01/15/20 12:00 Total Protein 6.2 g/dL (6.3-8.2) L 01/15/20 12:00 Albumin 3.4 g/dL (3.5-5.0) L 01/15/20 12:00 Lipase 60.7 U/L (23-300) 01/15/20 12:00 SARS-CoV-2 (PCR) NEGATIVE (NEGATIVE) 01/15/20 14:24 Blood Type A POSITIVE 01/15/20 12:00 Antibody Screen NEGATIVE 01/15/20 12:00 Impressions: Chest X-Ray 01/15/20 14:21 IMPRESSION: NO ACUTE RADIOGRAPHIC FINDING IN THE CHEST. Stroke Is this a Stroke Patient?: No Acute Heart Failure Is this a Heart Failure Patient?: No
[2020-01-17 17:04] VITALS: BP 138/89
--- NOTE | 2020-01-17 22:11 | Progress Note ---
Provider Note Provider Note: CARDIOLOGY PROGRESS NOTE by Dr. Suarez on 01/17/2020. SUBJECTIVE: The patient denies any chest pain or discomfort. There is no further GI bleed. The patient did have a colonoscopy today which did not yield any source of bleeding or etiology of the patient's bleed. She denies any shortness of breath. The patient is ready to go home. We will have the patient see outpatient hematology to confirm if the patient does really have protein C deficiency. If she does have what she needs to be on Xarelto. Will restart the patient on Xarelto until this is done. If the protein C deficiency is negative on work-up, then would recommend referring the patient as an outpatient to Dr. Yuen, CT surgeon [facility] for possible for laparoscopic thoracotomy and banding of the left atrium. In that case the patient can come off anticoagulation. This has been discussed in detail with the patient. Physical EXAMINATION: The patient is morbidly obese. At present no acute distress Selected Entries 01/17/20 15:32 Temperature 98.0 F Temperature Oral Source Pulse Rate 80 Respiratory 21 H Rate Blood Pressure 138/89 H Blood Pressure 105 Mean BP Location Left Arm BP Position Sitting O2 Sat by Pulse 94 Oximetry Oxygen Delivery Room Air Method HEAD: Is atraumatic normocephalic. EYES: Pupils are equal round regular reactive to light and accommodation. There is no conjunctival pallor. There is no scleral icterus. EARS: Tympanic membranes are intact. External auditory canals are clear. NOSE: There is no deviated nasal septum. There is no inflammation nasal mucous membrane. MOUTH: There is no bleeding from the gums there is no ulcers in the mouth. Mucous membranes of mouth are moist. THROAT: There is no redness of the oropharynx. There is no exudates. SKIN: There is no skin rashes. There is no skin lesions. There is no petechia or ecchymosis. NECK: Supple. There is no JVD. Carotids are equal there is no bruit. There is no lymphadenopathy. There is no goiter. There is no accessory muscle respiration use. Trachea central. LUNGS: Is clear to auscultation percussion. There is no chest wall tenderness. HEART: S1-S2 is heard. S1 is of variable intensity. There is systolic murmur left sternal border and the apex there is no rub. There is no S3 or S4 gallops. ABDOMEN: Is obese. Nontender there is no hepatosplenomegaly. Bowel sounds are well heard. EXTREMITIES: Femorals are deep. Femorals are slightly diminished. There is no femoral bruits. Leg pulses are well felt. At present there is no DVT cellulitis. There is no leg edema. There is no cyanosis or clubbing. Capillary refill is normal. FUEL CELL DESIGNER: The patient is conscious awake alert oriented x3 with no focal deficits. Psychiatric: The patient judgment site are intact her affect is normal. Chest X-Ray 01/15/20 14:21 IMPRESSION: NO ACUTE RADIOGRAPHIC FINDING IN THE CHEST. Labs- All tests 24 hr 01/17/20 01/17/20 01/17/20 05:50 05:50 11:59 WBC 6.8 RBC 3.64 L Hgb 11.5 L Hct 34.8 L MCV 96 MCH 31.7 MCHC 33.1 RDW 15.0 H Plt Count 281 Lymph % (Auto) 35.7 [place] % (Auto) 7.9 Eos % (Auto) 3.6 Baso % (Auto) 1.3 Absolute Neuts (auto) 3.5 Absolute Lymphs (auto) 2.4 Absolute Monos (auto) 0.5 Absolute Eos (auto) 0.2 Absolute Basos (auto) 0.1 Seg Neutrophils % 51.5 Sodium 139.0 Potassium 4.2 Chloride 108 H Carbon Dioxide 25 Anion Gap 6 BUN 9 Creatinine 0.90 Est GFR ( Amer) > 60 Est GFR (MDRD) Non-Af > 60 Glucose 87 POC Glucose 101 Calcium 8.6 IMPRESSION/RECOMMENDATION: 1. GI bleed most likely secondary to lower GI bleed. But no active source found. Also there is no further bleed. The patient needs to go back on Xarelto since she has history of protein C deficiency. 2. History of atrial fibrillation chronic. S/p AV shun ablation after permanent pacemaker placement due to uncontrolled ventricular response to atrial fibrillation. 3. History of protein C deficiency. Will have hematology confirm this as an outpatient. If the patient does not have protein C deficiency then may refer her for a laparoscopic thoracotomy procedure to planned the left atrium. If this is done the patient does not need to be on chronic anticoagulation. This has been discussed with the patient. 4. History of pulmonary embolism with no recurrence. 5. History of DVT. 6. History of hypertension. 7. History of permanent pacemaker placement. 8. History of AV shun ablation for atrial fibrillation rate control. 9. History of uterine cancer. 10. History of breast cancer. 11. History of hypertension: Blood pressure well controlled 12. Diabetes mellitus type 2 [id number]. Note the patient is on Ranexa secondary to see if the patient could be kept in sinus mechanism. She does not have coronary artery disease. Hence we will discontinue Ranexa. Cardiac status is stable. Medications reviewed. Management plan discussed with Dr. Isabel. Medical decision making is of moderate complexity. 40 minutes spent as patient more than 50% time spent direct care patient care. The patient will be low cardiac risk for this colonoscopy scheduled for tomorrow. Will sign off and follow the patient in the office.
== END 2020-01-17 17:13 | disposition home or self-care (01) ==
LOC: ER 10:25 → INTOOBSV 14:20 → EH 14:20 → 3S 19:37
PROVIDERS: ADMIT Family Medicine; ATTEND Family Medicine
DX: K92.1 Melena (principal); D68.59 Other primary thrombophilia; I82.509 Chronic embolism and thrombosis of unspecified deep veins of unspecified lower extremity; R10.9 Unspecified abdominal pain; E11.9 Type 2 diabetes mellitus without complications; E66.01 Morbid (severe) obesity due to excess calories; R06.09 Other forms of dyspnea; E78.5 Hyperlipidemia, unspecified; I25.10 Atherosclerotic heart disease of native coronary artery without angina pectoris; K21.9 Gastro-esophageal reflux disease without esophagitis; J44.9 Chronic obstructive pulmonary disease, unspecified; I48.20 Chronic atrial fibrillation, unspecified; I11.0 Hypertensive heart disease with heart failure; I50.42 Chronic combined systolic (congestive) and diastolic (congestive) heart failure; D64.9 Anemia, unspecified; Z79.01 Long term (current) use of anticoagulants; Z86.711 Personal history of pulmonary embolism; Z85.3 Personal history of malignant neoplasm of breast; Z85.41 Personal history of malignant neoplasm of cervix uteri; Z90.49 Acquired absence of other specified parts of digestive tract; Z98.51 Tubal ligation status; Z79.899 Other long term (current) drug therapy; Z95.0 Presence of cardiac pacemaker; Z90.710 Acquired absence of both cervix and uterus; Z79.84 Long term (current) use of oral hypoglycemic drugs; Z03.818 Encounter for observation for suspected exposure to other biological agents ruled out
CPT/HCPCS: 93005; 99285; 96374; 96375; 43235; 45378; 86900; 86901; 36415 ×3; 86850; 82962; 83690; 85025 ×3; 85610; 80048; 80053; 71045; 93010; 00731; 00811; G0378 ×2; U0003; A9270 ×28; C9113 ×3; J2405 ×2; J2704 ×2; C9803; 731; 811; 87635; J3490